=== PATIENT | female | born 1940 | race Caucasian/White ===

== ENCOUNTER 2019-12-26 09:26 | Observation (INO) | payer MEDICARE, SELFPAY ==
[2019-12-26] VITALS (13 sets, daily range): BP systolic 120–159; BP diastolic 50–87; PULSE 70–100; RESP 12–71; TEMP 36.1–36.7; O2SAT 16–100; BMI 26.6
--- NOTE | ~2019-12-26 | CT_ITS ---
EXAMINATION: CT brain wo con DATE: 12/26/2019 09:53 INDICATION: Dizziness TECHNIQUE: Computed tomography (CT) of the head was performed without intravenous contrast. The dose- length product was 605.33 mGy-cm. The mA was adjusted according to patient size. Iterative reconstruc tion technique was employed. COMPARISON: None FINDINGS: There are scattered mild periventricular and subcortical white matter changes, most likely related to small vessel ischemic disease (microangiopathy). No acute intracranial hemorrhage, infarct ion, mass or mass effect. No ventriculomegaly or midline shift. Basilar cisterns are patent. There is mild intracranial atherosclerosis. Paranasal sinuses and mastoids are pneumatized. No depressed skul l fractures. Midline sagittal images are unremarkable. IMPRESSION: 1. No acute intracranial abnormality. 2: Chronic age-related findings. Reviewed, dictated and finalized at location A.
--- NOTE | ~2019-12-26 | XR_ITS ---
EXAMINATION: XR chest 1V 12/26/2019 09:55 INDICATION: Dizziness PROCEDURE: AP view of the chest COMPARISON: 04/07/2017 FINDINGS: The lungs are clear. The cardiomediastinal silhouette is within normal limits. There are no pleural effusions. There is no pneumothorax suspected. IMPRESSION: 1: NO ACUTE CARDIOPULMONARY DISEASE. Reviewed, dictated and finalized at location A.
--- NOTE | 2019-12-26 09:24 | ED.SYNCOPE ---
HPI - Syncope General Chief Complaint: Syncope Stated Complaint: SYNCOPAL EPISODE Time Seen by Provider: 12/26/19 09:24 Source: patient Mode of arrival: EMS Limitations: no limitations History of Present Illness HPI narrative: A 79 y/o female presents to the ED, via EMS, with c/o syncope. Pt states that she was making oatmeal this morning when she started to feel hot and began to sweat. She notes that she sat down in her chair and lost consciousness. Pt does not know how long she lost consciousness, but believes that it was a short amount of time. She denies CP and SOB. Pt has a PMHx of CHF and her director search marketing strategies is Dr. Betancourt. Her blood sugar was 273 en route. Pt is asymptomatic in the ED. MD complaint: loss of consciousness Onset (ago): hour(s) (today) Prodromal symptoms: diaphoresis and other (feeling hot) Context: at rest Injuries sustained associated with event: none Current symptoms: none Related Data Home Medications Medication Instructions Recorded Confirmed aspirin 325 mg PO DAILY 12/26/19 12/26/19 bumetanide 1 mg PO BID 12/26/19 12/26/19 levothyroxine [Synthroid] 12/26/19 lisinopril 12/26/19 metoprolol succinate 50 mg PO DAILY 12/26/19 12/26/19 omeprazole-sodium bicarbonate 1 cap PO DAILY 12/26/19 12/26/19 psyllium husk [Wal-Mucil Fiber] 0.52 g PO DAILY 12/26/19 12/26/19 rosuvastatin [Crestor] mg 12/26/19 Allergies Allergy/AdvReac Type Severity Reaction Status Date / Time No Known Allergies Allergy Mild Verified 12/26/19 09:36 Review of Systems Review of Systems: All systems reviewed & are unremarkable except as noted in HPI and below Constitutional: Constitutional: Reports other (resolved feeling hot) Cardiovascular: Cardiovascular: Denies chest pain and Reports other (resolved diaphoresis) Respiratory: Respiratory: Denies dyspnea Neurologic: Reports syncope [facility] Past Medical History Medical History (Updated 12/26/19 @ 13:34 by Jeff Godfrey DO) Arthritis Breast cancer Bronchitis CAD (coronary artery disease) CHF (congestive heart failure) GERD (gastroesophageal reflux disease) History of radiation therapy HTN (hypertension) Hyperlipidemia Hypothyroid Post-menopausal Surgical History Surgical History (Updated 12/26/19 @ 09:46 by Mariann Harrell) History of appendectomy History of bladder surgery Sling History of cardiac catheterization History of hysterectomy History of lumpectomy of right breast History of tonsillectomy Social History Social History (Updated 12/26/19 @ 09:46 by Mariann Harrell) Smoking status: Former smoker Second hand tobacco smoke exposure: Yes Smoking end date: 10/04/76 Exam Narrative: Exam Narrative: APPEARANCE: No acute distress, nontoxic, resting in bed EYES: EOMI HEENT: Normocephalic, atraumatic, OMM RESPIRATORY: No respiratory distress Clear to auscultation bilaterally with no rhonchi wheezing or rales. CARDIOVASCULAR: Regular rate and rhythm without murmurs rubs or gallops. ABDOMINAL: Soft, nontender, nondistended, no rebound or guarding MUSCULOSKELETAl: Moves all extremities. No clubbing, cyanosis or edema. NEURO: Awake and alert x 3. Following commands, speech normal, no focal deficits SKIN:: Warm, dry. No rashes lesions or abrasions PSYCHIATRIC: Normal affect/mood, Course Course Emergency Course: Discussed with BAKARI Ernst presentation work-up. Agrees with admission at this time Discussed with patient and family results of workup and diagnosis. Discussed need for admission. Patient and family understand and agree to current treatment plan Consultations Consultation #1: Discussed case with BAKARI Munguia to the hospitalist. She accepts admission. Date: 12/26/19 Time: 13:00 Vital Signs Vital signs: Vital Signs Temperature 97.5 F L 12/26/19 09:25 Pulse Rate 74 12/26/19 09:25 Respiratory Rate 12 12/26/19 09:25 Blood Pressure 139/87 12/26/19 09:25 Pulse Oximetry 100 12/26/19 09:25 Temperature 97.5 F L 0
--- NOTE | 2019-12-26 09:28 | ECG_ITS ---
Measurements Intervals [place] Rate: 74 P: 51 [place]: 177 QRS: -33 QRSD: 171 T: 180 QT: 457 QTc: 508 Interpretive Statements SINUS RHYTHM LEFT AXIS DEVIATION LEFT BUNDLE BRANCH BLOCK BASELINE ARTIFACT- I, II, III, AVF, V5 ABNORMAL ECG Electronically Signed On 12-26-2019 10:21:25 CDT by Juan R Armstrong D.O.
[2019-12-26 09:41] LABS: Glucose Point of Care 230 (65-105)
[2019-12-26 09:56] LABS: Basophils Absolute Auto 0.1 K/mm3 (0.0-0.1); Basophils Percent Auto 0.7 % (0.2-1.2); Eosinophils Absolute Auto 0.1 K/mm3 (0-0.3); Eosinophils Percent Auto 1.9 % (0-4.4); Hemoglobin 11.9 g/dL (12.0-15.0); Immature Granulocyte Absolute 0.04 K/mm3 (0.00-0.031); Immature Granulocyte Percent A 0.5 % (0-0.5); Lymphocytes Absolute Auto 1.26 K/mm3 (0.9-3.2); Lymphocytes Percent Auto 16.9 % (18.3-44.2); Mean Corpuscular HGB Conc 31.3 g/dl (32-36); Mean Corpuscular Hemoglobin 28.7 pg (26-34); Mean Corpuscular Volume 91.6 fl (80-100); Mean Platelet Volume 10.4 fl (7.4-10.4); Monocytes Absolute Auto 0.5 K/mm3 (0.1-0.6); Monocytes Percent Auto 6.6 % (2.6-8.5); Neutrophils Absolute Auto 5.5 K/mm3 (1.3-6.7); Neutrophils Percent Auto 73.4 % (45.5-73.1); Platelet Count Result 368 k/mm3 (150-375); Red Blood Count 4.15 M/mm3 (4.2-5.4); Red Cell Distribution Width 14.2 % (11.5-14.5); White Blood Count 7.5 K/mm3 (4.5-10.0)
[2019-12-26 10:06] LABS: INR 0.9; Prothrombin Time 11.7 Seconds (11.1-14.7)
[2019-12-26 10:07] LABS: Partial Thromboplastin Time 24.4 SECONDS (22.3-36.8)
[2019-12-26 10:10] LABS: Alanine Aminotransferase 17 U/L (4-35); Albumin Level 4.4 g/dL (3.5-5.1); Alkaline Phosphatase 52 U/L (38-126); Aspartate Amino Transferase 40 U/L (14-36); Bilirubin,Total 0.5 mg/dL (0.2-1.3); Blood Urea Nitrogen 19 mg/dL (7-17); Calcium 8.9 mg/dL (8.4-10.2); Carbon Dioxide 29 mmol/L (22-30); Chloride 97 mmol/L (98-107); Estimated CRCL calculation 50 ml/min; Estimated Glomerular Filt Rate > 60; Glucose 196 mg/dL (65-105); Potassium 3.8 mmol/L (3.4-5.0); Sodium 136 mmol/L (137-145)
[2019-12-26 10:20] LABS: Troponin I < 0.012 ng/mL (0.000-0.034)
[2019-12-26 10:31] LABS: Add Urine Microscopic? YES; Appearance Urine Clear (Clear); Bacteria Urine Trace /hpf; Bilirubin Urine Negative (Negative); Blood Urine Negative (Negative); Color Urine Yellow (Yellow); Glucose Urine UA Negative (Negative); Ketones Urine Negative (Negative); Leukocyte Esterase Ur Negative LEU/UL (Negative); Nitrate Urine Negative (Negative); Protein Urine Negative (Negative); RBC Urine 0-2 /hpf (0-2); Squamous Epithelial Cell Urine Rare /hpf (Few); Urobilinogen Urine Negative mg/dL (<2.0); WBC Urine 0-3 /hpf
[2019-12-26] MEDS: SODIUM CHLORIDE 0.9% IV 1,000 ML 999 ML IV CONT (10:31)
[2019-12-26 13:07] LABS: Troponin I < 0.012 ng/mL (0.000-0.034)
--- NOTE | 2019-12-26 14:04 | PC.NURSE ---
1323 faxed report 1334 called floor and was told that JARRED Morse was in procedure and would call back when done 1354 called floor again and Mini was then ready to take report
--- NOTE | 2019-12-26 14:05 | ADMGEN ---
This patient, Princess Schulz, was admitted to Medical Room 341-01. Patient/family oriented to hospital policies and general routines including ID bracelet, bed and alarms, visiting hours, pain management, procedures, bathroom and other care routines, personal items, smoking policy, room service/diet, and visiting hours. Valuables list has been completed. Information on how to activate the Rapid Response Team has been discussed. Patient/Family are encouraged to report perceived risks to care and to ask questions if they do not understand what they are told or what they should do.
--- NOTE | 2019-12-26 20:25 | PM.IMHP ---
H&P: HPI History of Present Illness Chief complaint: Passed out Narrative: Date and time of patient contact: 12/26/2019 at 8:25 p.m. Princess Schulz is a 79 year old female with a past medical history of hypertension, CHF and hyperlipidemia who presented to the ER via EMS due to syncope. The patient reported that she felt slightly lightheaded and ?off in the head? when she got out of bed this morning. So she got up and went to the bathroom in then made herself some oatmeal. She started to feel hot as if she was having a hot flash and began sweating. She went to sit down in the living room. She felt better after sitting down but she her hurt her call out to her so she had attempted to stand up. When she did she had a syncopal episode. According to the ER triage patient had passed out for 2-3 minutes. Patient herself states that she was okay as she was only out briefly but gather herself and communicate clearly her had already called EMS. She reports that she will have frequent episodes of ?not feeling right the head.?. She had mention this to Dr. Betancourt, her senior cobol developer, who had given her a book to read about her symptoms. Unfortunately, she lost that book before she could get it read. She reports that the symptoms frequently occur when she gets up quickly to do something. However this is the 1st time that she has noticed that her mouth has been on usually dry today. She feels as if she cannot get enough water. She denies any changes in urinary frequency, urgency or hematuria. She does not have a history of diabetes but was hyperglycemic on presentation to the ER. Her glucose per EMS was 273. The patient states she did eat prior to her syncopal episode. She denies any chest pain or palpitations. She does have a history of systolic congestive heart failure but reports that her EF has improved from 30% up to 48%. Prior to the virus pandemic the patient was going to the gym quite frequently and denied having any dyspnea on exertion, palpitations or chest pain. She has not had any lower extremity swelling. Dr. Betancourt has mentioned to her in the past that she could decrease her Bumex to once a day every other day and see how she tolerates this. She has never tried decreasing her diuretics. The patient reports that her life has been a little bit stressful lately as her currently has prostate cancer and is not doing well. Despite this, she thinks that she has been eating and drinking her usual amount. She has not noticed any decreased urine output or darker urine. Patient has been admitted to observation in this setting. Review of Systems Review of Systems: Narrative: 12 systems were reviewed with pertinent positives and negatives per HPI. Except as documented in the HPI, all other systems were reviewed and are negative. [facility] Past Medical History Medical History (Updated 12/27/19 @ 01:24 by Tanna Henriquez DO) Arthritis Breast cancer in situ Bronchitis GERD (gastroesophageal reflux disease) History of radiation therapy Thirty treatments of localized radiation therapy to right breast HTN (hypertension) Hyperlipidemia Hypothyroid Post-menopausal Systolic congestive heart failure The patient reports that her ejection fraction had been as low as 30% in the past. Through cardiac rehab in medications her EF is up to 48% Surgical History Surgical History (Updated 12/27/19 @ 01:17 by Tanna Henriquez DO) History of appendectomy History of bladder suspension procedure History of cardiac catheterization History of hysterectomy At 36 years of age History of lumpectomy of right breast Due to breast cancer in-situ History of tonsillectomy Family History Family History Mother Colon cancer Social History Social History (Updated 12/27/19 @ 01:42 by Tanna Henriquez DO) Smoking packs per day: 1 Smoking cigarettes per day: 20.0 Years smoked: 2
[2019-12-26] MEDS: SODIUM CHLORIDE 0.9% IV 1,000 ML 100 ML IV CONT (20:46)
[2019-12-26] MEDS: ROSUVASTATIN 10 MG TABLET 40 MG PO (20:46)
[2019-12-27] VITALS (7 sets, daily range): BP systolic 129–141; BP diastolic 50–61; PULSE 67–84; RESP 16; TEMP 36; O2SAT 98
[2019-12-27] MEDS: LEVOTHYROXINE SODIUM 50 MCG TABLET PO (05:48)
--- NOTE | 2019-12-27 06:00 | ECG_ITS ---
Measurements Intervals [place] Rate: 81 P: 47 [place]: 175 QRS: -30 QRSD: 160 T: 207 QT: 432 QTc: 504 Interpretive Statements SINUS RHYTHM LEFT AXIS DEVIATION LEFT BUNDLE BRANCH BLOCK ABNORMAL ECG Electronically Signed On 12-27-2019 9:27:11 CDT by Juan R Armstrong D.O.
[2019-12-27 06:23] LABS: Basophils Absolute Auto 0.1 K/mm3 (0.0-0.1); Basophils Percent Auto 0.7 % (0.2-1.2); Eosinophils Absolute Auto 0.2 K/mm3 (0-0.3); Eosinophils Percent Auto 2.3 % (0-4.4); Hematocrit 33.4 % (37.0-47.0); Hemoglobin 10.4 g/dL (12.0-15.0); Immature Granulocyte Absolute 0.02 K/mm3 (0.00-0.031); Immature Granulocyte Percent A 0.3 % (0-0.5); Lymphocytes Absolute Auto 2.07 K/mm3 (0.9-3.2); Lymphocytes Percent Auto 29.8 % (18.3-44.2); Mean Corpuscular HGB Conc 31.1 g/dl (32-36); Mean Corpuscular Hemoglobin 28.2 pg (26-34); Mean Corpuscular Volume 90.5 fl (80-100); Monocytes Absolute Auto 0.5 K/mm3 (0.1-0.6); Monocytes Percent Auto 7.5 % (2.6-8.5); Neutrophils Absolute Auto 4.1 K/mm3 (1.3-6.7); Neutrophils Percent Auto 59.4 % (45.5-73.1); Platelet Count Result 345 k/mm3 (150-375); Red Blood Count 3.69 M/mm3 (4.2-5.4); Red Cell Distribution Width 13.8 % (11.5-14.5)
[2019-12-27] MEDS: SODIUM CHLORIDE 0.9% IV 1,000 ML 100 ML IV CONT (06:25)
[2019-12-27 06:30] LABS: Hemoglobin A1C 5.7 % (<5.7)
[2019-12-27 07:02] LABS: Blood Urea Nitrogen 13 mg/dL (7-17); Calcium 8.7 mg/dL (8.4-10.2); Carbon Dioxide 26 mmol/L (22-30); Chloride 107 mmol/L (98-107); Estimated CRCL calculation 49 ml/min; Estimated Glomerular Filt Rate > 60; Glucose 102 mg/dL (65-105); Potassium 3.5 mmol/L (3.4-5.0); Sodium 137 mmol/L (137-145)
[2019-12-27] MEDS: lisinopriL 10 MG TABLET PO (09:23)
[2019-12-27] MEDS: METOPROLOL SUCCINATE EXT REL 50 MG TABCR PO (09:23)
[2019-12-27] MEDS: PANTOPRAZOLE 40 MG TABLET PO (09:23)
[2019-12-27] MEDS: ASPIRIN 325 MG TABLET PO (09:23)
[2019-12-27] MEDS: BUMETANIDE 1 MG TABLET PO (09:23)
--- NOTE | 2019-12-27 09:41 | PCPTNOTE ---
Attempted PT eval. Pt refused therapy as she is walking in room. Denies any dizziness or being lightheaded. Spoke w/ Dr Chahalf and he agreed w/ DC'ing therapy.
--- NOTE | 2019-12-27 09:56 | PM.DS ---
DS: Diagnosis Admitting Diagnosis Admitting Diagnosis: Orthostatic hypotension Discharge Diagnosis (1) Orthostatic syncope: Code(s): I95.1 - Orthostatic hypotension Status: Acute Assessment and Plan: Given the patient's complaint of new onset dry mouth, and elevated BUN that coincide with diuretic use the patient's symptoms are most likely due to orthostatic syncope caused by dehydration. However patient did have prolonged QT interval on EKG. Will continue to monitor on telemetry and repeat EKG in a.m. (2) QT prolongation: Code(s): R94.31 - Abnormal electrocardiogram [ECG] [EKG] Status: Acute Assessment and Plan: The patient is not on any medications that would cause QT prolongation. Will repeat EKG in a.m. will avoid any QT prolonging medications. (3) Dehydration: Code(s): E86.0 - Dehydration Status: Acute Assessment and Plan: Continue IV fluid hydration. The patient had received 1 L of normal in the ER. The patient's evening Bumex has been held. Will change her Bumex to once daily in a.m.. (4) Hyperglycemia: Code(s): R73.9 - Hyperglycemia, unspecified Status: Acute Assessment and Plan: The patient had just eaten breakfast prior to arriving to the ER. However will check an A1c to rule out diabetes. DS: Summary Hospital Course Reason for hospitalization: Princess Schulz is a 79 year old female with a past medical history of hypertension, CHF and hyperlipidemia who presented to the ER via EMS due to syncope. The patient reported that she felt slightly lightheaded and ?off in the head? when she got out of bed this morning. So she got up and went to the bathroom in then made herself some oatmeal. She started to feel hot as if she was having a hot flash and began sweating. She went to sit down in the living room. She felt better after sitting down but she her hurt her call out to her so she had attempted to stand up. When she did she had a syncopal episode. According to the ER triage patient had passed out for 2-3 minutes. Patient herself states that she was okay as she was only out briefly but gather herself and communicate clearly her had already called EMS. She reports that she will have frequent episodes of ?not feeling right the head.?. She had mention this to Dr. Betancourt, her container washer machine, who had given her a book to read about her symptoms. Unfortunately, she lost that book before she could get it read. She reports that the symptoms frequently occur when she gets up quickly to do something. However this is the 1st time that she has noticed that her mouth has been on usually dry today. She feels as if she cannot get enough water. She denies any changes in urinary frequency, urgency or hematuria. She does not have a history of diabetes but was hyperglycemic on presentation to the ER. Her glucose per EMS was 273. The patient states she did eat prior to her syncopal episode. She denies any chest pain or palpitations. She does have a history of systolic congestive heart failure but reports that her EF has improved from 30% up to 48%. Prior to the virus pandemic the patient was going to the gym quite frequently and denied having any dyspnea on exertion, palpitations or chest pain. She has not had any lower extremity swelling. Dr. Betancourt has mentioned to her in the past that she could decrease her Bumex to once a day every other day and see how she tolerates this. She has never tried decreasing her diuretics. The patient reports that her life has been a little bit stressful lately as her currently has prostate cancer and is not doing well. Despite this, she thinks that she has been eating and drinking her usual amount. She has not noticed any decreased urine output or darker urine. Hospital Course: Given the patient's complaint of new onset dry mouth, and elevated BUN that coincide with diuretic use the patient's symptoms are most likely due
== END 2019-12-27 11:13 | disposition home or self-care (01) ==
LOC: ANHED 13:34 → ANH3MED 23:58
PROVIDERS: Internal Medicine; Admitting Provider Internal Medicine; Emergency Provider Emergency Medicine; PCP Internal Medicine; Visit Provider Family Medicine
DX: E86.0 Dehydration (principal); I95.1 Orthostatic hypotension; R94.31 Abnormal electrocardiogram [ECG] [EKG]; R73.9 Hyperglycemia, unspecified; I25.10 Atherosclerotic heart disease of native coronary artery without angina pectoris; I11.0 Hypertensive heart disease with heart failure; I50.22 Chronic systolic (congestive) heart failure; E03.9 Hypothyroidism, unspecified; E78.5 Hyperlipidemia, unspecified; Z78.0 Asymptomatic menopausal state; Z79.82 Long term (current) use of aspirin; Z79.899 Other long term (current) drug therapy; Z87.891 Personal history of nicotine dependence; Z85.3 Personal history of malignant neoplasm of breast
CPT/HCPCS: 36415; 70450; 71045; 80048; 80053; 81001; 82948; 83036; 84484; 85025; 85610; 85730; 93005; 96360; 96361; 99285; A9270; G0378; J7030

== ENCOUNTER 2022-03-23 01:25 | Emergency (ER) | payer MEDICARE, SELFPAY ==
--- NOTE | ~2022-03-23 | CT_ITS ---
EXAMINATION: CTA chest PE protocol DATE: 03/23/2022 03:19 INDICATION: Hemoptysis. TECHNIQUE: Computed tomography angiography (CTA) of the chest was performed with 100 mL Omnipaque-350 intravenous contrast timed to evaluate the pulmonary arteries. Coronal maximum intensity projection 3D-reconstructions were created by the technologist. Automated exposure control and iterative reconst ruction technique were employed. The dose-length product was 307.18 mGy-cm. COMPARISON: None. FINDINGS: The lungs demonstrate smooth septal thickening and groundglass opacities, consistent with p ulmonary edema. There are small pleural effusions. There is left atrial and left ventricular enlargem ent of the heart. There are coronary artery calcifications. No pericardial effusion. There is no pulm onary embolus. There is moderate thoracic spondylosis. IMPRESSION: 1. No pulmonary embolus. 2. Moderate pulmonary edema with small pleural effusions. 3. Cardiomegaly. Reviewed, dictated and finalized at location A.
--- NOTE | ~2022-03-23 | XR_ITS ---
EXAMINATION: XR chest 2V DATE: 03/23/2022 02:08 INDICATION: Dyspnea. Hemoptysis. TECHNIQUE: Frontal and lateral views of the chest were obtained. COMPARISON: Chest CT 03/23/2022 FINDINGS: There is a diffuse interstitial pattern in the lungs, consistent with mild pulmonary edema. No pleural effusion of pneumothorax. The heart size is normal. There are surgical clips in right mila ast. IMPRESSION: 1. Mild pulmonary edema. Reviewed, dictated and finalized at location A. IMPRESSION: 1. Mild pulmonary edema.
[2022-03-23 01:31] VITALS: BP 180/83; PULSE 92; RESP 14; TEMP 36.6; O2SAT 96
--- NOTE | 2022-03-23 01:34 | ECG_ITS ---
Measurements Intervals [place] Rate: 87 P: 55 [place]: 144 QRS: -25 QRSD: 152 T: 147 QT: 408 QTc: 493 Interpretive Statements SINUS RHYTHM LEFTWARD AXIS DEVIATION LEFT BUNDLE-BRANCH BLOCK ABNORMAL ECG COMPARED TO ECG 12/27/2019 09:11:40 NO SIGNIFICANT CHANGE Electronically Signed On 03-23-2022 14:31:01 CDT by Too Del Angel M.D.
--- NOTE | 2022-03-23 01:36 | ED.SOB ---
HPI - SOB/Dyspnea General Chief Complaint: Shortness of Breath/Dyspnea Stated Complaint: short of breath History of Present Illness HPI Narrative: 81-year-old female brought in by ambulance secondary to cough, congestion, shortness of breath, and hemoptysis. She states she was in her normal state of health until few hours ago when she began coughing and coughed up some blood. She had no chills or fevers. She does have a history of cardiac disease including congestive heart failure. Sounds like she had an echocardiogram done not that long ago which showed an ejection fraction about 45 to 50%. In the past her ejection fraction was down to 35%. She denies any chest pain or pressure. She is fully vaccinated for COVID including booster. No one else at home has been sick. She is currently helping take care of her who is got advanced prostate cancer. Related Data Home Medications Medication Instructions Recorded Confirmed aspirin 325 mg tablet 325 mg PO DAILY 12/26/19 12/26/19 bumetanide 1 mg tablet 1 mg PO BID 12/26/19 12/26/19 levothyroxine 50 mcg tablet 50 mcg PO DAILY 12/26/19 12/26/19 (Synthroid) lisinopril 10 mg tablet 10 mg PO DAILY 12/26/19 12/26/19 metoprolol succinate 50 mg capsule 50 mg PO DAILY 12/26/19 12/26/19 sprinkle, ext. release 24 hr omeprazole 20 mg-sodium 1 cap PO DAILY 12/26/19 12/26/19 bicarbonate 1.1 gram capsule psyllium husk 0.52 gram capsule 0.52 g PO DAILY 12/26/19 12/26/19 (Wal-Mucil Fiber) rosuvastatin 40 mg tablet (Crestor) 40 mg PO HS 12/26/19 12/26/19 Allergies Allergy/AdvReac Type Severity Reaction Status Date / Time iodine Allergy Severe Swelling Verified 12/26/19 16:06 of Lip/Tongue/Throat Review of Systems Review of Systems: CONSTITUTIONAL: Denies fever, chills, or sweats. EYES: Denies visual changes, redness, or discharge. ENT: Denies rhinorrhea, congestion, sore throat, or otalgia. CARDIOVASCULAR: Denies chest pain, palpitations, or edema. RESPIRATORY: Cough, dyspnea, and hemoptysis GASTROINTESTINAL: Denies abdominal pain, nausea, vomiting, or diarrhea. GENITOURINARY: Denies dysuria or hematuria. SKIN: Denies rash or itching. MUSCULOSKELETAL: Denies back pain, joint pain, or myalgia. NEUROLOGIC: Denies headache, numbness, or weakness. PSYCHIATRIC: Denies anxiety or depression. [facility] Past Medical History Medical History Arthritis Breast cancer in situ Bronchitis GERD (gastroesophageal reflux disease) History of radiation therapy Thirty treatments of localized radiation therapy to right breast HTN (hypertension) Hyperlipidemia Hypothyroid Post-menopausal Systolic congestive heart failure The patient reports that her ejection fraction had been as low as 30% in the past. Through cardiac rehab in medications her EF is up to 48% Surgical History Surgical History History of appendectomy History of bladder suspension procedure History of cardiac catheterization History of hysterectomy At 36 years of age History of lumpectomy of right breast Due to breast cancer in-situ History of tonsillectomy Family History Family History Mother Colon cancer Social History Social History Smoking packs per day: 1 Smoking cigarettes per day: 20.0 Years smoked: 20 Smoking pack-years: 20.00 Smoking status: Former smoker Second hand tobacco smoke exposure: Yes Smoking end date: 10/04/76 Alcohol intake: never Substance use: never Additional living arrangements comments: She lives with her of 60 years in [place]. Spiritual care concerns: No Agree to blood products: Yes Exam Narrative: APPEARANCE: Well appearing, no pain or distress, well-nourished. Head normocephalic and atraumatic. EYES: PERRLA/EOMI, conju
[2022-03-23 01:39] VITALS: PULSE 93; O2SAT 97
[2022-03-23 01:53] VITALS: BP 182/79; PULSE 83; RESP 16; O2SAT 94
[2022-03-23 01:57] LABS: Basophils Absolute Auto 0.1 K/mm3 (0.0-0.1); Basophils Percent Auto 0.8 % (0.2-1.2); Eosinophils Absolute Auto 0.3 K/mm3 (0-0.3); Eosinophils Percent Auto 3.7 % (0-4.4); Hematocrit 34.2 % (37.0-47.0); Hemoglobin 10.4 g/dL (12.0-15.0); Immature Granulocyte Absolute 0.02 K/mm3 (0.00-0.031); Immature Granulocyte Percent A 0.2 % (0-0.5); Lymphocytes Absolute Auto 1.91 K/mm3 (0.9-3.2); Lymphocytes Percent Auto 21.3 % (18.3-44.2); Mean Corpuscular HGB Conc 30.4 g/dl (32-36); Mean Corpuscular Hemoglobin 26.4 pg (26-34); Mean Corpuscular Volume 86.8 fl (80-100); Mean Platelet Volume 9.8 fl (7.4-10.4); Monocytes Absolute Auto 0.6 K/mm3 (0.1-0.6); Monocytes Percent Auto 6.6 % (2.6-8.5); Neutrophils Percent Auto 67.4 % (45.5-73.1); Platelet Count Result 384 k/mm3 (150-375); Red Blood Count 3.94 M/mm3 (4.2-5.4); Red Cell Distribution Width 15.1 % (11.5-14.5)
[2022-03-23 02:07] LABS: Prothrombin Time 12.8 Seconds (11.1-14.7)
[2022-03-23 02:08] LABS: Partial Thromboplastin Time 26.7 SECONDS (22.3-36.8)
[2022-03-23 02:10] LABS: Alanine Aminotransferase 13 U/L (6-35); Albumin Level 3.9 g/dL (3.5-5.1); Alkaline Phosphatase 62 U/L (38-126); Anion Gap 5 mmol/L (8-16); Aspartate Amino Transferase 23 U/L (14-36); Bilirubin,Total 0.1 mg/dL (0.2-1.3); Blood Urea Nitrogen 22 mg/dL (7-17); Calcium 8.5 mg/dL (8.4-10.2); Carbon Dioxide 24 mmol/L (22-30); Chloride 106 mmol/L (98-107); Estimated CRCL calculation 48 ml/min; Estimated Glomerular Filt Rate > 60; Glucose 120 mg/dL (65-110); Potassium 3.7 mmol/L (3.4-5.0); Sodium 135 mmol/L (137-145)
[2022-03-23 02:11] LABS: D Dimer 1.01 ug/mL (<0.48)
[2022-03-23 02:22] LABS: NT Pro B Type Natriuretic Pept 654 pg/mL (5-100); Troponin I < 0.012 ng/mL (0.000-0.034)
[2022-03-23 02:33] LABS: SARS-CoV-2 RNA PCR Negative
[2022-03-23] MEDS: diphenhydrAMINE HCl INJ 50 MG/ML VIAL 25 MG IV PUSH (03:00)
[2022-03-23] MEDS: methylPREDNISolone SOD SUCC 125 MG VIAL IV PUSH (03:00)
[2022-03-23 03:31] VITALS: BP 161/65; PULSE 76; RESP 12; O2SAT 94
[2022-03-23 05:00] VITALS: BP 154/66; PULSE 83; RESP 20; O2SAT 94
[2022-03-23] MEDS: FUROSEMIDE INJ 40 MG/4 ML VIAL IV PUSH (05:00)
[2022-03-23 05:15] VITALS: BP 159/72; PULSE 81; RESP 19; O2SAT 95
== END 2022-03-23 05:28 | disposition home or self-care (01) ==
PROVIDERS: Emergency Provider Emergency Medicine; PCP Internal Medicine
DX: I50.20 Unspecified systolic (congestive) heart failure (principal); R04.2 Hemoptysis; Z20.822 Contact with and (suspected) exposure to COVID-19; E78.5 Hyperlipidemia, unspecified; I11.0 Hypertensive heart disease with heart failure; E03.9 Hypothyroidism, unspecified; M19.90 Unspecified osteoarthritis, unspecified site; K21.9 Gastro-esophageal reflux disease without esophagitis; Z92.3 Personal history of irradiation; I44.7 Left bundle-branch block, unspecified; I51.7 Cardiomegaly; J81.1 Chronic pulmonary edema; Z90.710 Acquired absence of both cervix and uterus; Z85.3 Personal history of malignant neoplasm of breast; Z87.891 Personal history of nicotine dependence
CPT/HCPCS: 36415; 71046; 71275; 80053; 83880; 84484; 85025; 85380; 85610; 85730; 93005; 96374; 96375; 99284; C9803; J1200; J1940; J2930; Q9967; U0003; U0005

== ENCOUNTER 2023-05-21 14:08 | Emergency (ER) | payer MEDICARE, SELFPAY ==
--- NOTE | ~2023-05-21 | CT_ITS ---
EXAMINATION: CT brain wo con DATE: 05/21/2023 17:04 INDICATION: syncope . TECHNIQUE: Computed tomography (CT) of the head was performed without intravenous contrast. The mA wa s adjusted according to patient size. Iterative reconstruction technique was employed. The dose-lengt h product was 605.33 mGy-cm. COMPARISON: 12/26/2019. FINDINGS: No acute intracranial hemorrhage or extra-axial fluid collection. No hydrocephalus, mass, or herniation. No acute ischemic infarct. Unremarkable dural venous sinus attenuation. No acute osseous abnormality. The aerated spaces are clear. Mild atrophy and chronic white matter change. Atherosclerotic intracranial calcification. IMPRESSION: No acute intracranial process. Reviewed, dictated and finalized at location [facility].
--- NOTE | ~2023-05-21 | XR_ITS ---
EXAM: XR ankle LT min 3V DATE: 05/21/2023 16:09 HISTORY: syncopal episode with ankle pain, FELL TODAY . COMPARISON: None available. FINDINGS: Decreased mineralization. No fracture or dislocation. No lytic or blastic lesion. Joint sp aces are mild degenerative change in the tibiotalar joint. Small enthesophyte, osteophyte, or osteoch ondroma along the dorsal aspect of the anterior talus. Mild plantar enthesopathy. No erosion or perio steal change. Soft tissues within normal limits. IMPRESSION: No acute osseous finding in the left ankle. Reviewed, dictated and finalized at location [facility].
[2023-05-21 14:16] VITALS: BP 146/68; PULSE 78; RESP 14; TEMP 36.7; O2SAT 100
--- NOTE | 2023-05-21 14:18 | ECG_ITS ---
Measurements Intervals [place] Rate: 79 P: 48 [place]: 165 QRS: -35 QRSD: 158 T: 208 QT: 418 QTc: 480 Interpretive Statements SINUS RHYTHM LEFT BUNDLE BRANCH BLOCK ABNORMAL ECG COMPARED TO ECG 03/23/2022 01:33:56 NO DIFFERENCE Electronically Signed On 05-21-2023 16:11:57 CDT by Atilio Villagomez M.D.
[2023-05-21 14:43] LABS: Basophils Absolute Auto 0.1 K/mm3 (0.0-0.1); Basophils Percent Auto 0.5 % (0.2-1.2); Eosinophils Absolute Auto 0.2 K/mm3 (0-0.3); Eosinophils Percent Auto 1.8 % (0-4.4); Hematocrit 42.4 % (37.0-47.0); Hemoglobin 13.4 g/dL (12.0-15.0); Immature Granulocyte Absolute 0.06 K/mm3 (0.00-0.031); Immature Granulocyte Percent A 0.5 % (0-0.5); Lymphocytes Percent Auto 9.8 % (18.3-44.2); Mean Corpuscular HGB Conc 31.6 g/dl (32-36); Mean Corpuscular Hemoglobin 28.4 pg (26-34); Mean Corpuscular Volume 89.8 fl (80-100); Monocytes Absolute Auto 0.9 K/mm3 (0.1-0.6); Neutrophils Absolute Auto 8.9 K/mm3 (1.3-6.7); Neutrophils Percent Auto 79.4 % (45.5-73.1); Platelet Count Result 324 k/mm3 (150-375); Red Blood Count 4.72 M/mm3 (4.2-5.4); White Blood Count 11.2 K/mm3 (4.5-10.0)
[2023-05-21 14:52] LABS: Alanine Aminotransferase 20 U/L (6-35); Albumin Level 4.4 g/dL (3.5-5.1); Alkaline Phosphatase 65 U/L (38-126); Anion Gap 10 mmol/L (8-16); Aspartate Amino Transferase 30 U/L (14-36); Bilirubin,Total 0.4 mg/dL (0.2-1.3); Blood Urea Nitrogen 24 mg/dL (7-17); Calcium 9.1 mg/dL (8.4-10.2); Carbon Dioxide 28 mmol/L (22-30); Chloride 98 mmol/L (98-107); Estimated CRCL calculation 35 ml/min; Estimated Glomerular Filt Rate 48; Glucose 131 mg/dL (65-110); Sodium 136 mmol/L (137-145)
[2023-05-21 16:40] VITALS: PULSE 78; O2SAT 97
--- NOTE | 2023-05-21 16:42 | ED.DIZZY ---
HPI - Dizziness General Chief Complaint: Syncope Stated Complaint: syncope, knee and ankle pain Time Seen by Provider: 05/21/23 16:30 Source: patient Mode of arrival: ambulatory Limitations: no limitations History of Present Illness HPI Narrative: This is an 82-year-old female with PMH systolic HF, hypothyroid, HTN who presents to the ED with chief complaint of syncopal episode occurring this afternoon just prior to arrival. Patient states that she was trialing some peppermint extract to help with abdominal bloating. She states this started to make her feel nauseated and diaphoretic after taking this. She then felt some lightheadedness and was trying to get to the bathroom when she had the syncopal episode. She states that she must of come to shortly after and she was able to get herself to the bathroom and called her son. Her son is here and supplementing history. He states that she did look pale and diaphoretic upon his arrival. They took her blood pressure and it was normal at that time. Patient states that she had been feeling fine otherwise lately. Denies any recent illness. Denies any preceding shortness of breath, chest pain, recent leg swelling. She states she has been doing very well with her heart and has had a normal echo within the last couple of years. She states the main reason she is here today is because she is having left ankle pain due to the fall. Denies any further site of pain or injury. Denies headache, neck pain, numbness, weakness, speech problems. Related Data Home Medications Medication Instructions Recorded Confirmed aspirin 325 mg tablet 325 mg PO DAILY 12/26/19 12/26/19 bumetanide 1 mg tablet 1 mg PO BID 12/26/19 12/26/19 levothyroxine 50 mcg tablet 50 mcg PO DAILY 12/26/19 12/26/19 (Synthroid) lisinopril 10 mg tablet 10 mg PO DAILY 12/26/19 12/26/19 metoprolol succinate 50 mg capsule 50 mg PO DAILY 12/26/19 12/26/19 sprinkle, ext. release 24 hr omeprazole 20 mg-sodium 1 cap PO DAILY 12/26/19 12/26/19 bicarbonate 1.1 gram capsule psyllium husk 0.52 gram capsule 0.52 g PO DAILY 12/26/19 12/26/19 (Wal-Mucil Fiber) rosuvastatin 40 mg tablet (Crestor) 40 mg PO HS 12/26/19 12/26/19 Allergies Allergy/AdvReac Type Severity Reaction Status Date / Time iodine Allergy Severe Swelling Verified 05/21/23 14:25 of Lip/Tongue/Throat Review of Systems Review of Systems: All systems as dictated in [facility] Past Medical History Medical History Arthritis Breast cancer in situ Bronchitis GERD (gastroesophageal reflux disease) History of radiation therapy Thirty treatments of localized radiation therapy to right breast HTN (hypertension) Hyperlipidemia Hypothyroid Post-menopausal Systolic congestive heart failure The patient reports that her ejection fraction had been as low as 30% in the past. Through cardiac rehab in medications her EF is up to 48% Surgical History Surgical History History of appendectomy History of bladder suspension procedure History of cardiac catheterization History of hysterectomy At 36 years of age History of lumpectomy of right breast Due to breast cancer in-situ History of tonsillectomy Family History Family History Mother Colon cancer Social History Social History Smoking packs per day: 1 Smoking cigarettes per day: 20.0 Years smoked: 20 Smoking pack-years: 20.00 Smoking status: Former smoker Second hand tobacco smoke exposure: Yes Smoking end date: 10/04/76 Alcohol intake: never Substance use: never Living arrangements: with family Additional living arrangements comments: She lives with her of 60 years in [place]. Occupation/Education: retired Gender identity (if verbalized by the
[2023-05-21 18:04] LABS: Appearance Urine Clear (Clear); Bacteria Urine None Seen /hpf; Bilirubin Urine Negative (Negative); Blood Urine Negative (Negative); Color Urine Yellow (Yellow); Glucose Urine UA Negative (Negative); Ketones Urine Negative (Negative); Leukocyte Esterase Ur 1+ LEU/UL (Negative); Nitrate Urine Negative (Negative); Protein Urine Trace mg/dL (Negative); RBC Urine 0-2 /hpf (0-2); Specific Grav Ur 1.017 (1.001-1.035); Squamous Epithelial Cell Urine Occasional /hpf (Few); Urobilinogen Urine 0.2 mg/dL (<2.0); pH Urine 5.5 (5.0-9.0)
[2023-05-21 18:09] LABS: Add Urine Microscopic? YES
[2023-05-21] MEDS: SODIUM CHLORIDE 0.9% IV 1,000 ML 999 ML IV CONT (18:09)
--- NOTE | 2023-05-29 12:16 | PC.NURSE ---
Late entry - 1000mL of NS completed infusion at 1845. 8
== END 2023-05-21 18:58 | disposition home or self-care (01) ==
PROVIDERS: Emergency Medicine; Emergency Provider Physician Assistant; PCP Nurse Practitioner
DX: R55 Syncope and collapse (principal); S99.912A Unspecified injury of left ankle, initial encounter; I50.20 Unspecified systolic (congestive) heart failure; I11.0 Hypertensive heart disease with heart failure; E78.5 Hyperlipidemia, unspecified; E03.9 Hypothyroidism, unspecified; K21.9 Gastro-esophageal reflux disease without esophagitis; M19.90 Unspecified osteoarthritis, unspecified site; R82.998 Other abnormal findings in urine; Z92.3 Personal history of irradiation; Z79.82 Long term (current) use of aspirin; Z90.710 Acquired absence of both cervix and uterus; Z87.891 Personal history of nicotine dependence; Z85.3 Personal history of malignant neoplasm of breast; I44.7 Left bundle-branch block, unspecified; W18.39XA Other fall on same level, initial encounter
CPT/HCPCS: 36415; 70450; 73610; 80053; 81001; 85025; 87086; 87147; 87181; 87186; 93005; 96360; 99284; J7030

== ENCOUNTER 2023-06-02 08:18 | Emergency (ER) | payer MEDICARE, SELFPAY ==
[2023-06-02] VITALS (8 sets, daily range): BP systolic 142–177; BP diastolic 67–82; PULSE 67–85; RESP 18; TEMP 36.4; O2SAT 96–100
--- NOTE | ~2023-06-02 | US_ITS ---
US right upper quadrant DATE: 06/02/2023 09:36 INDICATION: Epigastric abdominal pain TECHNIQUE: Real-time imaging of liver, pancreas, gallbladder areas COMPARISON: None FINDINGS: The pancreas is largely obscured by bowel gas. There is an approximately 2 x 2.9 cm hyperechoic area within the central hepatic area; diffusion raymundo gnosis includes focal fatty infiltration versus hemangioma. Consider CT or MR liver examination for f urther evaluation. Normal hepatopedal portal venous flow direction. Suboptimal distention of the gallbladder; patient reportedly ate 2.5 hours ago. Most optimal evaluati on of the gallbladder would be obtained sonographically after 8 hours fasting. No gallstones or gallb ladder wall thickening are noted. Negative sonographic Vickers's sign. The common bile duct measures 4 .6 mm, normal. IMPRESSION: Pancreas is largely obscured by bowel gas Approximately 2 x 2.9 cm hyperechoic central hepatic lesion; differential diagnosis includes focal he patic steatosis, hemangioma; consider CT or MR liver examination Reviewed, dictated and finalized at [facility]. Reviewed, dictated and finalized at location B. IMPRESSION: Pancreas is largely obscured by bowel gas Approximately 2 x 2.9 cm hyperechoic central hepatic lesion; differential diagn osis includes focal hepatic steatosis, hemangioma; consider CT or MR liver exam ination
--- NOTE | ~2023-06-02 | CT_ITS ---
EXAMINATION: CT abdomen pelvis wo con DATE: 06/02/2023 11:01 INDICATION: Hyperechoic hepatic lesion noted on 06/02/2023 abdominal ultrasound examination TECHNIQUE: Computed tomography (CT) of the abdomen and pelvis was performed without intravenous contr ast. Automated exposure control and iterative reconstruction technique were employed. Exam dose: 431 .79 mGy-cm total exam DLP. COMPARISON: October 02, 2023 right upper quadrant abdominal ultrasound 03/23/2022 CTA chest FINDINGS: No hepatic space-occupying mass lesion is evident on this limited noncontrast examination. (Intravenous contrast material was not administered due to reported allergy to contrast material-swel ling of left). There is relatively uniform hepatic density. The liver does not appear significantly c hanged compared to 03/23/2022 CTA chest examination with IV contrast material. The gallbladder is present. No gallbladder wall thickening or pericholecystic fluid or fat stranding. No bile duct or pancreatic duct dilatation. No pancreatic mass lesion or calcification. Normal splen ic size. Normal morphology of the adrenal glands. No renal mass lesion is evident. No urinary tract calculus or hydroureteronephrosis is detected. The urinary bladder is unremarkable. Status post hysterectomy. There is atherosclerotic calcification but normal caliber of the abdominal aorta. No intraperitoneal or retroperitoneal or pelvic mass lesion or adenopathy or ascites is detected. No bowel obstruction or intraperitoneal free air. Very small fat-containing umbilical hernia. There is a scar along the right anterior abdominal wall. The appendix is not visualized. Prominent degenerative disc disease at L4-5 and L5-S1 IMPRESSION: No correlate for the hepatic ultrasound finding is noted on this limited noncontrast CT examination Reviewed, dictated and finalized at [facility]. Reviewed, dictated and finalized at location B. IMPRESSION: No correlate for the hepatic ultrasound finding is noted on this l imited noncontrast CT examination
--- NOTE | 2023-06-02 08:57 | ECG_ITS ---
Measurements Intervals [place] Rate: 79 P: 34 MN: 170 QRS: -39 QRSD: 160 T: 167 QT: 425 QTc: 490 Interpretive Statements SINUS RHYTHM MARKED LEFT AXIS DEVIATION [QRS AXIS < -30] LEFT BUNDLE-BRANCH BLOCK ABNORMAL ECG COMPARED TO ECG 05/21/2023 14:30:45 LEFT-AXIS DEVIATION NOW PRESENT INTRAVENTRICULAR CONDUCTION DELAY NOW PRESENT Electronically Signed On 06-02-2023 9:19:29 CDT by Tan Andujar M.D.
[2023-06-02 09:50] LABS: Basophils Absolute Auto 0.1 K/mm3 (0.0-0.1); Basophils Percent Auto 0.8 % (0.2-1.2); Eosinophils Absolute Auto 0.2 K/mm3 (0-0.3); Eosinophils Percent Auto 2.9 % (0-4.4); Hematocrit 41.3 % (37.0-47.0); Immature Granulocyte Absolute 0.03 K/mm3 (0.00-0.031); Immature Granulocyte Percent A 0.4 % (0-0.5); Lymphocytes Absolute Auto 1.11 K/mm3 (0.9-3.2); Lymphocytes Percent Auto 14.4 % (18.3-44.2); Mean Corpuscular HGB Conc 31.5 g/dl (32-36); Mean Corpuscular Hemoglobin 28.1 pg (26-34); Mean Corpuscular Volume 89.4 fl (80-100); Mean Platelet Volume 9.7 fl (7.4-10.4); Monocytes Absolute Auto 0.8 K/mm3 (0.1-0.6); Neutrophils Absolute Auto 5.5 K/mm3 (1.3-6.7); Neutrophils Percent Auto 71.5 % (45.5-73.1); Platelet Count Result 388 k/mm3 (150-375); Red Blood Count 4.62 M/mm3 (4.2-5.4); Red Cell Distribution Width 14.4 % (11.5-14.5); White Blood Count 7.7 K/mm3 (4.5-10.0)
[2023-06-02 09:55] LABS: Appearance Urine Cloudy (Clear); Bacteria Urine None Seen /hpf; Bilirubin Urine Negative (Negative); Blood Urine Negative (Negative); Color Urine Yellow (Yellow); Glucose Urine UA Negative (Negative); Ketones Urine Negative (Negative); Leukocyte Esterase Ur Negative LEU/UL (Negative); Nitrate Urine Negative (Negative); Non Pathogenic Casts 0-2; Protein Urine Negative (Negative); RBC Urine 0-2 /hpf (0-2); Specific Grav Ur 1.008 (1.001-1.035); Squamous Epithelial Cell Urine None seen /hpf (Few); Urobilinogen Urine 0.2 mg/dL (<2.0); WBC Urine 0-5 /hpf; pH Urine 6.5 (5.0-9.0)
[2023-06-02 09:56] LABS: Add Urine Microscopic? YES
[2023-06-02 10:03] LABS: Alanine Aminotransferase 17 U/L (6-35); Albumin Level 4.5 g/dL (3.5-5.1); Alkaline Phosphatase 64 U/L (38-126); Anion Gap 13 mmol/L (8-16); Aspartate Amino Transferase 26 U/L (14-36); Bilirubin,Total 0.5 mg/dL (0.2-1.3); Blood Urea Nitrogen 21 mg/dL (7-17); Calcium 9.6 mg/dL (8.4-10.2); Carbon Dioxide 26 mmol/L (22-30); Chloride 99 mmol/L (98-107); Estimated CRCL calculation 34 ml/min; Estimated Glomerular Filt Rate 48; Glucose 117 mg/dL (65-110); Lipase 200 U/L (23-300); Potassium 3.9 mmol/L (3.4-5.0); Sodium 138 mmol/L (137-145)
--- NOTE | 2023-06-02 10:37 | ED.GENADULT ---
HPI - General Adult General Chief complaint: Unspecified Stated complaint: multiple complaints Time Seen by Provider: 06/02/23 08:24 History of Present Illness HPI narrative: Patient is an 82-year-old female who presents ER with abdominal cramping. Ongoing over the last couple weeks. Was previously seen in the ER after having a vasovagal event after some of her cramping. Reports its not necessarily aggravated by eating or drinking. She is found no alleviating factors. No radiation of the discomfort. It is mainly in the upper abdomen and will bloat out. Sometimes she feels a lump in her upper abdomen. No fevers or chills or sweats. No recurrent loss of consciousness. No chest pain or chest pressure. She does still have a gallbladder. No urinary frequency urgency or dysuria. Related Data Home Medications Medication Instructions Recorded Confirmed aspirin 325 mg tablet 325 mg PO DAILY 12/26/19 12/26/19 bumetanide 1 mg tablet 1 mg PO BID 12/26/19 12/26/19 levothyroxine 50 mcg tablet 50 mcg PO DAILY 12/26/19 12/26/19 (Synthroid) lisinopril 10 mg tablet 10 mg PO DAILY 12/26/19 12/26/19 metoprolol succinate 50 mg capsule 50 mg PO DAILY 12/26/19 12/26/19 sprinkle, ext. release 24 hr omeprazole 20 mg-sodium 1 cap PO DAILY 12/26/19 12/26/19 bicarbonate 1.1 gram capsule psyllium husk 0.52 gram capsule 0.52 g PO DAILY 12/26/19 12/26/19 (Wal-Mucil Fiber) rosuvastatin 40 mg tablet (Crestor) 40 mg PO HS 12/26/19 12/26/19 Allergies Allergy/AdvReac Type Severity Reaction Status Date / Time iodine Allergy Severe Swelling Verified 06/02/23 08:50 of Lip/Tongue/Throat Review of Systems Review of Systems: All systems reviewed & are unremarkable except as noted in HPI and below Constitutional: Constitutional: Denies chills and Denies fever(s) ENT: Reports system reviewed and no additional complaints, except as documented Cardiovascular: Cardiovascular: Reports no additional cardiovascular complaints Respiratory: Respiratory: Reports no additional respiratory complaints Gastrointestinal: Gastrointestinal: Reports abdominal pain, Denies belching, Denies hematochezia, Reports GI cramping, Denies nausea and Denies vomiting Genitourinary: Genitourinary: Reports no additional female genitourinary complaints PMFSH Past Medical History Medical History Arthritis Breast cancer in situ Bronchitis GERD (gastroesophageal reflux disease) History of radiation therapy Thirty treatments of localized radiation therapy to right breast HTN (hypertension) Hyperlipidemia Hypothyroid Post-menopausal Systolic congestive heart failure The patient reports that her ejection fraction had been as low as 30% in the past. Through cardiac rehab in medications her EF is up to 48% Surgical History Surgical History History of appendectomy History of bladder suspension procedure History of cardiac catheterization History of hysterectomy At 36 years of age History of lumpectomy of right breast Due to breast cancer in-situ History of tonsillectomy Family History Family History Mother Colon cancer Social History Social History Smoking packs per day: 1 Smoking cigarettes per day: 20.0 Years smoked: 20 Smoking pack-years: 20.00 Smoking status: Former smoker Second hand tobacco smoke exposure: Yes Smoking end date: 10/04/76 Alcohol intake: never Substance use: never Living arrangements: with family Additional living arrangements comments: She lives with her of 60 years in [place]. Occupation/Education: retired Gender identity (if verbalized by the patient): Female Spiritual care concerns: No Agree to blood products: Yes Exam Narrative: GENERAL: Well-appearing,
[2023-06-02] MEDS: SODIUM CHLORIDE 0.9% IV 500 ML 999 ML IV CONT (11:26)
== END 2023-06-02 11:59 | disposition home or self-care (01) ==
PROVIDERS: Emergency Provider Emergency Medicine; PCP Nurse Practitioner
DX: R14.0 Abdominal distension (gaseous) (principal); E78.5 Hyperlipidemia, unspecified; I11.0 Hypertensive heart disease with heart failure; I50.20 Unspecified systolic (congestive) heart failure; E03.9 Hypothyroidism, unspecified; Z87.891 Personal history of nicotine dependence
CPT/HCPCS: 36415; 74176; 76705; 80053; 81001; 83690; 85025; 93005; 96360; 99284; J1100; J1165; J2405; J2704; J7040

== ENCOUNTER 2023-07-23 01:17 | Day surgery (SDC) | payer MEDICARE, SELFPAY ==
[2023-07-15 10:16] VITALS: BMI 26.9
--- NOTE | 2023-07-23 13:11 | PM.HPGS ---
History of Present Illness History of Present Illness Consent: Risks, benefits, and alternatives have been discussed and questions answered. Patient agrees to proceed with procedure. Chief complaint: epigastric pain Narrative: Princess Schulz is a 82 year old female Who has been troubled with epigastric discomfort since mid-April.? She feels a fullness bloating in the epigastric area.? At it started out like labor pains pain tight contractions.? She has had no vomiting or nausea her weight is stable.? She has had no significant change in bowel habits.? On June 02 she passed out.? This was after having abdominal cramping.? She went to emergency room where she was examined in and had CT scan that was unremarkable, Review of Systems Review of Systems: All systems reviewed & are unremarkable except as noted in HPI and below PMFSH Past Medical History Medical History Arthritis Breast cancer in situ Bronchitis GERD (gastroesophageal reflux disease) History of radiation therapy Thirty treatments of localized radiation therapy to right breast HTN (hypertension) Hyperlipidemia Hypothyroid Post-menopausal Systolic congestive heart failure The patient reports that her ejection fraction had been as low as 30% in the past. Through cardiac rehab in medications her EF is up to 48% Surgical History Surgical History History of appendectomy History of bladder suspension procedure History of cardiac catheterization History of hysterectomy At 36 years of age History of lumpectomy of right breast Due to breast cancer in-situ History of tonsillectomy Family History Family History Mother Colon cancer Social History Social History Smoking packs per day: 1 Smoking cigarettes per day: 20.0 Years smoked: 20 Smoking pack-years: 20.00 Smoking status: Former smoker Tobacco type: cigarettes Second hand tobacco smoke exposure: Yes Smoking end date: 10/04/76 Alcohol intake: never Substance use: never Substance use type: does not use Living arrangements: alone Additional living arrangements comments: She lives with her of 60 years in [place]. Occupation/Education: retired Gender identity (if verbalized by the patient): Female Spiritual care concerns: No Agree to blood products: Yes Meds Home Medications and Allergies Home Medications Medication Instructions Recorded Confirmed Type aspirin 325 mg tablet 325 mg PO PRN PRN Headache 12/26/19 07/15/23 History bumetanide 1 mg tablet 1 mg PO DAILY 12/26/19 07/15/23 History levothyroxine 50 mcg tablet 50 mcg PO DAILY 12/26/19 07/15/23 History (Synthroid) metoprolol succinate 50 mg capsule 50 mg PO DAILY 12/26/19 07/15/23 History sprinkle, ext. release 24 hr psyllium husk 0.52 gram capsule 0.52 g PO DAILY 12/26/19 07/15/23 History (Wal-Mucil Fiber) rosuvastatin 40 mg tablet (Crestor) 40 mg PO HS 12/26/19 07/15/23 History esomeprazole magnesium 20 mg 20 mg PO DAILY 07/13/23 07/15/23 History capsule,delayed release ferrous sulfate, dried 144 mg (45 144 mg PO DAILY 07/15/23 07/15/23 History mg iron) tablet,extended release (Slow Release Iron) lisinopril 20 mg tablet 20 mg PO DAILY 07/15/23 07/15/23 History multivitamin with minerals-folic 1 tablet PO DAILY 07/15/23 07/15/23 History acid 0.4 mg tablet spironolactone 25 mg tablet 12.5 mg PO DAILY 07/15/23 07/15/23 History Allergies Allergy/AdvReac Type Severity Reaction Status Date / Time iodine Allergy Severe Swelling Verified 07/23/23 13:10 of Lip/Tongue/Throat Exam Const: General: alert Orientation/consciousness: patient oriented x3 Resp: Auscultation: clear to auscultation bilaterally Cardio: Rhythm: regular rhythm GI: GI P
[2023-07-23 13:15] VITALS: BP 158/67; PULSE 100; RESP 18; TEMP 36.4; O2SAT 100
[2023-07-23] MEDS: LACTATED RINGERS 1,000 ML 150 ML IV CONT (13:21)
--- NOTE | 2023-07-23 13:41 | WPDANESEPPF ---
Anes - Initial Pre Proc Eval Procedure: Operation Date: 07/23/23 14:00 Proposed Procedures p Esophagogastroduodenoscopy - Deshawn Conti MD Date/Time: 07/23/23 13:41 Surgeon: Deshawn Conti MD Pre Op Diagnosis: epigastric pain Patient Data Age: 82 Gender: F Height: 1.63 m Weight: 70.9 kg Last Vital Signs Temp 97.6 F 07/23/23 13:15 Pulse 100 07/23/23 13:15 Resp 18 07/23/23 13:15 BP 158/67 H 07/23/23 13:15 Pulse Ox 100 07/23/23 13:15 O2 Del Method Room Air 07/23/23 13:15 Allergies Allergy/AdvReac Type Severity Reaction Status Date / Time iodine Allergy Severe Swelling Verified 07/23/23 13:10 of Lip/Tongue/Throat Home Medications Medication Instructions Recorded Confirmed Type aspirin 325 mg tablet 325 mg PO PRN PRN Headache 12/26/19 07/15/23 History bumetanide 1 mg tablet 1 mg PO DAILY 12/26/19 07/15/23 History levothyroxine 50 mcg tablet 50 mcg PO DAILY 12/26/19 07/15/23 History (Synthroid) metoprolol succinate 50 mg capsule 50 mg PO DAILY 12/26/19 07/15/23 History sprinkle, ext. release 24 hr psyllium husk 0.52 gram capsule 0.52 g PO DAILY 12/26/19 07/15/23 History (Wal-Mucil Fiber) rosuvastatin 40 mg tablet (Crestor) 40 mg PO HS 12/26/19 07/15/23 History esomeprazole magnesium 20 mg 20 mg PO DAILY 07/13/23 07/15/23 History capsule,delayed release ferrous sulfate, dried 144 mg (45 144 mg PO DAILY 07/15/23 07/15/23 History mg iron) tablet,extended release (Slow Release Iron) lisinopril 20 mg tablet 20 mg PO DAILY 07/15/23 07/15/23 History multivitamin with minerals-folic 1 tablet PO DAILY 07/15/23 07/15/23 History acid 0.4 mg tablet spironolactone 25 mg tablet 12.5 mg PO DAILY 07/15/23 07/15/23 History Patient hx anesthesia problems: none Family hx anesthesia problems: none Results Review: All pre-operative results and documents have been reviewed as part of the pre-operative evaluation. [facility] Past Medical History Medical History Arthritis Breast cancer in situ Bronchitis GERD (gastroesophageal reflux disease) History of radiation therapy Thirty treatments of localized radiation therapy to right breast HTN (hypertension) Hyperlipidemia Hypothyroid Post-menopausal Systolic congestive heart failure The patient reports that her ejection fraction had been as low as 30% in the past. Through cardiac rehab in medications her EF is up to 48% Surgical History Surgical History History of appendectomy History of bladder suspension procedure History of cardiac catheterization History of hysterectomy At 36 years of age History of lumpectomy of right breast Due to breast cancer in-situ History of tonsillectomy Family History Family History Mother Colon cancer Social History Social History Smoking packs per day: 1 Smoking cigarettes per day: 20.0 Years smoked: 20 Smoking pack-years: 20.00 Smoking status: Former smoker Tobacco type: cigarettes Second hand tobacco smoke exposure: Yes Smoking end date: 10/04/76 Alcohol intake: never Substance use: never Substance use type: does not use Living arrangements: alone Additional living arrangements comments: She lives with her of 60 years in [place]. Occupation/Education: retired Gender identity (if verbalized by the patient): Female Spiritual care concerns: No Agree to blood products: Yes Anes - Eval Final PreProcedure Day of Procedure 07/23/23 13:41 Patient weight: normal Heart: regular rate and rhythm Lungs: clear to auscultation Airway: Mallampati scale class II Neurological: alert and oriented Last oral intake: >/= 8 hours ASA classification: III Emergent: no Anesthetic plan: proceed Anesthesia type and jackie
[2023-07-23 14:01] VITALS: BP 135/58; PULSE 65; RESP 17; O2SAT 96
[2023-07-23 14:11] VITALS: BP 139/65; PULSE 67; RESP 18; O2SAT 100
[2023-07-23 14:21] VITALS: BP 158/71; PULSE 62; RESP 20; O2SAT 100
== END 2023-07-23 14:33 | disposition home or self-care (01) ==
PROVIDERS: PCP Nurse Practitioner; Visit Provider Internal Medicine Gastroenterology
PROC: 0DJ08ZZ Inspection of Upper Intestinal Tract, Via Natural or Artificial Opening Endoscopic (ICD-10-PCS; CPT 43235; principal; 2023-07-23 14:00)
DX: K21.9 Gastro-esophageal reflux disease without esophagitis (principal); R10.13 Epigastric pain; E78.5 Hyperlipidemia, unspecified; I11.0 Hypertensive heart disease with heart failure; E03.9 Hypothyroidism, unspecified; I50.20 Unspecified systolic (congestive) heart failure; Z85.3 Personal history of malignant neoplasm of breast; Z98.890 Other specified postprocedural states; Z87.891 Personal history of nicotine dependence; Z79.82 Long term (current) use of aspirin; Z92.3 Personal history of irradiation
CPT/HCPCS: 43239; 87081; J2704; J7120

== ENCOUNTER 2023-08-02 11:29 | Outpatient (CLI) | payer MEDICARE, SELFPAY ==
--- NOTE | ~2023-08-02 | NM_ITS ---
EXAMINATION: NM hepatobiliary wo pharm DATE: 08/02/2023 14:15 INDICATION: Dyspepsia COMPARISON: None. TECHNIQUE: 4.9 mCi Tc-99m mebrofenin (Choletec) was administered intravenously. Scintigraphic images of the abdomen were obtained for one hour. At the 1 hour time point, the patient drank 8 oz Ensure, and imaging was continued for 60 minutes. Gallbladder ejection fraction was calculated by the technol ogist. FINDINGS: There is normal clearance of radiotracer from the blood pool. There is homogeneous tracer u ptake by the liver. Activity progresses to the bowel and gallbladder. The gallbladder ejection fract ion (GBEF) is 94%. Note that with this technique, normal GBEF >= 33%. IMPRESSION: 1. Normal hepatobiliary scan Reviewed, dictated and finalized at location [facility].
== END 2023-08-02 11:30 | disposition home or self-care (01) ==
LOC: ANHIMG 11:33
PROVIDERS: PCP Nurse Practitioner; Visit Provider Internal Medicine Gastroenterology
DX: R14.0 Abdominal distension (gaseous) (principal)
CPT/HCPCS: 78226; A9537

== ENCOUNTER 2024-11-30 17:43 | Inpatient (IN) | payer MEDICARE, SELFPAY ==
--- NOTE | ~2024-11-30 | XR_ITS ---
EXAMINATION: XR abdomen/kub 1V DATE: 12/02/2024 07:20 INDICATION: Small bowel obstruction TECHNIQUE: A supine view of the abdomen on 2 radiographs was obtained. COMPARISON: None. FINDINGS: Nasogastric tube distal tip in proximal side port in the body the stomach. Nonspecific bowel gas surya carrie with gas scattered throughout nondilated loops of large and small bowel throughout the abdomen an d pelvis. Bandlike opacities at the bilateral lower lung zones consistent with atelectasis/scarring. IMPRESSION: 1. Nonspecific bowel gas pattern which could represent ileus or resolving small bowel obstruction. Reviewed, dictated and finalized at location A. DEVELOPER CONSULTANT
--- NOTE | ~2024-11-30 | XR_ITS ---
SMALL BOWEL SERIES Ordering provider: Tomas Puentes MD History: . eval recurrent sbo . Comparison: No Technique: The patient was given oral barium. Overhead images were obtained immediately and at 15 min ellen intervals until contrast arrived in the cecum. FINDINGS: SONAR TECHNICIAN FILM: Nonobstructive bowel gas pattern. No organomegaly. No pathologic calcifications. TRANSIT TIME FOR CONTRAST THROUGH THE SMALL BOWEL: 60 minutes which is within normal limits. STOMACH AND DUODENUM: Normal. JEJUNUM AND ILEUM: No intrinsic or extrinsic mass effect, mucosal abnormality, stricture, or sign of obstruction. IMPRESSION: No evidence of obstruction seen. Reviewed, dictated and finalized at location A. SKINNER
--- NOTE | ~2024-11-30 | CT_ITS ---
CT abdomen pelvis wo con Ordering provider: Wei Aquino MD History: 84 years Female with . abd pain . Comparison: None. Technique: CT abdomen and pelvis without IV and without oral contrast. Automated exposure control and iterative reconstruction technique were employed. The dose-length product was 393.59 mGy-cm. Findings: VISUALIZED LOWER CHEST: Underlying emphysematous changes with subsegmental atelectasis. Trace of pericardial effusion. UPPER ABDOMINAL ORGANS: Liver: Hypodensity seen in the liver segment #8 which measures 2.2 cm. The differential include a mas s versus metastatic lesions versus complex cyst or an abscess. Clinical correlation and further evalu ation advised. Smaller area in segment #6 is noted occluded measuring 1.1 cm. Gallbladder: Normal. Spleen: Normal. Stomach/duodenum: Sliding hiatus hernia. Pancreas: Normal. Adrenals: Normal. Kidneys: Normal. PELVIC ORGANS: The bladder is normal. Trace of fluid is seen in the pelvis. BOWEL AND MESENTERY: Colon: No evidence of diverticulitis. The appendix is not demonstrated. Small Bowel: Dilated small bowel loops are seen suggestive of obstruction. Area of transition is seen in the right side of the pelvis. Adjacent inflammatory changes are seen in the right side of abdomen Peritoneum/mesentery: No free air . No mesenteric lymphadenopathy. Small mesenteric lymph nodes are s een with the largest measures 1.4 cm. RETROPERITONEUM: Mild atheromatous disease of the abdominal aorta. No retroperitoneal lymphadenopat hy. MUSCULOSKELETAL: Superficial soft tissues: The superficial soft tissues are normal. Bones: Age appropriate degenerative changes of the spine. . Pubic Symphysitis. IMPRESSION: 1. Dilated Small bowel loops suggestive of obstruction with inflammatory changes seen in the mesent martha on the right side. Trace of fluid is seen in the pelvis. No definite free air. 2. Hypodensity in the liver. This may indicate a mass versus metastatic lesion versus a complex cyst or an abscess. Clinical correlation and follow-up advised. Reviewed, dictated and finalized at location A. Y LEVEL ACCOUNTING CLERK IMPRESSION: 1. Dilated Small bowel loops suggestive of obstruction with inflammatory garcia ges seen in the mesentery on the right side. Trace of fluid is seen in the pelv is. No definite free air. 2. Hypodensity in the liver. This may indicate a mass versus metastatic lesion versus a complex cyst or an abscess. Clinical correlation and follow-up advise d.
--- NOTE | ~2024-11-30 | XR_ITS ---
XR abdomen gastric tube insert Ordering provider: Wei Aquino MD History: . obstruction NG TUBE PLACEMENT . Comparison: None. FINDINGS/impression: Nasogastric tube with the tip in the fundus area. Reviewed, dictated and finalized at location A. ATION COUNSELOR
--- OUTSIDE RECORDS SUMMARY | 2024-11-30 17:45 | XMS_ITS | Referral Summary ---
Author Organization [facility] [address] Address [address] [place] [id number] Care Team Providers Care Multimedia Services Manager Name Role Phone Lisa Coy MD Primary Care Provider [phone] Allergies No known active allergies Medications levothyroxine (SYNTHROID) 50 mcg tablet Take 1 tablet (50 mcg total) by mouth electrode cleaner before breakfast 3 Active dicyclomine (BENTYL) 20 mg tablet Take 1 tablet (20 mg total) by mouth 4 (four) times a day [address] (PROTONIX) 40 mg EC tablet Take 1 tablet (40 mg total) by mouth 2 (two) times a day 3 Active lisinopriL (PRINIVIL,ZESTR IL) 20 mg tablet Take 1 tablet (20 mg total) by mouth daily 3 Active spironolactone (ALDACTONE) 25 mg tablet Take 1 tablet (25 mg total) by mouth daily 3 Active rosuvastatin (CRESTOR) 40 mg tablet Take 1 tablet (40 mg total) by mouth daily 3 Active metoprolol XL (TOPROL-XL) 50 mg extended release tablet Take 1 tablet (50 mg total) by mouth daily 3 Active Active Problems Problem Noted Date Diagnosed Date Hyperlipidemia 12/07/2011 Palpitations 06/26/2011 Atherosclerosis of coronary artery 06/26/2011 Abnormal blood chemistry level 02/27/2011 Urinary tract infection 01/05/2011 Dysuria 01/05/2011 Social History Tobacco Use Types Packs/Day Years Used Date Smoking Tobacco: Never Assessed Comments Unknown Sex and Gender Information Value Date Recorded Sex Assigned at Not on file Legal Sex Female 7:13 AM [employer] Gender Identity Not on file Sexual Orientation Not on file Last Filed Vital Signs Vital Sign Reading Time Taken Comments Blood Pressure 146/72 06/08/2023 12:37 PM CDT Pulse 86 06/08/2023 12:37 PM CDT Temperature 36.8 C (98.3 F) 06/08/2023 12:37 PM CDT Respiratory Rate 18 06/08/2023 12:3 7 PM CDT Oxygen Saturation 100% 06/08/2023 12: 37 PM CDT Inhaled Oxygen Concentration - - Weight 71.2 kg (156 lb 14.4 oz) 023 12:37 PM CDT Height 162.6 cm (5' 4.02 ) 06/08/2023 1 2:37 PM CDT Body Mass Index 26.92 06/08/2023 12:37 PM CDT Plan of Treatment Not on file Insurance [employer] PPO Care Teams Multimedia Services Manager Relationship Specialty [place] [id number] [id number] PCP - General 04/10/19
--- OUTSIDE RECORDS SUMMARY | 2024-11-30 17:45 | XMS_ITS | Clinical Summary ---
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 3 Active dicyclomine (BENTYL) 20 [...] 02/27/2011 Urinary tract infection 01/05/2011 Dysuria 01/05/2011 Surgical History Surgery Date Site/Laterality Comments ND APPENDECTOMY Appendectomy - (Added by TW Conv) ND EXC CYST/ABERRANT BREAST TISSUE OPEN 1/> LESION Breast Surgery Lumpectomy - (Added by TW Conv) ND TOTAL ABDOMINAL HYSTERECT W/WO RMVL TUBE OVARY Hysterectomy - (Added by TW Conv) KNEE SURGERY Knee Surgery - (Added by TW Conv) BREAST BIOPSY 01/11/2015 Left Medical History Medical History Date Comments Personal history of other en docrine, nutritional and metabolic disease History of hypoglyce mac - (Added by TW Conv) Personal history of other di seases of the circulatory system History of hypertension - (A dded by TW Conv) Malignant neoplasm of female breast (HCC) Breast cancer - (Added by TW Conv) Social History Tobacco Use Types Packs/Day Years Used Date Smoking Tobacco: Never Assessed Comments Unknown Sex and Gender Information Value Date Recorded Sex Assigned at Not on file 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 Gender Identity Not on file Sexual Orientation Not on file Obstetrics History Last Filed Vital Signs Vital Sign Reading [...] 06/08/2023 12:37 PM CDT Plan of Treatment Health Maintenance Due Date Last Done Comments Depression Screening 1941 Fall Risk Assessment 1941 Osteoporosis Screening-Bone Density Scan 1941 Hepatitis B Screening 1959 Well Visit 65+ 2006 DTaP/Tdap/Td Vaccine (1 - Tdap) 03/07/2020 0 Covid-19 Vaccine (2023-2 5 season) 2024 07/15/2022, 12/31/2021, 08/04/2021, Additional history exists Influenza Vaccine (#1) 2024 2, 06/14/2021, 05/28/2020, Additional history exists Pneumococcal vaccine 65+ Completed 08/18/2016, 04/2006 Zoster Vaccine Completed 01/28/2019, 01/02, 10/07/2018, Additional history exists Insurance [employer] PPO Care Teams Ton Container Shipper Relationship Specialty [place] [id number] [address] [address] PCP - General 04/10/19
[2024-11-30 18:00] VITALS: BP 165/61; PULSE 57; RESP 20; TEMP 36.4; O2SAT 100
--- NOTE | 2024-11-30 18:27 | ED.ABDPAIN ---
HPI - Abdominal Pain General Chief Complaint: Abdominal Pain <Chitra Thomas PA-C - Last Filed: 12/01/24 12:26> Stated Complaint: abdominal pain n/v <Chitra Thomas PA-C - Last Filed: 12/01/24 12:26> Time Seen by Provider: 11/30/24 18:27 <Chitra Thomas PA-C - Last Filed: 12/01/24 12:26> Focused HPI: This is a 84 year old female that presents to the ER for nausea, vomiting. Reports today she felt nauseous, had abdominal pain after eating a sweet potato. Reports she has had similar episodes the last couple of years. Reports epigastric pain and nausea currently. Reports she has had an endoscopy for this which showed NERD. GENERAL: Elderly, ill-appearing HEAD: Normocephalic, atraumatic. CHEST: Clear to auscultation. ?No respiratory distress. HEART: Regular rate and rhythm.? NEURO: ?Alert and oriented x3. Patient screened in triage and initial orders placed.? ?Additional care and disposition to be based upon?diagnostic testing and treatment. <Chitra Thomas PA-C - Last Filed: 12/01/24 12:26> Focused HPI: This is a 84 year old female that presents to the ER for nausea, vomiting. Reports today she felt nauseous, had abdominal pain after eating a sweet potato. Reports she has had similar episodes the last couple of years. Reports epigastric pain and nausea currently. Reports she has had an endoscopy for this which showed NERD. GENERAL: Elderly, thin and frail, not ill-appearing HEAD: Normocephalic, atraumatic. CHEST: Clear to auscultation. ?No respiratory distress. HEART: Regular rate and rhythm.? NEURO: ?Alert and oriented x3. Patient screened in triage and initial orders placed.? ?Additional care and disposition to be based upon?diagnostic testing and treatment. <Wei Aquino MD - Last Filed: 12/01/24 00:30> History of Present Illness HPI narrative: Agree with the HPI above. Patient's family members are present at bedside states she has had recurrent episodes like this multiple times over last few years with unremarkable workup, endoscopy and CT images. Patient herself states that her pain is better now and she is not have any nauseousness. Soft nontender nondistended. No diarrhea constipation. No fever chills. No sick contacts. <Wei Aquino MD - Last Filed: 12/01/24 00:30> Related Data Home Medications: Home Medications ?Medication ?Instructions ?Recorded ?Confirmed ?Last Taken ?Type aspirin 325 mg tablet 325 mg PO PRN PRN Headache 12/26/19 12/01/24 07/22/23 History bumetanide 1 mg tablet 1 mg PO DAILY 12/26/19 12/01/24 07/22/23 History levothyroxine 50 mcg tablet 50 mcg PO DAILY 12/26/19 12/01/24 07/23/23 History (Synthroid) metoprolol succinate 50 mg capsule 50 mg PO DAILY 12/26/19 12/01/24 07/23/23 History sprinkle, ext. release 24 hr psyllium husk 0.52 gram capsule 0.52 g PO DAILY 12/26/19 12/01/24 07/22/23 History (Wal-Mucil Fiber) rosuvastatin 40 mg tablet (Crestor) 40 mg PO HS 12/26/19 12/01/24 07/22/23 History lisinopril 20 mg tablet 20 mg PO DAILY 07/15/23 12/01/24 07/22/23 History multivitamin with minerals-folic 1 tablet PO DAILY 07/15/23 12/01/24 07/22/23 History acid 0.4 mg tablet spironolactone 25 mg tablet 12.5 mg PO DAILY 07/15/23 12/01/24 07/22/23 History pantoprazole 20 mg tablet,delayed 20 mg PO DAILY 12/01/24 12/01/24 Unknown History release <Chitra Thomas PA-C - Last Filed: 12/01/24 12:26> Allergies/Adverse Reactions: Allergies Allergy/AdvReac Type Severity Reaction Status Date / Time iodine Allergy Severe Swelling Verified 12/01/24 01:36 of Lip/Tongue/Throat <Chitra Thomas PA-C - Last Filed: 12/01/24 12:26> Review of Systems Review of Systems: As reviewed above in HPI <Wei Aquino MD - Last Filed: 12/01/24 00:30> [facility] Past Medical History Medical History: Medical History Systolic congestive heart failure The patient reports that her ejection fraction had been as low as 30% in the past. Through cardiac rehab in medications her EF is up to 48% Breast cancer in situ History of radiation therapy Thirty treatments of localized radiation therapy to right breast Hypothyroid Arthritis Post-menopausal GERD (gastroesophageal reflux disease) Bronchitis HTN (hypertension) Hyperlipidemia <Chitra Thomas PA-C - Last Filed: 12/01/24 12:26> Surgical History Surgical History: Surgical History History of bladder suspension procedure History of lumpectomy of right breast Due to breast cancer in-situ History of hysterectomy At 36 years of age History of appendectomy History of cardiac catheterization History of tonsillectomy <Chitra Thomas PA-C - Last Filed: 12/01/24 12:26> Family History Family History: Family History Mother Colon cancer <Chitra Thomas PA-C - Last Filed: 12/01/24 12:26> Social History Social History: Social History Smoking packs per day: 1 Smoking cigarettes per day: 20.0 Years smoked: 20 Smoking pack-years: 20.00 Smoking status: Never smoker Tobacco type: cigarettes Second hand tobacco smoke exposure: Yes Smoking end date: 10/04/76 Alcohol intake: never Substance use: never Substance use type: does not use Do You Feel Safe in your Home?: Yes Lack of Transportation: No Lack of Food: Never True Current Housing: I Have Housing Concerned About Future Housing: No Difficulty Paying Gas/Electric Bills: No Difficulty Paying for Meds: No Currently Unemployed: No Education: Don't Know Difficulty w/ Childcare or Family Care: No Living arrangements: alone Additional living arrangements comments: She lives with her of 60 years in [place]. Occupation/Education: retired Gender identity (if verbalized by the patient): Female Spiritual care concerns: No Agree to blood products: Yes <Chitra Thomas PA-C - Last Filed: 12/01/24 12:26> Exam Narrative: GENERAL: Elderly, thin frail but not any acute distress. Answering all questions appropriately. HEAD: [Normocephalic, atraumatic.] EYES: [PERRLA and EOMI.] ENT: Nares clear, no rhinorrhea or epistaxis. Mucous membranes moist. NECK: Supple. CHEST: [Clear to auscultation. No respiratory distress.] HEART: [Regular rate and rhythm]. No murmur heard. [Normal peripheral pulses.] ABDOMEN: [Soft, nondistended], [nontender], [No rigidity or guarding] EXTREMITIES: Normal range of motion. [No edema.] SKIN: Warm, dry, no rash. NEURO: [No focal deficits]. Alert and oriented [x3.] PSYCH: [Normal mood and affect.] <Wei Aquino MD - Last Filed: 12/01/24 00:30> Course Vital Signs Vital signs: Vital Signs Temperature 97.6 F 11/30/24 18:00 Pulse Rate 57 L 11/30/24 18:00 Respiratory Rate 20 11/30/24 18:00 Blood Pressure 165/61 H 11/30/24 18:00 Pulse Oximetry 100 11/30/24 18:00 Oxygen Delivery Room Air 11/30/24 18:00 Temperature 98.5 F 12/01/24 08:00 Pulse Rate 97 12/01/24 08:00 Respiratory Rate 20 12/01/24 08:00 Blood Pressure 157/65 H 12/01/24 08:00 Pulse Oximetry 94 12/01/24 12:05 Oxygen Delivery Room Air 12/01/24 12:05 <Chitra Thomas PA-C - Last Filed: 12/01/24 12:26> Vital Signs Temperature 97.6 F 11/30/24 18:00 Pulse Rate 57 L 11/30/24 18:00 Respiratory Rate 20 11/30/24 18:00 Blood Pressure 165/61 H 11/30/24 18:00 Pulse Oximetry 100 11/30/24 18:00 Oxygen Delivery Room Air 11/30/24 18:00 Temperature 98.5 F 12/01/24 08:00 Pulse Rate 97 12/01/24 08:00 Respiratory Rate 20 12/01/24 08:00 Blood Pressure 157/65 H 12/01/24 08:00 Pulse Oximetry 94 12/01/24 12:05 Oxygen Delivery Room Air 12/01/24 12:05 <Wei Aquino MD - Last Filed: 12/01/24 00:30> MDM - Abdominal Pain MDM Narrative Medical decision making narrative: 84-year-old female with history of nonerosive reflux disease, is hypertension, chronic abdominal pain that presents to the emergency room today with complaints of generalized nausea, vomiting and abdominal pain. Erectile patient states this is been a recurrent issue and she has not had any answers from her multiple specialist and GI doctors outside the hospital. She states she has had upper endoscopy that showed no acute findings aside from some reflux disease. Patient states she feels like her triggers are food related. She had a sweet potato yesterday which triggered this event. She has a soft nontender nondistended abdomen. Mild hypertension, no tachycardia, fever or hypoxia. Considerations presently for gastroenteritis, reflux disease, acute on chronic abdominal pain, low suspicion for obstruction or volvulus. Low suspicion for pancreatitis, appendicitis or cholecystitis. Will obtain laboratory studies, CMP, CBC, urinalysis and a CT scan with contrast. She was treated with a PPI, Zofran, fluid bolus and morphine. She was re-evaluated frequently. EKG obtained. Workup shows a leukocytosis of 15.8, hemoglobin 16.4, likely intravascular depletion and hemoconcentration rather than infectious process. Normal platelet count. Electrolytes all within normal limits, normal renal function panel. Elevated glucose 162, and lactic elevation at 2.7. Normal LFTs. Urinalysis without signs of infection. CT scan shows dilated small bowel loops with concern for obstruction with some inflammatory changes near by in the right-sided mesenteric. Trace free fluid in the pelvis. No definitive free air. Hypodensity in the liver likely mass versus metastatic lesion versus complex cyst. I discussed the case with the general surgeon on-call Dr. Puentes and made them aware of the small bowel obstruction with clinical signs given her nausea vomiting and difficulty tolerating oral intake. Patient has received 3 doses of antiemetics here in the ED. Recommendations are to obtain an NG tube, KUB afterwards and admit to the hospitalist for potential intervention and evaluation by surgery in the morning. Patient and family were made aware of the plan going forward, agreeable to NG tube insertion. This was inserted without difficulty and a postprocedural x-ray confirms placement per my interpretation. I spoke to the hospitalist who accepted the patient to a medical-surgical bed at this time. Consultation orders placed, as needed pain medications and Zofran ordered. Fluid bolus and maintenance infusion started, NPO at midnight. <Wei Aquino MD - Last Filed: 12/01/24 00:30> Medical Records Attestation: I reviewed the patient's medical records. <Wei Aquino MD - Last Filed: 12/01/24 00:30> Lab Data Attestation: I reviewed the patient's lab results. <Wei Aquino MD - Last Filed: 12/01/24 00:30> Result diagrams: 12/01/24 03:21 12/01/24 03:21 <Chitra Thomas PA-C - Last Filed: 12/01/24 12:26> Labs: Lab Results 11/30/24 11/30/24 11/30/24 Range/Units 19:19 19:20 21:30 WBC 15.8 H (4.5-10.0) K/mm3 RBC 5.53 H (4.2-5.4) M/mm3 Hgb 16.4 H D (12.0-15.0) g/dL Hct 50.6 H (37.0-47.0) % MCV 91.5 (80-100) fl MCH 29.7 (26-34) pg MCHC 32.4 (32-36) g/dl RDW 13.6 (11.5-14.5) % Plt Count 307 (150-375) k/mm3 MPV 10.8 H (7.4-10.4) fl Immature Gran % (Auto) 0.3 (0-0.5) % Neut % (Auto) 87.0 H (45.5-73.1) % Lymph % (Auto) 6.3 L (18.3-44.2) % [place] % (Auto) 5.9 (2.6-8.5) % Eos % (Auto) 0.2 (0-4.4) % Baso % (Auto) 0.3 (0.2-1.2) % Lymph # (Auto) 1.00 (0.9-3.2) K/mm3 [place] # (Auto) 0.9 H (0.1-0.6) K/mm3 Eos # (Auto) 0.0 (0-0.3) K/mm3 Baso # (Auto) 0.1 (0.0-0.1) K/mm3 Abs Immat Gran (auto) 0.04 H (0.00-0.031) K/mm3 Absolute Neuts (auto) 13.8 H (1.3-6.7) K/mm3 Absolute Nucleated RBC 0.000 (0.0-0.012) K/mm3 Nucleated RBC % 0.0 (0.0-0.2) % Sodium 139 (137-145) mmol/L Potassium 4.2 (3.4-5.0) mmol/L Chloride 101 (98-107) mmol/L Carbon Dioxide 23 (22-30) mmol/L Anion Gap 15 H (4-12) mmol/L BUN 17 (7-17) mg/dL Creatinine 0.98 (0.7-1.0) mg/dL Estim Creat Clear Calc 35 ml/min Estimated GFR 54 L (59 - ) Glucose 167 H (65-110) mg/dL Lactic Acid (0.7-2.0) mmol/L Calcium 9.9 (8.4-10.2) mg/dL Total Bilirubin 0.9 (0.2-1.3) mg/dL AST 22 (14-36) U/L ALT 18 (6-35) U/L Alkaline Phosphatase 65 (38-126) U/L Total Protein 8.0 (6.3-8.2) g/dL Albumin 4.3 (3.5-5.1) g/dL Lipase 83 (23-300) U/L Urine Color Yellow (Yellow) Urine Appearance Clear (Clear) Urine pH 5.0 (5.0-9.0) Ur Specific [place] 1.018 (1.001-1.035) Urine Protein Trace (Negative) mg/dL Urine Glucose (UA) Negative (Negative) mg/dL Urine Ketones Trace H (Negative) mg/dL Ur Blood (Man) Negative (Negative) Urine Nitrate Negative (Negative) Urine Bilirubin Negative (Negative) Urine Urobilinogen 0.2 (<2.0) mg/dL Add Ur Microanalysis Reviewed Leukocyte Esterase Rfl 1+ H (Negative) MADDISON/UL Urine RBC 3-5 H (0-2) /hpf Urine WBC 0-5 (0-3) /hpf Ur Squamous Epith Cells Occasional (Few) /hpf Urine Bacteria None seen /hpf Urine Casts 6-10 11/30/24 Range/Units 23:41 WBC (4.5-10.0) K/mm3 RBC (4.2-5.4) M/mm3 Hgb (12.0-15.0) g/dL Hct (37.0-47.0) % MCV (80-100) fl MCH (26-34) pg MCHC (32-36) g/dl RDW (11.5-14.5) % Plt Count (150-375) k/mm3 MPV (7.4-10.4) fl Immature Gran % (Auto) (0-0.5) % Neut % (Auto) (45.5-73.1) % Lymph % (Auto) (18.3-44.2) % [place] % (Auto) (2.6-8.5) % Eos % (Auto) (0-4.4) % Baso % (Auto) (0.2-1.2) % Lymph # (Auto) (0.9-3.2) K/mm3 [place] # (Auto) (0.1-0.6) K/mm3 Eos # (Auto) (0-0.3) K/mm3 Baso # (Auto) (0.0-0.1) K/mm3 Abs Immat Gran (auto) (0.00-0.031) K/mm3 Absolute Neuts (auto) (1.3-6.7) K/mm3 Absolute Nucleated RBC (0.0-0.012) K/mm3 Nucleated RBC % (0.0-0.2) % Sodium (137-145) mmol/L Potassium (3.4-5.0) mmol/L Chloride (98-107) mmol/L Carbon Dioxide (22-30) mmol/L Anion Gap (4-12) mmol/L BUN (7-17) mg/dL Creatinine (0.7-1.0) mg/dL Estim Creat Clear Calc ml/min Estimated GFR (59 - ) Glucose (65-110) mg/dL Lactic Acid 2.7 H (0.7-2.0) mmol/L Calcium (8.4-10.2) mg/dL Total Bilirubin (0.2-1.3) mg/dL AST (14-36) U/L ALT (6-35) U/L Alkaline Phosphatase (38-126) U/L Total Protein (6.3-8.2) g/dL Albumin (3.5-5.1) g/dL Lipase (23-300) U/L Urine Color (Yellow) Urine Appearance (Clear) Urine pH (5.0-9.0) Ur Specific [place] (1.001-1.035) Urine Protein (Negative) mg/dL Urine Glucose (UA) (Negative) mg/dL Urine Ketones (Negative) mg/dL Ur Blood (Man) (Negative) Urine Nitrate (Negative) Urine Bilirubin (Negative) Urine Urobilinogen (<2.0) mg/dL Add Ur Microanalysis Leukocyte Esterase Rfl (Negative) MADDISON/UL Urine RBC (0-2) /hpf Urine WBC (0-3) /hpf Ur Squamous Epith Cells (Few) /hpf Urine Bacteria /hpf Urine Casts <Chitra Thomas PA-C - Last Filed: 12/01/24 12:26> Lab Results 11/30/24 11/30/24 11/30/24 Range/Units 19:19 19:20 21:30 WBC 15.8 H (4.5-10.0) K/mm3 RBC 5.53 H (4.2-5.4) M/mm3 Hgb 16.4 H D (12.0-15.0) g/dL Hct 50.6 H (37.0-47.0) % MCV 91.5 (80-100) fl MCH 29.7 (26-34) pg MCHC 32.4 (32-36) g/dl RDW 13.6 (11.5-14.5) % Plt Count 307 (150-375) k/mm3 MPV 10.8 H (7.4-10.4) fl Immature Gran % (Auto) 0.3 (0-0.5) % Neut % (Auto) 87.0 H (45.5-73.1) % Lymph % (Auto) 6.3 L (18.3-44.2) % [place] % (Auto) 5.9 (2.6-8.5) % Eos % (Auto) 0.2 (0-4.4) % Baso % (Auto) 0.3 (0.2-1.2) % Lymph # (Auto) 1.00 (0.9-3.2) K/mm3 [place] # (Auto) 0.9 H (0.1-0.6) K/mm3 Eos # (Auto) 0.0 (0-0.3) K/mm3 Baso # (Auto) 0.1 (0.0-0.1) K/mm3 Abs Immat Gran (auto) 0.04 H (0.00-0.031) K/mm3 Absolute Neuts (auto) 13.8 H (1.3-6.7) K/mm3 Absolute Nucleated RBC 0.000 (0.0-0.012) K/mm3 Nucleated RBC % 0.0 (0.0-0.2) % Sodium 139 (137-145) mmol/L Potassium 4.2 (3.4-5.0) mmol/L Chloride 101 (98-107) mmol/L Carbon Dioxide 23 (22-30) mmol/L Anion Gap 15 H (4-12) mmol/L BUN 17 (7-17) mg/dL Creatinine 0.98 (0.7-1.0) mg/dL Estim Creat Clear Calc 35 ml/min Estimated GFR 54 L (59 - ) Glucose 167 H (65-110) mg/dL Lactic Acid (0.7-2.0) mmol/L Calcium 9.9 (8.4-10.2) mg/dL Total Bilirubin 0.9 (0.2-1.3) mg/dL AST 22 (14-36) U/L ALT 18 (6-35) U/L Alkaline Phosphatase 65 (38-126) U/L Total Protein 8.0 (6.3-8.2) g/dL Albumin 4.3 (3.5-5.1) g/dL Lipase 83 (23-300) U/L Urine Color Yellow (Yellow) Urine Appearance Clear (Clear) Urine pH 5.0 (5.0-9.0) Ur Specific [place] 1.018 (1.001-1.035) Urine Protein Trace (Negative) mg/dL Urine Glucose (UA) Negative (Negative) mg/dL Urine Ketones Trace H (Negative) mg/dL Ur Blood (Man) Negative (Negative) Urine Nitrate Negative (Negative) Urine Bilirubin Negative (Negative) Urine Urobilinogen 0.2 (<2.0) mg/dL Add Ur Microanalysis Reviewed Leukocyte Esterase Rfl 1+ H (Negative) MADDISON/UL Urine RBC 3-5 H (0-2) /hpf Urine WBC 0-5 (0-3) /hpf Ur Squamous Epith Cells Occasional (Few) /hpf Urine Bacteria None seen /hpf Urine Casts 6-10 11/30/24 Range/Units 23:41 WBC (4.5-10.0) K/mm3 RBC (4.2-5.4) M/mm3 Hgb (12.0-15.0) g/dL Hct (37.0-47.0) % MCV (80-100) fl MCH (26-34) pg MCHC (32-36) g/dl RDW (11.5-14.5) % Plt Count (150-375) k/mm3 MPV (7.4-10.4) fl Immature Gran % (Auto) (0-0.5) % Neut % (Auto) (45.5-73.1) % Lymph % (Auto) (18.3-44.2) % [place] % (Auto) (2.6-8.5) % Eos % (Auto) (0-4.4) % Baso % (Auto) (0.2-1.2) % Lymph # (Auto) (0.9-3.2) K/mm3 [place] # (Auto) (0.1-0.6) K/mm3 Eos # (Auto) (0-0.3) K/mm3 Baso # (Auto) (0.0-0.1) K/mm3 Abs Immat Gran (auto) (0.00-0.031) K/mm3 Absolute Neuts (auto) (1.3-6.7) K/mm3 Absolute Nucleated RBC (0.0-0.012) K/mm3 Nucleated RBC % (0.0-0.2) % Sodium (137-145) mmol/L Potassium (3.4-5.0) mmol/L Chloride (98-107) mmol/L Carbon Dioxide (22-30) mmol/L Anion Gap (4-12) mmol/L BUN (7-17) mg/dL Creatinine (0.7-1.0) mg/dL Estim Creat Clear Calc ml/min Estimated GFR (59 - ) Glucose (65-110) mg/dL Lactic Acid 2.7 H (0.7-2.0) mmol/L Calcium (8.4-10.2) mg/dL Total Bilirubin (0.2-1.3) mg/dL AST (14-36) U/L ALT (6-35) U/L Alkaline Phosphatase (38-126) U/L Total Protein (6.3-8.2) g/dL Albumin (3.5-5.1) g/dL Lipase (23-300) U/L Urine Color (Yellow) Urine Appearance (Clear) Urine pH (5.0-9.0) Ur Specific [place] (1.001-1.035) Urine Protein (Negative) mg/dL Urine Glucose (UA) (Negative) mg/dL Urine Ketones (Negative) mg/dL Ur Blood (Man) (Negative) Urine Nitrate (Negative) Urine Bilirubin (Negative) Urine Urobilinogen (<2.0) mg/dL Add Ur Microanalysis Leukocyte Esterase Rfl (Negative) MADDISON/UL Urine RBC (0-2) /hpf Urine WBC (0-3) /hpf Ur Squamous Epith Cells (Few) /hpf Urine Bacteria /hpf Urine Casts <Wei Aquino MD - Last Filed: 12/01/24 00:30> Imaging Data Attestation: I personally reviewed and interpreted this imaging study as follows: <Wei Aquino MD - Last Filed: 12/01/24 00:30> My impression: Impressions Abdomen/Pelvis CT 11/30/24 22:40 IMPRESSION: 1. Dilated Small bowel loops suggestive of obstruction with inflammatory changes seen in the mesentery on the right side. Trace of fluid is seen in the pelvis. No definite free air. 2. Hypodensity in the liver. This may indicate a mass versus metastatic lesion versus a complex cyst or an abscess. Clinical correlation and follow-up advised. <Wei Aquino MD - Last Filed: 12/01/24 00:30> Radiologist's impression: ITS Impressions Abdomen/Pelvis CT 11/30/24 22:40 IMPRESSION: 1. Dilated Small bowel loops suggestive of obstruction with inflammatory changes seen in the mesentery on the right side. Trace of fluid is seen in the pelvis. No definite free air. 2. Hypodensity in the liver. This may indicate a mass versus metastatic lesion versus a complex cyst or an abscess. Clinical correlation and follow-up advised. <Chitra Thomas PA-C - Last Filed: 12/01/24 12:26> ITS Impressions Abdomen/Pelvis CT 11/30/24 22:40 IMPRESSION: 1. Dilated Small bowel loops suggestive of obstruction with inflammatory changes seen in the mesentery on the right side. Trace of fluid is seen in the pelvis. No definite free air. 2. Hypodensity in the liver. This may indicate a mass versus metastatic lesion versus a complex cyst or an abscess. Clinical correlation and follow-up advised. <Wei Aquino MD - Last Filed: 12/01/24 00:30> Critical Care Time Critical Care Time Critical Care Time: No <Chitra Thomas PA-C - Last Filed: 12/01/24 12:26> Discharge Plan Discharge Clinical Impression: Acidosis, lactic Bowel obstruction Qualifiers: Intestinal obstruction type: unspecified Intestinal obstruction extent: complete Qualified Code(s): K56.601 - Complete intestinal obstruction, unspecified as to cause Nausea & vomiting Qualifiers: Vomiting type: unspecified Qualified Code(s): R11.2 - Nausea with vomiting, unspecified <Chitra Thomas PA-C - Last Filed: 12/01/24 12:26> Patient Disposition: Still a Patient <Chitra Thomas PA-C - Last Filed: 12/01/24 12:26> Condition: Stable <Chitra Thomas PA-C - Last Filed: 12/01/24 12:26> Time of Disposition: 00:30 <Chitra Thomas PA-C - Last Filed: 12/01/24 12:26> 00:30 <Wei Aquino MD - Last Filed: 12/01/24 00:30>
[2024-11-30] MEDS: PANTOPRAZOLE SODIUM IV 40 MG VIAL IV PUSH (18:50)
[2024-11-30 19:25] LABS: Basophils Absolute Auto 0.1 K/mm3 (0.0-0.1); Basophils Percent Auto 0.3 % (0.2-1.2); Eosinophils Percent Auto 0.2 % (0-4.4); Hematocrit 50.6 % (37.0-47.0); Hemoglobin 16.4 g/dL (12.0-15.0); Immature Granulocyte Absolute 0.04 K/mm3 (0.00-0.031); Immature Granulocyte Percent A 0.3 % (0-0.5); Lymphocytes Percent Auto 6.3 % (18.3-44.2); Mean Corpuscular HGB Conc 32.4 g/dl (32-36); Mean Corpuscular Hemoglobin 29.7 pg (26-34); Mean Corpuscular Volume 91.5 fl (80-100); Mean Platelet Volume 10.8 fl (7.4-10.4); Monocytes Absolute Auto 0.9 K/mm3 (0.1-0.6); Monocytes Percent Auto 5.9 % (2.6-8.5); Neutrophils Absolute Auto 13.8 K/mm3 (1.3-6.7); Platelet Count Result 307 k/mm3 (150-375); Red Blood Count 5.53 M/mm3 (4.2-5.4); Red Cell Distribution Width 13.6 % (11.5-14.5); White Blood Count 15.8 K/mm3 (4.5-10.0)
[2024-11-30 19:34] LABS: Alanine Aminotransferase 18 U/L (6-35); Albumin Level 4.3 g/dL (3.5-5.1); Alkaline Phosphatase 65 U/L (38-126); Anion Gap 15 mmol/L (4-12); Aspartate Amino Transferase 22 U/L (14-36); Bilirubin,Total 0.9 mg/dL (0.2-1.3); Blood Urea Nitrogen 17 mg/dL (7-17); Calcium 9.9 mg/dL (8.4-10.2); Carbon Dioxide 23 mmol/L (22-30); Chloride 101 mmol/L (98-107); Estimated CRCL calculation 35 ml/min; Estimated Glomerular Filt Rate 54; Glucose 167 mg/dL (65-110); Lipase 83 U/L (23-300); Potassium 4.2 mmol/L (3.4-5.0); Sodium 139 mmol/L (137-145)
[2024-11-30 19:44] VITALS: BP 156/67; PULSE 69; RESP 18; O2SAT 97
--- NOTE | 2024-11-30 19:45 | PC.NURSE ---
Improvement in pain with protonix admin.
--- OUTSIDE RECORDS SUMMARY | 2024-11-30 19:52 | XMS_ITS | Clinical Summary ---
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 3 Active dicyclomine (BENTYL) 20 [...] 01/05/2011 Surgical History Surgery Date Site/Laterality Comments DC APPENDECTOMY Appendectomy - (Added by TW Conv) DC EXC CYST/ABERRANT BREAST TISSUE OPEN 1/> LESION Breast Surgery Lumpectomy - (Added by TW Conv) DC TOTAL ABDOMINAL HYSTERECT W/WO RMVL TUBE OVARY [...] on file Legal Sex Female 7:13 AM [employer] Gender Identity Not on file Sexual Orientation [...] Additional history exists Influenza Vaccine (#1) 2024 , 06/14/2021, 05/28/2020, Additional history exists Pneumococcal vaccine 65+ Completed 08/18/2016, 04/2006 Zoster Vaccine Completed 01/28/2019, 01/02, 10/07/2018, Additional history exists Insurance [employer] PPO Care Teams Gold And Silver Assayer Relationship Specialty [place] [id number] [address] [address] PCP - General 04/10/19
--- OUTSIDE RECORDS SUMMARY | 2024-11-30 19:52 | XMS_ITS | Clinical Summary ---
Author Organization [facility] Address [address] [place] [address] Care Team Providers Care Remote Inpatient Coder Name Role Phone Roberto Betancourt MD Unavailable [phone] Mariaelena Santos ERP DEVELOPER Primary Care Provider [phone] Shari Plummer RN Unavailable [phone] Allergies Active Allergy Reactions Criticality Noted Date Comments Iodine Anaphylaxis High 06/29/2016 Poss Contrast Dye Allergy Medications Multiple Vitamins tablet Take 1 tablet by mouth daily. 015 Active aspirin EC 325 MG Tab EC tablet Take 1 tablet (325 mg total) by mouth daily. Active BLOOD PRESSURE CUFF, DME, 1 Device by Does not apply route daily. Take blood pressure daily and report findings to office nurse. DX: htn 1 Device 022 Active Multiple Vitamin (MULTIVITAMIN ADULT OR) Active PSYLLIUM FIBER OR Ac tive cetirizine (ZYRTEC) 10 MG tablet Take 1 tablet (10 mg total) by mouth daily. Active lisinopril (PRINIVIL) 20 MG tabletIndications :Essential hypertension TAKE 1 TABLET(20 MG) BY MOUTH DAILY 90 tablet 1 024 Active metoprolol succinate ER (TOPROL-XL) 50 MG 24 hr tabletIndications :CHF (congestive heart failure), NYHA class I, acute, systolic (CMS/HCC HHS/HCC) TAKE 1 TABLET(50 MG) BY MOUTH DAILY 90 tablet 1 024 Active spironolactone (ALDACTONE) 25 MG tablet TAKE 1/2 TABLET(12.5 MG) BY MOUTH DAILY 45 tablet 2 024 Active Additional Information Patient taking differently: 25 mg, Reported on 10/30/2024 rosuvastatin (CRESTOR) 40 MG tabletIndications :Dyslipidemia TAKE 1 TABLET(40 MG) BY MOUTH EVERY NIGHT AT BEDTIME 90 tablet 2 024 Active pantoprazole EC (PROTONIX) 20 MG tabletIndications :Gastroesophageal reflux disease, unspecified whether esophagitis present TAKE 1 TABLET(20 MG) BY MOUTH DAILY 90 tablet 1 025 Active levothyroxine (SYNTHROID) 50 MCG tabletIndications :Acquired hypothyroidism TAKE 1 TABLET(50 MCG) BY MOUTH DAILY 90 tablet 1 025 Active bumetanide (BUMEX) 1 MG tabletIndications :CHF (congestive heart failure), NYHA class I, acute, systolic (CMS/HCC HHS/HCC) TAKE 1 TABLET(1 MG) BY MOUTH EVERY MORNING 90 tablet 1 025 Active levothyroxine (SYNTHROID) 50 MCG tabletIndications :Acquired hypothyroidism TAKE 1 TABLET(50 MCG) BY MOUTH DAILY 90 tablet 1 024 2024 Discontinued bumetanide (BUMEX) 1 MG tabletIndications :CHF (congestive heart failure), NYHA class I, acute, systolic (CMS/HCC HHS/HCC) TAKE 1 TABLET(1 MG) BY MOUTH EVERY MORNING 90 tablet 2 024 2024 Discontinued Active Problems Problem Noted Date Diagnosed Date Care Management 04/28/2024 Adult BMI 26.0-26.9 kg/sq m 03/06/2020 Cardiac LV ejection fraction 21-40% 02/12/2017 Overview (02/01/2019): Annotation - [id number]: 35-40%; Annotation - [id number]: 12/18 Ejection fraction ; 35 - 45 % Non-rheumatic mitral regurgitation 01/04/2017 Chronic systolic heart failure (CMS/HCC HHS/HCC) 01/04/2017 Anemia 08/28/2016 CHF (congestive heart failur e), NYHA class I, acute, systolic ([facility]) 06/17/2016 Seasonal allergies 12/25/2015 Vitamin D deficiency 04/30/2014 Hypothyroidism 05/24/2013 Hyperlipidemia 12/07/2011 Atherosclerosis of coronary artery 06/26/2011 Abnormal blood chemistry level 02/27/2011 GERD (gastroesophageal reflux disease) Essential hypertension Dyslipidemia CAD (coronary artery disease) Resolved Problems Problem Noted Date Diagnosed Date Resolved Date Shortness of breath 06/11/2016 09/14/20 22 Claudication, intermittent 10/22/2014 0 04/27/2024 Metabolic syndrome 10/22/2014 2 Malignant neoplasm of breast ([facility]) 11/15/2013 09/14/2022 Overview (02/01/2019): Annotation - [id number]: status post lumpectomy, stopped tamoxifen after 5 years Hormone replacement therapy 09/14/2022 Encounters Date Type Department Care Team Description 11/16/2024 Patient Outreach [address] [address] Shari Plummer RN Care Management (CCM call to the patient. ) 11/16/2024 Outreach Visit [address] [address] Shari Plummer RN 10/30/2024 8:20 AM RETIREMENT ASSISTANT Office Visit [address] [address] Mariaelena Santos NP Follow Up (6mo ck doing ok) 10/30/2024 Travel 10/25/2024 Patient Outreach [address] [address] Mariaelena Santos NP Pre-visit Gap Closure 10/19/2024 Patient Outreach [address] [address] Shari Plummer RN Care Management (CCM call to the patient. ) 09/25/2024 Patient Outreach [facility] [address] [place] [address] Shari Plummer RN Care Management (CCM call to the patient) 09/13/2024 10:30 AM RETIREMENT ASSISTANT Office Visit [facility], [address] [address] Mariangel Del Angel FNP CHF; Coronary Artery Disease; Hypertension; Follow Up 09/13/2024 Travel 09/05/2024 Patient Outreach [facility] [address] [place] [address] Shari Plummer RN Care Management (CCM call to the patient. ) from Last 3 Months Immunizations Name Administration Dates Next Due Fluzone High Dose (IIV, triv alent, 0.5mL) 05/23/2024 Fluzone High Dose - >Age 65 (Prefilled Syringe) 06/22/2023,07/15/2022,06/20/2018,2016,07/09/2014 Influenza (Generic) 05/28/2020, 9,07/11/2015,2013,06/21/2013 Influenza Adult (Generic) 05/28/2020,10/2018,06/20/2018,2016,07/09/2014 Influenza Quad Vial 06/14/2021 MODERNA COVID-19 (12+) MRNA, LNP-S, PF, 100 MCG/ 0.5 ML DOSE 08/04/2021,12/13/2020,11/15/2020 PFIZER COVID-19 (FIERRO CAP), MRNA, LNP-S, PF, 30 MCG/0.3 ML AMPARO-SUCROSE, IM 12/31/2021 Pneumococcal (Pneumovax 23) 08/10/2006 Pneumococcal (Prevnar 13) 08/18/2016 Shingrix 01/28/2019,10/07/2018 Td (Tenivac) preservative free 03/06/2020 Td, Adsorbed, Preservative F ree, Adult Use, Lf Unspecified 03/06/2020 Zoster (Zostavax) [address] Unt/0.65Ml 08/10/2012 Family History Medical History Relation Comments None Father CHF Maternal Grandmother Cancer Mother Colon Cancer Mother Relation Status Comments Father Maternal Grandmother Mother Social History Tobacco Use Types Packs/Day Years Used Date Smoking Tobacco: Former Cigarettes Q uit: 1972 Passive Smoke Exposure: Past Smokeless Tobacco: Never Tobacco Cessation:Counseling Given: No Alcohol Use Standard Drinks/Week Comments No 0 (1 standard drink = 0.6 oz pur e alcohol) Overall Financial Resource Strain (CARDIA) Answe r Date Recorded How hard is it for you to pa y for the very basics like food, housing, medical care, and heating? Not hard at all 04/28/2024 PHQ-2 Answer Date Recorded Patient Health Questionnaire-2 Score 0 10/30/2024 Hunger Vital Sign Answer Date Recorded Within the past 12 months, y ou worried that your food would run out before you got the money to buy more. Never true 04/28/20 24 Within the past 12 months, t he food you bought just didn't last and you didn't have money to get more. Never true 04/28/2024 PRAPARE - Transportation Answer Date Re corded In the past 12 months, has l ack of transportation kept you from medical appointments or from getting medications? No 04/04 In the past 12 months, has l ack of transportation kept you from meetings, work, or from getting things needed for daily living? No 04/28/2024 Housing Stability Vital Sign Answer Yair e Recorded In the last 12 months, was t here a time when you were not able to pay the mortgage or rent on time? No 04/28/2024 In the past 12 months, how m any times have you moved where you were living? 1 04/28/2024 At [facility] the [facility] were you homeless or living in a retirement (including now)? No 04/28/2024 Comments No Sex and Gender Information Value Date Recorded Sex Assigned at Female 02/01/2019 7:16 AM CDT Legal Sex Female 10:12 PM CDT Gender Identity Female 02/01/2019 7:16 AM CDT Sexual Orientation Straight 02/01/2019 7: 16 AM CDT Occupation Industry Job Start Date Job End Date Not on file Not on file Not on file Not on file Last Filed Vital Signs Vital Sign Reading Time Taken Comments Blood Pressure 136/80 10/30/2024 8:15 AM RETIREMENT ASSISTANT Pulse 60 10/30/2024 8:15 AM RETIREMENT ASSISTANT Temperature 35.7 C (96.2 F) 10/30/2024 8:15 AM RETIREMENT ASSISTANT Respiratory Rate 16 04/27/2024 10:39 AM CDT Oxygen Saturation 98% 10/30/2024 8:15 AM RETIREMENT ASSISTANT Inhaled Oxygen Concentration - - Weight 69.9 kg (154 lb 3.2 oz) 10/30/2024 8:15 A M RETIREMENT ASSISTANT Height 162.6 cm (5' 4 ) 10/30/2024 8:15 AM RETIREMENT ASSISTANT Body Mass Index 26.47 10/30/2024 8:15 AM RETIREMENT ASSISTANT Plan of Treatment Upcoming Encounters Date Type Department Care Team (Late st Contact Info) Description 03/14/2025 11:00 AM CDT Office Visit [facility], [facility] [address] [place] [address] Roberto Betancourt MD [facility]. [facility] [address] [place] [address] 05/08/2025 9:20 AM CDT Office Visit [facility] - [place] [address] [place] [address] Mariaelena Santos, KAREN [address] [place] [address] Health Maintenance Due Date Last Done Comments Annual Medicare Wellness Visit 2006 RSV Immunization or 60+ Years (1 - 1-dose 75+ series) 2016 DTaP, Tdap and Td Vaccines (1 - Tdap) 03/07/2020 03/06/2020, 03/06/2020 ASCVD LDL 11/01/2024 11/01/2023, 03/04, 03/04/2022, Additional history exists Pneumococcal Vaccine: 65+ Years Completed 08/18/2016, 08/10/2006 Zoster Vaccines Completed 01/28/2019, 01/2019, 08/10/2012 Dexa Scan (General) Completed 04/23/2023 Influenza Adult Completed 05/23/2024, 06/04, 07/15/2022, Additional history exists COVID-19 Vaccine Completed 06/07/2024, , 07/15/2022, Additional history exists PHQ-2 (Physician [place]) Completed 10/30/2024 Meningococcal B Vaccine Aged Out No l onger eligible based on patient's age to complete this topic Meningococcal Vaccine Aged Out No eliazar fernando eligible based on patient's age to complete this topic RSV Immunizations Under 20 Months Aged Out No longer eligible based on patient's age to complete this topic Goals Goal Patient Goal Type Associated Problems Recent Progress Patient-Stated? Author Blood Pressure < 140/90 Blood Pressure 136/80(10/30 8:15 AM RETIREMENT ASSISTANT) Shari Patton RN Note: Patient will monitor B/P and will report abnormal results to CC or PCP. Patient will have increased knowledge of s/s of HTN such as headache, heart palpitations, dizziness, blurred vision, fatigue, nose bleeds or CP. Patient will have increased knowledge of ways to prevent HTN, such as eating low sodium diet and low fat diet., avoid stress, avoid smoking, keep pain under control, avoid alcohol, exercise and take medications as directed. Patient will report any abnormal readings to CC or PCP. Monitor - able to weigh self daily and report weight gain to PCP r/t CHF Lifestyle On track(2024 3:11 PM RETIREMENT ASSISTANT) Shari Patton RN Note: Patient will monitor daily weights and will report weight gain of 2-3# overnight or 5# in a week. Patient will have increased knowledge of s/s of CHF exacerbation, such as fatigue, SOB, weight gain, loss of appetite, coughing, swelling in feet and ankles, nausea, vomiting, increased urination at night or an elevated B/P. Patient to report any s/s to CC or PCP as soon ad possible. Patient will have be knowledgeable of ways to prevent a CHF exacerbation, such as avoid stress, tobacco use, weighing daily, elevate legs to decrease edema, dress warmly in cold weather, eat a low sodium diet and avoid fatigue. Patient to take medications as directed. Consistently Take Medications as Prescribed for HTN Lifestyle On track(2024 3:11 PM RETIREMENT ASSISTANT) Shari Patton RN Note: Patient will monitor B/P and will report abnormal results to CC or PCP. Patient will have increased knowledge of s/s of HTN such as headache, heart palpitations, dizziness, blurred vision, fatigue, nose bleeds or CP. Patient will have increased knowledge of ways to prevent HTN, such as eating low sodium diet and low fat diet., avoid stress, avoid smoking, keep pain under control, avoid alcohol, exercise and take medications as directed. Patient will report any abnormal readings to CC or PCP. Procedures Procedure Name Priority Date/Time Associated Diagnosis Comments COLLECTION VENOUS BLOOD VENIPUNCTURE Routine 10/30/2024 8:55 AM RETIREMENT ASSISTANT Mixed hyperlipidemia TSH W/REFLEX Routine 10/30/2024 8:55 AM RETIREMENT ASSISTANT Acquired hypothyroidism COMPREHENSIVE METABOLIC PANEL Routine 10/30/2024 8:55 AM RETIREMENT ASSISTANT Essential hypertension Prediabetes HEMOGLOBIN, GLYCOSYLATED Routine 10/30/2024 8:55 AM RETIREMENT ASSISTANT Prediabetes LIPID PANEL Routine 11/01/2023 8:40 AM RETIREMENT ASSISTANT Dyslipidemia BONE DENSITY/DEXA Routine 04/23/2023 8:3 2 AM CDT Post-menopausal from Last 3 Months or Most Recently Relevant to Health Maintenance Results * TSH W/REFLEX (10/30/2024 8:55 AM RETIREMENT ASSISTANT) TSH 1.800 0.358 - 3.740 uIU/ML 10/30/2024 2:56 PM RETIREMENT ASSISTANT [place]INDSAY 10/30/2024 8:55 AM RETIREMENT ASSISTANT us Mariaelena Santos ERP DEVELOPER LABORATORY Final Res ult [address] [place] [address], * (ABNORMAL) HEMOGLOBIN, GLYCOSYLATED (10/30/2024 8:55 AM RETIREMENT ASSISTANT) HGB A1C 6.4(H) 4.5 - 6.2 % 10/30/2024 2:54 PM RETIREMENT ASSISTANT [facility] ESTIMATED AVG GLUCOSE 137(H) 74 - 106 MG/DL 10/30/2024 2:54 PM RETIREMENT ASSISTANT [facility] 10/30/2024 8:55 AM RETIREMENT ASSISTANT Mariaelena Santos NP LABORATORY Final Res ult Performing Organization Address City/State/[facility] Co de Phone Number [address] [address] [place] [address], * (ABNORMAL) COMPREHENSIVE METABOLIC PANEL (10/30/2024 8:55 AM RETIREMENT ASSISTANT) SODIUM S/P/B 141 136 - 145 MMOL/L 10/30/2024 2:56 PM RETIREMENT ASSISTANT [facility] POTASSIUM S/P/B 4.1 3.5 - 5.1 MMOL/L 10/30/2024 2:56 PM RETIREMENT ASSISTANT [facility] CHLORIDE S/P/B 102 98 - 107 MMOL/L 10/30/2024 2:56 PM RETIREMENT ASSISTANT [facility] CO2 29.4 21 - 32 MMOL/L 10/30/2024 2:56 PM RETIREMENT ASSISTANT [facility] GLUCOSE 135(H) 70 - 99 MG/DL 10/30/2024 2:56 PM RETIREMENT ASSISTANT [facility] BUN 19(H) 7 - 18 MG/DL 10/30/2024 2:56 PM RETIREMENT ASSISTANT [facility] CREATININE S/P/B 0.93 0.55 - 1.02 MG/DL 10/30/2024 2:56 PM [facility] CALCIUM S/P/B 8.8 8.4 - 10.5 MG/DL 10/30/2024 2:56 PM [facility] BILIRUBIN TOTAL S/P/B 0.6 0.2 - 1.0 MG/DL 10/30/2024 2:56 PM [facility] ALKALINE PHOSPHATASE S/P/B 63 55 - 142 U/L 10/30/2024 2:56 PM [facility] AST 23 15 - 37 U/L 10/30/2024 2:56 PM [facility] ALT 25 14 - 59 U/L 10/30/2024 2:56 PM [facility] TOTAL PROTEIN S/P/B 6.2(L) 6.4 - 8.2 G/DL 10/30/2024 2:56 PM [facility] ALBUMIN S/P/B 3.6 3.4 - 5.0 G/DL 10/30/2024 2:56 PM [facility] ANION GAP 9.6 5 - 15 MMOL/L 10/30/2024 2:56 PM [facility] Comment:REFERENCE RANGE NOT ESTABLISHED OSMOLALITY (CALC) 296 MOSM/KG 2:56 PM [facility] Comment:REFERENCE RANGE NOT ESTABLISHED GFR ESTIMATE 61(L) >90 ML/MIN/1. 73 M2 10/30/2024 2:56 PM [facility] GFR NOTES GFR REFERENCE S: 10/30/2024 2:56 PM [facility] Comment: THE ESTIMATED GFR IS CALCULATED USING THE 2020 CKD-EPI EQUATION. THE FOLLOWING CATEGORIES FOR GRADING RENAL FUNCTION ARE RECOMMENDED BY THE INTERNATIONAL SOCIETY OF NEPHROLOGY (KDIGO 2012 CLINICAL PRACTICE GUIDELINE). G1,NORMAL OR HIGH: >89 ml/min/1.73 m2 G2,MILDLY DECREASED: 60-89 ml/min/1.73 m2 G3A,MILDLY TO MODERATELY DECREASED: 45-59 ml/min/1.73 m2 G3B,MODERATELY TO SEVERELY DECREASED: 30-44 ml/min/1.73 m2 G4,SEVERELY DECREASED: 15-29 ml/min/1.73 m2 G5,KIDNEY FAILURE: <15 ml/min/1.73 m2 10/30/2024 8:55 AM RETIREMENT ASSISTANT Mariaelena Santos ERP DEVELOPER LABORATORY Final Res ult [facility] KRISTYN, [address] [place] [address], * LIPID PANEL (11/01/2023 8:40 AM RETIREMENT ASSISTANT) CHOLESTEROL 135 <200 MG/DL 11/01/2023 3:59 PM RETIREMENT ASSISTANT [facility] TRIGLYCERIDES 134 <150 MG/DL 11/01/2023 3:59 PM RETIREMENT ASSISTANT [facility] HDL 54 >40 MG/DL 11/01/2023 3:59 PM RETIREMENT ASSISTANT [facility] LDL-C 54 <100 MG/DL 11/01/2023 3:59 PM RETIREMENT ASSISTANT [facility] VLDL CALCULATION 27 5 - 28 MG/DL 11/01/2023 3:59 PM RETIREMENT ASSISTANT [facility] CHOL/HDL RATIO 2.5 0.0 - 4.0 11/01/2023 3:59 PM RETIREMENT ASSISTANT [facility] LDL/HDL 1.0 0.41 - 2.13 11/01/2023 3:59 PM RETIREMENT ASSISTANT [facility] NON HDL CHOLESTEROL 81 <140 MG/DL 11/01/2023 3:59 PM RETIREMENT ASSISTANT [facility] 11/01/2023 8:40 AM RETIREMENT ASSISTANT Mariaelena Santos ERP DEVELOPER LABORATORY [facility] [address] [address], * BONE DENSITY/DEXA (04/23/2023 8:32 AM CDT) Anatomical Region Laterality Modality Bone Mammography 04/23/2023 8:35 AM CDT Impressions 04/23/2023 8:36 AM CDT IMPRESSION: WHO Classification: osteopenia. FRAX: 4.6% chance of hip fracture and 16% chance of major osteoporotic fracture over the next 10 years . Referred By: MARIAELENA SANTOS Interpreted By: Tomas Mederos MD, 04/23/2023 8:35 AM Narrative 04/23/2023 8:36 AM CDT Examination: Bone Density Axial Exam Date/Time: 04/23/2023 8:05 AM Reason For Exam: Postmenopausal Comparison: None Findings: DEXA bone densitometry The bone mineral density (BMD) was determined by dual-energy x-ray absorptiometry, the results are as follows: AP Lumbar Spine L1 through L4 BMD Patient (GM/SQCM): 1.049 T-Score (Standard deviations from young adult peak bone density): 0.0 femoral neck: BMD Patient (GM/SQCM): 0.631 T-Score (Standard deviations from young adult peak bone density): -2.0 Total Left femur: BMD Patient (GM/SQCM): 0.749 T-Score (Standard deviations from young adult peak bone density): -1.6 Recommendations: All patients should ensure an adequate intake of dietary calcium and vitamin D. The NOF recommend adults under the age of 50 need 1000 mg of calcium and 400-800 IU of vitamin D daily. Effective therapy for the prevention and treatment of osteoporosis include biphosphonates. Follow-up: People with diagnosed cases of osteoporosis or at high risk for fracture should have regular bone mineral density test. For patients eligible for Medicare, routine testing is allowed once every 2 years. Testing frequency can be increased to one year for patients who have rapidly progressing disease, those who are receiving or discontinuing medical therapy to restore bone mass, or have additional risk factors. Procedure Note Tomas Mederos MD - 04/23/2023 Examination: Bone Density Axial Exam Date/Time: 04/23/2023 8:05 AM Reason For Exam: Postmenopausal Comparison: None Findings: DEXA bone densitometry The bone mineral density (BMD) was determined bydual-energy x-ray absorptiometry, the results are as follows: AP Lumbar Spine L1 through L4 BMD Patient (GM/SQCM): 1.049 T-Score (Standard deviations from young adult peak bonedensity): 0.0 femoral neck: BMD Patient (GM/SQCM): 0.631 T-Score (Standard deviations from young adult peak bonedensity): -2.0 Total Left femur: BMD Patient (GM/SQCM): 0.749 T-Score (Standard deviations from young adult peak bonedensity): -1.6 Recommendations: All patients should ensure an adequate intake of dietary calcium andvitamin D. The NOF recommend adults under the age of 50 need 1000 mg ofcalcium and 400-800 IU of vitamin D daily. Effective therapy for theprevention and treatment of osteoporosis include biphosphonates. Follow-up: People with diagnosed cases of osteoporosis or at high risk for fractureshould have regular bone mineral density test. [facility], routine testing is allowed once every 2 years. Testing frequencycan be increased to one year for patients who have rapidly progressingdisease, those who are receiving or discontinuing medical therapy torestore bone mass, or have additional risk factors. IMPRESSION: WHO Classification: osteopenia. FRAX: 4.6% chance of hip fracture and 16% chance of major osteoporoticfracture over the next 10 years . Referred By: MARIAELENA SANTOS Interpreted By: Tomas Mederos MD, 04/23/2023 8:35 AM Mariaelena Santos ERP DEVELOPER DEXA Final Res ult from Last 3 Months or Most Recently Relevant to Health Maintenance Insurance Care Teams Remote Inpatient Coder Relationship Specialty Start Date End Date Mariaelena Santos NP [address] [place] [address] PCP - General NURSE PRACTITIONER 09/14/22 Roberto Betancourt MD [facility]. [address] [address] [employer] Receiver CARDIOVASCULAR DISEASE 03/04/16 Shari Plummer, RN [address] [place] [address] [employer] Shop Attendant (Ambulatory) REGISTERED NURSE 04/28/24
--- OUTSIDE RECORDS SUMMARY | 2024-11-30 19:52 | XMS_ITS | Encounter Summary ---
Author Organization [facility] Address [facility] [place] [address] Care Team Providers Care Electrical Solderer Name Role Phone Lisa Coy MD Primary Care Provider [phone] Roberto Betancourt MD Unavailable [phone] Mariaelena Santos NP Primary Care Provider [phone] Shari Plummer RN Unavailable [phone] Encounter Details Date Type Department Care Team (Late st Contact Info) Description 03/18/2022 Kutuan Message Enc [facility] THREE [address] [address] [facility] Provider echo results Social History Tobacco Use Types Packs/Day Years Used Date Smoking Tobacco: Former Cigarettes Q uit: 1972 Smokeless Tobacco: Never Alcohol Use Standard Drinks/Week Comments No 0 (1 standard drink = 0.6 oz pur e alcohol) PHQ-2 Answer Date Recorded PHQ-2 Score - If the patient scores above 3, please move on to questions 3-9 0 03/17/2022 Comments No Sex and Gender Information Value Date Recorded Sex Assigned at Female 02/01/2019 7:16 AM CDT Legal Sex Female 10:12 PM CDT Gender Identity Female 02/01/2019 7:16 AM CDT Sexual Orientation Straight 02/01/2019 7: 16 AM CDT Occupation Industry Job Start Date Job End Date Not on file Not on file Not on file Not on file COVID-19 Exposure Response Date Recorded In the last 10 days, have catarino u been in contact with someone who was confirmed or suspected to have Coronavirus/COVID-19? No / Unsure 03/17/2022 7:40 AM CDT documented as of this encounter Plan of Treatment Upcoming Encounters Date Type Department Care Team (Late st Contact Info) Description 03/14/2025 11:00 AM CDT Office Visit [facility] THREE [facility], [address] [place], [place] [id number] Roberto Betancourt MD Three [facility]. [address] [place], [place] [id number] 05/08/2025 9:20 AM CDT Office Visit [facility] Family Medicine - [place] [address] [facility] [address] [place] [address] Mariaelena Santos NP [address] [place] [address] documented as of this encounter Visit Diagnoses Not on filedocumented in this encounter Additional Health Concerns Assessment Noted Time PHQ-9 Depression Total Score: 0 03/17/20 22 8:03 AM CDT documented as of this encounter Care Teams Electrical Solderer Relationship Specialty Start Date End Date Lisa Coy MD PCP - General INTERNAL MEDICINE 03/04/16 09/13/22 Mariaelena Santos NP [address] [place] [address] PCP - General NURSE PRACTITIONER 09/14/22 Roberto Betancourt MD [facility]. [address] [place] [address] [place] Thermoforming Operator CARDIOVASCULAR DISEASE 03/04/16 Shari Plummer, RN [address] [place] [address] Sewing Room Supervisor (Ambulatory) REGISTERED NURSE 04/28/24 documented as of this encounter
--- OUTSIDE RECORDS SUMMARY | 2024-11-30 19:52 | XMS_ITS | Encounter Summary ---
Author Organization [facility] Address [facility] [place] [address] Care Team Providers Care Senior Attorney Name Role Phone Lisa Coy MD Primary Care Provider [phone] Roberto Betancourt MD Unavailable Mariaelena Santos NP Primary Care Provider [phone] Shari Plummer RN Unavailable [phone] Encounter Details Date Type Department Care Team (Late st Contact Info) Description 07/01/2016 Abstract [facility] AT [address] [address] Kayla Maza MA Social History Tobacco Use Types Packs/Day Years Used Date Smoking Tobacco: Former Smokeless Tobacco: Never Comments:quit in 1971 Alcohol Use Standard Drinks/Week Comments No 0 (1 standard drink = 0.6 oz pur e alcohol) Comments Unknown Sex and Gender Information Value Date Recorded Sex Assigned at Female 02/01/2019 7:16 AM CDT Legal Sex Female 10:12 PM CDT Gender Identity Female 02/01/2019 7:16 AM CDT Sexual Orientation Straight 02/01/2019 7: 16 AM CDT documented as of this encounter Progress Notes * CHARANJIT BakerSABINE - 08/09/2017 6:00 PM CST PG pt send letter continue current meds COUNSELOR documented in this encounter Plan of Treatment Upcoming Encounters Date Type Department Care Team (Late st Contact Info) Description 03/14/2025 11:00 AM CDT Office Visit [facility], [address] [place] [address] Roberto Betancourt MD Three [facility]. [address] [place] [address] 05/08/2025 9:20 AM CDT Office Visit [facility] Family Medicine - [place] [address] [facility] [address] [place], [place] [address] Mariaelena Santos NP [address] [place] [address] documented as of this encounter Procedures Procedure Name Priority Date/Time Associated Diagnosis Comments CBC (OUTSIDE LAB) Routine 07/26/2017 CBC (OUTSIDE LAB) Routine 04/07/2017 BASIC METABOLIC PANEL Routine 04/07/2017 CBC (OUTSIDE LAB) Routine 08/23/2016 BNP Routine 08/23/2016 COMPREHENSIVE METABOLIC PANEL Routine 08/23/2016 CKMB(MB FRACTION ONLY) Routine 08/23/2016 TROPONIN, QUANT Routine 08/23/2016 CK (CPK) Routine 08/23/2016 CBC (OUTSIDE LAB) Routine 06/14/2016 COMPREHENSIVE METABOLIC PANEL Routine 06/14/2016 CK (CPK) Routine 06/14/2016 LIPID PANEL Routine 06/11/2016 documented in this encounter Results * CBC (OUTSIDE LAB) (07/26/2017) Pathologist [facility] WBC 6.0 HGB 14.0 HCT 43.2 PLT 293 07/26/2017 us [facility] Abstract LAB-OUTSIDE/ABSTRACTED Final Result * BASIC METABOLIC PANEL (04/07/2017) [facility] SODIUM S/P/B 137 POTASSIUM S/P/B 3.7 CO2 22 CHLORIDE S/P/B 103 GLUCOSE 111 mg/dL CALCIUM S/P/B 8.7 BUN 20 CREATININE S/P/B 0.70 0.5 - 1.0 EGFR NON-AFR. AMER. >60 <=90 04/07/2017 us Doc [facility] Abstract LABORATORY Final Result * CBC (OUTSIDE LAB) (04/07/2017) Pathologist [facility] WBC 8.3 HGB 14 HCT 42.1 PLT 257 04/07/2017 us Doc [facility] Abstract LAB-OUTSIDE/ABSTRACTED Final Result * BNP (08/23/2016) Pathologist [facility] B TYPE NATRIURETIC PEPTIDE 130 08/23/2016 us Doc [facility] Abstract LABORATORY Final Result * TROPONIN, QUANT (08/23/2016) Pathologist [facility] TROPONIN I 0.02 08/23/2016 us Doc [facility] Abstract LABORATORY Final Result * CPK, MB FRACTION (08/23/2016) CK-MB 1.1 08/23/2016 us Doc [facility] Abstract LABORATORY Final Result * CK (CPK) (08/23/2016) CPK 81 08/23/2016 us Doc [facility] Abstract LABORATORY Final Result * COMPREHENSIVE METABOLIC PANEL (08/23/2016) SODIUM S/P/B 139 POTASSIUM S/P/B 3.7 CO2 23 CHLORIDE S/P/B 106 GLUCOSE 115 CALCIUM S/P/B 9.2 BUN 16 CREATININE S/P/B 0.84 0.5 - 1.0 EGFR NON-AFR. AMER. >60 <=90 ALKALINE PHOSPHATASE S/P/B 88 ALT 15 AST 19 BILIRUBIN TOTAL S/P/B 0.2 ALBUMIN S/P/B 3.8 3.5 - 5.0 TOTAL PROTEIN S/P/B 6.7 08/23/2016 us Doc [facility] Abstract LABORATORY Final Result * CBC (OUTSIDE LAB) (08/23/2016) WBC 8.0 HGB 11.8 HCT 36.6 PLT 352 08/23/2016 us Doc [facility] Abstract LAB-OUTSIDE/ABSTRACTED Final Result * CK (CPK) (06/14/2016) CPK 56 06/14/2016 us Doc [facility] Abstract LABORATORY Final Result * COMPREHENSIVE METABOLIC PANEL (06/14/2016) SODIUM S/P/B 135 POTASSIUM S/P/B 3.6 CO2 23 CHLORIDE S/P/B 102 GLUCOSE 115 CALCIUM S/P/B 8.7 BUN 22 CREATININE S/P/B 0.82 EGFR NON-AFR. AMER. >60 ALKALINE PHOSPHATASE S/P/B 74 ALT 18 AST 21 BILIRUBIN TOTAL S/P/B 0.5 ALBUMIN S/P/B 3.7 3.5 - 5.0 TOTAL PROTEIN S/P/B 6.3 06/14/2016 us Doc [facility] Abstract LABORATORY Final Result * CBC (OUTSIDE LAB) (06/14/2016) WBC 11.1 HGB 11.8 HCT 37.5 PLT 395 06/14/2016 us Doc [facility] Abstract LAB-OUTSIDE/ABSTRACTED Final Result * LIPID PANEL (06/11/2016) CHOLESTEROL 156 HDL 48 TRIGLYCERIDES 153 LDL (CALCULATED) 77.4 06/11/2016 us Doc [facility] Abstract LABORATORY Final Result documented in this encounter Visit Diagnoses Not on filedocumented in this encounter Care Teams Senior Attorney Relationship Specialty Start Date End Date Lisa Coy MD PCP - General INTERNAL MEDICINE 03/04/16 09/13/22 Mariaelena Santos NP [address] [place] [address] PCP - General NURSE PRACTITIONER 09/14/22 Roberto Betancourt MD Three [facility]. [address] [place] [address] Brando Pre Billing Clinician CARDIOVASCULAR DISEASE 03/04/16 Shari Plummer RN [address] [place], [place] [address] Sales Assistant Entertainment And Media (Ambulatory) REGISTERED NURSE 04/28/24 documented as of this encounter
--- OUTSIDE RECORDS SUMMARY | 2024-11-30 19:52 | XMS_ITS | Encounter Summary ---
Author Organization [facility] Address [facility] [place] [address] Care Team Providers Care Rn Womens Health Name Role Phone Lisa Coy MD Primary Care Provider [phone] Roberto Betancourt MD Unavailable [phone] Mariaelena Santos NP Primary Care Provider [phone] Shari Plummer RN Unavailable [phone] Encounter Details Date Type Department Care Team (Late st Contact Info) Description 08/03/2018 Abstract [facility] at [address] [id number] Kayla Maza MA Social History Tobacco Use [...] file Not on file Not on file documented as of this encounter Plan of Treatment Upcoming Encounters Date Type Department Care Team (Late st Contact Info) Description 03/14/2025 11:00 AM CDT Office Visit [facility] THREE [facility] [address], [address] [place] [address] Roberto Betancourt MD Three [facility]. [address] [place] [address] 05/08/2025 9:20 AM CDT Office Visit [facility] Family Medicine - [place] [address] [place], [place] [address] Mariaelena Santos, KAREN [address] [place], [place] [address] documented as of this encounter Procedures Procedure Name Priority Date/Time Associated Diagnosis Comments CBC (OUTSIDE LAB) Routine 01/24/2019 COMPREHENSIVE METABOLIC PANEL Routine 01/24/2019 LIPID PANEL Routine 01/24/2019 THYROID STIM HORMONE TSH Routine 01/24/2019 COMPREHENSIVE METABOLIC PANEL Routine 07/25/2018 LIPID PANEL Routine 07/25/2018 documented in this encounter Results * LIPID PANEL (01/24/2019) CHOLESTEROL 171 HDL 43 TRIGLYCERIDES 136 LDL (CALCULATED) 91 01/24/2019 us Doc [facility] Abstract LABORATORY Final Result * COMPREHENSIVE METABOLIC PANEL (01/24/2019) SODIUM S/P/B 140 POTASSIUM S/P/B 4.0 CO2 26 CHLORIDE S/P/B 106 GLUCOSE 118 mg/dL CALCIUM S/P/B 9.3 BUN 17 CREATININE S/P/B 0.70 0.5 - 1.0 EGFR NON-AFR. AMER. >60 <=90 ALKALINE PHOSPHATASE S/P/B 62 ALT 23 AST 23 BILIRUBIN TOTAL S/P/B 0.3 ALBUMIN S/P/B 4.2 3.5 - 5.0 TOTAL PROTEIN S/P/B 7.0 01/24/2019 us Doc [facility] LABORATORY Final Result * THYROID STIM HORMONE, TSH (01/24/2019) TSH 1.640 01/24/2019 us Doc [facility] Abstract LABORATORY Final Result * CBC (OUTSIDE LAB) (01/24/2019) Pathologist [facility] WBC 6.6 HGB 9.4 HCT 30.6 PLT 394 01/24/2019 us Doc [facility] Abstract LAB-OUTSIDE/ABSTRACTED Edite d Result - Final * LIPID PANEL (07/25/2018) Pathologist [facility] CHOLESTEROL 193 HDL 47 TRIGLYCERIDES 122 LDL (CALCULATED) 105 07/25/2018 us Doc [facility] Abstract LABORATORY Final Result * COMPREHENSIVE METABOLIC PANEL (07/25/2018) Pathologist [facility] SODIUM S/P/B 141 POTASSIUM S/P/B 3.9 CO2 30 CHLORIDE S/P/B 103 GLUCOSE 118 mg/dL CALCIUM S/P/B 9.1 BUN 15 CREATININE S/P/B 0.70 0.5 - 1.0 EGFR NON-AFR. AMER. >60 <=90 ALKALINE PHOSPHATASE S/P/B 68 ALT 20 AST 26 BILIRUBIN TOTAL S/P/B 0.5 ALBUMIN S/P/B 4.2 3.5 - 5.0 TOTAL PROTEIN S/P/B 7.0 07/25/2018 us Doc [facility] Abstract LABORATORY Final Result documented in this encounter Visit Diagnoses Not on filedocumented in this encounter Care Teams Rn Womens Health Relationship Specialty Start Date End Date Lisa Coy MD PCP - General INTERNAL MEDICINE 03/04/16 09/13/22 Mariaelena Santos NP [address] [place] [address] PCP - General NURSE PRACTITIONER 09/14/22 Roberto Betancourt MD [address] [address] [place] Family Law Specialist CARDIOVASCULAR DISEASE 03/04/16 Shari Plummer, RN [address] [place], [place] [address] Slat Basket Top Maker (Ambulatory) REGISTERED NURSE 04/28/24 documented as of this encounter
--- OUTSIDE RECORDS SUMMARY | 2024-11-30 19:52 | XMS_ITS | Encounter Summary ---
Author Organization [facility] Address [facility] [place] [address] Care Team Providers Care Print Shop Chief Clerk Name Role Phone Lisa Coy MD Primary Care Provider Roberto Betancourt MD Unavailable [phone] Mariaelena Santos NP Primary Care Provider [phone] Shari Plummer RN Unavailable [phone] Encounter Details Date Type Department Care Team (Late st Contact Info) Description 02/07/2021 Citysearch Message Enc [facility] Family & Internal Medicine [address] [address] [facility] Provider Results Social History Tobacco Use Types Packs/Day Years Used Date Smoking Tobacco: Former Cigarettes Q uit: 1972 Smokeless Tobacco: Never Alcohol Use Standard Drinks/Week Comments No 0 (1 standard drink = 0.6 oz pur e alcohol) PHQ-2 Answer Date Recorded PHQ-2 Score - If the patient scores above 3, please move on to questions 3-9 0 03/06/2020 Comments No Sex and Gender Information Value [...] Exposure Response Date Recorded In the last month, have you been in contact with someone who was confirmed or suspected to have Coronavirus / COVID-19? No / Unsure 02/04/2021 7:48 AM CDT documented as of this encounter Plan of Treatment Upcoming Encounters Date Type Department Care Team (Late st Contact Info) Description 03/14/2025 11:00 AM CDT Office Visit [facility] THREE [facility] [address] [place], [place] [phone] Roberto Betancourt MD Three [facility]. [facility] [address] [place], [place] [address] 05/08/2025 9:20 AM CDT Office Visit [facility] Family Medicine - [place] [address] [facility] [address] [place] [address] Mariaelena Santos NP [address] [place], [place] [address] documented as of this encounter Visit Diagnoses Not on filedocumented in this encounter Care Teams Print Shop Chief Clerk Relationship Specialty Start Date End Date Lisa Coy MD PCP - General INTERNAL MEDICINE 03/04/16 09/13/22 Mariaelena Santos NP [address] [place] [address] PCP - General NURSE PRACTITIONER 09/14/22 Roberto Betancourt MD [facility]. [address] [place], [place] [id number] Brando Drum Builder CARDIOVASCULAR DISEASE 03/04/16 Shari Plummer, RN [address] [place], [place] [address] Residency Program Coordinator (Ambulatory) REGISTERED NURSE 04/28/24 documented as of this encounter
--- OUTSIDE RECORDS SUMMARY | 2024-11-30 19:52 | XMS_ITS | Referral Summary ---
Author Organization [facility] [address] Address [address] [place] [id number] Care Team Providers Care Construction Driver Name Role Phone Lisa Coy MD Primary Care Provider [phone] Allergies No known active allergies Medications levothyroxine (SYNTHROID) 50 mcg tablet Take 1 tablet (50 mcg total) by mouth exhaust tender before breakfast 3 Active dicyclomine (BENTYL) 20 [...] on file Legal Sex Female 7:13 AM WASTE BALER Gender Identity Not on file Sexual Orientation [...] Insurance [employer]IC[employer] PPO Care Teams Construction Driver Relationship Specialty [place] [address] [address] [address] PCP - General 04/10/19
--- NOTE | 2024-11-30 20:24 | ECG_ITS ---
Test Date: 2024-11-30 21:11:33 Measurements Intervals [place] Rate: 85 P: 53 NC: 175 QRS: -15 QRSD: 155 T: 158 QT: 416 QTc: 497 Interpretive Statements SINUS RHYTHM LEFT BUNDLE BRANCH BLOCK ABNORMAL ECG No previous ECG available for comparison Electronically Signed On 12-01-2024 07:10:48 FINE ARTS TEACHER by Juan R Armstrong D.O.
[2024-11-30] MEDS: METOCLOPRAMIDE HCL INJ 10 MG/2 ML VIAL IV PUSH (20:33)
[2024-11-30] MEDS: LACTATED RINGERS 1,000 ML 999 ML IV CONT (20:33)
--- NOTE | 2024-11-30 20:37 | PC.NURSE ---
Patient states she does not want anything for pain at the moment and just feels nauseous.
[2024-11-30 21:59] LABS: Add Urine Microscopic? YES; Appearance Urine Clear (Clear); Bacteria Urine None Seen /hpf; Bilirubin Urine Negative (Negative); Blood Urine Negative (Negative); Color Urine Yellow (Yellow); Glucose Urine UA Negative (Negative); Ketones Urine Trace mg/dL (Negative); Leukocyte Esterase Ur 1+ LEU/UL (Negative); Need Manual Microscopic Reviewed; Nitrate Urine Negative (Negative); Protein Urine Trace mg/dL (Negative); Specific Grav Ur 1.018 (1.001-1.035); Squamous Epithelial Cell Urine Occasional /hpf (Few); Urobilinogen Urine 0.2 mg/dL (<2.0); WBC Urine 0-5 /hpf (0-3)
[2024-11-30 22:21] VITALS: BP 137/54; PULSE 94; RESP 18; O2SAT 97
[2024-11-30] MEDS: ONDANSETRON INJ 4 MG/2 ML VIAL (23:36)
--- NOTE | 2024-11-30 23:36 | PC.NURSE ---
Verbal ok from MD regarding NG placement. NG set to suction per MD.
[2024-11-30 23:44] VITALS: BP 146/69; PULSE 104; RESP 18; O2SAT 100
[2024-12-01] VITALS (8 sets, daily range): BP systolic 128–162; BP diastolic 51–107; PULSE 78–104; RESP 16–20; TEMP 36.2–37.1; O2SAT 93–99; BMI 26.1
[2024-12-01 00:02] LABS: Lactic Acid Reflex 2.7 mmol/L (0.7-2.0)
[2024-12-01] MEDS: MORPHINE SULFATE (*CRX) 2 MG/ML INJ IV PUSH ×3 (00:03→06:21)
--- NOTE | 2024-12-01 01:35 | ADMGEN ---
This patient, Princess Schulz, was admitted to [facility] Surg Room 306-02. Patient/family oriented to hospital policies and general routines including ID bracelet, bed and alarms, visiting hours, pain management, procedures, bathroom and other care routines, personal items, smoking policy, room service/diet, and visiting hours. Information on how to activate the Rapid Response Team has been discussed. Patient/Family are encouraged to report perceived risks to care and to ask questions if they do not understand what they are told or what they should do.
[2024-12-01] MEDS: LACTATED RINGERS 1,000 ML 125 ML IV CONT ×3 (02:09→16:42)
[2024-12-01 02:46] LABS: Reflex Lactic Acid Yes or No Add Lactic
[2024-12-01 04:26] LABS: Lactic Acid 1.1 mmol/L (0.7-2.0)
--- NOTE | 2024-12-01 05:43 | P.HP_ITS ---
H&P: HPI History of Present Illness Date/Time: 12/01/24 05:43 Chief Complaint: 1. Abdominal pain 2. Nausea and vomiting Narrative: Princess Schulz is an 84 yo F with a Mhx significant for hypothyroidism, hypertension, GERD, dyslipidemia. She presents with a few hours' history of central abdominal pain which occured shortly after consuming some sweet potatoes. The pains are cramping/sharp in nature, localized; rated 10 in intensity, aggravated by meals/drinks; alleviated by fasting; associated by malaise, anxiety, fatigue and a restriction of her ADLs. She confesses to experiencing similar episodes years ago; she denies associated fevers, chills, flank pain, dizziness, LOC, cough, dyspnea, palpitations or hematemesis. She does not smoke/chew tobacco, vape nicotine, drink alcohol or consume recreational/illicit drugs; Work-up findings: CTAP: 1. Dilated Small bowel loops suggestive of obstruction with inflammatory changes seen in the mesentery on the right side. Trace of fluid is seen in the pelvis. No definite free air. 2. Hypodensity in the liver. This may indicate a mass versus metastatic lesion versus a complex cyst or an abscess. Clinical correlation and follow-up advised. XRA: Nasogastric tube with the tip in the fundus area. WBC 15; HB 16.4; PLT 30 Na 139; K 4.2; Cl101; CO2 23; AG 15; BUN 17; Cr 0.98; GFR 54 LA: 2.7 >> 1.1 AST 22; ALT 18; ALP 65; T. Bili 0.9 UA: LE 1+; WBC 0-5; -ve Nitrite; no bacteria Princess Schulz will be admitted, evaluated and managed for Review of Systems Review of Systems: All systems reviewed & are unremarkable except as noted in HPI and below PMFSH Past Medical History Medical History Systolic congestive heart failure The patient reports that her ejection fraction had been as low as 30% in the past. Through cardiac rehab in medications her EF is up to 48% Breast cancer in situ History of radiation therapy Thirty treatments of localized radiation therapy to right breast Hypothyroid Arthritis Post-menopausal GERD (gastroesophageal reflux disease) Bronchitis HTN (hypertension) Hyperlipidemia Surgical History Surgical History History of bladder suspension procedure History of lumpectomy of right breast Due to breast cancer in-situ History of hysterectomy At 36 years of age History of appendectomy History of cardiac catheterization History of tonsillectomy Family History Family History Mother Colon cancer Social History Social History Smoking packs per day: 1 Smoking cigarettes per day: 20.0 Years smoked: 20 Smoking pack-years: 20.00 Smoking status: Never smoker Tobacco type: cigarettes Second hand tobacco smoke exposure: Yes Smoking end date: 10/04/76 Alcohol intake: never Substance use: never Substance use type: does not use Do You Feel Safe in your Home?: Yes Lack of Transportation: No Lack of Food: Never True Current Housing: I Have Housing Concerned About Future Housing: No Difficulty Paying Gas/Electric Bills: No Difficulty Paying for Meds: No Currently Unemployed: No Education: Don't Know Difficulty w/ Childcare or Family Care: No Living arrangements: alone Additional living arrangements comments: She lives with her of 60 years in [place]. Occupation/Education: retired Gender identity (if verbalized by the patient): Female Spiritual care concerns: No Agree to blood products: Yes Meds Home Medications and Allergies Home Medications ?Medication ?Instructions ?Recorded ?Confirmed ?Type aspirin 325 mg tablet 325 mg PO PRN PRN Headache 12/26/19 12/01/24 History bumetanide 1 mg tablet 1 mg PO DAILY 12/26/19 12/01/24 History levothyroxine 50 mcg tablet 50 mcg PO DAILY 12/26/19 12/01/24 History (Synthroid) metoprolol succinate 50 mg capsule 50 mg PO DAILY 12/26/19 12/01/24 History sprinkle, ext. release 24 hr psyllium husk 0.52 gram capsule 0.52 g PO DAILY 12/26/19 12/01/24 History (Wal-Mucil Fiber) rosuvastatin 40 mg tablet (Crestor) 40 mg PO HS 12/26/19 12/01/24 History lisinopril 20 mg tablet 20 mg PO DAILY 07/15/23 12/01/24 History multivitamin with minerals-folic 1 tablet PO DAILY 07/15/23 12/01/24 History acid 0.4 mg tablet spironolactone 25 mg tablet 12.5 mg PO DAILY 07/15/23 12/01/24 History pantoprazole 20 mg tablet,delayed 20 mg PO DAILY 12/01/24 12/01/24 History release Allergies Allergy/AdvReac Type Severity Reaction Status Date / Time iodine Allergy Severe Swelling Verified 12/01/24 01:36 of Lip/Tongue/Throat Vital Signs Vital Signs - 24 hr 11/30/24 18:00 11/30/24 19:44 11/30/24 22:21 Temperature 97.6 F Pulse Rate 57 L 69 94 Respiratory Rate 20 18 18 Blood Pressure 165/61 H 156/67 H 137/54 L Pulse Oximetry 100 97 97 Oxygen Delivery Room Air 11/30/24 23:44 12/01/24 00:05 12/01/24 01:01 Temperature Pulse Rate 104 H 104 H 103 H Respiratory Rate 18 18 18 Blood Pressure 146/69 H 128/107 H 141/74 H Pulse Oximetry 100 95 93 Oxygen Delivery 12/01/24 01:22 Temperature 97.8 F Pulse Rate 96 Respiratory Rate 18 Blood Pressure 162/74 H Pulse Oximetry 95 Oxygen Delivery Exam Const: General: in distress HENMT: Ears: TM's normal bilaterally Face/Nose/Sinus: Normal nares present Eyes: General: appearance normal, both eyes and all related structures Sclera: sclerae normal Pupils: Equal, round and reactive pupils present Neck: Neck: supple Resp: Effort & Inspection: normal respiratory effort Auscultation: clear to auscultation bilaterally, no crackles, no rales and no rhonchi Cardio: Rate: regular rate GI: Inspection: distended GI Palp: Yes Firmness to palpation present (GI) Auscultation: abnormal bowel sounds Skin: General skin exam: normal color Neuro: General: gait normal Motor exam (neuro): 5/5 motor strength present throughout and Normal motor muscle tone present throughout Psych: Mental Status: mental status grossly normal Affect: Anxious affect present H&P: Results Labs Labs: Short CBC 11/30/24 Range/Units 19:20 WBC 15.8 H (4.5-10.0) K/mm3 Hgb 16.4 H D (12.0-15.0) g/dL Hct 50.6 H (37.0-47.0) % Plt Count 307 (150-375) k/mm3 BMP 11/30/24 19:19 Sodium 139 Potassium 4.2 Chloride 101 Carbon Dioxide 23 BUN 17 Creatinine 0.98 Glucose 167 H Calcium 9.9 Liver Function 11/30/24 Range/Units 19:19 Total Bilirubin 0.9 (0.2-1.3) mg/dL AST 22 (14-36) U/L ALT 18 (6-35) U/L Alkaline Phosphatase 65 (38-126) U/L Albumin 4.3 (3.5-5.1) g/dL Urine 11/30/24 Range/Units 21:30 Urine Color Yellow (Yellow) Urine Appearance Clear (Clear) Urine pH 5.0 (5.0-9.0) Ur Specific [place] 1.018 (1.001-1.035) Urine Protein Trace (Negative) mg/dL Urine Glucose (UA) Negative (Negative) mg/dL Assessment and Plan Assessment and plan (1) Nausea & vomiting: Code(s): R11.2 - Nausea with vomiting, unspecified Status: Acute (2) Bowel obstruction: Code(s): K56.609 - Unspecified intestinal obstruction, unspecified as to partial versus complete obstruction Status: Acute Plan Acute and principal conditions 1. SBO; 2. Lactic acidemia. 3. Dehydration. Rx: A. IVFs; Anti-emetics B. General surgery consulted C. NPO; NGT d. Empiric Zosyn Rx Chronic and stable conditions 1. Hypothyroidism. On Levothyroxine 2. Hypertension. On Lisinopril 3. GERD. on PPI 4. Dyslipidemia. on Rosuvastatin Miscellaneous care. 1. Code status. Full 2. Nutrition. NPO 3. VTE prophylaxis. SCDs; [facility] Hospitalist [facility] Advance Care Plan I have confirmed that the patient's Advanced Care Plan is present, code status is documented, or surrogate decision maker is listed in patient medical record.: Yes Medication Reconciliation I have utilized all available resources to obtain, update and review the patients current medications (includes all prescriptions, OTC, herbals, cannabis, and nutritional supplements).: Yes The patient is not eligible for med reconciliation; the patient is in a emergent medical situation where delaying treatment would jeopardize the patients health.: Yes
[2024-12-01] MEDS: PIPERACILLIN/TAZ 2.25G/NS 50ML 2.25 GM/50 ML BAG IVPB ×3 (06:22→17:51)
--- NOTE | 2024-12-01 07:16 | PM.IMPN ---
Progress Note: A&P Assessment and Plan (1) Nausea & vomiting: Code(s): R11.2 - Nausea with vomiting, unspecified Status: Acute Assessment and Plan: ##r/t SBO -NG tube placed, LIS. -NPO -IV fluids per order, (2) Bowel obstruction: Code(s): K56.609 - Unspecified intestinal obstruction, unspecified as to partial versus complete obstruction Status: Acute Assessment and Plan: ##as seen on CT -- > Dilated Small bowel loops suggestive of obstruction with inflammatory changes seen in the mesentery on the right side. Trace of fluid is seen in the pelvis. No definite free air. 2. Hypodensity in the liver. This may indicate a mass versus metastatic lesion versus a complex cyst or an abscess. Clinical correlation and follow-up advised. -NG tube placed, LIS. -NPO -IV fluids per order, -->Zofran prn for Nausea/Vomiting -->Empiric Zosyn Rx - did see GI in the past - 3rd obstruction this year. will consult GI (3) Lesion of liver: Code(s): K76.9 - Liver disease, unspecified Status: Acute Assessment and Plan: ## as seen on CT --> Hypodensity in the liver. This may indicate a mass versus metastatic lesion versus a complex cyst or an abscess. Clinical correlation and follow-up advised. - monitor Liver enzymes - will need GI consultation and following outpatient (4) HTN (hypertension): Code(s): I10 - Essential (primary) hypertension Status: Chronic Assessment and Plan: Continue medications (5) GERD (gastroesophageal reflux disease): Code(s): K21.9 - Gastro-esophageal reflux disease without esophagitis Status: Acute Assessment and Plan: Continue medications Plan Miscellaneous care. 1. Code status. Full 2. Nutrition. NPO 3. VTE prophylaxis. SCDs; [facility] Time Spent With Patient Time with patient: Greater than 35 minutes (40 minutes ) Subjective Date/time seen: 12/01/24 07:16 Interval history: This is a 84 y/o female with medical history of hypothyroidism, hypertension, GERD, dyslipidemia. She presents with a few hours' history of central abdominal pain which occurred shortly after consuming some sweet potatoes. The pains are cramping/sharp in nature, localized; rated 10 in intensity, aggravated by meals/drinks; alleviated by fasting; associated by malaise, anxiety, and fatigue. Patient reports she has had 3 other episodes that did not require hospitalization. Patient reports that she has seen GI once, she has had a small bowel follow-through study, and was told that she was okay. She states she knows she has scar tissue in her abdomen. Patient reports she has no pain currently, she is not passing any flatus. She continues to be nauseous. She denies associated fevers, chills, flank pain, dizziness, LOC, cough, dyspnea, palpitations or hematemesis. Review of Systems Review of Systems: All systems reviewed & are unremarkable except as noted in HPI and below Exam Const: General: cooperative, no acute distress, alert, awake and uncomfortable Nutritional Appearance: average body habitus Orientation/consciousness: patient oriented x3 Limitations: no limitations HENMT: Head: normal to inspection and normocephalic Ears: TM's normal bilaterally Face/Nose/Sinus: Normal nares present Eyes: General: appearance normal, both eyes and all related structures Sclera: sclerae normal Pupils: Equal, round and reactive pupils present Neck: Neck: full ROM, no lymphadenopathy and supple Chest: Chest palpation & inspection: normal inspection of the chest Resp: Effort & Inspection: normal respiratory effort Auscultation: clear to auscultation bilaterally Cardio: Rate: regular rate Rhythm: regular rhythm Heart sounds: S1 normal heart sound present and S2 normal heart sound present Peripheral pulses: Peripheral pulses 2+ throughout GI: Inspection: distended GI Palp: Yes abdominal tenderness and Yes Soft to palpation Auscultation: abnormal bowel sounds Skin: General skin exam: normal color and no rashes or lesions noted Neuro: General: patient oriented x3 and gait normal Cranial nerves: Yes Equal, round and reactive pupils present Motor exam (neuro): 5/5 motor strength present throughout and Normal motor muscle tone present throughout Extrem: General: normal to inspection, full ROM and capillary refill normal Psych: Mental Status: mental status grossly normal Affect: Anxious affect present Objective Data Vital Signs Vital Signs: Vital Signs - 24 hr 11/30/24 18:00 11/30/24 19:44 11/30/24 22:21 Temperature 97.6 F Pulse Rate 57 L 69 94 Respiratory Rate 20 18 18 Blood Pressure 165/61 H 156/67 H 137/54 L Pulse Oximetry 100 97 97 Oxygen Delivery Room Air 11/30/24 23:44 12/01/24 00:05 12/01/24 01:01 Temperature Pulse Rate 104 H 104 H 103 H Respiratory Rate 18 18 18 Blood Pressure 146/69 H 128/107 H 141/74 H Pulse Oximetry 100 95 93 Oxygen Delivery 12/01/24 01:22 12/01/24 05:47 Temperature 97.8 F 97.2 F L Pulse Rate 96 101 H Respiratory Rate 18 16 Blood Pressure 162/74 H 156/77 H Pulse Oximetry 95 94 Oxygen Delivery Intake/Output Intake/Output: Intake & Output 11/28/24 11/29/24 11/30/24 12/01/24 23:59 23:59 23:59 23:59 Intake Total 0 Output Total 25 -25 Meds/Results Medications: Active Medications Generic Name Dose Route Start Last Admin Trade Name Freq PRN Reason Stop Dose Admin Acetaminophen 650 mg 11/30/24 23:39 Acetaminophen 325 Mg Tablet PO Q4H PRN Mild Pain (1-3) or Fever Albuterol/Ipratropium 3 ml 12/01/24 05:42 Ipratropium 0.5 Mg/Albuterol Sulfate 2.5 Mg Ampul.Neb 3 Ml INHALATION Q4HRT PRN shortness of breath/Wheezing Guaifenesin/Dextromethorphan 10 ml 12/01/24 05:42 Guaifenesin/Dextromethorphan 10 Ml Udc PO Q4H PRN Cough Heparin Sodium (Porcine) 5,000 units 12/01/24 09:00 Heparin Sodium 5,000 Units/Ml Vial SUB-Q Q12HR [facility] Lactated Ringer's 1,000 mls @ 125 mls/hr 11/30/24 23:40 12/01/24 02:09 Lr - Lactated Ringers Iv IV CONT 125 mls/hr .Q8H BERNARD Administration Piperacillin Sod/Tazobactam Sod 2.25 gm in 50 mls @ 100 mls/hr 12/01/24 06:15 12/01/24 06:22 Zosyn 2.25 Gm/Ns 50 Ml IVPB 100 mls/hr Q6HR B[facility]ARD Administration Melatonin 5 mg 12/01/24 05:42 Melatonin 5 Mg Tablet PO HS PRN Insomnia Morphine Sulfate 2 mg 11/30/24 23:39 12/01/24 06:21 Morphine Sulfate (*Crx) 2 Mg/Ml Inj IV PUSH 2 mg Q2H PRN Administration Pain Rated 7-10 Ondansetron HCl 4 mg 11/30/24 23:39 Ondansetron Inj 4 Mg/2 Ml Vial IV PUSH Q4H PRN Nausea Prochlorperazine Edisylate 10 mg 12/01/24 05:42 Prochlorperazine Edisylate 10 Mg/2 Ml Vial IV PUSH Q6H PRN Nausea And Vomiting Radiology Results: ITS Impressions Abdomen/Pelvis CT 11/30/24 22:40 IMPRESSION: 1. Dilated Small bowel loops suggestive of obstruction with inflammatory changes seen in the mesentery on the right side. Trace of fluid is seen in the pelvis. No definite free air. 2. Hypodensity in the liver. This may indicate a mass versus metastatic lesion versus a complex cyst or an abscess. Clinical correlation and follow-up advised. Labs Labs: Laboratory Results - last 24 hr 11/30/24 11/30/24 11/30/24 19:19 19:20 21:30 WBC 15.8 H RBC 5.53 H Hgb 16.4 H D Hct 50.6 H MCV 91.5 MCH 29.7 MCHC 32.4 RDW 13.6 Plt Count 307 MPV 10.8 H Immature Gran % (Auto) 0.3 Neut % (Auto) 87.0 H Lymph % (Auto) 6.3 L [place] % (Auto) 5.9 Eos % (Auto) 0.2 Baso % (Auto) 0.3 Lymph # (Auto) 1.00 [place] # (Auto) 0.9 H Eos # (Auto) 0.0 Baso # (Auto) 0.1 Abs Immat Gran (auto) 0.04 H Absolute Neuts (auto) 13.8 H Absolute Nucleated RBC 0.000 Nucleated RBC % 0.0 Sodium 139 Potassium 4.2 Chloride 101 Carbon Dioxide 23 Anion Gap 15 H BUN 17 Creatinine 0.98 Estim Creat Clear Calc 35 Estimated GFR 54 L Glucose 167 H Lactic Acid Calcium 9.9 Total Bilirubin 0.9 AST 22 ALT 18 Alkaline Phosphatase 65 Total Protein 8.0 Albumin 4.3 Lipase 83 Urine Color Yellow Urine Appearance Clear Urine pH 5.0 Ur Specific [place] 1.018 Urine Protein Trace Urine Glucose (UA) Negative Urine Ketones Trace H Ur Blood (Man) Negative Urine Nitrate Negative Urine Bilirubin Negative Urine Urobilinogen 0.2 Add Ur Microanalysis Reviewed Leukocyte Esterase Rfl 1+ H Urine RBC 3-5 H Urine WBC 0-5 Ur Squamous Epith Cells Occasional Urine Bacteria None seen Urine Casts 6-10 11/30/24 12/01/24 23:41 03:21 WBC RBC Hgb Hct MCV MCH MCHC RDW Plt Count MPV Immature Gran % (Auto) Neut % (Auto) Lymph % (Auto) [place] % (Auto) Eos % (Auto) Baso % (Auto) Lymph # (Auto) [place] # (Auto) Eos # (Auto) Baso # (Auto) Abs Immat Gran (auto) Absolute Neuts (auto) Absolute Nucleated RBC Nucleated RBC % Sodium Potassium Chloride Carbon Dioxide Anion Gap BUN Creatinine Estim Creat Clear Calc Estimated GFR Glucose Lactic Acid 2.7 H 1.1 Calcium Total Bilirubin AST ALT Alkaline Phosphatase Total Protein Albumin Lipase Urine Color Urine Appearance Urine pH Ur Specific [place] Urine Protein Urine Glucose (UA) Urine Ketones Ur Blood (Man) Urine Nitrate Urine Bilirubin Urine Urobilinogen Add Ur Microanalysis Leukocyte Esterase Rfl Urine RBC Urine WBC Ur Squamous Epith Cells Urine Bacteria Urine Casts Quality VTE Prophylaxis VTE prophylaxis: mechanical ordered Hospitalist [facility] Advance Care Plan I have confirmed that the patient's Advanced Care Plan is present, code status is documented, or surrogate decision maker is listed in patient medical record.: Yes Medication Reconciliation I have utilized all available resources to obtain, update and review the patients current medications (includes all prescriptions, OTC, herbals, cannabis, and nutritional supplements).: Yes
[2024-12-01 07:23] LABS: Basophils Percent Auto 0.2 % (0.2-1.2); Hematocrit 48.7 % (37.0-47.0); Hemoglobin 15.8 g/dL (12.0-15.0); Immature Granulocyte Absolute 0.04 K/mm3 (0.00-0.031); Immature Granulocyte Percent A 0.3 % (0-0.5); Lymphocytes Absolute Auto 0.55 K/mm3 (0.9-3.2); Lymphocytes Percent Auto 4.3 % (18.3-44.2); Mean Corpuscular HGB Conc 32.4 g/dl (32-36); Mean Corpuscular Hemoglobin 29.1 pg (26-34); Mean Corpuscular Volume 89.7 fl (80-100); Mean Platelet Volume 11.3 fl (7.4-10.4); Monocytes Absolute Auto 1.6 K/mm3 (0.1-0.6); Monocytes Percent Auto 12.3 % (2.6-8.5); Neutrophils Absolute Auto 10.7 K/mm3 (1.3-6.7); Neutrophils Percent Auto 82.9 % (45.5-73.1); Platelet Count Result 285 k/mm3 (150-375); Red Blood Count 5.43 M/mm3 (4.2-5.4); Red Cell Distribution Width 13.7 % (11.5-14.5); White Blood Count 12.9 K/mm3 (4.5-10.0)
[2024-12-01 08:04] LABS: Albumin Level 3.7 g/dL (3.5-5.1)
[2024-12-01 08:05] LABS: Alanine Aminotransferase 15 U/L (6-35); Alkaline Phosphatase 52 U/L (38-126); Anion Gap 11 mmol/L (4-12); Aspartate Amino Transferase 23 U/L (14-36); Bilirubin,Total 1.1 mg/dL (0.2-1.3); Blood Urea Nitrogen 20 mg/dL (7-17); Calcium 9.3 mg/dL (8.4-10.2); Carbon Dioxide 23 mmol/L (22-30); Chloride 104 mmol/L (98-107); Estimated CRCL calculation 45 ml/min; Estimated Glomerular Filt Rate > 60; Glucose 145 mg/dL (65-110); Potassium 4.1 mmol/L (3.4-5.0); Sodium 138 mmol/L (137-145)
[2024-12-01] MEDS: HEPARIN SODIUM 5,000 UNITS/ML VIAL 5000 UNITS SUB-Q ×2 (08:39→20:55)
--- NOTE | 2024-12-01 10:27 | PM.CNGS ---
Assessment and Plan Assessment and plan (1) Bowel obstruction: Code(s): K56.609 - Unspecified intestinal obstruction, unspecified as to partial versus complete obstruction Status: Acute Assessment and Plan: CT scan of abdomen and pelvis showed dilated small bowel loops suggestive of possible small bowel obstruction with inflammatory changes seen in the mesentery on the right side. She is already feeling better after NG tube decompression. White blood cell count has come down today. We would recommend continuing conservative management with NG tube decompression, bowel rest, and IV fluids for now. We will continue to monitor with serial abdominal exams and imaging. Could consider further evaluation with a water-soluble small-bowel follow-through in the next few days depending on how she progresses. Discussed with the patient that surgical management is reserved for high-grade small bowel obstructions that do not improve with conservative measures, perforation, and/or signs of bowel ischemia. (2) HTN (hypertension): Code(s): I10 - Essential (primary) hypertension Status: Chronic (3) GERD (gastroesophageal reflux disease): Code(s): K21.9 - Gastro-esophageal reflux disease without esophagitis Status: Acute (4) Lesion of liver: Code(s): K76.9 - Liver disease, unspecified Status: Acute Assessment and Plan: CT scan mentions a 2.2 cm hypodensity in the liver with differential including mass versus metastatic lesion versus complex cyst, versus abscess. No clinical correlation for a liver abscess. In review of previous records, there is an abdominal ultrasound in 2022 with a 2 x 2.9 cm hepatic lesion at that time. Discussed these findings with the patient who can f/u with her PCP as an outpatient for further workup. Plan I have discussed the patient's case and plan of care with Dr. Puentes. History of Present Illness Consult details Consult date: 12/01/24 Reason for consult: other (Small-bowel obstruction) Requesting physician: Wei Aquino MD Narrative: This is an 84-year-old woman with PMH of hypertension, hyperlipidemia, hypothyroidism, who we have been asked to see in surgical consultation for a small-bowel obstruction. She reports having intermittent episodes of cramping abdominal pain over the past year. This has prompted her to come into the ED on at least 1-2 occasions in the past. She reports her symptoms typically improve after vomiting and she will feel better at home. Two nights ago, she had woke up throughout the night with cramping abdominal pain. The pain progressed throughout the day yesterday. She reports bloating and abdominal distension. She eventually vomited, but did not feel relief in her pain. Due to her persistent symptoms, she presented to the ED for evaluation. [place] [address]. Lactic acid 2.7, which normalized to 1.1 on repeat. UA negative for UTI. CT scan of the abdomen and pelvis showed dilated small bowel loops suggestive of obstruction with inflammatory changes seen in the mesentery on the right side, trace fluid seen in the pelvis, no definite free air, and a hypodensity in the liver measuring 2.2 cm. He has been admitted to the hospitalist service. She had an NG tube placed with minimal output. She reports having a large volume emesis when NG was placed. Previous abdominal surgeries include an open appendectomy at the age of 9 and a total abdominal hysterectomy. Denies any previous bowel obstructions. She endorses little flatus this morning, and her last bowel movement was yesterday morning. She reports bowel movement was normal at that time. Review of Systems Review of Systems: All systems reviewed & are unremarkable except as noted in HPI and below PMFSH Past Medical History Medical History Systolic congestive heart failure The patient reports that her ejection fraction had been as low as 30% in the past. Through cardiac rehab in medications her EF is up to 48% Breast cancer in situ History of radiation therapy Thirty treatments of localized radiation therapy to right breast Hypothyroid Arthritis Post-menopausal GERD (gastroesophageal reflux disease) Bronchitis HTN (hypertension) Hyperlipidemia Surgical History Surgical History History of bladder suspension procedure History of lumpectomy of right breast Due to breast cancer in-situ History of hysterectomy At 36 years of age History of appendectomy History of cardiac catheterization History of tonsillectomy Family History Family History Mother Colon cancer Social History Social History Smoking packs per day: 1 Smoking cigarettes per day: 20.0 Years smoked: 20 Smoking pack-years: 20.00 Smoking status: Never smoker Tobacco type: cigarettes Second hand tobacco smoke exposure: Yes Smoking end date: 10/04/76 Alcohol intake: never Substance use: never Substance use type: does not use Do You Feel Safe in your Home?: Yes Lack of Transportation: No Lack of Food: Never True Current Housing: I Have Housing Concerned About Future Housing: No Difficulty Paying Gas/Electric Bills: No Difficulty Paying for Meds: No Currently Unemployed: No Education: Don't Know Difficulty w/ Childcare or Family Care: No Living arrangements: alone Additional living arrangements comments: She lives with her of 60 years in [place]. Occupation/Education: retired Gender identity (if verbalized by the patient): Female Spiritual care concerns: No Agree to blood products: Yes Meds Home Medications and Allergies Home Medications ?Medication ?Instructions ?Recorded ?Confirmed ?Type aspirin 325 mg tablet 325 mg PO PRN PRN Headache 12/26/19 12/01/24 History bumetanide 1 mg tablet 1 mg PO DAILY 12/26/19 12/01/24 History levothyroxine 50 mcg tablet 50 mcg PO DAILY 12/26/19 12/01/24 History (Synthroid) metoprolol succinate 50 mg capsule 50 mg PO DAILY 12/26/19 12/01/24 History sprinkle, ext. release 24 hr psyllium husk 0.52 gram capsule 0.52 g PO DAILY 12/26/19 12/01/24 History (Wal-Mucil Fiber) rosuvastatin 40 mg tablet (Crestor) 40 mg PO HS 12/26/19 12/01/24 History lisinopril 20 mg tablet 20 mg PO DAILY 07/15/23 12/01/24 History multivitamin with minerals-folic 1 tablet PO DAILY 07/15/23 12/01/24 History acid 0.4 mg tablet spironolactone 25 mg tablet 12.5 mg PO DAILY 07/15/23 12/01/24 History pantoprazole 20 mg tablet,delayed 20 mg PO DAILY 12/01/24 12/01/24 History release Allergies Allergy/AdvReac Type Severity Reaction Status Date / Time iodine Allergy Severe Swelling Verified 12/01/24 01:36 of Lip/Tongue/Throat Vital Signs Vital Signs - 24 hr 11/30/24 18:00 11/30/24 19:44 11/30/24 22:21 Temperature 97.6 F Pulse Rate 57 L 69 94 Respiratory Rate 20 18 18 Blood Pressure 165/61 H 156/67 H 137/54 L Pulse Oximetry 100 97 97 Oxygen Delivery Room Air 11/30/24 23:44 12/01/24 00:05 12/01/24 01:01 Temperature Pulse Rate 104 H 104 H 103 H Respiratory Rate 18 18 18 Blood Pressure 146/69 H 128/107 H 141/74 H Pulse Oximetry 100 95 93 Oxygen Delivery 12/01/24 01:22 12/01/24 05:47 12/01/24 08:00 Temperature 97.8 F 97.2 F L 98.5 F Pulse Rate 96 101 H 97 Respiratory Rate 18 16 20 Blood Pressure 162/74 H 156/77 H 157/65 H Pulse Oximetry 95 94 95 Oxygen Delivery Exam Const: General: comfortable and no acute distress Nutritional Appearance: average body habitus Orientation/consciousness: patient oriented x3 HENMT: Head: normocephalic and atraumatic Ears: hearing grossly normal bilaterally Mouth: Yes moist mucous membranes Eyes: General: appearance normal, both eyes and all related structures Pupils: Equal, round and reactive pupils present Neck: Neck: normal visual inspection and full ROM Resp: Effort & Inspection: no respiratory distress Auscultation: clear to auscultation bilaterally Cardio: Rate: regular rate Rhythm: regular rhythm Peripheral pulses: Peripheral pulses 2+ throughout GI: Inspection: non-distended, scar (vertical RLQ and midline scars) and no visible herniation GI Palp: Yes Soft to palpation, Yes Tenderness to palpation present (GI) (LLQ, mild), No Guarding due to palpation present (GI), Yes No hepatosplenomegaly present and No Rebound tenderness present Auscultation: Hypoactive bowel sounds present Skin: General skin exam: normal color Neuro: General: moves all extremities and no focal motor deficits Speech: normal speech Motor exam (neuro): 5/5 motor strength present throughout Extrem: General: normal to inspection and no edema Psych: Mental Status: mental status grossly normal Attitude: cooperative Insight: Good insight present (Psych) Judgement: Good judgement present (Psych) Results Labs 12/01/24 03:21 12/01/24 03:21 Labs: Abnormal lab results 11/30/24 11/30/24 11/30/24 Range/Units 19:19 19:20 21:30 WBC 15.8 H (4.5-10.0) K/mm3 RBC 5.53 H (4.2-5.4) M/mm3 Hgb 16.4 H D (12.0-15.0) g/dL Hct 50.6 H (37.0-47.0) % MPV 10.8 H (7.4-10.4) fl Neut % (Auto) 87.0 H (45.5-73.1) % Lymph % (Auto) 6.3 L (18.3-44.2) % [place] % (Auto) (2.6-8.5) % Lymph # (Auto) (0.9-3.2) K/mm3 [place] # (Auto) 0.9 H (0.1-0.6) K/mm3 Abs Immat Gran (auto) 0.04 H (0.00-0.031) K/mm3 Absolute Neuts (auto) 13.8 H (1.3-6.7) K/mm3 Anion Gap 15 H (4-12) mmol/L BUN (7-17) mg/dL Estimated GFR 54 L (59 - ) Glucose 167 H (65-110) mg/dL Lactic Acid (0.7-2.0) mmol/L Total Protein (6.3-8.2) g/dL Urine Ketones Trace H (Negative) mg/dL Leukocyte Esterase Rfl 1+ H (Negative) MADDISON/UL Urine RBC 3-5 H (0-2) /hpf 11/30/24 12/01/24 Range/Units 23:41 03:21 WBC 12.9 H (4.5-10.0) K/mm3 RBC 5.43 H (4.2-5.4) M/mm3 Hgb 15.8 H (12.0-15.0) g/dL Hct 48.7 H (37.0-47.0) % MPV 11.3 H (7.4-10.4) fl Neut % (Auto) 82.9 H (45.5-73.1) % Lymph % (Auto) 4.3 L (18.3-44.2) % [place] % (Auto) 12.3 H (2.6-8.5) % Lymph # (Auto) 0.55 L (0.9-3.2) K/mm3 [place] # (Auto) 1.6 H (0.1-0.6) K/mm3 Abs Immat Gran (auto) 0.04 H (0.00-0.031) K/mm3 Absolute Neuts (auto) 10.7 H (1.3-6.7) K/mm3 Anion Gap (4-12) mmol/L BUN 20 H (7-17) mg/dL Estimated GFR (59 - ) Glucose 145 H (65-110) mg/dL Lactic Acid 2.7 H (0.7-2.0) mmol/L Total Protein 6.0 L (6.3-8.2) g/dL Urine Ketones (Negative) mg/dL Leukocyte Esterase Rfl (Negative) MADDISON/UL Urine RBC (0-2) /hpf Diabetes panel 11/30/24 12/01/24 Range/Units 19:19 03:21 Sodium 139 138 (137-145) mmol/L Potassium 4.2 4.1 (3.4-5.0) mmol/L Chloride 101 104 (98-107) mmol/L Carbon Dioxide 23 23 (22-30) mmol/L BUN 17 20 H (7-17) mg/dL Creatinine 0.98 0.71 (0.7-1.0) mg/dL Glucose 167 H 145 H (65-110) mg/dL Calcium 9.9 9.3 (8.4-10.2) mg/dL AST 22 23 (14-36) U/L ALT 18 15 (6-35) U/L Alkaline Phosphatase 65 52 (38-126) U/L Total Protein 8.0 6.0 L (6.3-8.2) g/dL Albumin 4.3 3.7 (3.5-5.1) g/dL Calcium panel 11/30/24 12/01/24 Range/Units 19:19 03:21 Calcium 9.9 9.3 (8.4-10.2) mg/dL Albumin 4.3 3.7 (3.5-5.1) g/dL Pituitary panel 11/30/24 12/01/24 Range/Units 19:19 03:21 Sodium 139 138 (137-145) mmol/L Potassium 4.2 4.1 (3.4-5.0) mmol/L Chloride 101 104 (98-107) mmol/L Carbon Dioxide 23 23 (22-30) mmol/L BUN 17 20 H (7-17) mg/dL Creatinine 0.98 0.71 (0.7-1.0) mg/dL Glucose 167 H 145 H (65-110) mg/dL Calcium 9.9 9.3 (8.4-10.2) mg/dL Adrenal panel 11/30/24 12/01/24 Range/Units 19:19 03:21 Sodium 139 138 (137-145) mmol/L Potassium 4.2 4.1 (3.4-5.0) mmol/L Chloride 101 104 (98-107) mmol/L Carbon Dioxide 23 23 (22-30) mmol/L BUN 17 20 H (7-17) mg/dL Creatinine 0.98 0.71 (0.7-1.0) mg/dL Glucose 167 H 145 H (65-110) mg/dL Calcium 9.9 9.3 (8.4-10.2) mg/dL Total Bilirubin 0.9 1.1 (0.2-1.3) mg/dL AST 22 23 (14-36) U/L ALT 18 15 (6-35) U/L Alkaline Phosphatase 65 52 (38-126) U/L Total Protein 8.0 6.0 L (6.3-8.2) g/dL Albumin 4.3 3.7 (3.5-5.1) g/dL All other labs normal. Imaging Additional studies: ITS Impressions Abdomen/Pelvis CT 11/30/24 22:40 IMPRESSION: 1. Dilated Small bowel loops suggestive of obstruction with inflammatory changes seen in the mesentery on the right side. Trace of fluid is seen in the pelvis. No definite free air. 2. Hypodensity in the liver. This may indicate a mass versus metastatic lesion versus a complex cyst or an abscess. Clinical correlation and follow-up advised.
[2024-12-01] MEDS: ACETAMINOPHEN 325 MG TABLET 650 MG PO (14:43)
--- NOTE | 2024-12-01 16:47 | P.CONGI_ITS ---
Assessment and Plan Assessment and plan (1) Small bowel obstruction: Code(s): K56.609 - Unspecified intestinal obstruction, unspecified as to partial versus complete obstruction Status: Acute Assessment and Plan: clinically better, NGT in place and surgery on board h/o abdominal surgeries lactic acid normalized (2) Abdominal bloating: Code(s): R14.0 - Abdominal distension (gaseous) Status: Acute (3) Epigastric pain: Code(s): R10.13 - Epigastric pain Status: Acute (4) Nausea & vomiting: Qualifiers: Vomiting type: unspecified Qualified Code(s): R11.2 - Nausea with vomiting, unspecified Code(s): R11.2 - Nausea with vomiting, unspecified Status: Acute Assessment and Plan: resolved, NGT in place KUB in am (5) Lesion of liver: Code(s): K76.9 - Liver disease, unspecified Status: Acute Assessment and Plan: 2022 also had lesion normal liver enzymes and no cirrhosis will get AFP and may benefit to get MRI liver protocol at some point. GI Consult Note Consult date/time: 12/01/24 16:47 Reason for consult: SBO HPI: Princess Schulz is a 84 year old female with history of hypertension, hyperlipidemia, hypothyroidism, previous appendectomy and hysterectomy. She is admitted with intermittent episodes of cramping abdominal pain for several months but recently with more vomiting and more severe cramping abdominal pain. Also reports bloating and abdominal distension. [place] [address]. Lactic acid 2.7, which normalized to 1.1 on repeat. UA negative for UTI. CT scan of the abdomen and pelvis showed dilated small bowel loops suggestive of obstruction with inflammatory changes seen in the mesentery on the right side, trace fluid seen in the pelvis, no definite free air, and a hypodensity in the liver measuring 2.2 cm. She had an NG tube and feeling much better now. Son at bedside. Review of Systems 2 Constitutional: Constitutional: Denies chills Eyes: Eyes: Denies blurry vision ENT: Reports Normal hearing present Cardiovascular: Cardiovascular: Denies chest pain Respiratory: Respiratory: Denies cough Gastrointestinal: Gastrointestinal: Reports abdominal pain and Reports vomiting Genitourinary: Genitourinary: Denies dysuria Musculoskeletal: Musculoskeletal: Denies neck pain Integumentary/Breasts: Skin/Breast: Denies rash Neurologic: Denies Abnormal speech present Psychiatric: Psychiatric: Denies behavioral changes [facility] Past Medical History Medical History (Updated 12/01/24 @ 16:50 by Neno Llamas MD) Small bowel obstruction Systolic congestive heart failure The patient reports that her ejection fraction had been as low as 30% in the past. Through cardiac rehab in medications her EF is up to 48% Breast cancer in situ History of radiation therapy Thirty treatments of localized radiation therapy to right breast Hypothyroid Arthritis Post-menopausal GERD (gastroesophageal reflux disease) Bronchitis HTN (hypertension) Hyperlipidemia Surgical History Surgical History History of bladder suspension procedure History of lumpectomy of right breast Due to breast cancer in-situ History of hysterectomy At 36 years of age History of appendectomy History of cardiac catheterization History of tonsillectomy Family History Family History Mother Colon cancer Social History Social History Smoking packs per day: 1 Smoking cigarettes per day: 20.0 Years smoked: 20 Smoking pack-years: 20.00 Smoking status: Never smoker Tobacco type: cigarettes Second hand tobacco smoke exposure: Yes Smoking end date: 10/04/76 Alcohol intake: never Substance use: never Substance use type: does not use Do You Feel Safe in your Home?: Yes Lack of Transportation: No Lack of Food: Never True Current Housing: I Have Housing Concerned About Future Housing: No Difficulty Paying Gas/Electric Bills: No Difficulty Paying for Meds: No Currently Unemployed: No Education: Don't Know Difficulty w/ Childcare or Family Care: No Living arrangements: alone Additional living arrangements comments: She lives with her of 60 years in [place]. Occupation/Education: retired Gender identity (if verbalized by the patient): Female Spiritual care concerns: No Agree to blood products: Yes Meds Home Medications and Allergies Home Medications ?Medication ?Instructions ?Recorded ?Confirmed ?Type aspirin 325 mg tablet 325 mg PO PRN PRN Headache 12/26/19 12/01/24 History bumetanide 1 mg tablet 1 mg PO DAILY 12/26/19 12/01/24 History levothyroxine 50 mcg tablet 50 mcg PO DAILY 12/26/19 12/01/24 History (Synthroid) metoprolol succinate 50 mg capsule 50 mg PO DAILY 12/26/19 12/01/24 History sprinkle, ext. release 24 hr psyllium husk 0.52 gram capsule 0.52 g PO DAILY 12/26/19 12/01/24 History (Wal-Mucil Fiber) rosuvastatin 40 mg tablet (Crestor) 40 mg PO HS 12/26/19 12/01/24 History lisinopril 20 mg tablet 20 mg PO DAILY 07/15/23 12/01/24 History multivitamin with minerals-folic 1 tablet PO DAILY 07/15/23 12/01/24 History acid 0.4 mg tablet spironolactone 25 mg tablet 12.5 mg PO DAILY 07/15/23 12/01/24 History pantoprazole 20 mg tablet,delayed 20 mg PO DAILY 12/01/24 12/01/24 History release Allergies Allergy/AdvReac Type Severity Reaction Status Date / Time iodine Allergy Severe Swelling Verified 12/01/24 01:36 of Lip/Tongue/Throat Vital Signs Vital Signs - 24 hr 11/30/24 18:00 11/30/24 19:44 11/30/24 22:21 Temperature 97.6 F Pulse Rate 57 L 69 94 Respiratory Rate 20 18 18 Blood Pressure 165/61 H 156/67 H 137/54 L Pulse Oximetry 100 97 97 Oxygen Delivery Room Air 11/30/24 23:44 12/01/24 00:05 12/01/24 01:01 Temperature Pulse Rate 104 H 104 H 103 H Respiratory Rate 18 18 18 Blood Pressure 146/69 H 128/107 H 141/74 H Pulse Oximetry 100 95 93 Oxygen Delivery 12/01/24 01:22 12/01/24 05:47 12/01/24 08:00 Temperature 97.8 F 97.2 F L 98.5 F Pulse Rate 96 101 H 97 Respiratory Rate 18 16 20 Blood Pressure 162/74 H 156/77 H 157/65 H Pulse Oximetry 95 94 95 Oxygen Delivery 12/01/24 12:05 12/01/24 14:00 Temperature 98.8 F Pulse Rate 90 Respiratory Rate 18 Blood Pressure 153/60 H Pulse Oximetry 94 99 Oxygen Delivery Room Air Exam 2 Const: General: comfortable and no acute distress Nutritional Appearance: a verage body habitus Orientation/consciousness: patient oriented x3 HENMT: Head: normocephalic and atraumatic Ears: hearing grossly normal bilaterally Eyes: General: appearance normal, both eyes and all related structures Neck: Neck: normal visual inspection Resp: Effort & Inspection: no respiratory distress Auscultation: clear to auscultation bilaterally Cardio: Rate: regular rate Rhythm: regular rhythm GI: Inspection: non-distended, scar (vertical RLQ and midline scars) and no visible herniation GI Palp: Yes Soft to palpation, Yes Tenderness to palpation present (GI) (LLQ, mild), No Guarding due to palpation present (GI) and No Rebound tenderness present Auscultation: Hypoactive bowel sounds present Skin: General skin exam: normal color Neuro: General: moves all extremities and no focal motor deficits Speech: n ormal speech Motor exam (neuro): 5/5 motor strength present throughout Extrem: General: normal to inspection and no edema Psych: Mental Status: mental status grossly normal Attitude: cooperative Insight: Good insight present (Psych) Judgement: Good judgement present (Psych) Results Labs 12/01/24 03:21 12/01/24 03:21 Labs: Short CBC 11/30/24 12/01/24 Range/Units 19:20 03:21 WBC 15.8 H 12.9 H (4.5-10.0) K/mm3 Hgb 16.4 H D 15.8 H (12.0-15.0) g/dL Hct 50.6 H 48.7 H (37.0-47.0) % Plt Count 307 285 (150-375) k/mm3 [facility] 11/30/24 12/01/24 19:19 03:21 Sodium 139 138 Potassium 4.2 4.1 Chloride 101 104 Carbon Dioxide 23 23 BUN 17 20 H Creatinine 0.98 0.71 Glucose 167 H 145 H Calcium 9.9 9.3 Liver Function 11/30/24 12/01/24 Range/Units 19:19 03:21 Total Bilirubin 0.9 1.1 (0.2-1.3) mg/dL AST 22 23 (14-36) U/L ALT 18 15 (6-35) U/L Alkaline Phosphatase 65 52 (38-126) U/L Albumin 4.3 3.7 (3.5-5.1) g/dL Urine 11/30/24 Range/Units 21:30 Urine Color Yellow (Yellow) Urine Appearance Clear (Clear) Urine pH 5.0 (5.0-9.0) Ur Specific Chancellor 1.018 (1.001-1.035) Urine Protein Trace (Negative) mg/dL Urine Glucose (UA) Negative (Negative) mg/dL
[2024-12-02] MEDS: LACTATED RINGERS 1,000 ML 125 ML IV CONT (00:21)
[2024-12-02] MEDS: PIPERACILLIN/TAZ 2.25G/NS 50ML 2.25 GM/50 ML BAG IVPB ×3 (00:43→12:19)
[2024-12-02 05:30] VITALS: BP 139/60; PULSE 80; RESP 20; TEMP 36.6; O2SAT 96
[2024-12-02 06:31] LABS: Basophils Absolute Auto 0.1 K/mm3 (0.0-0.1); Basophils Percent Auto 1.1 % (0.2-1.2); Eosinophils Absolute Auto 0.2 K/mm3 (0-0.3); Eosinophils Percent Auto 3.3 % (0-4.4); Hematocrit 38.7 % (37.0-47.0); Hemoglobin 12.4 g/dL (12.0-15.0); Immature Granulocyte Absolute 0.01 K/mm3 (0.00-0.031); Immature Granulocyte Percent A 0.2 % (0-0.5); Lymphocytes Absolute Auto 1.48 K/mm3 (0.9-3.2); Lymphocytes Percent Auto 23.5 % (18.3-44.2); Mean Corpuscular Hemoglobin 29.7 pg (26-34); Mean Corpuscular Volume 92.6 fl (80-100); Mean Platelet Volume 10.9 fl (7.4-10.4); Monocytes Percent Auto 15.4 % (2.6-8.5); Neutrophils Absolute Auto 3.6 K/mm3 (1.3-6.7); Neutrophils Percent Auto 56.5 % (45.5-73.1); Platelet Count Result 224 k/mm3 (150-375); Red Blood Count 4.18 M/mm3 (4.2-5.4); Red Cell Distribution Width 13.8 % (11.5-14.5); White Blood Count 6.3 K/mm3 (4.5-10.0)
[2024-12-02 06:39] LABS: Alanine Aminotransferase 13 U/L (6-35); Alkaline Phosphatase 40 U/L (38-126); Anion Gap 7 mmol/L (4-12); Aspartate Amino Transferase 23 U/L (14-36); Blood Urea Nitrogen 23 mg/dL (7-17); Calcium 8.1 mg/dL (8.4-10.2); Carbon Dioxide 26 mmol/L (22-30); Chloride 104 mmol/L (98-107); Estimated CRCL calculation 34 ml/min; Estimated Glomerular Filt Rate 56; Glucose 90 mg/dL (65-110); Potassium 3.6 mmol/L (3.4-5.0); Sodium 137 mmol/L (137-145)
[2024-12-02] MEDS: ACETAMINOPHEN 325 MG TABLET 650 MG PO (09:19)
[2024-12-02] MEDS: HEPARIN SODIUM 5,000 UNITS/ML VIAL 5000 UNITS SUB-Q ×2 (09:19→21:02)
--- NOTE | 2024-12-02 10:17 | WPDGIPROGNO ---
Progress Note: A&P Assessment and Plan (1) Small bowel obstruction: Code(s): K56.609 - Unspecified intestinal obstruction, unspecified as to partial versus complete obstruction Status: Acute Assessment and Plan: responding to medical support ngt still in place, passing gas kub with resolving SOB remove ngt soon surgery on board (2) Nausea & vomiting: Qualifiers: Vomiting type: unspecified Qualified Code(s): R11.2 - Nausea with vomiting, unspecified Code(s): R11.2 - Nausea with vomiting, unspecified Status: Acute (3) Abdominal bloating: Code(s): R14.0 - Abdominal distension (gaseous) Status: Acute (4) Epigastric pain: Code(s): R10.13 - Epigastric pain Status: Acute (5) Lesion of liver: Code(s): K76.9 - Liver disease, unspecified Status: Acute Assessment and Plan: will get mri liver probably as outpatient Subjective Date/time seen: 12/02/24 10:17 Interval history: clinically better, she is passing gas, less abdominal pain Review of Systems Review of Systems: All systems reviewed & are unremarkable except as noted in HPI and below Exam Const: General: comfortable and no acute distress Nutritional Appearance: average body habitus Orientation/consciousness: patient oriented x3 HENMT: Ears: hearing grossly normal bilaterally Other: NGT in place Eyes: General: appearance normal, both eyes and all related structures Neck: Neck: normal visual inspection Resp: Effort & Inspection: no respiratory distress Auscultation: clear to auscultation bilaterally Cardio: Rate: regular rate Rhythm: regular rhythm GI: Inspection: non-distended and scar (vertical RLQ and midline scars) GI Palp: Yes Soft to palpation, No Guarding due to palpation present (GI) and No Rebound tenderness present Other: minimally tender, no rebound- better than yesterday Skin: General skin exam: normal color Neuro: General: moves all extremities and no focal motor deficits Speech: normal speech Motor exam (neuro): 5/5 motor strength present throughout Extrem: General: normal to inspection and no edema Psych: Mental Status: mental status grossly normal Attitude: cooperative Insight: Good insight present (Psych) Judgement: Good judgement present (Psych) Objective Data Vital Signs Vital Signs: Vital Signs - 24 hr 12/01/24 12:05 12/01/24 14:00 12/01/24 22:00 Temperature 98.8 F 98.0 F Pulse Rate 90 78 Respiratory Rate 18 16 Blood Pressure 153/60 H 136/51 L Pulse Oximetry 94 99 96 Oxygen Delivery Room Air 12/02/24 05:30 Temperature 97.9 F Pulse Rate 80 Respiratory Rate 20 Blood Pressure 139/60 Pulse Oximetry 96 Oxygen Delivery Intake/Output Intake/Output: Intake & Output 11/29/24 11/30/24 12/01/24 12/02/24 23:59 23:59 23:59 23:59 Intake Total 1968.8 1006.3 Output Total 125 175 Balance 1843.8 831.3 Meds/Results Medications: Active Medications Generic Name Dose Route Start Last Admin Trade Name Freq PRN Reason Stop Dose Admin Acetaminophen 650 mg 11/30/24 23:39 12/02/24 09:19 Acetaminophen 325 Mg Tablet PO 650 mg Q4H PRN Administration Mild Pain (1-3) or Fever Albuterol/Ipratropium 3 ml 12/01/24 05:42 Ipratropium 0.5 Mg/Albuterol Sulfate 2.5 Mg Ampul.Neb 3 Ml INHALATION Q4HRT PRN shortness of breath/Wheezing Guaifenesin/Dextromethorphan 10 ml 12/01/24 05:42 Guaifenesin/Dextromethorphan 10 Ml Udc PO Q4H PRN Cough Heparin Sodium (Porcine) 5,000 units 12/01/24 09:00 12/02/24 09:19 Heparin Sodium 5,000 Units/Ml Vial SUB-Q 5,000 units Q12HR BERNARD Administration Lactated Ringer's 1,000 mls @ 125 mls/hr 11/30/24 23:40 12/02/24 00:21 Lr - Lactated Ringers Iv IV CONT 125 mls/hr .Q8H BERNARD Administration Piperacillin Sod/Tazobactam Sod 2.25 gm in 50 mls @ 100 mls/hr 12/01/24 06:15 12/02/24 05:50 Zosyn 2.25 Gm/Ns 50 Ml IVPB 100 mls/hr Q6HR BERNARD Administration Melatonin 5 mg 12/01/24 05:42 Melatonin 5 Mg Tablet PO HS PRN Insomnia Morphine Sulfate 2 mg 11/30/24 23:39 12/01/24 06:21 Morphine Sulfate (*Crx) 2 Mg/Ml Inj IV PUSH 2 mg Q2H PRN Administration Pain Rated 7-10 Ondansetron HCl 4 mg 11/30/24 23:39 Ondansetron Inj 4 Mg/2 Ml Vial IV PUSH Q4H PRN Nausea Phenol 1 spray 12/02/24 10:12 Phenol/Sod Pheno [place] Mock (*Bkc) MUCOUS MEM PRN PRN Sore Throat Prochlorperazine Edisylate 10 mg 12/01/24 05:42 Prochlorperazine Edisylate 10 Mg/2 Ml Vial IV PUSH Q6H PRN Nausea And Vomiting Radiology Results: ITS Impressions Abdomen/Pelvis CT 11/30/24 22:40 IMPRESSION: 1. Dilated Small bowel loops suggestive of obstruction with inflammatory changes seen in the mesentery on the right side. Trace of fluid is seen in the pelvis. No definite free air. 2. Hypodensity in the liver. This may indicate a mass versus metastatic lesion versus a complex cyst or an abscess. Clinical correlation and follow-up advised. Abdomen X-Ray 12/02/24 07:24 IMPRESSION: 1. Nonspecific bowel gas pattern which could represent ileus or resolving small bowel obstruction. Labs Labs: Laboratory Results - last 24 hr 12/02/24 12/02/24 06:06 06:07 WBC 6.3 RBC 4.18 L Hgb 12.4 D Hct 38.7 MCV 92.6 MCH 29.7 MCHC 32.0 RDW 13.8 Plt Count 224 MPV 10.9 H Immature Gran % (Auto) 0.2 Neut % (Auto) 56.5 Lymph % (Auto) 23.5 [place] % (Auto) 15.4 H Eos % (Auto) 3.3 Baso % (Auto) 1.1 Lymph # (Auto) 1.48 [place] # (Auto) 1.0 H Eos # (Auto) 0.2 Baso # (Auto) 0.1 Abs Immat Gran (auto) 0.01 Absolute Neuts (auto) 3.6 Absolute Nucleated RBC 0.000 Nucleated RBC % 0.0 Sodium 137 Potassium 3.6 Chloride 104 Carbon Dioxide 26 Anion Gap 7 BUN 23 H Creatinine 0.96 Estim Creat Clear Calc 34 Estimated GFR 56 L Glucose 90 Calcium 8.1 L Total Bilirubin 1.0 AST 23 ALT 13 Alkaline Phosphatase 40 Total Protein 6.0 L Albumin 3.0 L
[2024-12-02] MEDS: PHENOL/SOD PHENO SPRAY CHERRY (*BKC) 1 SPRAY MUCOUS MEM (11:06)
--- NOTE | 2024-12-02 11:14 | P.PNIM_ITS ---
Progress Note: A&P Assessment and Plan (1) Bowel obstruction: Qualifiers: Intestinal obstruction extent: complete Intestinal obstruction type: unspecified Qualified Code(s): K56.601 - Complete intestinal obstruction, unspecified as to cause Code(s): K56.609 - Unspecified intestinal obstruction, unspecified as to partial versus complete obstruction Status: Deleted Assessment and Plan: * CT of the abdomen and pelvis showed a dilated small bowel loops suggestive of obstructive of obstruction with inflammatory changes seen in the mesentery on the right side, hypodensity in the liver this may indicate a mass versus metastatic lesion versus a complex cyst or an abscess. * NG tube placed in the ED to low intermittent suction * DC IV fluids * Continue antiemetics * Continue Zosyn * GI consulted * General surgery following * KUB today revealing nonspecific bowel gas pattern representing ileus or resolving small bowel obstruction * Upper GI series was negative for obstruction * Can likely advance to clear liquid diet and have NG tube out however we will defer to General surgery (2) Lesion of liver: Code(s): K76.9 - Liver disease, unspecified Status: Acute Assessment and Plan: * History of breast cancer * CT of the abdomen and pelvis showing hypodensity in the liver which may indicate a mass versus metastatic lesion versus a complex cyst or an abscess * GI following * Continue to trend liver enzymes (3) HTN (hypertension): Code(s): I10 - Essential (primary) hypertension Status: Chronic Assessment and Plan: * Blood pressure ranging 139/60 to 156/77 * Unable to take p.o. medication * Continue to trend (4) GERD (gastroesophageal reflux disease): Code(s): K21.9 - Gastro-esophageal reflux disease without esophagitis Status: Acute Assessment and Plan: * Will start Protonix Time Spent With Patient Time with patient: 25 - 35 minutes Subjective Date/time seen: 12/02/24 11:14 Interval history: Interval history: This is an 84-year-old female with a significant past medical history of hypothyroidism, GERD, hypertension, hyperlipidemia, breast cancer, congestive heart failure, former smoker who presented to the hospital with complaints nausea vomiting and abdominal pain. Workup in the hospital included an abdomen/pelvis CT which showed dilated small bowel loops suggesting obstruction with inflammatory changes seen in the mesentery on the right side, hypodensity in the liver which may indicate a mass versus metastatic lesion verses a complex cyst or an abscess. NG tube was placed. Initial labs showed a white blood cell count of 15.8, hemoglobin 16.4, anion gap 15, creatinine 0.98, EGFR 54, blood sugar ranging 145-167, lactic acid 2.7> 1.1, lipase was normal at 83. UA was obtained and showed trace urine ketones, 1+ leukocyte, 3-5 urine RBC, otherwise normal. EKG showed sinus rhythm with left bundle branch block with a rate of 85, QTC 497. Patient was started on IV fluids and Zosyn. General surgery and GI were consulted and following Subjective: Patient denies any nausea vomiting or abdominal pain. She had 2 bowel movements today and is passing flatus. Abdominal x-ray today showed nonspecific bowel gas pattern representing ileus or resolving small bowel obstruction. Upper GI series was negative for obstruction. Labs and imaging reviewed. Review of Systems Review of Systems: All systems reviewed & are unremarkable except as noted in HPI and below Exam Narrative: General: In no acute distress, well nourished Head: atraumatic, no encephalopathy Eyes: PERRLA, sclera clear ENT: Tachy mucous membranes, nasal passages clear Neck: supple, no JVD, no adenopathy, trachea midline Cardiac: Normal S1 and S2. No murmur, gallops or friction rubs, peripheral pulses intact. Respiratory: Lungs clear to auscultation, no adventitious lung sounds currently on room air Gastrointestinal: soft, non-distended, non-tender, normoactive bowel sounds. BM x2, NG tube clamped : voiding without difficulty. Extremities: moves all extremities well, no edema Skin: clean, dry, intact. No wounds or lesions. Neuro: Alert and oriented x4, cranial nerves intact, no neuro deficits. Psych: normal mood, normal affect, interactive Objective Data Vital Signs Vital Signs: Vital Signs - 24 hr 12/01/24 12:05 12/01/24 14:00 12/01/24 22:00 Temperature 98.8 F 98.0 F Pulse Rate 90 78 Respiratory Rate 18 16 Blood Pressure 153/60 H 136/51 L Pulse Oximetry 94 99 96 Oxygen Delivery Room Air 12/02/24 05:30 Temperature 97.9 F Pulse Rate 80 Respiratory Rate 20 Blood Pressure 139/60 Pulse Oximetry 96 Oxygen Delivery Intake/Output Intake/Output: Intake & Output 02/2611/30/24 12/01/24 12/02/24 23:59 23:59 23:59 23:59 Intake Total 1968.8 1006.3 Output Total 125 175 Balance 1843.8 831.3 Meds/Results Medications: Active Medications Generic Name Dose Route Start Last Admin Trade Name Freq PRN Reason Stop Dose Admin Acetaminophen 650 mg 11/30/24 23:39 12/02/24 09:19 Acetaminophen 325 Mg Tablet PO 650 mg Q4H PRN Administration Mild Pain (1-3) or Fever Albuterol/Ipratropium 3 ml 12/01/24 05:42 Ipratropium 0.5 Mg/Albuterol Sulfate 2.5 Mg Ampul.Neb 3 Ml INHALATION Q4HRT PRN shortness of breath/Wheezing Guaifenesin/Dextromethorphan 10 ml 12/01/24 05:42 Guaifenesin/Dextromethorphan 10 Ml Udc PO Q4H PRN Cough Heparin Sodium (Porcine) 5,000 units 12/01/24 09:00 12/02/24 09:19 Heparin Sodium 5,000 Units/Ml Vial SUB-Q 5,000 units Q12HR BERNARD Administration Lactated Ringer's 1,000 mls @ 125 mls/hr 11/30/24 23:40 12/02/24 00:21 Lr - Lactated Ringers Iv IV CONT 125 mls/hr .Q8H BERNARD Administration Piperacillin Sod/Tazobactam Sod 2.25 gm in 50 mls @ 100 mls/hr 12/01/24 06:15 12/02/24 05:50 Zosyn 2.25 Gm/Ns 50 Ml IVPB 100 mls/hr Q6HR BERNARD Administration Melatonin 5 mg 12/01/24 05:42 Melatonin 5 Mg Tablet PO HS PRN Insomnia Morphine Sulfate 2 mg 11/30/24 23:39 12/01/24 06:21 Morphine Sulfate (*Crx) 2 Mg/Ml Inj IV PUSH 2 mg Q2H PRN Administration Pain Rated 7-10 Ondansetron HCl 4 mg 11/30/24 23:39 Ondansetron Inj 4 Mg/2 Ml Vial IV PUSH Q4H PRN Nausea Phenol 1 spray 12/02/24 10:12 12/02/24 11:06 Phenol/Sod Pheno [place] Mock (*Bkc) MUCOUS MEM 1 spray PRN PRN Administration Sore Throat Prochlorperazine Edisylate 10 mg 12/01/24 05:42 Prochlorperazine Edisylate 10 Mg/2 Ml Vial IV PUSH Q6H PRN Nausea And Vomiting Radiology Results: ITS Impressions Abdomen/Pelvis CT 11/30/24 22:40 IMPRESSION: 1. Dilated Small bowel loops suggestive of obstruction with inflammatory changes seen in the mesentery on the right side. Trace of fluid is seen in the pelvis. No definite free air. 2. Hypodensity in the liver. This may indicate a mass versus metastatic lesion versus a complex cyst or an abscess. Clinical correlation and follow-up advised. Abdomen X-Ray 12/02/24 07:24 IMPRESSION: 1. Nonspecific bowel gas pattern which could represent ileus or resolving small bowel obstruction. Labs Labs: Laboratory Results - last 24 hr 12/02/24 12/02/24 06:06 06:07 WBC 6.3 RBC 4.18 L Hgb 12.4 D Hct 38.7 MCV 92.6 MCH 29.7 MCHC 32.0 RDW 13.8 Plt Count 224 MPV 10.9 H Immature Gran % (Auto) 0.2 Neut % (Auto) 56.5 Lymph % (Auto) 23.5 [place] % (Auto) 15.4 H Eos % (Auto) 3.3 Baso % (Auto) 1.1 Lymph # (Auto) 1.48 [place] # (Auto) 1.0 H Eos # (Auto) 0.2 Baso # (Auto) 0.1 Abs Immat Gran (auto) 0.01 Absolute Neuts (auto) 3.6 Absolute Nucleated RBC 0.000 Nucleated RBC % 0.0 Sodium 137 Potassium 3.6 Chloride 104 Carbon Dioxide 26 Anion Gap 7 BUN 23 H Creatinine 0.96 Estim Creat Clear Calc 34 Estimated GFR 56 L Glucose 90 Calcium 8.1 L Total Bilirubin 1.0 AST 23 ALT 13 Alkaline Phosphatase 40 Total Protein 6.0 L Albumin 3.0 L Quality VTE Prophylaxis VTE prophylaxis: mechanical ordered
[2024-12-02] MEDS: PANTOPRAZOLE SODIUM IV 40 MG VIAL IV PUSH (12:12)
[2024-12-02 14:00] VITALS: BP 175/70; PULSE 75; RESP 14; TEMP 36.1; O2SAT 99
--- NOTE | 2024-12-02 14:08 | PM.PNGS ---
Progress Note: A&P Assessment and Plan (1) Small bowel obstruction: Code(s): K56.609 - Unspecified intestinal obstruction, unspecified as to partial versus complete obstruction Status: Acute Assessment and Plan: Abdominal pain is gone, patient had bowel movement and has good bowel sounds. It seems that her obstruction has resolved. Her son was present at the time of my evaluation. They are concerned as this is the 3rd time this has happened since August. The 2nd time this happened was just a month ago. After discussion, will go ahead and get water-soluble contrast small-bowel series to evaluate transit time and potential for small-bowel stricture. (2) Lesion of liver: Code(s): K76.9 - Liver disease, unspecified Status: Acute Assessment and Plan: Noted incidentally on CT scan. Alpha fetoprotein has been ordered. Will probably need outpatient follow-up CT scan. Subjective Subjective Date/Time Seen: 12/02/24 14:08 Patient reports: no new complaints, pain is less, flatus, bowel movement and afebrile Review of Systems Review of Systems: All systems reviewed & are unremarkable except as noted in HPI and below (HPI) Exam Const: General: cooperative, comfortable, no acute distress, alert and awake Orientation/consciousness: patient oriented x3 GI: Inspection: normal to inspection, non-distended and no visible herniation GI Palp: Yes Soft to palpation, No Tenderness to palpation present (GI), No Guarding due to palpation present (GI) and No Rebound tenderness present Auscultation: normal bowel sounds Neuro: General: patient oriented x3 and no focal motor deficits Extrem: General: no calf tenderness and no edema Psych: Affect: normal affect Insight: Good insight present (Psych) Judgement: Good judgement present (Psych) Objective Data Vital Signs Vital Signs: Vital Signs - 24 hr 12/01/24 22:00 12/02/24 05:30 Temperature 36.7 C 36.6 C Pulse Rate 78 80 Respiratory Rate 16 20 Blood Pressure 136/51 L 139/60 Pulse Oximetry 96 96 Intake/Output Intake/Output: Intake & Output 11/29/24 11/30/24 12/01/24 12/02/24 23:59 23:59 23:59 23:59 Intake Total 1968.8 1056.3 Output Total 125 175 Balance 1843.8 881.3 Meds/Results Medications: Active Medications Generic Name Dose Route Start Last Admin Trade Name Freq PRN Reason Stop Dose Admin Acetaminophen 650 mg 11/30/24 23:39 12/02/24 09:19 Acetaminophen 325 Mg Tablet PO 650 mg Q4H PRN Administration Mild Pain (1-3) or Fever Albuterol/Ipratropium 3 ml 12/01/24 05:42 Ipratropium 0.5 Mg/Albuterol Sulfate 2.5 Mg Ampul.Neb 3 Ml INHALATION Q4HRT PRN shortness of breath/Wheezing Guaifenesin/Dextromethorphan 10 ml 12/01/24 05:42 Guaifenesin/Dextromethorphan 10 Ml Udc PO Q4H PRN Cough Heparin Sodium (Porcine) 5,000 units 12/01/24 09:00 12/02/24 09:19 Heparin Sodium 5,000 Units/Ml Vial SUB-Q 5,000 units Q12HR BERNARD Administration Lactated Ringer's 1,000 mls @ 125 mls/hr 11/30/24 23:40 12/02/24 11:16 Lr - Lactated Ringers Iv IV CONT Not Given .Q8H BERNARD Piperacillin Sod/Tazobactam Sod 2.25 gm in 50 mls @ 100 mls/hr 12/01/24 06:15 12/02/24 12:19 Zosyn 2.25 Gm/Ns 50 Ml IVPB 100 mls/hr Q6HR BERNARD Administration Melatonin 5 mg 12/01/24 05:42 Melatonin 5 Mg Tablet PO HS PRN Insomnia Morphine Sulfate 2 mg 11/30/24 23:39 12/01/24 06:21 Morphine Sulfate (*Crx) 2 Mg/Ml Inj IV PUSH 2 mg Q2H PRN Administration Pain Rated 7-10 Ondansetron HCl 4 mg 11/30/24 23:39 Ondansetron Inj 4 Mg/2 Ml Vial IV PUSH Q4H PRN Nausea Pantoprazole Sodium 40 mg 12/02/24 11:25 Pantoprazole Sodium Iv 40 Mg Vial IV PUSH QAM BERNARD Phenol 1 spray 12/02/24 10:12 12/02/24 11:06 Phenol/Sod Pheno [place] Mock (*Bkc) MUCOUS MEM 1 spray PRN PRN Administration Sore Throat Prochlorperazine Edisylate 10 mg 12/01/24 05:42 Prochlorperazine Edisylate 10 Mg/2 Ml Vial IV PUSH Q6H PRN Nausea And Vomiting Radiology Results: ITS Impressions Abdomen/Pelvis CT 11/30/24 22:40 IMPRESSION: 1. Dilated Small bowel loops suggestive of obstruction with inflammatory changes seen in the mesentery on the right side. Trace of fluid is seen in the pelvis. No definite free air. 2. Hypodensity in the liver. This may indicate a mass versus metastatic lesion versus a complex cyst or an abscess. Clinical correlation and follow-up advised. Abdomen X-Ray 12/02/24 07:24 IMPRESSION: 1. Nonspecific bowel gas pattern which could represent ileus or resolving small bowel obstruction. Labs Labs: Laboratory Results - last 24 hr 12/02/24 12/02/24 06:06 06:07 WBC 6.3 RBC 4.18 L Hgb 12.4 D Hct 38.7 MCV 92.6 MCH 29.7 MCHC 32.0 RDW 13.8 Plt Count 224 MPV 10.9 H Immature Gran % (Auto) 0.2 Neut % (Auto) 56.5 Lymph % (Auto) 23.5 [place] % (Auto) 15.4 H Eos % (Auto) 3.3 Baso % (Auto) 1.1 Lymph # (Auto) 1.48 [place] # (Auto) 1.0 H Eos # (Auto) 0.2 Baso # (Auto) 0.1 Abs Immat Gran (auto) 0.01 Absolute Neuts (auto) 3.6 Absolute Nucleated RBC 0.000 Nucleated RBC % 0.0 Sodium 137 Potassium 3.6 Chloride 104 Carbon Dioxide 26 Anion Gap 7 BUN 23 H Creatinine 0.96 Estim Creat Clear Calc 34 Estimated GFR 56 L Glucose 90 Calcium 8.1 L Total Bilirubin 1.0 AST 23 ALT 13 Alkaline Phosphatase 40 Total Protein 6.0 L Albumin 3.0 L
[2024-12-02] MEDS: MELATONIN 5 MG TABLET PO (21:01)
[2024-12-02] MEDS: ROSUVASTATIN 20 MG TABLET 40 MG PO (21:02)
[2024-12-02 21:57] VITALS: BP 144/63; PULSE 77; RESP 16; TEMP 36.9; O2SAT 94
[2024-12-03] MEDS: LEVOTHYROXINE SODIUM 50 MCG TABLET PO (05:38)
[2024-12-03 05:57] VITALS: BP 137/57; PULSE 72; RESP 17; TEMP 36.7; O2SAT 97
--- NOTE | 2024-12-03 07:05 | PM.IMPN ---
Progress Note: A&P Assessment and Plan (1) Bowel obstruction: Qualifiers: Intestinal obstruction extent: complete Intestinal obstruction type: unspecified Qualified Code(s): K56.601 - Complete intestinal obstruction, unspecified as to cause Code(s): K56.609 - Unspecified intestinal obstruction, unspecified as to partial versus complete obstruction Status: Deleted Assessment and Plan: CT of the abdomen and pelvis showed a dilated small bowel loops suggestive of obstructive of obstruction with inflammatory changes seen in the mesentery on the right side, hypodensity in the liver this may indicate a mass versus metastatic lesion versus a complex cyst or an abscess. NG tube placed in the ED to low intermittent suction DC IV fluids Continue antiemetics Continue Zosyn GI consulted General surgery following KUB today revealing nonspecific bowel gas pattern representing ileus or resolving small bowel obstruction Upper GI series was negative for obstruction Can likely advance to clear liquid diet and have NG tube out however we will defer to General surgery (2) Lesion of liver: Code(s): K76.9 - Liver disease, unspecified Status: Acute Assessment and Plan: History of breast cancer CT of the abdomen and pelvis showing hypodensity in the liver which may indicate a mass versus metastatic lesion versus a complex cyst or an abscess GI following Continue to trend liver enzymes (3) HTN (hypertension): Code(s): I10 - Essential (primary) hypertension Status: Chronic Assessment and Plan: Blood pressure ranging 139/60 to 156/77 Unable to take p.o. medication Continue to trend (4) GERD (gastroesophageal reflux disease): Code(s): K21.9 - Gastro-esophageal reflux disease without esophagitis Status: Acute Assessment and Plan: Will start Protonix Subjective Date/time seen: 12/03/24 07:05 Interval history: Interval history: This is an 84-year-old female with a significant past medical history of hypothyroidism, GERD, hypertension, hyperlipidemia, breast cancer, congestive heart failure, former smoker who presented to the hospital with complaints nausea vomiting and abdominal pain. Workup in the hospital included an abdomen/pelvis CT which showed dilated small bowel loops suggesting obstruction with inflammatory changes seen in the mesentery on the right side, hypodensity in the liver which may indicate a mass versus metastatic lesion verses a complex cyst or an abscess. NG tube was placed. Initial labs showed a white blood cell count of 15.8, hemoglobin 16.4, anion gap 15, creatinine 0.98, EGFR 54, blood sugar ranging 145-167, lactic acid 2.7> 1.1, lipase was normal at 83. UA was obtained and showed trace urine ketones, 1+ leukocyte, 3-5 urine RBC, otherwise normal. EKG showed sinus rhythm with left bundle branch block with a rate of 85, QTC 497. Patient was started on IV fluids and Zosyn. General surgery and GI were consulted and following Subjective: Review of Systems Review of Systems: All systems reviewed & are unremarkable except as noted in HPI and below Exam Narrative: General: In no acute distress, well nourished Head: atraumatic, no encephalopathy Eyes: PERRLA, sclera clear ENT: Tachy mucous membranes, nasal passages clear Neck: supple, no JVD, no adenopathy, trachea midline Cardiac: Normal S1 and S2. No murmur, gallops or friction rubs, peripheral pulses intact. Respiratory: Lungs clear to auscultation, no adventitious lung sounds currently on room air Gastrointestinal: soft, non-distended, non-tender, normoactive bowel sounds. BM x2, NG tube clamped : voiding without difficulty. Extremities: moves all extremities well, no edema Skin: clean, dry, intact. No wounds or lesions. Neuro: Alert and oriented x4, cranial nerves intact, no neuro deficits. Psych: normal mood, normal affect, interactive Objective Data Vital Signs Vital Signs: Vital Signs - 24 hr 12/02/24 14:00 12/02/24 20:00 12/02/24 21:57 Temperature 97.0 F L 98.5 F Pulse Rate 75 77 Respiratory Rate 14 16 Blood Pressure 175/70 H 144/63 H Pulse Oximetry 99 94 Oxygen Delivery Room Air 12/03/24 05:57 Temperature 98.1 F Pulse Rate 72 Respiratory Rate 17 Blood Pressure 137/57 L Pulse Oximetry 97 Oxygen Delivery Intake/Output Intake/Output: Intake & Output 11/30/24 12/01/24 12/02/24 12/03/24 23:59 23:59 23:59 23:59 Intake Total 1968.8 1293.3 550 Output Total 125 175 Balance 1843.8 1118.3 550 Meds/Results Medications: Active Medications Generic Name Dose Route Start Last Admin Trade Name Freq PRN Reason Stop Dose Admin Acetaminophen 650 mg 11/30/24 23:39 12/02/24 09:19 Acetaminophen 325 Mg Tablet PO 650 mg Q4H PRN Administration Mild Pain (1-3) or Fever Albuterol/Ipratropium 3 ml 12/01/24 05:42 Ipratropium 0.5 Mg/Albuterol Sulfate 2.5 Mg Ampul.Neb 3 Ml INHALATION Q4HRT PRN shortness of breath/Wheezing Aspirin 325 mg 12/02/24 16:21 Aspirin 325 Mg Tablet PO TID PRN Headache Bumetanide 1 mg 12/03/24 09:00 Bumetanide 1 Mg Tablet PO DAILY [facility] Enoxaparin Sodium 40 mg 12/03/24 09:00 Enoxaparin 40 Mg/0.4 Ml Syringe SUB-Q DAILY [facility] Guaifenesin/Dextromethorphan 10 ml 12/01/24 05:42 Guaifenesin/Dextromethorphan 10 Ml Udc PO Q4H PRN Cough Heparin Sodium (Porcine) 5,000 units 12/01/24 09:00 12/02/24 21:02 Heparin Sodium 5,000 Units/Ml Vial SUB-Q 5,000 units Q12HR [facility] Administration Levothyroxine Sodium 50 mcg 12/03/24 06:30 12/03/24 05:38 Levothyroxine Sodium 50 Mcg Tablet PO 50 mcg DAILY@0630 [facility] Administration Lisinopril 20 mg 12/03/24 09:00 Lisinopril 20 Mg Tablet PO DAILY [facility] Melatonin 5 mg 12/01/24 05:42 12/02/24 21:01 Melatonin 5 Mg Tablet PO 5 mg HS PRN Administration Insomnia Metoprolol Succinate 50 mg 12/03/24 09:00 Metoprolol Succinate Ext Rel 50 Mg Tabcr PO DAILY [facility] Morphine Sulfate 2 mg 11/30/24 23:39 12/01/24 06:21 Morphine Sulfate (*Crx) 2 Mg/Ml Inj IV PUSH 2 mg Q2H PRN Administration Pain Rated 7-10 Multivitamins/Calcium 1 tablet 12/03/24 09:00 Therapeutic Multivitamins/Minerals Tab (*Bkc) PO DAILY [facility] Ondansetron HCl 4 mg 11/30/24 23:39 Ondansetron Inj 4 Mg/2 Ml Vial IV PUSH Q4H PRN Nausea Pantoprazole Sodium 40 mg 12/03/24 09:00 Pantoprazole 40 Mg Tablet PO QAM [facility] Phenol 1 spray 12/02/24 10:12 12/02/24 11:06 Phenol/Sod Pheno [place] Mock (*Bkc) MUCOUS MEM 1 spray PRN PRN Administration Sore Throat Prochlorperazine Edisylate 10 mg 12/01/24 05:42 Prochlorperazine Edisylate 10 Mg/2 Ml Vial IV PUSH Q6H PRN Nausea And Vomiting Rosuvastatin Calcium 40 mg 12/02/24 21:00 12/02/24 21:02 Rosuvastatin 20 Mg Tablet PO 40 mg HS [facility] Administration Spironolactone 12.5 mg 12/03/24 09:00 Spironolactone 12.5 Mg Tablet PO DAILY [facility] Radiology Results: ITS Impressions Abdomen/Pelvis CT 11/30/24 22:40 IMPRESSION: 1. Dilated Small bowel loops suggestive of obstruction with inflammatory changes seen in the mesentery on the right side. Trace of fluid is seen in the pelvis. No definite free air. 2. Hypodensity in the liver. This may indicate a mass versus metastatic lesion versus a complex cyst or an abscess. Clinical correlation and follow-up advised. Abdomen X-Ray 12/02/24 07:24 IMPRESSION: 1. Nonspecific bowel gas pattern which could represent ileus or resolving small bowel obstruction. Upper GI Series 12/02/24 15:08 IMPRESSION: No evidence of obstruction seen. Quality VTE Prophylaxis VTE prophylaxis: mechanical ordered
[2024-12-03 08:58] VITALS: PULSE 72
[2024-12-03] MEDS: METOPROLOL SUCCINATE EXT REL 50 MG TABCR PO (08:58)
[2024-12-03] MEDS: SPIRONOLACTONE 12.5 MG TABLET PO (08:58)
[2024-12-03] MEDS: PANTOPRAZOLE 40 MG TABLET PO (08:58)
[2024-12-03] MEDS: BUMETANIDE 1 MG TABLET PO (08:58)
[2024-12-03] MEDS: THERAPEUTIC MULTIVITAMINS/MINERALS TAB (*BKC) 1 TABLET PO (09:00)
[2024-12-03] MEDS: ENOXAPARIN 40 MG/0.4 ML SYRINGE SUB-Q (09:02)
[2024-12-03 09:09] LABS: Basophils Absolute Auto 0.1 K/mm3 (0.0-0.1); Basophils Percent Auto 0.8 % (0.2-1.2); Eosinophils Absolute Auto 0.2 K/mm3 (0-0.3); Eosinophils Percent Auto 3.6 % (0-4.4); Hematocrit 39.2 % (37.0-47.0); Hemoglobin 12.5 g/dL (12.0-15.0); Immature Granulocyte Absolute 0.03 K/mm3 (0.00-0.031); Immature Granulocyte Percent A 0.5 % (0-0.5); Lymphocytes Absolute Auto 1.13 K/mm3 (0.9-3.2); Lymphocytes Percent Auto 17.5 % (18.3-44.2); Mean Corpuscular HGB Conc 31.9 g/dl (32-36); Mean Corpuscular Hemoglobin 29.1 pg (26-34); Mean Corpuscular Volume 91.2 fl (80-100); Monocytes Absolute Auto 0.6 K/mm3 (0.1-0.6); Monocytes Percent Auto 9.8 % (2.6-8.5); Neutrophils Absolute Auto 4.4 K/mm3 (1.3-6.7); Neutrophils Percent Auto 67.8 % (45.5-73.1); Platelet Count Result 245 k/mm3 (150-375); Red Cell Distribution Width 13.5 % (11.5-14.5); White Blood Count 6.4 K/mm3 (4.5-10.0)
[2024-12-03 09:16] LABS: Alanine Aminotransferase 13 U/L (6-35); Albumin Level 3.2 g/dL (3.5-5.1); Alkaline Phosphatase 51 U/L (38-126); Anion Gap 8 mmol/L (4-12); Aspartate Amino Transferase 28 U/L (14-36); Bilirubin,Total 0.8 mg/dL (0.2-1.3); Blood Urea Nitrogen 14 mg/dL (7-17); Calcium 8.4 mg/dL (8.4-10.2); Carbon Dioxide 25 mmol/L (22-30); Chloride 105 mmol/L (98-107); Estimated CRCL calculation 44 ml/min; Estimated Glomerular Filt Rate > 60; Glucose 73 mg/dL (65-110); Potassium 3.5 mmol/L (3.4-5.0); Sodium 138 mmol/L (137-145)
--- NOTE | 2024-12-03 10:08 | WPDGIPROGNO ---
Progress Note: A&P Assessment and Plan (1) Small bowel obstruction: Code(s): K56.609 - Unspecified intestinal obstruction, unspecified as to partial versus complete obstruction Status: Acute Assessment and Plan: UGI no obstruction tolerating diet hopefully home today (2) Nausea & vomiting: Qualifiers: Vomiting type: unspecified Qualified Code(s): R11.2 - Nausea with vomiting, unspecified Code(s): R11.2 - Nausea with vomiting, unspecified Status: Inactive Assessment and Plan: resolved (3) Abdominal bloating: Code(s): R14.0 - Abdominal distension (gaseous) Status: Inactive Assessment and Plan: better (4) Epigastric pain: Code(s): R10.13 - Epigastric pain Status: Inactive Assessment and Plan: almost gone (5) Lesion of liver: Code(s): K76.9 - Liver disease, unspecified Status: Acute Assessment and Plan: will get mri liver as outpatient in few weeks Subjective Date/time seen: 12/03/24 10:08 Interval history: had BM and pain almost gone today is tolerating diet and looking forward to going home Review of Systems Review of Systems: All systems reviewed & are unremarkable except as noted in HPI and below Exam Const: General: cooperative, comfortable, no acute distress, alert and awake Orientation/consciousness: patient oriented x3 HENMT: Face/Nose/Sinus: Normal nares present Eyes: Sclera: sclerae normal Neck: Neck: supple Resp: Effort & Inspection: normal respiratory effort Cardio: Rate: regular rate GI: Inspection: normal to inspection and non-distended GI Palp: Yes Soft to palpation, No Tenderness to palpation present (GI), No Guarding due to palpation present (GI) and No Rebound tenderness present Auscultation: normal bowel sounds Skin: General skin exam: normal color Neuro: General: patient oriented x3 and no focal motor deficits Extrem: General: no edema Psych: Affect: normal affect Insight: Good insight present (Psych) Judgement: Good judgement present (Psych) Objective Data Vital Signs Vital Signs: Vital Signs - 24 hr 12/02/24 14:00 12/02/24 20:00 12/02/24 21:57 Temperature 97.0 F L 98.5 F Pulse Rate 75 77 Respiratory Rate 14 16 Blood Pressure 175/70 H 144/63 H Pulse Oximetry 99 94 Oxygen Delivery Room Air 12/03/24 05:57 12/03/24 08:58 Temperature 98.1 F Pulse Rate 72 72 Respiratory Rate 17 Blood Pressure 137/57 L Pulse Oximetry 97 Oxygen Delivery Intake/Output Intake/Output: Intake & Output 11/30/24 12/01/24 12/02/24 12/03/24 23:59 23:59 23:59 23:59 Intake Total 1968.8 1293.3 550 Output Total 125 175 Balance 1843.8 1118.3 550 Meds/Results Medications: Active Medications Generic Name Dose Route Start Last Admin Trade Name Freq PRN Reason Stop Dose Admin Acetaminophen 650 mg 11/30/24 23:39 12/02/24 09:19 Acetaminophen 325 Mg Tablet PO 650 mg Q4H PRN Administration Mild Pain (1-3) or Fever Albuterol/Ipratropium 3 ml 12/01/24 05:42 Ipratropium 0.5 Mg/Albuterol Sulfate 2.5 Mg Ampul.Neb 3 Ml INHALATION Q4HRT PRN shortness of breath/Wheezing Aspirin 325 mg 12/02/24 16:21 Aspirin 325 Mg Tablet PO TID PRN Headache Bumetanide 1 mg 12/03/24 09:00 12/03/24 08:58 Bumetanide 1 Mg Tablet PO 1 mg DAILY [facility] Administration Enoxaparin Sodium 40 mg 12/03/24 09:00 12/03/24 09:02 Enoxaparin 40 Mg/0.4 Ml Syringe SUB-Q 40 mg DAILY [facility] Administration Guaifenesin/Dextromethorphan 10 ml 12/01/24 05:42 Guaifenesin/Dextromethorphan 10 Ml Udc PO Q4H PRN Cough Heparin Sodium (Porcine) 5,000 units 12/01/24 09:00 12/02/24 21:02 Heparin Sodium 5,000 Units/Ml Vial SUB-Q 5,000 units Q12HR [facility] Administration Levothyroxine Sodium 50 mcg 12/03/24 06:30 12/03/24 05:38 Levothyroxine Sodium 50 Mcg Tablet PO 50 mcg DAILY@0630 [facility] Administration Lisinopril 20 mg 12/03/24 09:00 Lisinopril 20 Mg Tablet PO DAILY [facility] Melatonin 5 mg 12/01/24 05:42 12/02/24 21:01 Melatonin 5 Mg Tablet PO 5 mg HS PRN Administration Insomnia Metoprolol Succinate 50 mg 12/03/24 09:00 12/03/24 08:58 Metoprolol Succinate Ext Rel 50 Mg Tabcr PO 50 mg DAILY [facility] Administration Morphine Sulfate 2 mg 11/30/24 23:39 12/01/24 06:21 Morphine Sulfate (*Crx) 2 Mg/Ml Inj IV PUSH 2 mg Q2H PRN Administration Pain Rated 7-10 Multivitamins/Calcium 1 tablet 12/03/24 09:00 12/03/24 09:00 Therapeutic Multivitamins/Minerals Tab (*Bkc) PO 1 tablet DAILY [facility] Administration Ondansetron HCl 4 mg 11/30/24 23:39 Ondansetron Inj 4 Mg/2 Ml Vial IV PUSH Q4H PRN Nausea Pantoprazole Sodium 40 mg 12/03/24 09:00 12/03/24 08:58 Pantoprazole 40 Mg Tablet PO 40 mg QAM [facility] Administration Phenol 1 spray 12/02/24 10:12 12/02/24 11:06 Phenol/Sod Pheno [place] Mock (*Bkc) MUCOUS MEM 1 spray PRN PRN Administration Sore Throat Prochlorperazine Edisylate 10 mg 12/01/24 05:42 Prochlorperazine Edisylate 10 Mg/2 Ml Vial IV PUSH Q6H PRN Nausea And Vomiting Rosuvastatin Calcium 40 mg 12/02/24 21:00 12/02/24 21:02 Rosuvastatin 20 Mg Tablet PO 40 mg HS [facility] Administration Spironolactone 12.5 mg 12/03/24 09:00 12/03/24 08:58 Spironolactone 12.5 Mg Tablet PO 12.5 mg DAILY [facility] Administration Radiology Results: ITS Impressions Abdomen/Pelvis CT 11/30/24 22:40 IMPRESSION: 1. Dilated Small bowel loops suggestive of obstruction with inflammatory changes seen in the mesentery on the right side. Trace of fluid is seen in the pelvis. No definite free air. 2. Hypodensity in the liver. This may indicate a mass versus metastatic lesion versus a complex cyst or an abscess. Clinical correlation and follow-up advised. Abdomen X-Ray 12/02/24 07:24 IMPRESSION: 1. Nonspecific bowel gas pattern which could represent ileus or resolving small bowel obstruction. Upper GI Series 12/02/24 15:08 IMPRESSION: No evidence of obstruction seen. Labs Labs: Laboratory Results - last 24 hr 12/03/24 08:04 WBC 6.4 RBC 4.30 Hgb 12.5 Hct 39.2 MCV 91.2 MCH 29.1 MCHC 31.9 L RDW 13.5 Plt Count 245 MPV 11.0 H Immature Gran % (Auto) 0.5 Neut % (Auto) 67.8 Lymph % (Auto) 17.5 L [place] % (Auto) 9.8 H Eos % (Auto) 3.6 Baso % (Auto) 0.8 Lymph # (Auto) 1.13 [place] # (Auto) 0.6 Eos # (Auto) 0.2 Baso # (Auto) 0.1 Abs Immat Gran (auto) 0.03 Absolute Neuts (auto) 4.4 Absolute Nucleated RBC 0.000 Nucleated RBC % 0.0 Sodium 138 Potassium 3.5 Chloride 105 Carbon Dioxide 25 Anion Gap 8 BUN 14 D Creatinine 0.73 Estim Creat Clear Calc 44 Estimated GFR > 60 Glucose 73 Calcium 8.4 Total Bilirubin 0.8 AST 28 ALT 13 Alkaline Phosphatase 51 Total Protein 6.0 L Albumin 3.2 L
--- NOTE | 2024-12-03 10:53 | P.DS_ITS ---
DS: Admitting Diagnosis Discharge Date 12/03/24 Admitting Diagnosis Nausea and vomiting Bowel obstruction DS: Discharge Diagnosis Discharge Diagnosis (1) Bowel obstruction: Qualifiers: Intestinal obstruction extent: complete Intestinal obstruction type: unspecified Qualified Code(s): K56.601 - Complete intestinal obstruction, unspecified as to cause Code(s): K56.609 - Unspecified intestinal obstruction, unspecified as to partial versus complete obstruction Status: Deleted (2) Lesion of liver: Code(s): K76.9 - Liver disease, unspecified Status: Acute (3) HTN (hypertension): Code(s): I10 - Essential (primary) hypertension Status: Chronic (4) GERD (gastroesophageal reflux disease): Code(s): K21.9 - Gastro-esophageal reflux disease without esophagitis Status: Acute DS: Summary Hospital Course Reason for hospitalization: Nausea and vomiting Bowel obstruction Hospital Course: This is an 84-year-old female with a significant past medical history of hypothyroidism, GERD, hypertension, hyperlipidemia, breast cancer, congestive heart failure, former smoker who presented to the hospital with complaints nausea vomiting and abdominal pain. Workup in the hospital included an abdomen/pelvis CT which showed dilated small bowel loops suggesting obstruction with inflammatory changes seen in the mesentery on the right side, hypodensity in the liver which may indicate a mass versus metastatic lesion verses a complex cyst or an abscess. NG tube was placed. Initial labs showed a white blood cell count of 15.8, hemoglobin 16.4, anion gap 15, creatinine 0.98, EGFR 54, blood sugar ranging 145-167, lactic acid 2.7> 1.1, lipase was normal at 83. UA was obtained and showed trace urine ketones, 1+ leukocyte, 3-5 urine RBC, otherwise normal. EKG showed sinus rhythm with left bundle branch block with a rate of 85, QTC 497. Patient was started on IV fluids and Zosyn. Patient had Upper GI series done yesterday that did not reveal an obstruction. NG tube was removed and diet was advanced. She has been tolerating advancement in diet, denies any nausea or vomiting today, and has had a few bowel movements since yesterday. She is stable for discharge at this time. She will need to follow up with General surgery in 2 weeks. She will also need to follow up with her PCP in 1 week to discuss getting an MRI to rule out liver lesion found on CT imaging. Final diagnosis: Small-bowel obstruction, Liver lesion Status at Discharge Cognitive/behavioral status at discharge: Alert oriented x4 Functional status at discharge: independent ambulation Overall status at discharge: patient is progressing back to baseline Time Spent with Patient Time attestation: Total time spent providing and/or coordinating discharge services: Time spent: Greater than 30 minutes Exam Narrative: General: In no acute distress, well nourished Cardiac: Normal S1 and S2. No murmur, gallops or friction rubs, peripheral pulses intact. Respiratory: Lungs clear to auscultation, no adventitious lung sounds currently on room air Gastrointestinal: soft, non-distended, non-tender, normoactive bowel sounds. Continues to have BMs : voiding without difficulty. Neuro: Alert and oriented x4 DS: Data Data Completed and Pending Completed studies during hospitalization: Upper GI series Abdomen x-ray x2 Abdomen/pelvis CT Pending studies at discharge: None Labs on day of discharge: Labs from last 24 hours 12/03/24 08:04 WBC 6.4 RBC 4.30 Hgb 12.5 Hct 39.2 MCV 91.2 MCH 29.1 MCHC 31.9 L RDW 13.5 Plt Count 245 MPV 11.0 H Immature Gran % (Auto) 0.5 Neut % (Auto) 67.8 Lymph % (Auto) 17.5 L [place] % (Auto) 9.8 H Eos % (Auto) 3.6 Baso % (Auto) 0.8 Lymph # (Auto) 1.13 [place] # (Auto) 0.6 Eos # (Auto) 0.2 Baso # (Auto) 0.1 Abs Immat Gran (auto) 0.03 Absolute Neuts (auto) 4.4 Absolute Nucleated RBC 0.000 Nucleated RBC % 0.0 Sodium 138 Potassium 3.5 Chloride 105 Carbon Dioxide 25 Anion Gap 8 BUN 14 D Creatinine 0.73 Estim Creat Clear Calc 44 Estimated GFR > 60 Glucose 73 Calcium 8.4 Total Bilirubin 0.8 AST 28 ALT 13 Alkaline Phosphatase 51 Total Protein 6.0 L Albumin 3.2 L Procedures/Treatments: None Discharge Plan Discharge Attending physician on discharge: Simón Starr Consulting providers: Tomas Puentes; Neno Llamas Discharging Clinician: Tamra Riggs Anticipated Discharge Date/Time: 12/03/24 10:50 Patient Disposition: Home, Self-Care Activity: as tolerated Diet: as tolerated and regular Discharge Instructions: * Follow up with General surgery in 2 weeks. * Continue to advance diet as tolerated * CT imaging of your abdomen/pelvis it showed a hyperdensity in the liver which may indicate mass. You will need an outpatient MRI to rule out anything concerning such as complex cyst, abscess, or tumor. Follow up with primary care doctor in 1 week regarding this incidental finding. Patient Instructions: Bowel Obstruction (DC) Patient Language: [place]an Stand Alone Forms: General Discharge Information Follow-up/Referrals: Tomas Puentes MD [Physician] - 2 Weeks Discharge Medications: New pantoprazole 40 mg Tablet,Delayed Release (Dr/Ec) 40 mg PO QAM Qty: 30 0RF Continued aspirin 325 mg Tablet 325 mg PO PRN PRN (Reason: Headache) levothyroxine [Synthroid] 50 mcg Tablet 50 mcg PO DAILY psyllium husk [Wal-Mucil Fiber] 0.52 gram Capsule 0.52 g PO DAILY rosuvastatin [Crestor] 40 mg Tablet 40 mg PO HS metoprolol succinate 50 mg Capsule,Sprinkle,Er 24hr 50 mg PO DAILY bumetanide 1 mg Tablet 1 mg PO DAILY lisinopril 20 mg tablet 20 mg PO DAILY spironolactone 25 mg tablet 12.5 mg PO DAILY multivit with min-folic acid 0.4 mg Tablet 1 tablet PO DAILY Discontinued pantoprazole 20 mg tablet,delayed release (DR/EC) 20 mg PO DAILY Date of admission: 12/01/24 00:35 Primary Care Provider: Danielle,Mariaelena Christopher Admitting Provider: Simón Sam Attending physician on admission: Tamra Riggs Condition: Improved Quality VTE Prophylaxis VTE prophylaxis: mechanical ordered Hospitalist MIPS Heart Failure (Exclusion) Patient has history of Heart Transplant or Left Ventricular Assistive Device?: No IF YES, STOP HERE Heart Failure (Qualifier) Patient has current or prior documentation of LVEF less than or equal to 40%, or mod/servere depressed LVSF?: No IF NO, STOP HERE
--- NOTE | 2024-12-03 12:05 | PM.PNGS ---
Progress Note: A&P Assessment and Plan (1) Small bowel obstruction: Code(s): K56.609 - Unspecified intestinal obstruction, unspecified as to partial versus complete obstruction Status: Acute Assessment and Plan: Discussed with hospitalist. Okay to discharge on regular diet. I would like to see her in the office in 2-3 weeks as this is the 3rd occurrence of this since August. (2) Lesion of liver: Code(s): K76.9 - Liver disease, unspecified Status: Acute Assessment and Plan: Small nodules described on CT in hepatic segments 8 and 6. Outpatient follow-up recommended. Subjective Subjective Date/Time Seen: 12/03/24 12:05 Patient reports: no new complaints, feels better, bowel movement and afebrile Review of Systems Review of Systems: All systems reviewed & are unremarkable except as noted in HPI and below (HPI) Exam Const: General: comfortable and no acute distress Orientation/consciousness: patient oriented x3 GI: Inspection: normal to inspection, non-distended and scaphoid GI Palp: Yes Soft to palpation, No Tenderness to palpation present (GI), No Guarding due to palpation present (GI) and No Rebound tenderness present Auscultation: normal bowel sounds Neuro: General: patient oriented x3 and no focal motor deficits Extrem: General: no calf tenderness and no edema Psych: Affect: normal affect Insight: Good insight present (Psych) Judgement: Good judgement present (Psych) Objective Data Vital Signs Vital Signs: Vital Signs - 24 hr 12/02/24 14:00 12/02/24 20:00 12/02/24 21:57 Temperature 36.1 C L 36.9 C Pulse Rate 75 77 Respiratory Rate 14 16 Blood Pressure 175/70 H 144/63 H Pulse Oximetry 99 94 Oxygen Delivery Room Air 12/03/24 05:57 12/03/24 08:58 Temperature 36.7 C Pulse Rate 72 72 Respiratory Rate 17 Blood Pressure 137/57 L Pulse Oximetry 97 Oxygen Delivery Intake/Output Intake/Output: Intake & Output 11/30/24 12/01/24 12/02/24 12/03/24 23:59 23:59 23:59 23:59 Intake Total 1968.8 1293.3 790 Output Total 125 175 Balance 1843.8 1118.3 790 Meds/Results Medications: Active Medications Generic Name Dose Route Start Last Admin Trade Name Freq PRN Reason Stop Dose Admin Acetaminophen 650 mg 11/30/24 23:39 12/02/24 09:19 Acetaminophen 325 Mg Tablet PO 650 mg Q4H PRN Administration Mild Pain (1-3) or Fever Albuterol/Ipratropium 3 ml 12/01/24 05:42 Ipratropium 0.5 Mg/Albuterol Sulfate 2.5 Mg Ampul.Neb 3 Ml INHALATION Q4HRT PRN shortness of breath/Wheezing Aspirin 325 mg 12/02/24 16:21 Aspirin 325 Mg Tablet PO TID PRN Headache Bumetanide 1 mg 12/03/24 09:00 12/03/24 08:58 Bumetanide 1 Mg Tablet PO 1 mg DAILY BERNARD Administration Enoxaparin Sodium 40 mg 12/03/24 09:00 12/03/24 09:02 Enoxaparin 40 Mg/0.4 Ml Syringe SUB-Q 40 mg DAILY BERNARD Administration Guaifenesin/Dextromethorphan 10 ml 12/01/24 05:42 Guaifenesin/Dextromethorphan 10 Ml Udc PO Q4H PRN Cough Heparin Sodium (Porcine) 5,000 units 12/01/24 09:00 12/02/24 21:02 Heparin Sodium 5,000 Units/Ml Vial SUB-Q 5,000 units Q12HR BERNARD Administration Levothyroxine Sodium 50 mcg 12/03/24 06:30 12/03/24 05:38 Levothyroxine Sodium 50 Mcg Tablet PO 50 mcg DAILY@0630 BERNARD Administration Lisinopril 20 mg 12/03/24 09:00 Lisinopril 20 Mg Tablet PO DAILY [facility] Melatonin 5 mg 12/01/24 05:42 12/02/24 21:01 Melatonin 5 Mg Tablet PO 5 mg HS PRN Administration Insomnia Metoprolol Succinate 50 mg 12/03/24 09:00 12/03/24 08:58 Metoprolol Succinate Ext Rel 50 Mg Tabcr PO 50 mg DAILY BERNARD Administration Morphine Sulfate 2 mg 11/30/24 23:39 12/01/24 06:21 Morphine Sulfate (*Crx) 2 Mg/Ml Inj IV PUSH 2 mg Q2H PRN Administration Pain Rated 7-10 Multivitamins/Calcium 1 tablet 12/03/24 09:00 12/03/24 09:00 Therapeutic Multivitamins/Minerals Tab (*Bkc) PO 1 tablet DAILY BERNARD Administration Ondansetron HCl 4 mg 11/30/24 23:39 Ondansetron Inj 4 Mg/2 Ml Vial IV PUSH Q4H PRN Nausea Pantoprazole Sodium 40 mg 12/03/24 09:00 12/03/24 08:58 Pantoprazole 40 Mg Tablet PO 40 mg QAM BERNARD Administration Phenol 1 spray 12/02/24 10:12 12/02/24 11:06 Phenol/Sod Pheno [place] Mock (*Bkc) MUCOUS MEM 1 spray PRN PRN Administration Sore Throat Prochlorperazine Edisylate 10 mg 12/01/24 05:42 Prochlorperazine Edisylate 10 Mg/2 Ml Vial IV PUSH Q6H PRN Nausea And Vomiting Rosuvastatin Calcium 40 mg 12/02/24 21:00 12/02/24 21:02 Rosuvastatin 20 Mg Tablet PO 40 mg HS BERNARD Administration Spironolactone 12.5 mg 12/03/24 09:00 12/03/24 08:58 Spironolactone 12.5 Mg Tablet PO 12.5 mg DAILY BERNARD Administration Radiology Results: ITS Impressions Abdomen/Pelvis CT 11/30/24 22:40 IMPRESSION: 1. Dilated Small bowel loops suggestive of obstruction with inflammatory changes seen in the mesentery on the right side. Trace of fluid is seen in the pelvis. No definite free air. 2. Hypodensity in the liver. This may indicate a mass versus metastatic lesion versus a complex cyst or an abscess. Clinical correlation and follow-up advised. Abdomen X-Ray 12/02/24 07:24 IMPRESSION: 1. Nonspecific bowel gas pattern which could represent ileus or resolving small bowel obstruction. Upper GI Series 12/02/24 15:08 IMPRESSION: No evidence of obstruction seen. Labs Labs: Laboratory Results - last 24 hr 12/03/24 08:04 WBC 6.4 RBC 4.30 Hgb 12.5 Hct 39.2 MCV 91.2 MCH 29.1 MCHC 31.9 L RDW 13.5 Plt Count 245 MPV 11.0 H Immature Gran % (Auto) 0.5 Neut % (Auto) 67.8 Lymph % (Auto) 17.5 L [place] % (Auto) 9.8 H Eos % (Auto) 3.6 Baso % (Auto) 0.8 Lymph # (Auto) 1.13 [place] # (Auto) 0.6 Eos # (Auto) 0.2 Baso # (Auto) 0.1 Abs Immat Gran (auto) 0.03 Absolute Neuts (auto) 4.4 Absolute Nucleated RBC 0.000 Nucleated RBC % 0.0 Sodium 138 Potassium 3.5 Chloride 105 Carbon Dioxide 25 Anion Gap 8 BUN 14 D Creatinine 0.73 Estim Creat Clear Calc 44 Estimated GFR > 60 Glucose 73 Calcium 8.4 Total Bilirubin 0.8 AST 28 ALT 13 Alkaline Phosphatase 51 Total Protein 6.0 L Albumin 3.2 L
--- OUTSIDE RECORDS SUMMARY | 2024-12-11 06:54 | XMS_ITS | Referral Summary ---
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
--- OUTSIDE RECORDS SUMMARY | 2024-12-11 06:54 | XMS_ITS | Encounter Summary ---
Author Organization [facility] Address [place] [address] Care Team Providers Care Partnership Manager Name Role Phone Lisa Coy MD Primary Care Provider [phone] Roberto Betancourt MD Unavailable [phone] Mariaelena Santos NP Primary Care Provider [phone] Shari Plummer RN Unavailable [phone] Encounter Details Date Type Department Care Team (Late st Contact Info) Description 07/01/2016 Abstract [facility] AT [address] [address] Kayla Maza MA Social History [...] PG pt send letter continue current meds K UNLOADER documented in this encounter Plan of Treatment Upcoming Encounters Date Type Department Care Team (Late st Contact Info) Description 03/14/2025 11:00 AM CDT Office Visit [facility], [address] [place] [address] Roberto Betancourt MD Three [facility]. [address] [place] [address] 05/08/2025 9:20 AM CDT Office Visit [facility] Family Medicine - [place] [address] [facility] [address] [place], [place] [address] Mariaelena Santos NP [address] [place] [address] documented as of this encounter Procedures Procedure [...] Results * CBC (OUTSIDE LAB) (07/26/2017) Pathologist [facility] WBC 6.0 HGB 14.0 HCT 43.2 PLT 293 07/26/2017 us [facility] Abstract LAB-OUTSIDE/ABSTRACTED Final Result * BASIC METABOLIC PANEL (04/07/2017) [facility] SODIUM S/P/B 137 POTASSIUM S/P/B 3.7 CO2 22 CHLORIDE S/P/B 103 GLUCOSE 111 mg/dL CALCIUM S/P/B 8.7 BUN 20 CREATININE S/P/B 0.70 0.5 - 1.0 EGFR NON-AFR. AMER. >60 <=90 04/07/2017 us Doc [facility] Abstract LABORATORY Final Result * CBC (OUTSIDE LAB) (04/07/2017) Pathologist [facility] WBC 8.3 HGB 14 HCT 42.1 PLT 257 04/07/2017 us Doc [facility] Abstract LAB-OUTSIDE/ABSTRACTED Final Result * BNP (08/23/2016) Pathologist [facility] B TYPE NATRIURETIC PEPTIDE 130 08/23/2016 us Doc [facility] Abstract LABORATORY Final Result * TROPONIN, QUANT (08/23/2016) Pathologist [facility] TROPONIN I 0.02 08/23/2016 us [facility] [...] on filedocumented in this encounter Care Teams Partnership Manager Relationship Specialty Start Date End Date Lisa Coy MD PCP - General INTERNAL MEDICINE 03/04/16 09/13/22 Mariaelena Santos NP [address] [place] [address] PCP - General NURSE PRACTITIONER 09/14/22 Roberto Betancourt MD Three [facility]. [address] [place] [address] Brando Twisting Frame Operator CARDIOVASCULAR DISEASE 03/04/16 Shari Plummer RN [address] [place], [place] [address] Syrup Mixer (Ambulatory) REGISTERED NURSE 04/28/24 documented as of this encounter
--- OUTSIDE RECORDS SUMMARY | 2024-12-11 06:54 | XMS_ITS | Encounter Summary ---
Author Organization [facility] Address [facility] [place] [place] [address] Care Team Providers Care Banking Services Clerk Name Role Phone Lisa Coy MD Primary Care Provider [phone] Roberto Betancourt MD Unavailable [phone] Mariaelena Santos NP Primary Care Provider [phone] Shari Plummer RN Unavailable [phone] Encounter Details Date Type Department Care Team (Late st Contact Info) Description 02/07/2021 Versie Christian Companion Message Enc [facility] Medical Group Family & Internal Medicine [address] [address] [facility] Provider Results Social History Tobacco Use [...] Visit [facility] THREE [facility] [address] [place], [place] [id number] Roberto Betancourt MD Three [facility]. [facility] [address] [place], [place] [address] 05/08/2025 9:20 AM CDT Office Visit [facility] Medical [facility] Family Medicine - [place] [address] [facility] [address] [place] [address] Mariaelena Santos NP [address] [place], [place] [address] documented as of this encounter Visit Diagnoses Not on filedocumented in this encounter Care Teams Banking Services Clerk Relationship Specialty Start Date End Date Lisa Coy MD PCP - General INTERNAL MEDICINE 03/04/16 09/13/22 Mariaelena Santos NP [address] [place] [address] PCP - General NURSE PRACTITIONER 09/14/22 Roberto Betancourt MD [facility]. [address] [place], [place] [id number] Brando Computer Systems Technology Instructor CARDIOVASCULAR DISEASE 03/04/16 Shari Plummer, RN [address] [place], [place] [address] Nutritionist Public Health (Ambulatory) REGISTERED NURSE 04/28/24 documented as of this encounter
--- OUTSIDE RECORDS SUMMARY | 2024-12-11 06:54 | XMS_ITS | Encounter Summary ---
Author Organization [facility] Address [facility] [place] [address] Care Team Providers Care Drawing Operator Name Role Phone Lisa Coy MD Primary Care Provider [phone] Roberto Betancourt MD Unavailable [phone] Mariaelena Santos NP Primary Care Provider [phone] Shari Plummer RN Unavailable [phone] Encounter Details Date Type Department Care Team (Late st Contact Info) Description 03/18/2022 [facility] Message Enc [facility] THREE [address] [address] [facility] Provider echo results Social History Tobacco [...] CDT Office Visit [facility] THREE [facility], [address] [place], [place] [id number] Roberto Betancourt MD Three [facility]. [address] [place], [place] [id number] 05/08/2025 9:20 AM CDT Office Visit [facility] Medical [facility] Family Medicine - [place] [address] [facility] [address] [place] [address] Mariaelena Snatos NP [address] [place] [address] documented as of this encounter Visit Diagnoses Not on filedocumented in this encounter Additional Health Concerns Assessment Noted Time PHQ-9 Depression Total Score: 0 03/17/20 22 8:03 AM CDT documented as of this encounter Care Teams Drawing Operator Relationship Specialty Start Date End Date Lisa Coy MD PCP - General INTERNAL MEDICINE 03/04/16 09/13/22 Mariaelena Santos NP [address] [place] [address] PCP - General NURSE PRACTITIONER 09/14/22 Roberto Betancourt MD [facility]. [address] [place] [address] Mclean Corporate Aircraft Mechanic CARDIOVASCULAR DISEASE 03/04/16 Shari Plummer, RN [address] [place] [address] Conveyor Feeder Offbearer (Ambulatory) REGISTERED NURSE 04/28/24 documented as of this encounter
--- OUTSIDE RECORDS SUMMARY | 2024-12-11 06:54 | XMS_ITS | Encounter Summary ---
Author Organization [facility] Address [facility] [place] [address] Care Team Providers Care Cell Cleaner Name Role Phone Lisa Coy MD Primary Care Provider [phone] Roberto Betancourt MD Unavailable [phone] Mariaelena Santos NP Primary Care Provider [phone] Shari Plummer RN Unavailable [phone] Encounter Details Date Type Department Care Team (Late st Contact Info) Description 08/03/2018 Abstract [facility] at [address] [id number] Kayla Maza MA Social History Tobacco Use [...] Visit [facility] THREE [facility], [address] [place] [address] Roberto Betancourt MD Three [facility]. [address] [place] [address] 05/08/2025 9:20 AM CDT Office Visit [facility] Medical [facility] Family Medicine - [place] [address] [place], [place] [address] Mariaelena Santos, KAREN [address] [place], [place] [address] documented as of this encounter Procedures Procedure [...] Result * CBC (OUTSIDE LAB) (01/24/2019) Pathologist [facility] WBC 6.6 HGB 9.4 HCT 30.6 PLT 394 01/24/2019 us Doc [facility] Abstract LAB-OUTSIDE/ABSTRACTED Edite d Result - Final * LIPID PANEL (07/25/2018) Pathologist [facility] CHOLESTEROL 193 HDL 47 TRIGLYCERIDES 122 LDL (CALCULATED) 105 07/25/2018 us Doc [facility] Abstract LABORATORY Final Result * COMPREHENSIVE METABOLIC PANEL (07/25/2018) Pathologist [facility] SODIUM S/P/B 141 POTASSIUM S/P/B [...] on filedocumented in this encounter Care Teams Cell Cleaner Relationship Specialty Start Date End Date Lisa Coy MD PCP - General INTERNAL MEDICINE 03/04/16 09/13/22 Mariaelena Santos NP [address] [place] [address] PCP - General NURSE PRACTITIONER 09/14/22 Roberto Betancourt MD [address] [address] [place] Instructor Adjunct Surgical Technician CARDIOVASCULAR DISEASE 03/04/16 Shari Plummer, RN [address] [place], [place] [address] Regional Sales Leader (Ambulatory) REGISTERED NURSE 04/28/24 documented as of this encounter
--- OUTSIDE RECORDS SUMMARY | 2024-12-11 06:54 | XMS_ITS | Clinical Summary ---
Author Organization [facility] [address] Address [address] [place] [address] Care Team Providers Care Cps Team Lead Name Role Phone Lisa Coy MD Primary Care Provider [phone] Allergies No known active allergies Medications levothyroxine (SYNTHROID) 50 mcg tablet Take 1 tablet (50 mcg total) by mouth fish bailer before breakfast 3 Active dicyclomine (BENTYL) 20 [...] 01/05/2011 Surgical History Surgery Date Site/Laterality Comments UT APPENDECTOMY Appendectomy - (Added by TW Conv) UT EXC CYST/ABERRANT BREAST TISSUE OPEN 1/> LESION Breast Surgery Lumpectomy - (Added by TW Conv) UT TOTAL ABDOMINAL HYSTERECT W/WO RMVL TUBE OVARY [...] on file 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 Gender Identity Not on file Sexual Orientation [...] Depression Screening 1940 Fall Risk Assessment 1940 Hepatitis B Screening 1958 Well Visit 65+ 2006 DTaP/Tdap/Td Vaccine (1 - Tdap) 03/07/2020 0 Covid-19 Vaccine (2023-2 5 season) 2024 07/15/2022, 12/31/2021, 08/04/2021, Additional history exists Osteoporosis Screening-Bone Density Scan 04/23/2025 04/23/2023 Pneumococcal vaccine 65+ Completed 08/18/2016, 04/2006 Zoster Vaccine Completed 01/28/2019, 01/02, 10/07/2018, Additional history exists Influenza Vaccine Completed 05/23/2024, , 06/14/2021, Additional history exists Insurance [employer] CHOICE MEDICARE PPO Care Teams Cps Team Lead Relationship Specialty [place] [address] [address] [address] PCP - General 04/10/19
--- OUTSIDE RECORDS SUMMARY | 2024-12-11 06:54 | XMS_ITS | Encounter Summary ---
Author Organization [facility] Address [facility] [place] [address] Care Team Providers Care Design Project Manager Name Role Phone Roberto Betancourt MD Unavailable [phone] Mariaelena Santos RADIOCOMMUNICATIONS TECHNICIAN Primary Care Provider [phone] Shari Plummer RN Unavailable [phone] Reason for Visit * Reason Comments Procedure [...] any time in the past 12 [facility], were you homeless or living in [...] [facility] [address] [place] [address] Roberto Betancourt MD [facility]. [facility] [address] [place] [address] 05/08/2025 9:20 AM CDT Office Visit [facility] Family Medicine - [place] [address] [facility] [address] [place], [place] [address] Mariaelena Santos NP [address] [place] [address] documented as of this encounter Goals Goal Patient Goal Type Associated Problems Recent Progress Patient-Stated? Author Blood Pressure < 140/90 Blood Pressure 136/80(10/30 8:15 AM ELECTRICIAN SUPERVISOR AIRPLANE) Shari Patton RN Note: Patient will monitor [...] r/t CHF Lifestyle On track(2024 3:11 PM ELECTRICIAN SUPERVISOR AIRPLANE) Shari Patton RN Note: Patient will monitor [...] for HTN Lifestyle On track(2024 3:11 PM ELECTRICIAN SUPERVISOR AIRPLANE) No Shari Plummer RN Note: Patient will [...] PROCEDURE GENERIC (SCAN ORDER) (12/01/2024) 12/01/2024 us [facility] Scanned SCANNING Final Resu lt * IMAGE GENERIC (12/01/2024) Anatomical Region Laterality Modality Other 12/01/2024 us [facility] Scanned SCANNING Final Resu lt documented in this encounter Visit Diagnoses Not on filedocumented in this encounter Additional Health Concerns Assessment Noted Time PHQ-9 Depression Total Score: 0 03/17/20 22 8:03 AM CDT documented as of this encounter Care Teams Design Project Manager Relationship Specialty Start Date End Date Mariaelena Santos NP [address] [place] [address] PCP - General NURSE PRACTITIONER 09/14/22 Roberto Betancourt MD [facility]. [address] [place] [address] [place] Kettle Tender CARDIOVASCULAR DISEASE 03/04/16 Shari Plummer, RN [address] [place], [place] [address] Fancy Packer (Ambulatory) REGISTERED NURSE 04/28/24 documented as of this encounter
--- OUTSIDE RECORDS SUMMARY | 2024-12-11 06:54 | XMS_ITS | Clinical Summary ---
Author Organization [facility] Address [address] [place] [address] Care Team Providers Care Loss Claim Clerk Name Role Phone Roberto Betancourt MD Unavailable [phone] Mariaelena Santos LANG INTERPRETER Primary Care Provider [phone] Shari Plummer RN Unavailable [phone] Allergies Active Allergy Reactions Criticality Noted Date [...] heart failure), NYHA class I, acute, systolic ([facility]) TAKE 1 TABLET(50 MG) [...] heart failure), NYHA class I, acute, systolic ([facility]) TAKE 1 TABLET(1 MG) BY MOUTH EVERY MORNING 90 tablet 1 11/01/19 25 Active Active Problems Problem Noted Date Diagnosed Date Care Management 04/28/2024 Adult BMI 26.0-26.9 kg/sq m 03/06/2020 Cardiac LV ejection fraction 21-40% 02/12/2017 Overview (02/01/2019): Annotation - [id number]: 35-40%; Annotation - [id number]: 12/18 Ejection fraction ; 35 - 45 % Non-rheumatic mitral regurgitation 01/04/2017 Chronic systolic heart failure ([facility] HHS/HCC) 01/04/2017 Anemia 08/28/2016 CHF (congestive heart failur e), NYHA class I, acute, systolic ([facility]) 06/17/2016 Seasonal allergies 12/25/2015 [...] syndrome 10/22/2014 2 Malignant neoplasm of breast ([facility]) 11/15/2013 09/14/2022 Overview (02/01/2019): Annotation - [id number]: status post lumpectomy, stopped tamoxifen after 5 years Hormone replacement therapy 09/14/2022 Encounters Date Type Department Care Team Description 12/11/2024 Patient Outreach [address] [place] [address] Cadence Tim RN Hospital Follow Up (Admission notification to [facility] 12/08/2024 Patient Outreach [address] [place] [address] Shari Plummer RN Care Management (CCM call with son ) 12/01/2024 Scan [facility] INFO SRVCS Scanned, Doc [facility] Procedure (SCAN); Image (SCAN) 11/30/2024 Scan [facility] SoundOut SRVCS Scanned, Doc Med Group CT (SCAN); Procedure (SCAN) 11/16/2024 Patient Outreach [address] [place] [address] Shari Plummer RN Care Management (CCM call to the patient. ) 11/16/2024 Outreach Visit [address] [place] [address] Shari Plummer RN 10/30/2024 8:20 AM GEAR LAPPING MACHINE OPERATOR Office Visit [address] [place] [address] Mariaelena Santos NP Follow Up (6mo ck doing ok) 10/30/2024 Travel 10/25/2024 Patient Outreach [address] [place] [address] Mariaelena Santos NP Pre-visit Gap Closure 10/19/2024 Patient Outreach [facility] [address] [facility] [address] [place] [address] Shari Plummer, RN Care Management (CCM call to the patient. ) 09/25/2024 Patient Outreach [facility] [address] [facility] [address] [place] [address] Shari Plummer RN Care Management (CCM call to the patient) 09/13/2024 10:30 AM GEAR LAPPING MACHINE OPERATOR Office Visit [facility], [address] [address] Mariangel [place], BRENDEN CHF; Coronary Artery Disease; Hypertension; Follow Up [...] Adult Use, Lf Unspecified 03/06/2020 Zoster (Zostavax) 22203 Unt/0.65Ml 08/10/2012 Family History Medical History Relation [...] were you homeless or living in a custodial (including now)? No 04/28/2024 Comments No Sex [...] Comments Blood Pressure 136/80 10/30/2024 8:15 AM GEAR LAPPING MACHINE OPERATOR Pulse 60 10/30/2024 8:15 AM GEAR LAPPING MACHINE OPERATOR Temperature 35.7 C (96.2 F) 10/30/2024 8:15 AM GEAR LAPPING MACHINE OPERATOR Respiratory Rate 16 04/27/2024 10:39 AM CDT Oxygen Saturation 98% 10/30/2024 8:15 AM GEAR LAPPING MACHINE OPERATOR Inhaled Oxygen Concentration - - Weight 69.9 kg (154 lb 3.2 oz) 10/30/2024 8:15 A M GEAR LAPPING MACHINE OPERATOR Height 162.6 cm (5' 4 ) 10/30/2024 8:15 AM GEAR LAPPING MACHINE OPERATOR Body Mass Index 26.47 10/30/2024 8:15 AM GEAR LAPPING MACHINE OPERATOR Plan of Treatment Upcoming Encounters Date Type Department Care Team (Late st Contact Info) Description 03/14/2025 11:00 AM CDT Office Visit [facility], [address] [address] Roberto Betancourt MD Three [facility]. [facility] [address] [place] [address] 05/08/2025 9:20 AM CDT Office Visit [facility] - [place] [address] [facility] [address] [place] [address] Mariaelena Santos, LANG INTERPRETER [address] [place] [address] Health Maintenance Due Date Last Done Comments [...] , 07/15/2022, Additional history exists PHQ-2 (Physician Holland) Completed 10/30/2024 Meningococcal B Vaccine Aged Out [...] < 140/90 Blood Pressure 136/80(10/30 8:15 AM GEAR LAPPING MACHINE OPERATOR) No Shari Plummer RN Note: Patient will [...] r/t CHF Lifestyle On track(2024 3:11 PM GEAR LAPPING MACHINE OPERATOR) No Shari Plummer RN Note: Patient will monitor daily weights [...] for HTN Lifestyle On track(2024 3:11 PM GEAR LAPPING MACHINE OPERATOR) Shari Patton RN Note: Patient will monitor [...] VENOUS BLOOD VENIPUNCTURE Routine 10/30/2024 8:55 AM GEAR LAPPING MACHINE OPERATOR Mixed hyperlipidemia TSH W/REFLEX Routine 10/30/2024 8:55 AM GEAR LAPPING MACHINE OPERATOR Acquired hypothyroidism COMPREHENSIVE METABOLIC PANEL Routine 10/30/2024 8:55 AM GEAR LAPPING MACHINE OPERATOR Essential hypertension Prediabetes HEMOGLOBIN, GLYCOSYLATED Routine 10/30/2024 8:55 AM GEAR LAPPING MACHINE OPERATOR Prediabetes LIPID PANEL Routine 11/01/2023 8:40 AM GEAR LAPPING MACHINE OPERATOR Dyslipidemia BONE DENSITY/DEXA Routine 04/23/2023 8:3 2 AM CDT Post-menopausal from Last 3 Months or Most Recently Relevant to Health Maintenance Results * IMAGE GENERIC (12/01/2024) Anatomical Region Laterality Modality Other 12/01/2024 us Doc [facility] Scanned SCANNING Final Resu lt * PROCEDURE GENERIC (SCAN ORDER) (12/01/2024) 12/01/2024 [facility] Group Scanned SCANNING Final Resu lt * CT GENERIC (11/30/2024) Anatomical Region Laterality Modality Other 11/30/2024 [facility] Group Scanned SCANNING Final Resu lt * PROCEDURE GENERIC (SCAN ORDER) (11/30/2024) 11/30/2024 [facility] Group Scanned SCANNING Final Resu lt * TSH W/REFLEX (10/30/2024 8:55 AM GEAR LAPPING MACHINE OPERATOR) TSH 1.800 0.358 - 3.740 uIU/ML 10/30/2024 2:56 PM GEAR LAPPING MACHINE OPERATOR [facility] 10/30/2024 8:55 AM GEAR LAPPING MACHINE OPERATOR Mariaelena Santos NP LABORATORY Final Res ult Performing Organization Address City/[facility] Co de Phone Number [facility] [address] [place] [address], * (ABNORMAL) HEMOGLOBIN, GLYCOSYLATED (10/30/2024 8:55 AM GEAR LAPPING MACHINE OPERATOR) HGB A1C 6.4(H) 4.5 - 6.2 % 10/30/2024 2:54 PM GEAR LAPPING MACHINE OPERATOR [facility] ESTIMATED AVG GLUCOSE 137(H) 74 - 106 MG/DL 10/30/2024 2:54 PM GEAR LAPPING MACHINE OPERATOR [facility] 10/30/2024 8:55 AM GEAR LAPPING MACHINE OPERATOR Mariaelena Santos NP LABORATORY Final Res ult [facility] [address] [place] [address], * (ABNORMAL) COMPREHENSIVE METABOLIC PANEL (10/30/2024 8:55 AM GEAR LAPPING MACHINE OPERATOR) [facility] SODIUM S/P/B 141 136 - 145 MMOL/L 10/30/2024 2:56 PM [facility] POTASSIUM S/P/B 4.1 3.5 - 5.1 MMOL/L 10/30/2024 2:56 PM GEAR LAPPING MACHINE OPERATOR [facility] CHLORIDE S/P/B 102 98 - 107 MMOL/L 10/30/2024 2:56 PM [facility] CO2 29.4 21 - 32 MMOL/L 10/30/2024 2:56 PM [facility] GLUCOSE 135(H) 70 - 99 MG/DL 10/30/2024 2:56 PM [facility] BUN 19(H) 7 - 18 MG/DL 10/30/2024 2:56 PM [facility] CREATININE S/P/B 0.93 0.55 - 1.02 MG/DL 10/30/2024 2:56 PM [facility] CALCIUM S/P/B 8.8 8.4 - 10.5 MG/DL 10/30/2024 2:56 PM [facility] BILIRUBIN TOTAL S/P/B 0.6 0.2 - 1.0 MG/DL 10/30/2024 2:56 PM [facility] ALKALINE PHOSPHATASE S/P/B 63 55 - 142 U/L 10/30/2024 2:56 PM [facility] AST 23 15 - 37 U/L 10/30/2024 2:56 PM [facility] ALT 25 14 - 59 U/L 10/30/2024 2:56 PM [facility] TOTAL PROTEIN S/P/B 6.2(L) 6.4 - 8.2 G/DL 10/30/2024 2:56 PM GEAR LAPPING MACHINE OPERATOR [facility] ALBUMIN S/P/B 3.6 3.4 - 5.0 G/DL 10/30/2024 2:56 PM GEAR LAPPING MACHINE OPERATOR [facility] ANION GAP 9.6 5 - 15 MMOL/L 10/30/2024 2:56 PM GEAR LAPPING MACHINE OPERATOR [facility] Comment:REFERENCE RANGE NOT ESTABLISHED OSMOLALITY (CALC) 296 MOSM/KG 025 2:56 PM GEAR LAPPING MACHINE OPERATOR [facility] Comment:REFERENCE RANGE NOT ESTABLISHED GFR ESTIMATE 61(L) >90 ML/MIN/1. 73 M2 10/30/2024 2:56 PM GEAR LAPPING MACHINE OPERATOR [facility] GFR NOTES GFR REFERENCE S: 10/30/2024 2:56 PM GEAR LAPPING MACHINE OPERATOR [facility] Comment: THE ESTIMATED GFR IS CALCULATED USING [...] FAILURE: <15 ml/min/1.73 m2 10/30/2024 8:55 AM GEAR LAPPING MACHINE OPERATOR us Mariaelena Santos NP LABORATORY Final Res ult [facility] [address] [place] [address], [place] [phone] * LIPID PANEL (11/01/2023 8:40 AM GEAR LAPPING MACHINE OPERATOR) CHOLESTEROL 135 <200 MG/DL 11/01/2023 3:59 PM GEAR LAPPING MACHINE OPERATOR [facility] TRIGLYCERIDES 134 <150 MG/DL 11/01/2023 3:59 PM GEAR LAPPING MACHINE OPERATOR [facility] RONKS HDL 54 >40 MG/DL 11/01/2023 3:59 PM GEAR LAPPING MACHINE OPERATOR [facility] LDL-C 54 <100 MG/DL 11/01/2023 3:59 PM GEAR LAPPING MACHINE OPERATOR [facility] VLDL CALCULATION 27 5 - 28 MG/DL 11/01/2023 3:59 PM GEAR LAPPING MACHINE OPERATOR [facility] RONKS CHOL/HDL RATIO 2.5 0.0 - 4.0 11/01/2023 3:59 PM GEAR LAPPING MACHINE OPERATOR [facility] LDL/HDL 1.0 0.41 - 2.13 11/01/2023 3:59 PM GEAR LAPPING MACHINE OPERATOR [facility] NON HDL CHOLESTEROL 81 <140 MG/DL 11/01/2023 3:59 PM GEAR LAPPING MACHINE OPERATOR [facility] 11/01/2023 8:40 AM GEAR LAPPING MACHINE OPERATOR us Mariaelena Santos LANG INTERPRETER LABORATORY Final Res ult [address] [place] [address], * BONE DENSITY/DEXA (04/23/2023 8:32 AM CDT) [...] Mederos MD, 04/23/2023 8:35 AM Mariaelena Santos LANG INTERPRETER DEXA Final Res ult from Last 3 Months or Most Recently Relevant to Health Maintenance Insurance A Care Teams Loss Claim Clerk Relationship Specialty Start Date End Date Mariaelena Santos NP [address] [place] [address] PCP - General NURSE PRACTITIONER 09/14/22 Roberto Betancourt MD [facility]. [address] [place] [address] [place] Manager Work CARDIOVASCULAR DISEASE 03/04/16 Shari Plummer, RN [address] [place], [place] [address] Lead Dental Assistant (Ambulatory) REGISTERED NURSE 04/28/24
--- OUTSIDE RECORDS SUMMARY | 2024-12-11 06:54 | XMS_ITS | Encounter Summary ---
Author Organization [facility] Address [address] [place] [address] Care Team Providers Care Materials Scheduler Name Role Phone Roberto Betancourt MD Unavailable [phone] Mariaelena Santos NP Primary Care Provider [phone] Shari Plummer RN Unavailable [phone] Reason for Visit * Reason Onset Date Comments Hospital Follow Up 12/11/2024 [address]mission [address] if[address] to [facility]. Encounter Details Date Type Department Care Team (Late st Contact Info) Description 12/11/2024 Patient Outreach [facility] Family Medicine [facility] [address] [address] Cadence Tim, RN [address] [place] [address] Hospital Follow Up (Admission notification to [facility] Social History Tobacco Use Types Packs/Day Years Used Date Smoking Tobacco: Former Cigarettes Q uit: 1972 Passive Smoke Exposure: Past Smokeless Tobacco: Never Alcohol Use Standard Drinks/Week Comments No 0 (1 standard drink = 0.6 oz pur e alcohol) Overall Financial Resource Strain (CARDIA) Marly selby Date Recorded How hard is it for [...] any time in the past 12 m [facility], were you homeless or living in a fdc (including now)? No 04/28/2024 Comments No Sex [...] 03/14/2025 11:00 AM CDT Office Visit Abelino Gonzalez-Maria schaffer [facility], [address] [id number] Roberto Betancourt MD [facility]. [facility] [address] [place], [place] [id number] 05/08/2025 9:20 AM CDT Office Visit [facility] Medical Group Family Medicine - [place] [address] [facility] [address] [place] [address] Mariaelena Santos NP [address] [place] [address] documented as of this encounter Goals Goal Patient Goal Type Associated Problems Recent Progress Patient-Stated? Author Blood Pressure < 140/90 Blood Pressure 136/80(10/30 8:15 AM WASHATERIA ATTENDANT) No Shari Plummer RN Note: Patient will [...] r/t CHF Lifestyle On track(2024 3:11 PM WASHATERIA ATTENDANT) Shari Patton RN Note: Patient will monitor [...] for HTN Lifestyle On track(2024 3:11 PM WASHATERIA ATTENDANT) Shari Patton RN Note: Patient will monitor [...] or PCP. documented as of this encounter Visit Diagnoses Not on filedocumented in this encounter Additional Health Concerns Assessment Noted Time PHQ-9 Depression Total Score: 0 03/17/20 22 8:03 AM CDT documented as of this encounter Care Teams Materials Scheduler Relationship Specialty Start Date End Date Mariaelena Santos NP [address] [place] [address] PCP - General NURSE PRACTITIONER 09/14/22 Roberto Betancourt MD [facility]. [address] [place] [address] [place] [employer] Developer CARDIOVASCULAR DISEASE 03/04/16 Shari Plummer, RN [address] [place] [address] Validation Software Facilitator (Ambulatory) REGISTERED NURSE 04/28/24 documented as of this encounter
== END 2024-12-03 13:15 | disposition home or self-care (01) | DRG 389 ==
LOC: ANHED 12-01 00:30 → ANH3MEDSUR 12-01 15:21
PROVIDERS: Internal Medicine Gastroenterology; Nurse Practitioner Family; Physician Assistant; Admitting Provider Internal Medicine; Emergency Provider Student in an Organized Health Care Education/Training Program; PCP Nurse Practitioner; Visit Provider Nurse Practitioner Acute Care
DX: K56.609 Unspecified intestinal obstruction, unspecified as to partial versus complete obstruction (principal); I50.22 Chronic systolic (congestive) heart failure; I11.0 Hypertensive heart disease with heart failure; E86.0 Dehydration; E03.9 Hypothyroidism, unspecified; E78.5 Hyperlipidemia, unspecified; K76.9 Liver disease, unspecified; K21.9 Gastro-esophageal reflux disease without esophagitis; M19.90 Unspecified osteoarthritis, unspecified site; Z85.3 Personal history of malignant neoplasm of breast; Z79.82 Long term (current) use of aspirin; Z87.891 Personal history of nicotine dependence
CPT/HCPCS: 36415; 74018; 74176; 74240; 74248; 80053; 81001; 82105; 83605; 83690; 85025; 87086; 93005; 96361; 96374; 96375; 96376; 99285; A9270; J1644; J1650; J2270; J2405; J2470; J2543; J2765; J7120

== ENCOUNTER 2024-12-08 08:51 | Inpatient (IN) | payer MEDICARE, SELFPAY ==
--- NOTE | ~2024-12-08 | US_ITS ---
EXAMINATION: Limited ultrasound of the liver. US core biopsy liver DATE: 12/12/2024 12:46 Real Estate Agent/Broker: Lu Garcia M.D. TECHNIQUE: The procedure including the risks, benefits, and alternatives was discussed with the patie nt. Risks discussed included bleeding, infection, and nontargeted biopsy. The patient understood the risks and benefits and agreed to proceed. Limited ultrasound examination was performed of liver to determine optimal site for biopsy. This demonstrated multiple lesions within the right lobe of the liver. The largest measured 14 mm in greatest dimension, but was located centrally, within segment 4. A smaller lesion measuring 9 mm in g reatest dimension was chosen as optimal for biopsy within the segment 8, as it was more superficial w ithin the liver. The skin overlying the right upper quadrant was prepped and draped in usual sterile fashion. Anesthe tic was administered with 1% lidocaine subcutaneously as well as within the capsule of the liver. A 17G introducer was placed utilizing continuous ultrasound guidance into the 9 mm lesion, and the in ner needle removed. An 18-gauge biopsy device was then used to obtain 4 biopsy specimens under continuous sonographic breanna dance. The biopsy device was then removed, and specimen was placed immediately into formalin without cold ischemia time. A Gelfoam slurry was then utilized for hemostasis. Postbiopsy imaging was without active extravasation from the liver. No perihepatic collection was appreciated. A sterile dressing was then applied (Steri-Strips, which should be allowed to fall off on their own). There were no immediate complications. The patient tolerated the procedure without difficulty, and was returned via stretcher to her room in good condition. IMPRESSION: 1. Technically successful ultrasound-guided core biopsy of a 9 mm hyperechoic lesion within the right lobe of the liver, likely representing metastatic disease. Typically, this appearance is often seen with metastatic breast, metastatic colon, or carcinoid. Reviewed, dictated and finalized at location A. IMPRESSION: 1. Technically successful ultrasound-guided core biopsy of a 9 mm hyperechoic l esion within the right lobe of the liver, likely representing metastatic diseas e. Typically, this appearance is often seen with metastatic breast, metastatic col on, or carcinoid.
--- NOTE | ~2024-12-08 | MR_ITS ---
MRI of the abdomen: Clinical indication: Liver mass. Technique: Coronal SSFSE ARC, WATER:coronal LAVA-FLEX, Coronal 2D FIESTA FatSat, Axial SSFSE BH ARC, Axial 3D DualEcho BH, Axial SSFSE-IR, Axial DWI b=500, Axial 2D FIESTA FatSat, pre and dynamic postco ntrast Axial LAVA ARC, postcontrast Coronal In and Opposed phase LAVA FLEX . Following intravenous ad ministration of 14 cc MultiHance gadolinium, T1-weighted fat-sat imaging was performed in the axial a nd coronal planes. COMPARISON: CT scan dated 12/08/2024 Findings: Gallbladder unremarkable. The common bile duct is normal in course and caliber. No filling defects are seen within the CBD. No evidence of intrahepatic biliary ductal dilatation. The pancreati c duct is normal in size. There is a 2.2 cm T2 hyperintense, T1 hypointense mass in the central right hepatic lobe (series 8 im age 14). There are several smaller T2 hyperintense masses in the more inferior right hepatic lobe, sm aller lesion measuring up to 1 cm in diameter (series 8 images 19, 20, 21). Lesions demonstrate somew hat ill-defined enhancement, with relative persistent enhancement of the larger lesion. Smaller lesio ns are somewhat hypervascular in appearance. Spleen, pancreas, adrenals, kidneys appear normal. The aorta and the paraaortic regions appear normal . Impression: At least 3 liver lesions, as detailed above, largest measuring 2.2 cm. Findings are suspicious for me tastatic disease. Reviewed, dictated and finalized at [facility]. Impression: At least 3 liver lesions, as detailed above, largest measuring 2.2 cm. Findings are suspicious for metastatic disease.
--- NOTE | ~2024-12-08 | XR_ITS ---
EXAMINATION: XR abdomen gastric tube insert DATE: 12/08/2024 12:56 INDICATION: Nasogastric tube placement. TECHNIQUE: A supine view of the abdomen was obtained. COMPARISON: Abdomen radiograph 11/30/2024 FINDINGS: The lower abdomen is excluded. There are dilated loops of small bowel. The colon is decompr essed. The nasogastric tube tip is in the stomach. IMPRESSION: 1. Nasogastric tube tip in the stomach. 2. Dilated small bowel, consistent with small bowel obstruction. Reviewed, dictated and finalized at location A. NG CUTTER
--- NOTE | ~2024-12-08 | XR_ITS ---
Supine and upright views of the abdomen Clinical history: Small bowel obstruction Findings: NG tube in satisfactory position. Bowel gas pattern is nonspecific. No evidence for obstruc tion or free air. No abnormal mass lesion or calcification is seen. Osseous structures are intact. Impression: NG tube in place. Nonspecific bowel gas pattern. Reviewed, dictated and finalized at [facility]. Impression: NG tube in place. Nonspecific bowel gas pattern.
--- NOTE | ~2024-12-08 | CT_ITS ---
EXAMINATION: CT abdomen pelvis wo con DATE: 12/08/2024 10:59 INDICATION: Abdominal pain. TECHNIQUE: Computed tomography (CT) of the abdomen and pelvis was performed without intravenous contr ast. Automated exposure control and iterative reconstruction technique were employed. The dose-length product was 436.72 mGy-cm. COMPARISON: CT abdomen and pelvis 11/30/2024, 06/02/23, ultrasound 06/02/23 FINDINGS: The visualized portions of lung bases demonstrate mild atelectasis. No pleural effusion. Th e heart size is normal. There is a trace pericardial effusion. There are coronary artery calcificatio ns. There is a small sliding hiatal hernia. There is a 2.0 cm hypodense mass in right hepatic lobe. T here is an 11 mm hypodense mass in right hepatic lobe. The gallbladder, spleen, pancreas, adrenal gla nds, and kidneys are normal. The appendix is not visualized. There are multiple dilated loops of smal l bowel with transition point in the inferior abdomen at the midline. There are no pathologically enl arged lymph nodes. There is trace ascites. There is severe lumbar spondylosis. IMPRESSION: 1. Small bowel obstruction with transition point in the inferior abdomen at the midline. 2. Liver masses, new from 06/02/2023, suspicious for metastatic disease. Abdomen CT with contrast is r ecommended. Reviewed, dictated and finalized at location A. RCYCLE BUILDER IMPRESSION: 1. Small bowel obstruction with transition point in the inferior abdomen at the midline. 2. Liver masses, new from 06/02/2023, suspicious for metastatic disease. Abdomen CT with contrast is recommended.
--- NOTE | ~2024-12-08 | US_ITS ---
Limited Abdominal Sonogram: Real-time sonographic imaging of the liver was performed. Clinical History: Liver lesions COMPARISON: MRI dated 12/09/2024 Findings: The liver demonstrates normal background echotexture, without biliary dilatation. There is a 1.9 x 1.8 x 1.9 cm hyperechoic mass in the liver, somewhat centrally.. Impression: 1.9 cm hyperechoic mass in the liver, as above. This may correlate with the largest presumed metastat ic lesion seen on recent MR. Smaller lesions in the liver seen on prior MRI are not appreciated sonog raphically. Reviewed, dictated and finalized at [facility]. Impression: 1.9 cm hyperechoic mass in the liver, as above. This may correlate with the lar gest presumed metastatic lesion seen on recent MR. Smaller lesions in the liver seen on prior MRI are not appreciated sonographically.
[2024-12-08 08:57] VITALS: BP 150/70; PULSE 87; RESP 16; TEMP 36.4; O2SAT 100
--- OUTSIDE RECORDS SUMMARY | 2024-12-08 09:12 | XMS_ITS | Encounter Summary ---
Author Organization [facility] Address [facility] [place] [address] Care Team Providers Care Poultry Culler Name Role Phone Lisa Coy MD Primary Care Provider [phone] Roberto Betancourt MD Unavailable [phone] Mariaelena Santos NP Primary Care Provider [phone] Shari Plummer RN Unavailable [phone] Encounter Details Date Type Department Care Team (Late st Contact Info) Description 08/03/2018 Abstract [facility] at [address] [id number] Kayla Maza MA Social History Tobacco Use [...] CDT Office Visit [facility] [address] [address], [address] [place] [address] Roberto Betancourt MD Three [facility]. [address] [place] [address] 05/08/2025 9:20 AM CDT Office Visit [facility] Family Medicine - [place] [address] [place], [place] [address] Mariaelena Santos, KAREN [address] [place], [place] [address] documented as of this encounter Procedures Procedure [...] Result * CBC (OUTSIDE LAB) (01/24/2019) Pathologist [facility] WBC 6.6 HGB 9.4 HCT 30.6 PLT 394 01/24/2019 us Doc [facility] Abstract LAB-OUTSIDE/ABSTRACTED Edite d Result - Final * LIPID PANEL (07/25/2018) Pathologist [facility] CHOLESTEROL 193 HDL 47 TRIGLYCERIDES 122 LDL (CALCULATED) 105 07/25/2018 us Doc [facility] Abstract LABORATORY Final Result * COMPREHENSIVE METABOLIC PANEL (07/25/2018) Pathologist [facility] SODIUM S/P/B 141 POTASSIUM S/P/B 3.9 CO2 [...] on filedocumented in this encounter Care Teams Poultry Culler Relationship Specialty Start Date End Date Lisa Coy MD PCP - General INTERNAL MEDICINE 03/04/16 09/13/22 Mariaelena Santos NP [address] [place] [address] PCP - General NURSE PRACTITIONER 09/14/22 Roberto Betancourt MD [address] [id number] [place] [employer] CARDIOVASCULAR DISEASE 03/04/16 Shari Plummer, RN [address] [place], [place] [address] [employer] (Ambulatory) REGISTERED NURSE 04/28/24 documented as of this encounter
--- OUTSIDE RECORDS SUMMARY | 2024-12-08 09:12 | XMS_ITS | Clinical Summary ---
Author Organization [facility] Address [address] [place] [address] Care Team Providers Care Auto Self Service Station Attendant Name Role Phone Roberto Betancourt MD Unavailable [phone] Mariaelena Santos CIRCUIT BREAKER ASSEMBLER Primary Care Provider [phone] Shari Plummer RN Unavailable [phone] Allergies Active Allergy Reactions Criticality Noted Date Comments Iodine Anaphylaxis High 06/29/2016 Poss Contrast Dye Allergy Medications Multiple Vitamins tablet Take 1 tablet by mouth daily. 11/08/19 15 Active aspirin EC 325 MG Tab EC tablet Take 1 tablet (325 mg total) by mouth daily. Active BLOOD PRESSURE CUFF, DME, 1 Device by Does not apply route daily. Take blood pressure daily and report findings to office nurse. DX: htn 1 Device 03/25/20 22 Active Multiple Vitamin (MULTIVITAMIN ADULT OR) Active PSYLLIUM FIBER OR Ac tive cetirizine (ZYRTEC) 10 MG tablet Take 1 tablet (10 mg total) by mouth daily. Active lisinopril (PRINIVIL) 20 MG tabletIndications: Essential hypertension TAKE 1 TABLET(20 MG) BY MOUTH DAILY 90 tablet 1 06/22/20 24 Active metoprolol succinate ER (TOPROL-XL) 50 MG 24 hr tabletIndications: CHF (congestive heart failure), NYHA class I, acute, systolic ([facility] HHS/[facility]) TAKE 1 TABLET(50 MG) BY MOUTH DAILY 90 tablet 1 06/26/20 24 Active spironolactone (ALDACTONE) 25 MG tablet TAKE 1/2 TABLET(12.5 MG) BY MOUTH DAILY 45 tablet 2 09/26/20 24 Active Additional Information Patient taking differently: 25 mg, Reported on 10/30/2024 rosuvastatin (CRESTOR) 40 MG tabletIndications: Dyslipidemia TAKE 1 TABLET(40 MG) BY MOUTH EVERY NIGHT AT BEDTIME 90 tablet 2 09/26/20 24 Active pantoprazole EC (PROTONIX) 20 MG tabletIndications: Gastroesophageal reflux disease, unspecified whether esophagitis present TAKE 1 TABLET(20 MG) BY MOUTH DAILY 90 tablet 1 10/05/19 25 Active levothyroxine (SYNTHROID) 50 MCG tabletIndications: Acquired hypothyroidism TAKE 1 TABLET(50 MCG) BY MOUTH DAILY 90 tablet 1 11/01/19 25 Active bumetanide (BUMEX) 1 MG tabletIndications: CHF (congestive heart failure), NYHA class I, acute, systolic ([facility]) TAKE 1 TABLET(1 MG) BY MOUTH EVERY MORNING 90 tablet 1 11/01/19 25 Active Active Problems Problem Noted Date Diagnosed Date Care Management 04/28/2024 Adult BMI 26.0-26.9 kg/sq m 03/06/2020 Cardiac LV ejection fraction 21-40% 02/12/2017 Overview (02/01/2019): Annotation - [id number]: 35-40%; Annotation - [id number]: 12/18 Ejection fraction ; 35 - 45 % Non-rheumatic mitral regurgitation 01/04/2017 Chronic systolic heart failure (CMS/[facility] HHS/HCC) 01/04/2017 Anemia 08/28/2016 CHF (congestive heart failur e), NYHA class I, acute, systolic ([facility]) 06/17/2016 Seasonal allergies 12/25/2015 Vitamin D deficiency 04/30/2014 Hypothyroidism 05/24/2013 Hyperlipidemia 12/07/2011 Atherosclerosis of coronary artery 06/26/2011 Abnormal blood chemistry level 02/27/2011 GERD (gastroesophageal reflux disease) Essential hypertension Dyslipidemia CAD (coronary artery disease) Resolved Problems Problem Noted Date Diagnosed Date Resolved Date Shortness of breath 06/11/2016 09/14/20 22 Claudication, intermittent 10/22/2014 0 04/27/2024 Metabolic syndrome 10/22/2014 2 Malignant neoplasm of breast ([facility]) 11/15/2013 09/14/2022 Overview (02/01/2019): Annotation - [id number]: status post lumpectomy, stopped tamoxifen after 5 years Hormone replacement therapy 09/14/2022 Encounters Date Type Department Care Team Description 12/01/2024 Scan [facility] SR[facility] Scanned, Doc [facility] Procedure (SCAN); Image (SCAN) 11/30/2024 Scan [facility] Scanned, Doc Med Group CT (SCAN); Procedure (SCAN) 11/16/2024 Patient Outreach [address] [address] Shari Plummer RN Care Management (CCM call to the patient. ) 11/16/2024 Outreach Visit [address] [address] Shari Plummer RN 10/30/2024 8:20 AM SENIOR UNDERWRITING ASSISTANT Office Visit [address] [address] Mariaelena Santos NP Follow Up (6mo ck doing ok) 10/30/2024 Travel 10/25/2024 Patient Outreach [address] [address] Mariaelena Santos NP Pre-visit Gap Closure 10/19/2024 Patient Outreach [address] [address] Shari Plummer RN Care Management (CCM call to the patient. ) 09/25/2024 Patient Outreach [address] [place] [address] Shari Plummer RN Care Management (CCM call to the patient) 09/13/2024 10:30 AM SENIOR UNDERWRITING ASSISTANT Office Visit [facility] THREE [facility], [address] [address] [place] Del [place] FNP CHF; Coronary Artery Disease; Hypertension; Follow Up 09/13/2024 Travel from Last 3 Months Immunizations Name Administration [...] Adult Use, Lf Unspecified 03/06/2020 Zoster (Zostavax) 96969 Unt/0.65Ml 08/10/2012 Family History Medical History Relation [...] any time in the past 12 m [facility], were you homeless or living in a alf (including now)? No 04/28/2024 Comments No Sex [...] Comments Blood Pressure 136/80 10/30/2024 8:15 AM SENIOR UNDERWRITING ASSISTANT Pulse 60 10/30/2024 8:15 AM SENIOR UNDERWRITING ASSISTANT Temperature 35.7 C (96.2 F) 10/30/2024 8:15 AM SENIOR UNDERWRITING ASSISTANT Respiratory Rate 16 04/27/2024 10:39 AM CDT Oxygen Saturation 98% 10/30/2024 8:15 AM SENIOR UNDERWRITING ASSISTANT Inhaled Oxygen Concentration - - Weight 69.9 kg (154 lb 3.2 oz) 10/30/2024 8:15 A M SENIOR UNDERWRITING ASSISTANT Height 162.6 cm (5' 4 ) 10/30/2024 8:15 AM SENIOR UNDERWRITING ASSISTANT Body Mass Index 26.47 10/30/2024 8:15 AM SENIOR UNDERWRITING ASSISTANT Plan of Treatment Upcoming Encounters Date Type Department Care Team (Late st Contact Info) Description 03/14/2025 11:00 AM CDT Office Visit [facility] THREE [facility], [address] [place] [address] Roberto Betancourt MD Three [facility]. [address] [place], [place] [id number] 05/08/2025 9:20 AM CDT Office Visit [facility] Family Medicine - [place] [address] [facility] [address] [place], [place] [address] Mariaelena Santos, KAREN [address] [place] [address] Health Maintenance Due Date Last Done Comments [...] , 07/15/2022, Additional history exists PHQ-2 (Physician [place]) Completed 10/30/2024 Meningococcal B Vaccine Aged Out [...] < 140/90 Blood Pressure 136/80(10/30 8:15 AM SENIOR UNDERWRITING ASSISTANT) Shari Patton RN Note: Patient will [...] r/t CHF Lifestyle On track(2024 3:11 PM SENIOR UNDERWRITING ASSISTANT) Shari Patton RN Note: Patient will [...] for HTN Lifestyle On track(2024 3:11 PM SENIOR UNDERWRITING ASSISTANT) Shari Patton RN Note: Patient will [...] Procedure Name Priority Date/Time Associated Diagnosis Comments IMAGE GENERIC 12/01/2024 PROCEDURE GENERIC (SCAN ORDER) 12/01/2024 CT GENERIC 11/30/2024 PROCEDURE GENERIC (SCAN ORDER) 11/30/2024 COLLECTION VENOUS BLOOD VENIPUNCTURE Routine 10/30/2024 8:55 AM SENIOR UNDERWRITING ASSISTANT Mixed hyperlipidemia TSH W/REFLEX Routine 10/30/2024 8:55 AM SENIOR UNDERWRITING ASSISTANT Acquired hypothyroidism COMPREHENSIVE METABOLIC PANEL Routine 10/30/2024 8:55 AM SENIOR UNDERWRITING ASSISTANT Essential hypertension Prediabetes HEMOGLOBIN, GLYCOSYLATED Routine 10/30/2024 8:55 AM SENIOR UNDERWRITING ASSISTANT Prediabetes LIPID PANEL Routine 11/01/2023 8:40 AM SENIOR UNDERWRITING ASSISTANT Dyslipidemia BONE DENSITY/DEXA Routine 04/23/2023 8:3 2 AM CDT Post-menopausal from Last 3 Months or Most Recently Relevant to Health Maintenance Results * IMAGE GENERIC (12/01/2024) Anatomical Region Laterality Modality Other 12/01/2024 [place] [facility] Scanned SCANNING Final Resu lt * PROCEDURE GENERIC (SCAN ORDER) (12/01/2024) 12/01/2024 [place] [facility] Scanned SCANNING Final Resu lt * CT GENERIC (11/30/2024) Anatomical Region Laterality Modality Other 11/30/2024 us Doc [facility] Scanned SCANNING Final Resu lt * PROCEDURE GENERIC (SCAN ORDER) (11/30/2024) 11/30/2024 [facility] Scanned SCANNING Final Resu lt * TSH W/REFLEX (10/30/2024 8:55 AM SENIOR UNDERWRITING ASSISTANT) TSH 1.800 0.358 - 3.740 uIU/ML 10/30/2024 2:56 PM SENIOR UNDERWRITING ASSISTANT [facility] 10/30/2024 8:55 AM SENIOR UNDERWRITING ASSISTANT Mariaelena Santos CIRCUIT BREAKER ASSEMBLER LABORATORY Final Res ult Performing Organization Address [facility] Co de Phone Number [address] [address], * (ABNORMAL) HEMOGLOBIN, GLYCOSYLATED (10/30/2024 8:55 AM SENIOR UNDERWRITING ASSISTANT) HGB A1C 6.4(H) 4.5 - 6.2 % 10/30/2024 2:54 PM SENIOR UNDERWRITING ASSISTANT [facility] ESTIMATED AVG GLUCOSE 137(H) 74 - 106 MG/DL 10/30/2024 2:54 PM SENIOR UNDERWRITING ASSISTANT [facility] 10/30/2024 8:55 AM SENIOR UNDERWRITING ASSISTANT Mariaelena Santos CIRCUIT BREAKER ASSEMBLER LABORATORY Final Res ult Performing Organization Address [facility]/ZIP Co de Phone Number [place] [address] [place] [address], * (ABNORMAL) COMPREHENSIVE METABOLIC PANEL (10/30/2024 8:55 AM SENIOR UNDERWRITING ASSISTANT) SODIUM S/P/B 141 136 - 145 MMOL/L 10/30/2024 2:56 PM SENIOR UNDERWRITING ASSISTANT [facility] POTASSIUM S/P/B 4.1 3.5 - 5.1 MMOL/L 10/30/2024 2:56 PM [facility] CHLORIDE S/P/B 102 98 - 107 MMOL/L 10/30/2024 2:56 PM [facility] CO2 29.4 21 - 32 MMOL/L 10/30/2024 2:56 PM [facility] GLUCOSE 135(H) 70 - 99 MG/DL 10/30/2024 2:56 PM [facility] BUN 19(H) 7 - 18 MG/DL 10/30/2024 2:56 PM [facility] CREATININE S/P/B 0.93 0.55 - 1.02 MG/DL 10/30/2024 2:56 PM [facility] CALCIUM S/P/B 8.8 8.4 - 10.5 MG/DL 10/30/2024 2:56 PM [facility] BILIRUBIN TOTAL S/P/B 0.6 0.2 - 1.0 MG/DL 10/30/2024 2:56 PM [facility] ALKALINE PHOSPHATASE S/P/B 63 55 - 142 U/L 10/30/2024 2:56 PM [facility] AST 23 15 - 37 U/L 10/30/2024 2:56 PM [facility] ALT 25 14 - 59 U/L 10/30/2024 2:56 PM [facility] TOTAL PROTEIN S/P/B 6.2(L) 6.4 - 8.2 G/DL 10/30/2024 2:56 PM [facility] ALBUMIN S/P/B 3.6 3.4 - 5.0 G/DL 10/30/2024 2:56 PM [facility] ANION GAP 9.6 5 - 15 MMOL/L 10/30/2024 2:56 PM [facility] Comment:REFERENCE RANGE NOT ESTABLISHED OSMOLALITY (CALC) 296 MOSM/KG 025 2:56 PM SENIOR UNDERWRITING ASSISTANT [facility] Comment:REFERENCE RANGE NOT ESTABLISHED GFR ESTIMATE 61(L) >90 ML/MIN/1. 73 M2 10/30/2024 2:56 PM SENIOR UNDERWRITING ASSISTANT [facility] GFR NOTES GFR REFERENCE S: 10/30/2024 2:56 PM SENIOR UNDERWRITING ASSISTANT [facility] Comment: THE ESTIMATED GFR IS CALCULATED USING [...] FAILURE: <15 ml/min/1.73 m2 10/30/2024 8:55 AM SENIOR UNDERWRITING ASSISTANT us Mariaelena Santos NP LABORATORY Final Res ult [facility] [address] [place] [address], * LIPID PANEL (11/01/2023 8:40 AM SENIOR UNDERWRITING ASSISTANT) CHOLESTEROL 135 <200 MG/DL 11/01/2023 3:59 PM SENIOR UNDERWRITING ASSISTANT [facility] TRIGLYCERIDES 134 <150 MG/DL 11/01/2023 3:59 PM SENIOR UNDERWRITING ASSISTANT [facility] HDL 54 >40 MG/DL 11/01/2023 3:59 PM SENIOR UNDERWRITING ASSISTANT [facility] LDL-C 54 <100 MG/DL 11/01/2023 3:59 PM SENIOR UNDERWRITING ASSISTANT [facility] VLDL CALCULATION 27 5 - 28 MG/DL 11/01/2023 3:59 PM SENIOR UNDERWRITING ASSISTANT [facility] CHOL/HDL RATIO 2.5 0.0 - 4.0 11/01/2023 3:59 PM SENIOR UNDERWRITING ASSISTANT [facility]OW[facility] LDL/HDL 1.0 0.41 - 2.13 11/01/2023 3:59 PM SENIOR UNDERWRITING ASSISTANT [facility] LOWELL NON HDL CHOLESTEROL 81 <140 MG/DL 11/01/2023 3:59 PM SENIOR UNDERWRITING ASSISTANT [facility] KRISTYN, LOWELL 11/01/2023 8:40 AM SENIOR UNDERWRITING ASSISTANT us Mariaelena Santos CIRCUIT BREAKER ASSEMBLER LABORATORY Final Res ult [facility] [address] [facility] [place] [address], * BONE DENSITY/DEXA (04/23/2023 8:32 AM CDT) [...] bone mineral density test. For patients eligible forMedicare, routine testing is allowed once every 2 [...] Mederos MD, 04/23/2023 8:35 AM Mariaelena Santos CIRCUIT BREAKER ASSEMBLER DEXA Final Res ult from Last 3 Months or Most Recently Relevant to Health Maintenance Insurance Care Teams Auto Self Service Station Attendant Relationship Specialty Start Date End Date Mariaelena Santos NP [address] [place] [address] PCP - General NURSE PRACTITIONER 09/14/22 Roberto Betancourt MD Three [facility]. [address] [place], [place] [address] [place] [employer] CARDIOVASCULAR DISEASE 03/04/16 Shari Plummer, RN [address] [place] [address] Roller Inspector And Mender (Ambulatory) REGISTERED NURSE 04/28/24
--- OUTSIDE RECORDS SUMMARY | 2024-12-08 09:12 | XMS_ITS | Encounter Summary ---
Author Organization [facility] Address [facility] [place] [address] Care Team Providers Care Child Care Lead Teacher Name Role Phone Roberto Betancourt MD Unavailable [phone] Mariaelena Santos SALES PLANNING ANALYST Primary Care Provider [phone] Shari Plummer RN Unavailable [phone] Reason for Visit * Reason Comments Procedure (SCAN) Image (SCAN) Encounter Details Date Type Department Care Team (Late st Contact Info) Description 12/01/2024 Scan HEALTH INFO SRVCS Scanned, Doc Med Group Procedure (SCAN); Image (SCAN) Social History Tobacco Use Types Packs/Day Years Used Date Smoking Tobacco: Former Cigarettes Q uit: 1972 Passive Smoke Exposure: Past Smokeless Tobacco: Never Alcohol Use Standard Drinks/Week [...] the money to buy more. Never true 07/26/20 24 Within the past 12 months, t [...] any time in the past 12 m [facility], were you homeless or living in a [place] health care facility (including now)? No 04/28/2024 Comments No Sex [...] CDT Office Visit [facility] THREE [facility] [address] [place] [address] Roberto Betancourt MD [facility]. [facility] [address] [place] [address] 05/08/2025 9:20 AM CDT Office Visit [facility] Medical [facility] Family Medicine - [place] [address] [facility] [address] [place], [place] [address] Mariaelena Santos NP [address] [place] [address] documented as of this encounter Goals Goal Patient Goal Type Associated Problems Recent Progress Patient-Stated? Author Blood Pressure < 140/90 Blood Pressure 136/80(10/30 8:15 AM ASSISTANT STORE DIRECTOR) Shari Patton RN Note: Patient will monitor [...] r/t CHF Lifestyle On track(2024 3:11 PM ASSISTANT STORE DIRECTOR) Shari Patton RN Note: Patient will monitor [...] for HTN Lifestyle On track(2024 3:11 PM ASSISTANT STORE DIRECTOR) No Shari Plummer RN Note: Patient will monitor B/P and [...] any abnormal readings to CC or PCP. documented as of this encounter Procedures Procedure Name Priority Date/Time Associated Diagnosis Comments IMAGE GENERIC 12/01/2024 PROCEDURE GENERIC (SCAN ORDER) 12/01/2024 documented in this encounter Results * PROCEDURE GENERIC (SCAN ORDER) (12/01/2024) 12/01/2024 us [facility] Scanned SCANNING Final Resu lt * IMAGE GENERIC (12/01/2024) Anatomical Region Laterality Modality Other 12/01/2024 us [facility] Scanned SCANNING Final Resu lt documented in this encounter Visit Diagnoses Not on filedocumented in this encounter Additional Health Concerns Assessment Noted Time PHQ-9 Depression Total Score: 0 03/17/20 22 8:03 AM CDT documented as of this encounter Care Teams Child Care Lead Teacher Relationship Specialty Start Date End Date Mariaelena Santos NP [address] [place] [address] PCP - General NURSE PRACTITIONER 09/14/22 Roberto Betancourt MD [facility]. [place] [address] [place] [address] [employer] Wireless Sales Consultant CARDIOVASCULAR DISEASE 03/04/16 Shari Plummer, RN [address] [place], [place] [address] Contour Stitcher (Ambulatory) REGISTERED NURSE 04/28/24 documented as of this encounter
--- OUTSIDE RECORDS SUMMARY | 2024-12-08 09:12 | XMS_ITS | Encounter Summary ---
Author Organization [facility] Address [facility] [place] [address] Care Team Providers Care Transfer Specialist Name Role Phone Lisa Coy MD Primary Care Provider [phone] Roberto Betancourt MD Unavailable [phone] Mariaelena Santos NP Primary Care Provider [phone] Shari Plummer RN Unavailable [phone] Encounter Details Date Type Department Care Team (Late st Contact Info) Description 03/18/2022 [employer] Message Enc [facility] THREE [address] [address] [facility] Provider echo results Social History Tobacco [...] CDT Office Visit [facility] THREE [facility], [place] [address] [place], [place] [address] Roberto Betancourt MD Three [facility]. [place] [address] [place], [place] [id number] 05/08/2025 9:20 AM CDT Office Visit [facility] Medical Group Family Medicine - [place] [address] [facility] [address] [place] [address] Mariaelena Santos NP [address] [place] [address] documented as of this encounter Visit Diagnoses Not on filedocumented in this encounter Additional Health Concerns Assessment Noted Time PHQ-9 Depression Total Score: 0 03/17/20 22 8:03 AM CDT documented as of this encounter Care Teams Transfer Specialist Relationship Specialty Start Date End Date Lisa Coy MD PCP - General INTERNAL MEDICINE 03/04/16 09/13/22 Mariaelena Santos NP [address] [place] [address] PCP - General NURSE PRACTITIONER 09/14/22 Roberto Betancourt MD [facility]. [address] [place] [address] [place] Retail Clerk CARDIOVASCULAR DISEASE 03/04/16 Shari Plummer, RN [address] [place] [address] Lithographic General Worker (Ambulatory) REGISTERED NURSE 04/28/24 documented as of this encounter
--- OUTSIDE RECORDS SUMMARY | 2024-12-08 09:12 | XMS_ITS | Clinical Summary ---
Author Organization [facility] [address] [place] Address [address] [place] [address] Care Team Providers Care Soda Dialyzer Name Role Phone Lisa Coy MD Primary Care Provider [phone] Allergies No known active allergies Medications levothyroxine (SYNTHROID) 50 mcg tablet Take 1 tablet (50 mcg total) by mouth molder closed molds before breakfast 3 Active dicyclomine (BENTYL) 20 [...] 01/05/2011 Surgical History Surgery Date Site/Laterality Comments MO APPENDECTOMY Appendectomy - (Added by TW Conv) MO EXC CYST/ABERRANT BREAST TISSUE OPEN 1/> LESION Breast Surgery Lumpectomy - (Added by TW Conv) MO TOTAL ABDOMINAL HYSTERECT W/WO RMVL TUBE OVARY [...] on file Legal Sex Female 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
--- OUTSIDE RECORDS SUMMARY | 2024-12-08 09:12 | XMS_ITS | Encounter Summary ---
Author Organization [facility] Address [facility] [place] [address] Care Team Providers Care Induction Heating Equipment Setter Name Role Phone Lisa Coy MD Primary Care Provider [phone] Roberto Betancourt MD Unavailable [phone] Mariaelena Santos NP Primary Care Provider [phone] Shari Plummer RN Unavailable [phone] Encounter Details Date Type Department Care Team (Late st Contact Info) Description 02/07/2021 [facility] Message Enc [facility] Family & Internal Medicine [address] [address] Ralf [facility] Provider Results Social History Tobacco Use Types [...] CDT Office Visit [facility] [address] [place], [place] [address] Roberto Betancourt MD Three [facility]. [facility] [address] [place], [place] [address] 05/08/2025 9:20 AM CDT Office Visit [facility] Family Medicine - [place] [address] [facility] [address] [place] [address] Mariaelena Santos NP [address] [place], [place] [address] documented as of this encounter Visit Diagnoses Not on filedocumented in this encounter Care Teams Induction Heating Equipment Setter Relationship Specialty Start Date End Date Lisa Coy MD PCP - General INTERNAL MEDICINE 03/04/16 09/13/22 Mariaelena Santos NP [address] [place] [address] PCP - General NURSE PRACTITIONER 09/14/22 Roberto Betancourt MD [facility]. [facility] [address] [place], [place] [address] Brando Twx Operator CARDIOVASCULAR DISEASE 03/04/16 Shari Plummer, RN [address] [place], [place] [address] Salesperson Furniture (Ambulatory) REGISTERED NURSE 04/28/24 documented as of this encounter
--- OUTSIDE RECORDS SUMMARY | 2024-12-08 09:12 | XMS_ITS | Referral Summary ---
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
--- OUTSIDE RECORDS SUMMARY | 2024-12-08 09:12 | XMS_ITS | Encounter Summary ---
Author Organization [facility] Address [facility] [place] [address] Care Team Providers Care Turf Manager Name Role Phone Lisa Coy MD Primary Care Provider [phone] Roberto Betancourt MD Unavailable [phone] Mariaelena Santos NP Primary Care Provider [phone] Shari Plummer RN Unavailable [phone] Encounter Details Date Type Department Care Team (Late st Contact Info) Description 07/01/2016 Abstract [facility] AT [address] [address] Kayla Maza MA Social History [...] PG pt send letter continue current meds SFORMATION CONSULTANT documented in this encounter Plan of Treatment Upcoming Encounters Date Type Department Care Team (Late st Contact Info) Description 03/14/2025 11:00 AM CDT Office Visit [facility] THREE [facility], [place] [address] [place] [address] Roberto Betancourt MD Three [facility]. [place] [address] [place] [address] 05/08/2025 9:20 AM CDT Office Visit [facility] Medical Group Family Medicine - [place] [address] [facility] [address] [place], [place] [address] Mariaelena Santos NP [address] [place] [address] documented as of this encounter Procedures Procedure [...] Results * CBC (OUTSIDE LAB) (07/26/2017) Pathologist [facility] WBC 6.0 HGB 14.0 HCT 43.2 PLT 293 07/26/2017 us [facility] Abstract LAB-OUTSIDE/ABSTRACTED Final Result * BASIC METABOLIC PANEL (04/07/2017) [facility] SODIUM S/P/B 137 POTASSIUM S/P/B 3.7 CO2 22 CHLORIDE S/P/B 103 GLUCOSE 111 mg/dL CALCIUM S/P/B 8.7 BUN 20 CREATININE S/P/B 0.70 0.5 - 1.0 EGFR NON-AFR. AMER. >60 <=90 04/07/2017 us Doc [facility] Abstract LABORATORY Final Result * CBC (OUTSIDE LAB) (04/07/2017) Pathologist [facility] WBC 8.3 HGB 14 HCT 42.1 PLT 257 04/07/2017 us Doc [facility] Abstract LAB-OUTSIDE/ABSTRACTED Final Result * BNP (08/23/2016) Pathologist [facility] B TYPE NATRIURETIC PEPTIDE 130 08/23/2016 us Doc [facility] Abstract LABORATORY Final Result * TROPONIN, QUANT (08/23/2016) Pathologist [facility] TROPONIN I 0.02 08/23/2016 us [facility] [...] on filedocumented in this encounter Care Teams Turf Manager Relationship Specialty Start Date End Date Lisa Coy MD PCP - General INTERNAL MEDICINE 03/04/16 09/13/22 Mariaelena Santos NP [address] [place] [address] PCP - General NURSE PRACTITIONER 09/14/22 Roberto Betancourt MD Three [facility]. [place] [address] [place] [address] Brando Stock Speculator CARDIOVASCULAR DISEASE 03/04/16 Shari Plummer RN [address] [place], [place] [address] Genetic Counselor (Ambulatory) REGISTERED NURSE 04/28/24 documented as of this encounter
--- OUTSIDE RECORDS SUMMARY | 2024-12-08 09:12 | XMS_ITS | Encounter Summary ---
Author Organization [facility] Address [facility] [place] [address] Care Team Providers Care Graduate Assistant Name Role Phone Roberto Betancourt MD Unavailable [phone] Mariaelena Santos CLINICAL REHABILITATION SPECIALIST Primary Care Provider [phone] Shari Plummer RN Unavailable [phone] Reason for Visit * Reason Comments CT (SCAN) Procedure (SCAN) Encounter Details Date Type Department Care Team (Late st Contact Info) Description 11/30/2024 Scan HEALTH INFO SRVCS Scanned, Doc Med Group CT (SCAN); Procedure (SCAN) Social History Tobacco Use Types Packs/Day [...] any time in the past 12 m [facility], were you homeless or living in a residential (including now)? No 04/28/2024 Comments No Sex [...] n THREE [facility], [facility] [address] [place] [address] Roberto Betancourt MD [facility]. [facility] [address] [place] [address] 05/08/2025 9:20 AM CDT Office Visit [facility] Medical Group Family Medicine - [place] [address] [facility] [address] [place], [place] [address] Mariaelena Santos NP [address] [place] [address] documented as of this encounter Goals Goal Patient Goal Type Associated Problems Recent Progress Patient-Stated? Author Blood Pressure < 140/90 Blood Pressure 136/80(10/30 8:15 AM ETL MANAGER) Shari Patton RN Note: Patient will monitor [...] r/t CHF Lifestyle On track(2024 3:11 PM ETL MANAGER) Shari Patton RN Note: Patient will monitor [...] for HTN Lifestyle On track(2024 3:11 PM ETL MANAGER) No Shari Plummer RN Note: Patient will [...] Procedure Name Priority Date/Time Associated Diagnosis Comments CT GENERIC 11/30/2024 PROCEDURE GENERIC (SCAN ORDER) 11/30/2024 documented in this encounter Results * PROCEDURE GENERIC (SCAN ORDER) (11/30/2024) 11/30/2024 us [facility] Scanned SCANNING Final Resu lt * CT GENERIC (11/30/2024) Anatomical Region Laterality Modality Other 11/30/2024 us [facility] Scanned SCANNING Final Resu lt documented in this encounter Visit Diagnoses Not on filedocumented in this encounter Additional Health Concerns Assessment Noted Time PHQ-9 Depression Total Score: 0 03/17/20 22 8:03 AM CDT documented as of this encounter Care Teams Graduate Assistant Relationship Specialty Start Date End Date Mariaelena Santos NP [address] [place] [address] PCP - General NURSE PRACTITIONER 09/14/22 Roberto Betancourt MD [facility]. [place] [address] [place] [address] [place] Animal Science Professor CARDIOVASCULAR DISEASE 03/04/16 Shari Plummer, RN [address] [place], [place] [address] Client Server Developer (Ambulatory) REGISTERED NURSE 04/28/24 documented as of this encounter
[2024-12-08 09:13] VITALS: BP 135/66; PULSE 83; PULSE 87; RESP 18; RESP 19; TEMP 36.4; O2SAT 100
[2024-12-08 09:15] LABS: Basophils Percent Auto 0.3 % (0.2-1.2); Eosinophils Absolute Auto 0.1 K/mm3 (0-0.3); Eosinophils Percent Auto 0.5 % (0-4.4); Hematocrit 43.8 % (37.0-47.0); Hemoglobin 14.5 g/dL (12.0-15.0); Immature Granulocyte Absolute 0.08 K/mm3 (0.00-0.031); Immature Granulocyte Percent A 0.7 % (0-0.5); Lymphocytes Absolute Auto 1.66 K/mm3 (0.9-3.2); Lymphocytes Percent Auto 15.1 % (18.3-44.2); Mean Corpuscular HGB Conc 33.1 g/dl (32-36); Mean Corpuscular Hemoglobin 29.4 pg (26-34); Mean Corpuscular Volume 88.7 fl (80-100); Mean Platelet Volume 9.7 fl (7.4-10.4); Monocytes Absolute Auto 1.2 K/mm3 (0.1-0.6); Monocytes Percent Auto 10.9 % (2.6-8.5); Neutrophils Absolute Auto 7.9 K/mm3 (1.3-6.7); Neutrophils Percent Auto 72.5 % (45.5-73.1); Platelet Count Result 361 k/mm3 (150-375); Red Blood Count 4.94 M/mm3 (4.2-5.4); Red Cell Distribution Width 13.6 % (11.5-14.5)
[2024-12-08 09:29] LABS: Alanine Aminotransferase 31 U/L (6-35); Albumin Level 3.9 g/dL (3.5-5.1); Alkaline Phosphatase 58 U/L (38-126); Anion Gap 14 mmol/L (4-12); Aspartate Amino Transferase 30 U/L (14-36); Bilirubin,Total 1.3 mg/dL (0.2-1.3); Blood Urea Nitrogen 12 mg/dL (7-17); Calcium 9.2 mg/dL (8.4-10.2); Carbon Dioxide 22 mmol/L (22-30); Chloride 97 mmol/L (98-107); Estimated CRCL calculation 41 ml/min; Estimated Glomerular Filt Rate > 60; Glucose 128 mg/dL (65-110); Lipase 213 U/L (23-300); Potassium 3.6 mmol/L (3.4-5.0); Sodium 133 mmol/L (137-145)
[2024-12-08 09:53] LABS: Add Urine Microscopic? YES; Appearance Urine Clear (Clear); Bacteria Urine None Seen /hpf; Bilirubin Urine Negative (Negative); Blood Urine Trace (Negative); Color Urine Yellow (Yellow); Glucose Urine UA Negative (Negative); Ketones Urine Trace mg/dL (Negative); Leukocyte Esterase Ur 2+ LEU/UL (Negative); Nitrate Urine Negative (Negative); Non Pathogenic Casts 0-2; Protein Urine Trace mg/dL (Negative); Specific Grav Ur 1.013 (1.001-1.035); Squamous Epithelial Cell Urine Few /hpf (Few); WBC Urine 21-50 /hpf (0-3); pH Urine 6.5 (5.0-9.0)
--- OUTSIDE RECORDS SUMMARY | 2024-12-08 10:15 | XMS_ITS | Encounter Summary ---
Author Organization [facility] Address [facility] [place] [address] Care Team Providers Care Director Of It Operations Name Role Phone Lisa Coy MD Primary Care Provider [phone] Roberto Betancourt MD Unavailable [phone] Mariaelena Santos NP Primary Care Provider [phone] Shari Plummer RN Unavailable [phone] Encounter Details Date Type Department Care Team (Late st Contact Info) Description 08/03/2018 Abstract [facility] at [address] [id number] Kayla Maza MA Social History Tobacco Use [...] Office Visit [facility] THREE [facility] [address], [place] [address] [place] [address] Roberto Betancourt MD Three [facility]. [place] [address] [place] [address] 05/08/2025 9:20 AM CDT Office Visit [facility] Medical Group Family Medicine - [place] [address] [place], [place] [address] Mariaelena Santos, KAREN [address] [place], [place] [address] documented as of this encounter Procedures Procedure [...] Result * CBC (OUTSIDE LAB) (01/24/2019) Pathologist [facility] WBC 6.6 HGB 9.4 HCT 30.6 PLT 394 01/24/2019 us Doc [facility] Abstract LAB-OUTSIDE/ABSTRACTED Edite d Result - Final * LIPID PANEL (07/25/2018) Pathologist [facility] CHOLESTEROL 193 HDL 47 TRIGLYCERIDES 122 LDL (CALCULATED) 105 07/25/2018 us Doc [facility] Abstract LABORATORY Final Result * COMPREHENSIVE METABOLIC PANEL (07/25/2018) Pathologist [facility] SODIUM S/P/B 141 POTASSIUM S/P/B 3.9 CO2 [...] on filedocumented in this encounter Care Teams Director Of It Operations Relationship Specialty Start Date End Date Lisa Coy MD PCP - General INTERNAL MEDICINE 03/04/16 09/13/22 Mariaelena Santos NP [address] [place] [address] PCP - General NURSE PRACTITIONER 09/14/22 Roberto Betancourt MD [address] [address] [place] Semiautomatic Stitcher Operator CARDIOVASCULAR DISEASE 03/04/16 Shari Plummer, RN [address] [place], [place] [address] Load Manager (Ambulatory) REGISTERED NURSE 04/28/24 documented as of this encounter
--- OUTSIDE RECORDS SUMMARY | 2024-12-08 10:15 | XMS_ITS | Referral Summary ---
Author Organization [facility] [address] Address [address] [place] [address] Care Team Providers Care Roll Hauler Name Role Phone Lisa Coy MD Primary Care Provider [phone] Allergies No known active allergies Medications levothyroxine (SYNTHROID) 50 mcg tablet Take 1 tablet (50 mcg total) by mouth conservation science teacher before breakfast 3 Active dicyclomine (BENTYL) [...] on file Legal Sex Female 7:13 AM DIET KITCHEN COOK Gender Identity Not on file Sexual Orientation [...] Insurance HUMANA CHOICE MEDICARE PPO Care Teams Roll Hauler Relationship Specialty [place] [address] [address] [address] PCP - General 04/10/19
--- OUTSIDE RECORDS SUMMARY | 2024-12-08 10:15 | XMS_ITS | Clinical Summary ---
Author Organization [facility] [address] Address [address] [place] [address] Care Team Providers Care Healthcare Administrative Assistant Name Role Phone Lisa Coy MD Primary Care Provider [phone] Allergies No known active allergies Medications levothyroxine (SYNTHROID) 50 mcg tablet Take 1 tablet (50 mcg total) by mouth podiatry doctor before breakfast 3 Active dicyclomine (BENTYL) 20 [...] 01/05/2011 Surgical History Surgery Date Site/Laterality Comments [place] APPENDECTOMY Appendectomy - (Added by TW Conv) [place] EXC CYST/ABERRANT BREAST TISSUE OPEN 1/> LESION Breast Surgery Lumpectomy - (Added by TW Conv) [place] TOTAL ABDOMINAL HYSTERECT W/WO RMVL TUBE OVARY [...] on file Legal Sex Female 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
--- OUTSIDE RECORDS SUMMARY | 2024-12-08 10:16 | XMS_ITS | Encounter Summary ---
Author Organization [facility] Address [facility] [place] [address] Care Team Providers Care Epoxy Fabrication Supervisor Name Role Phone Roberto Betancourt MD Unavailable [phone] Mariaelena Santos MEAL COOKER Primary Care Provider [phone] Shari Plummer RN Unavailable [phone] Reason for Visit * Reason Comments Procedure [...] any time in the past 12 m [facility], were you homeless or living in a group home (including now)? No 04/28/2024 Comments No Sex [...] CDT Office Visit [facility] THREE [facility], [facility] [address] [place] [address] Roberto Betancourt MD [facility]. [facility] [address] [place] [address] 05/08/2025 9:20 AM CDT Office Visit [facility] Medical [facility] Family Medicine - [place] [address] [facility] [address] [place], [place] [address] Mariaelena Santos NP [address] [place] [address] [place] [address] documented as of this encounter Goals Goal Patient Goal Type Associated Problems Recent Progress Patient-Stated? Author Blood Pressure < 140/90 Blood Pressure 136/80(10/30 8:15 AM AUTO TECHNICIAN) Shari Patton RN Note: Patient will monitor [...] r/t CHF Lifestyle On track(2024 3:11 PM AUTO TECHNICIAN) Shari Patton RN Note: Patient will monitor [...] for HTN Lifestyle On track(2024 3:11 PM AUTO TECHNICIAN) No Shari Plummer RN Note: Patient will [...] PROCEDURE GENERIC (SCAN ORDER) (12/01/2024) 12/01/2024 us [facility] Scanned SCANNING Final Resu lt * IMAGE GENERIC (12/01/2024) Anatomical Region Laterality Modality Other 12/01/2024 us [facility] Scanned SCANNING Final Resu lt documented in this encounter Visit Diagnoses Not on filedocumented in this encounter Additional Health Concerns Assessment Noted Time PHQ-9 Depression Total Score: 0 03/17/20 22 8:03 AM CDT documented as of this encounter Care Teams Epoxy Fabrication Supervisor Relationship Specialty Start Date End Date Mariaelena Santos NP [address] [place] [address] PCP - General NURSE PRACTITIONER 09/14/22 Roberto Betancourt MD [facility]. [place] [address] [place] [address] [place] Yolk Spray Drier CARDIOVASCULAR DISEASE 03/04/16 Shari Plummer, RN [address] [place], [place] [address] Advanced Manufacturing Vice President (Ambulatory) REGISTERED NURSE 04/28/24 documented as of this encounter
--- OUTSIDE RECORDS SUMMARY | 2024-12-08 10:16 | XMS_ITS | Encounter Summary ---
Author Organization [facility] Address [facility] [place] [address] Care Team Providers Care Wire Inserter Name Role Phone Lisa Coy MD Primary Care Provider [phone] Roberto Betancourt MD Unavailable [phone] Mariaelena Santos NP Primary Care Provider [phone] Shari Plummer RN Unavailable [phone] Encounter Details Date Type Department Care Team (Late st Contact Info) Description 03/18/2022 [employer] Message Enc [facility] THREE [address] [address] [facility] Provider echo results Social History Tobacco Use [...] CDT Office Visit [facility] THREE [facility], [place] [address] [place], [place] [address] Roberto Betancourt MD Three [facility]. [place] [place], [place] [address] 05/08/2025 9:20 AM CDT Office Visit [facility] Medical Group Family Medicine - [place] [address] [facility] [address] [place] [address] Mariaelena Santos NP [address] [place] [address] documented as of this encounter Visit Diagnoses Not on filedocumented in this encounter Additional Health Concerns Assessment Noted Time PHQ-9 Depression Total Score: 0 03/17/20 22 8:03 AM CDT documented as of this encounter Care Teams Wire Inserter Relationship Specialty Start Date End Date Lisa Coy MD PCP - General INTERNAL MEDICINE 03/04/16 09/13/22 Mariaelena Santos NP [address] [place] [address] PCP - General NURSE PRACTITIONER 09/14/[address] [facility]. [address] [place] [address] [place] Exhibit Preparator CARDIOVASCULAR DISEASE 03/04/16 Shari Plummer, RN [address] [place] [address] Contract Negotiation Specialist (Ambulatory) REGISTERED NURSE 04/28/24 documented as of this encounter
--- OUTSIDE RECORDS SUMMARY | 2024-12-08 10:16 | XMS_ITS | Encounter Summary ---
Author Organization [facility] Address [facility] [place] [address] Care Team Providers Care Open Tenter Operator Name Role Phone Lisa Coy MD Primary Care Provider [phone] Roberto Betancourt MD Unavailable [phone] Mariaelena Santos NP Primary Care Provider [phone] Shari Plummer RN Unavailable [phone] Encounter Details Date Type Department Care Team (Late st Contact Info) Description 02/07/2021 [employer] Message Enc [facility] Medical Group Family & Internal Medicine [address] [address] [facility] Provider Results Social History Tobacco Use Types [...] CDT Office Visit [facility], [email or web address] [address] [place], [place] [id number] Roberto Betancourt MD Three [facility]. [facility] [[email or web address] [address] [place], [place] [address] 05/08/2025 9:20 AM CDT Office Visit [facility] Medical Group Family Medicine - [place] [address] [facility] [address] [place] [address] Mariaelena Santos NP [address] [place], [place] [address] documented as of this encounter Visit Diagnoses Not on filedocumented in this encounter Care Teams Open Tenter Operator Relationship Specialty Start Date End Date Lisa Coy MD PCP - General INTERNAL MEDICINE 03/04/16 09/13/22 Mariaelena Santos NP [address] [place] [address] PCP - General NURSE PRACTITIONER 09/14/22 Roberto Betancourt MD [facility]. [facility] [address] [place], [place] [id number] [employer] Science Fcs Teacher CARDIOVASCULAR DISEASE 03/04/16 Shari Plummer, RN [address] [place], [place] [address] Progress Worker (Ambulatory) REGISTERED NURSE 04/28/24 documented as of this encounter
--- OUTSIDE RECORDS SUMMARY | 2024-12-08 10:16 | XMS_ITS | Encounter Summary ---
Author Organization [facility] Address [facility] [place] [address] Care Team Providers Care Manager Shop Name Role Phone Roberto Betancourt MD Unavailable [phone] Mariaelena Santos QUALITY ASSURANCE MONITOR CHASSIS Primary Care Provider [phone] Shari Plummer RN Unavailable [phone] Reason for Visit * Reason Comments CT [...] time in the past 12 m [facility], were you homeless or living in a chcf (including now)? No 04/28/2024 Comments No Sex [...] CDT Office Visit [facility], [facility] [address] [place] [address] Roberto Betancourt MD [facility]. [facility] [address] [place] [address] 05/08/2025 9:20 AM CDT Office Visit [facility] Medical Group Family Medicine - [place] [address] [facility] [address] [place], [place] [address] Mariaelena Santos NP [address] [place] [address] documented as of this encounter Goals Goal Patient Goal Type Associated Problems Recent Progress Patient-Stated? Author Blood Pressure < 140/90 Blood Pressure 136/80(10/30 8:15 AM WRAPPER STEMMER HAND) Shari Patton RN Note: Patient will monitor [...] r/t CHF Lifestyle On track(2024 3:11 PM WRAPPER STEMMER HAND) Shari Patton RN Note: Patient will monitor [...] for HTN Lifestyle On track(2024 3:11 PM WRAPPER STEMMER HAND) No Shari Plummer RN Note: Patient will [...] PROCEDURE GENERIC (SCAN ORDER) (11/30/2024) 11/30/2024 [facility] Scanned SCANNING Final Resu lt * CT GENERIC (11/30/2024) Anatomical Region Laterality Modality Other 11/30/2024 [facility] Scanned SCANNING Final Resu lt documented in this encounter Visit Diagnoses Not on filedocumented in this encounter Additional Health Concerns Assessment Noted Time PHQ-9 Depression Total Score: 0 03/17/20 22 8:03 AM CDT documented as of this encounter Care Teams Manager Shop Relationship Specialty Start Date End Date Mariaelena Santos NP [address] [place] [address] PCP - General NURSE PRACTITIONER 09/14/22 Roberto Betancourt MD [facility]. [facility] [address] [place] [address] [place] Safe Deposit Clerk CARDIOVASCULAR DISEASE 03/04/16 Shari Plummer, RN [address] [place], [place] [address] Product Safety Tester (Ambulatory) REGISTERED NURSE 04/28/24 documented as of this encounter
--- OUTSIDE RECORDS SUMMARY | 2024-12-08 10:16 | XMS_ITS | Clinical Summary ---
Author Organization [facility] Address [address] [place] [address] Care Team Providers Care Electric Trucker Name Role Phone Roberto Betancourt MD Unavailable [phone] Mariaelena Santos GAS STOVE SERVICER HELPER Primary Care Provider [phone] Shari Plummer RN Unavailable [phone] Allergies Active Allergy Reactions Criticality Noted Date [...] heart failure), NYHA class I, acute, systolic ([facility] HHS/[facility]) TAKE 1 TABLET(50 MG) BY MOUTH DAILY [...] heart failure), NYHA class I, acute, systolic ([facility] H[facility]) TAKE 1 TABLET(1 MG) BY MOUTH EVERY MORNING 90 tablet 1 11/01/19 25 Active Active Problems Problem Noted Date Diagnosed Date Care Management 04/28/2024 Adult BMI 26.0-26.9 kg/sq m 03/06/2020 Cardiac LV ejection fraction 21-40% 02/12/2017 Overview (02/01/2019): Annotation - [id number]: 35-40%; Annotation - [id number]: 12/18 Ejection fraction ; 35 - 45 % Non-rheumatic mitral regurgitation 01/04/2017 Chronic systolic heart failure (CMS/[facility] HHS/HCC) 01/04/2017 Anemia 08/28/2016 CHF (congestive heart failur e), NYHA class I, acute, systolic ([facility]) 06/17/2016 Seasonal allergies 12/25/2015 Vitamin D deficiency 04/30/2014 Hypothyroidism 05/24/2013 Hyperlipidemia 12/07/2011 Atherosclerosis of coronary artery 06/26/2011 Abnormal blood chemistry level 02/27/2011 GERD (gastroesophageal reflux disease) Essential hypertension Dyslipidemia CAD (coronary artery disease) Resolved Problems Problem Noted Date Diagnosed Date Resolved Date Shortness of breath 06/11/2016 09/14/20 22 Claudication, intermittent 10/22/2014 0 04/27/2024 Metabolic syndrome 10/22/2014 2 Malignant neoplasm of breast ([facility]) 11/15/2013 09/14/2022 Overview (02/01/2019): Annotation - [id number]: status post lumpectomy, stopped tamoxifen after 5 years Hormone replacement therapy 09/14/2022 Encounters Date Type Department Care Team Description 12/01/2024 Scan [facility] Scanned, Doc [facility] Procedure (SCAN); Image (SCAN) 11/30/2024 Scan [facility] Scanned, Doc Med Group CT (SCAN); Procedure (SCAN) 11/16/2024 Patient Outreach [address] [address] Shari Plummer RN Care Management (CCM call to the patient. ) 11/16/2024 Outreach Visit [address] [address] Shari Plummer RN 10/30/2024 8:20 AM DIRECTOR BUSINESS MANAGEMENT Office Visit [address] [address] Mariaelena Santos NP Follow Up (6mo ck doing ok) 10/30/2024 Travel 10/25/2024 Patient Outreach [address] [address] Mariaelena Santos NP Pre-visit Gap Closure 10/19/2024 Patient Outreach [address] [address] Shari Plummer RN Care Management (CCM call to the patient. ) 09/25/2024 Patient Outreach [address] [place] [address] Shari Plummer RN Care Management (CCM call to the patient) 09/13/2024 10:30 AM DIRECTOR BUSINESS MANAGEMENT Office Visit [facility] THREE [facility], [address] [address] Mariangel Del Angel FNP CHF; Coronary Artery [...] Adult Use, Lf Unspecified 03/06/2020 Zoster (Zostavax) 43940 Unt/0.65Ml 08/10/2012 Family History Medical History Relation [...] any time in the past 12 m [facility], were you homeless or living in a care home (including now)? No 04/28/2024 Comments No [...] Comments Blood Pressure 136/80 10/30/2024 8:15 AM DIRECTOR BUSINESS MANAGEMENT Pulse 60 10/30/2024 8:15 AM DIRECTOR BUSINESS MANAGEMENT Temperature 35.7 C (96.2 F) 10/30/2024 8:15 AM DIRECTOR BUSINESS MANAGEMENT Respiratory Rate 16 04/27/2024 10:39 AM CDT Oxygen Saturation 98% 10/30/2024 8:15 AM DIRECTOR BUSINESS MANAGEMENT Inhaled Oxygen Concentration - - Weight 69.9 kg (154 lb 3.2 oz) 10/30/2024 8:15 A M DIRECTOR BUSINESS MANAGEMENT Height 162.6 cm (5' 4 ) 10/30/2024 8:15 AM DIRECTOR BUSINESS MANAGEMENT Body Mass Index 26.47 10/30/2024 8:15 AM DIRECTOR BUSINESS MANAGEMENT Plan of Treatment Upcoming Encounters Date Type Department Care Team (Late st Contact Info) Description 03/14/2025 11:00 AM CDT Office Visit [facility], [place] [address] [place] [address] Roberto Betancourt MD [facility]. [facility] [address] [place], [place] [id number] 05/08/2025 9:20 AM CDT Office Visit [facility] Medical Group Family Medicine - [place] [address] [facility] [address] [place], [place] [address] Mariaelena Santos, KAREN [address] [place] [address] Health Maintenance Due Date Last Done Comments [...] , 07/15/2022, Additional history exists PHQ-2 (Physician [place]) Completed 10/30/2024 Meningococcal B Vaccine Aged Out [...] < 140/90 Blood Pressure 136/80(10/30 8:15 AM DIRECTOR BUSINESS MANAGEMENT) Shari Patton RN Note: Patient will monitor [...] r/t CHF Lifestyle On track(2024 3:11 PM DIRECTOR BUSINESS MANAGEMENT) Shari Patton RN Note: Patient will monitor [...] for HTN Lifestyle On track(2024 3:11 PM DIRECTOR BUSINESS MANAGEMENT) Shari Patton RN Note: Patient will monitor [...] VENOUS BLOOD VENIPUNCTURE Routine 10/30/2024 8:55 AM DIRECTOR BUSINESS MANAGEMENT Mixed hyperlipidemia TSH W/REFLEX Routine 10/30/2024 8:55 AM DIRECTOR BUSINESS MANAGEMENT Acquired hypothyroidism COMPREHENSIVE METABOLIC PANEL Routine 10/30/2024 8:55 AM DIRECTOR BUSINESS MANAGEMENT Essential hypertension Prediabetes HEMOGLOBIN, GLYCOSYLATED Routine 10/30/2024 8:55 AM DIRECTOR BUSINESS MANAGEMENT Prediabetes LIPID PANEL Routine 11/01/2023 8:40 AM DIRECTOR BUSINESS MANAGEMENT Dyslipidemia BONE DENSITY/DEXA Routine 04/23/2023 8:3 2 AM CDT Post-menopausal from Last 3 Months or Most Recently Relevant to Health Maintenance Results * IMAGE GENERIC (12/01/2024) Anatomical Region Laterality Modality Other 12/01/2024 [facility] Scanned SCANNING Final Resu lt * PROCEDURE GENERIC (SCAN ORDER) (12/01/2024) 12/01/2024 [facility] Scanned SCANNING Final Resu lt * CT GENERIC (11/30/2024) Anatomical Region Laterality Modality Other 11/30/2024 [facility] Scanned SCANNING Final Resu lt * PROCEDURE GENERIC (SCAN ORDER) (11/30/2024) 11/30/2024 [facility] Scanned SCANNING Final Resu lt * TSH W/REFLEX (10/30/2024 8:55 AM DIRECTOR BUSINESS MANAGEMENT) TSH 1.800 0.358 - 3.740 uIU/ML 10/30/2024 2:56 PM DIRECTOR BUSINESS MANAGEMENT [facility] 10/30/2024 8:55 AM DIRECTOR BUSINESS MANAGEMENT Mariaelena Santos GAS STOVE SERVICER HELPER LABORATORY Final Res ult Performing Organization Address [facility] Co de Phone Number [address] [address], * (ABNORMAL) HEMOGLOBIN, GLYCOSYLATED (10/30/2024 8:55 AM DIRECTOR BUSINESS MANAGEMENT) HGB A1C 6.4(H) 4.5 - 6.2 % 10/30/2024 2:54 PM DIRECTOR BUSINESS MANAGEMENT [facility] ESTIMATED AVG GLUCOSE 137(H) 74 - 106 MG/DL 10/30/2024 2:54 PM DIRECTOR BUSINESS MANAGEMENT [facility] 10/30/2024 8:55 AM DIRECTOR BUSINESS MANAGEMENT Mariaelena Santos GAS STOVE SERVICER HELPER LABORATORY Final Res ult Performing Organization Address [facility]/ZIP Co de Phone Number [place] [address] [place] [address], * (ABNORMAL) COMPREHENSIVE METABOLIC PANEL (10/30/2024 8:55 AM DIRECTOR BUSINESS MANAGEMENT) SODIUM S/P/B 141 136 - 145 MMOL/L 10/30/2024 2:56 PM DIRECTOR BUSINESS MANAGEMENT [facility] POTASSIUM S/P/B 4.1 3.5 - 5.1 MMOL/L 10/30/2024 2:56 PM [facility] CHLORIDE S/P/B 102 98 - 107 MMOL/L 10/30/2024 2:56 PM [facility] CO2 29.4 21 - 32 MMOL/L 10/30/2024 2:56 PM [facility] GLUCOSE 135(H) 70 - 99 MG/DL 10/30/2024 2:56 PM [facility] BUN 19(H) 7 - 18 MG/DL 10/30/2024 2:56 PM [facility] CREATININE S/P/B 0.93 0.55 - 1.02 MG/DL 10/30/2024 2:56 PM [facility] CALCIUM S/P/B 8.8 8.4 - 10.5 MG/DL 10/30/2024 2:56 PM [facility] BILIRUBIN TOTAL S/P/B 0.6 0.2 - 1.0 MG/DL 10/30/2024 2:56 PM [facility] ALKALINE PHOSPHATASE S/P/B 63 55 - 142 U/L 10/30/2024 2:56 PM [facility] AST 23 15 - 37 U/L 10/30/2024 2:56 PM [facility] ALT 25 14 - 59 U/L 10/30/2024 2:56 PM [facility] TOTAL PROTEIN S/P/B 6.2(L) 6.4 - 8.2 G/DL 10/30/2024 2:56 PM [facility] ALBUMIN S/P/B 3.6 3.4 - 5.0 G/DL 10/30/2024 2:56 PM [facility] ANION GAP 9.6 5 - 15 MMOL/L 10/30/2024 2:56 PM [facility] Comment:REFERENCE RANGE NOT ESTABLISHED OSMOLALITY (CALC) 296 MOSM/KG 025 2:56 PM DIRECTOR BUSINESS MANAGEMENT [facility] Comment:REFERENCE RANGE NOT ESTABLISHED GFR ESTIMATE 61(L) >90 ML/MIN/1. 73 M2 10/30/2024 2:56 PM DIRECTOR BUSINESS MANAGEMENT [facility] GFR NOTES GFR REFERENCE S: 10/30/2024 2:56 PM DIRECTOR BUSINESS MANAGEMENT [facility] Comment: THE ESTIMATED GFR IS CALCULATED USING [...] FAILURE: <15 ml/min/1.73 m2 10/30/2024 8:55 AM DIRECTOR BUSINESS MANAGEMENT us Mariaelena Santos NP LABORATORY Final Res ult [facility] [address] [place] [address], * LIPID PANEL (11/01/2023 8:40 AM DIRECTOR BUSINESS MANAGEMENT) CHOLESTEROL 135 <200 MG/DL 11/01/2023 3:59 PM DIRECTOR BUSINESS MANAGEMENT [facility] TRIGLYCERIDES 134 <150 MG/DL 11/01/2023 3:59 PM DIRECTOR BUSINESS MANAGEMENT [facility] HDL 54 >40 MG/DL 11/01/2023 3:59 PM DIRECTOR BUSINESS MANAGEMENT [facility] LDL-C 54 <100 MG/DL 11/01/2023 3:59 PM DIRECTOR BUSINESS MANAGEMENT [facility] VLDL CALCULATION 27 5 - 28 MG/DL 11/01/2023 3:59 PM DIRECTOR BUSINESS MANAGEMENT [facility] CHOL/HDL RATIO 2.5 0.0 - 4.0 11/01/2023 3:59 PM DIRECTOR BUSINESS MANAGEMENT [facility] LDL/HDL 1.0 0.41 - 2.13 11/01/2023 3:59 PM DIRECTOR BUSINESS MANAGEMENT [facility] NON HDL CHOLESTEROL 81 <140 MG/DL 11/01/2023 3:59 PM DIRECTOR BUSINESS MANAGEMENT [facility] K[facility]STYN, HYDES 11/01/2023 8:40 AM DIRECTOR BUSINESS MANAGEMENT us Mariaelena Santos GAS STOVE SERVICER HELPER LABORATORY Final Res ult [facility] [address] [facility] [facility] [address], * BONE DENSITY/DEXA (04/23/2023 8:32 AM CDT) [...] Mederos MD, 04/23/2023 8:35 AM Mariaelena Santos GAS STOVE SERVICER HELPER DEXA Final Res ult from Last 3 Months or Most Recently Relevant to Health Maintenance Insurance Care Teams Electric Trucker Relationship Specialty Start Date End Date Mariaelena Santos NP [address] [place] [address] PCP - General NURSE PRACTITIONER 09/14/22 Roberto Betancourt MD [facility]. [address] [place], [place] [address] [place] Cricket Coach CARDIOVASCULAR DISEASE 03/04/16 Shari Plummer, RN [address] [place] [address] Design Verification Engineer (Ambulatory) REGISTERED NURSE 04/28/24
--- OUTSIDE RECORDS SUMMARY | 2024-12-08 10:16 | XMS_ITS | Encounter Summary ---
Author Organization [facility] Address [facility] [place] [address] Care Team Providers Care Flat Spring Assembler Name Role Phone Lisa Coy MD Primary Care Provider [phone] Roberto Betancourt MD Unavailable [phone] Mariaelena Santos NP Primary Care Provider [phone] Shari Plummer RN Unavailable [phone] Encounter Details Date Type Department Care Team (Late st Contact Info) Description 07/01/2016 Abstract [facility] AT [address] [address] Kayla Maza MA Social History [...] PG pt send letter continue current meds ADJUSTER documented in this encounter Plan of Treatment Upcoming Encounters Date Type Department Care Team (Late st Contact Info) Description 03/14/2025 11:00 AM CDT Office Visit [facility] THREE [facility], [place] [address] [place] [address] Roberto Betancourt MD Three [facility]. [address] [address] [place] [address] 05/08/2025 9:20 AM CDT Office Visit [facility] Medical Group Family Medicine - [place] [address] [facility] [address] [place], [place] [address] Mariaelena Santos NP [address] [place] [address] documented as of this encounter Procedures Procedure [...] Final Result * BASIC METABOLIC PANEL (04/07/2017) [facility] SODIUM S/P/B 137 POTASSIUM S/P/B 3.7 [...] on filedocumented in this encounter Care Teams Flat Spring Assembler Relationship Specialty Start Date End Date Lisa Coy MD PCP - General INTERNAL MEDICINE 03/04/16 09/13/22 Mariaelena Santos NP [address] [place] [address] PCP - General NURSE PRACTITIONER 09/14/22 Roberto Betancourt MD Three [facility]. [address] [place] [address] Brando Scallop Shucker CARDIOVASCULAR DISEASE 03/04/16 Shari Plummer RN [address] [place], [place] [address] Photography Intern (Ambulatory) REGISTERED NURSE 04/28/24 documented as of this encounter
--- NOTE | 2024-12-08 10:28 | ED.ABDPAIN ---
HPI - Abdominal Pain General Chief Complaint: Abdominal Pain <Palmira Guadarrama APRN - Last Filed: 12/08/24 13:58> Stated Complaint: abd pain, SBO last week <Palmira Guadarrama APRN - Last Filed: 12/08/24 13:58> Time Seen by Provider: 12/08/24 09:29 <Palmira Guadarrama APRN - Last Filed: 12/08/24 13:58> History of Present Illness HPI narrative: Patient is an 84-year-old female who presents to the with bilateral upper abdominal pain. She reports her abdominal pain started yesterday. Patient reports she was recently hospitalized and discharged 5 days ago. She reports she has been vomiting since early this morning and continues to have regular bowel. Patient reports she had increased gastric reflux symptoms yesterday and ?took my reflux medication in the middle of the night. She endorses decreased p.o. intake over the past 24 hours. Patient is also scheduled to see Dr. Puentes on December 18, 2024 for follow-up from her last hospitalization. She denies any chest pain, fevers, back pain, lower extremity swelling. <Palmira Guadarrama APRN - Last Filed: 12/08/24 13:58> Related Data Home Medications: Home Medications ?Medication ?Instructions ?Recorded ?Confirmed ?Last Taken ?Type aspirin 325 mg tablet 325 mg PO PRN PRN Headache 12/26/19 12/08/24 07/22/23 History bumetanide 1 mg tablet 1 mg PO DAILY 12/26/19 12/08/24 07/22/23 History levothyroxine 50 mcg tablet 50 mcg PO DAILY 12/26/19 12/08/24 07/23/23 History (Synthroid) metoprolol succinate 50 mg capsule 50 mg PO DAILY 12/26/19 12/08/24 07/23/23 History sprinkle, ext. release 24 hr rosuvastatin 40 mg tablet (Crestor) 40 mg PO HS 12/26/19 12/08/24 07/22/23 History lisinopril 20 mg tablet 20 mg PO DAILY 07/15/23 12/08/24 07/22/23 History multivitamin with minerals-folic 1 tablet PO DAILY 07/15/23 12/08/24 07/22/23 History acid 0.4 mg tablet spironolactone 25 mg tablet 12.5 mg PO DAILY 07/15/23 12/08/24 07/22/23 History <Palmira Guadarrama APRN - Last Filed: 12/08/24 13:58> Allergies/Adverse Reactions: Allergies Allergy/AdvReac Type Severity Reaction Status Date / Time iodine Allergy Severe Swelling Verified 12/08/24 09:01 of Lip/Tongue/Throat <Palmira Guadarrama APRN - Last Filed: 12/08/24 13:58> Review of Systems Review of Systems: All systems reviewed & are unremarkable except as noted in HPI and below <Palmira Guadarrama APRN - Last Filed: 12/08/24 13:58> PMFSH Past Medical History Medical History: Medical History Small bowel obstruction Systolic congestive heart failure The patient reports that her ejection fraction had been as low as 30% in the past. Through cardiac rehab in medications her EF is up to 48% Breast cancer in situ History of radiation therapy Thirty treatments of localized radiation therapy to right breast Hypothyroid Arthritis Post-menopausal GERD (gastroesophageal reflux disease) Bronchitis HTN (hypertension) Hyperlipidemia <Palmira Guadarrama APRN - Last Filed: 12/08/24 13:58> Surgical History Surgical History: Surgical History History of bladder suspension procedure History of lumpectomy of right breast Due to breast cancer in-situ History of hysterectomy At 36 years of age History of appendectomy History of cardiac catheterization History of tonsillectomy <Palmira Guadarrama APRN - Last Filed: 12/08/24 13:58> Family History Family History: Family History Mother Colon cancer <Palmira Guadarrama APRN - Last Filed: 12/08/24 13:58> Social History Social History: Social History Smoking packs per day: 1 Smoking cigarettes per day: 20.0 Years smoked: 20 Smoking pack-years: 20.00 Smoking status: Never smoker Tobacco type: cigarettes Second hand tobacco smoke exposure: Yes Smoking end date: 10/04/76 Alcohol intake: never Substance use: never Substance use type: does not use Do You Feel Safe in your Home?: Yes Lack of Transportation: No Lack of Food: Never True Current Housing: I Have Housing Concerned About Future Housing: No Difficulty Paying Gas/Electric Bills: No Difficulty Paying for Meds: No Currently Unemployed: No Education: High School Diploma/GED Difficulty w/ Childcare or Family Care: No Living arrangements: alone Additional living arrangements comments: She lives with her of 60 years in [place]. Occupation/Education: retired Gender identity (if verbalized by the patient): Female Spiritual care concerns: No Agree to blood products: Yes <Palmira Guadarrama APRN - Last Filed: 12/08/24 13:58> Exam Narrative: GENERAL: Well appearing, well-nourished, non-toxic, in no acute distress. HEAD: Normocephalic, atraumatic. NECK: Supple. No adenopathy, no masses. RESPIRATORY: Airway patent, respirations nonlabored. Clear to auscultation bilaterally, no rales, rhonchi, wheezing. CARDIOVASCULAR: Regular rate and rhythm without murmurs, rubs, or gallops. Peripheral pulses 2+ and equal bilaterally. ABDOMINAL: Soft, tenderness in bilateral upper quadrants with palpation, nondistended, no hepatosplenomegaly. Normoactive BS. MUSCULOSKELETAL: Moves all extremities. Strength/ROM intact without gross deformities. SKIN: Warm, dry, normal color. No rashes. NEURO: A&O X3. Speech clear. Cranial nerves II-XII grossly intact. No ataxic movements. PSYCHIATRIC: Appropriate mood and affect. Normal interaction. <Palmira Guadarrama APRN - Last Filed: 12/08/24 13:58> Course SYSTEMS ENGINEER/PA Physician Supervision For this patient encounter, I reviewed the SYSTEMS ENGINEER or PA documentation, treatment plan, and medical decision making; and I had eaqd-io-lofl time with this patient. <Alejo Villegas MD - Last Filed: 12/09/24 07:31> Vital Signs Vital signs: Vital Signs Temperature 97.6 F 12/08/24 08:57 Pulse Rate 87 12/08/24 08:57 Respiratory Rate 16 12/08/24 08:57 Blood Pressure 150/70 H 12/08/24 08:57 Pulse Oximetry 100 12/08/24 08:57 Oxygen Delivery Room Air 12/08/24 08:57 Temperature 97.8 F 12/09/24 06:00 Pulse Rate 74 12/09/24 06:00 Respiratory Rate 18 12/09/24 06:00 Blood Pressure 154/78 H 12/09/24 06:00 Pulse Oximetry 100 12/09/24 06:00 Oxygen Delivery Room Air 12/08/24 20:00 <Palmira Guadarrama, MACHINE STRAP BUCKLER - Last Filed: 12/08/24 13:58> Vital Signs Temperature 97.6 F 12/08/24 08:57 Pulse Rate 87 12/08/24 08:57 Respiratory Rate 16 12/08/24 08:57 Blood Pressure 150/70 H 12/08/24 08:57 Pulse Oximetry 100 12/08/24 08:57 Oxygen Delivery Room Air 12/08/24 08:57 Temperature 97.8 F 12/09/24 06:00 Pulse Rate 74 12/09/24 06:00 Respiratory Rate 18 12/09/24 06:00 Blood Pressure 154/78 H 12/09/24 06:00 Pulse Oximetry 100 12/09/24 06:00 Oxygen Delivery Room Air 12/08/24 20:00 <Alejo Villegas MD - Last Filed: 12/09/24 07:31> MDM - Abdominal Pain MDM Narrative Medical decision making narrative: Patient is an 84-year-old female who presents to the with bilateral upper abdominal pain. She reports her abdominal pain started yesterday. Patient reports she was recently hospitalized and discharged 5 days ago. She reports she has been vomiting since early this morning and continues to have regular bowel. Patient reports she had increased gastric reflux symptoms yesterday and ?took my reflux medication in the middle of the night. She endorses decreased p.o. intake over the past 24 hours. Patient is also scheduled to see Dr. Puentes on December 18, 2024 for follow-up from her last hospitalization. She denies any chest pain, fevers, back pain, lower extremity swelling. Labs Ordered: CBC, CMP, INR, PTT, troponin, lactic acid, CRP, blood cultures, urinalysis Imaging Ordered: CT abdomen pelvis, abdominal x-ray Medications Ordered: Rocephin IV, Pepcid IV, Protonix IV Results: Patient's CT scan indicates small bowel obstruction with transition point in the inferior abdomen at the midline. 2. Liver masses, new from 06/02/2023, suspicious for metastatic disease. Abdomen CT with contrast is recommended. Diagnosis: Small-bowel obstruction, liver masses, UTI Pt started on IV antibiotics to treat her UTI. Consults: Spoke with Dr. Orr, general surgeon, who is in agreement with consulting on pt. He requesting an NG tube be placed to LIS. Spoke with hospitalist who is in agreement with plan for admission. Patient Education/Shared MDM: Results of exam shared with patient. She and her sons verbalize understanding and are in agreement with plan for admission. Pt was advised not to take in anything by mouth. She endorses significant pain at this time, will order Dilaudid 0.5mg IV X 1. <Palmira Guadarrama APRN - Last Filed: 12/08/24 13:58> Differential Diagnosis Differential diagnosis: Likely abdominal pain, acute appendicitis, constipation, diverticulitis, gastroenteritis and small bowel obstruction <Palmira Guadarrama APRN - Last Filed: 12/08/24 13:58> Lab Data Attestation: I reviewed the patient's lab results. <Palmira Guadarrama APRN - Last Filed: 12/08/24 13:58> Result diagrams: 12/09/24 06:08 12/09/24 06:08 <Palmira Guadarrama APRN - Last Filed: 12/08/24 13:58> Labs: Lab Results 12/08/24 12/08/24 12/08/24 Range/Units 09:09 09:42 11:18 WBC 11.0 H (4.5-10.0) K/mm3 RBC 4.94 (4.2-5.4) M/mm3 Hgb 14.5 (12.0-15.0) g/dL Hct 43.8 (37.0-47.0) % MCV 88.7 (80-100) fl MCH 29.4 (26-34) pg MCHC 33.1 (32-36) g/dl RDW 13.6 (11.5-14.5) % Plt Count 361 (150-375) k/mm3 MPV 9.7 (7.4-10.4) fl Immature Gran % (Auto) 0.7 H (0-0.5) % Neut % (Auto) 72.5 (45.5-73.1) % Lymph % (Auto) 15.1 L (18.3-44.2) % [place] % (Auto) 10.9 H (2.6-8.5) % Eos % (Auto) 0.5 (0-4.4) % Baso % (Auto) 0.3 (0.2-1.2) % Lymph # (Auto) 1.66 (0.9-3.2) K/mm3 [place] # (Auto) 1.2 H (0.1-0.6) K/mm3 Eos # (Auto) 0.1 (0-0.3) K/mm3 Baso # (Auto) 0.0 (0.0-0.1) K/mm3 Abs Immat Gran (auto) 0.08 H (0.00-0.031) K/mm3 Absolute Neuts (auto) 7.9 H (1.3-6.7) K/mm3 Absolute Nucleated RBC 0.000 (0.0-0.012) K/mm3 Nucleated RBC % 0.0 (0.0-0.2) % PT 13.9 (11.1-14.7) Seconds INR 1.0 APTT 27.3 (22.3-36.8) Seconds Sodium 133 L (137-145) mmol/L Potassium 3.6 (3.4-5.0) mmol/L Chloride 97 L (98-107) mmol/L Carbon Dioxide 22 (22-30) mmol/L Anion Gap 14 H (4-12) mmol/L BUN 12 (7-17) mg/dL Creatinine 0.78 (0.7-1.0) mg/dL Estim Creat Clear Calc 41 ml/min Estimated GFR > 60 (59 - ) Glucose 128 H (65-110) mg/dL Lactic Acid 1.1 (0.7-2.0) mmol/L Calcium 9.2 (8.4-10.2) mg/dL Total Bilirubin 1.3 (0.2-1.3) mg/dL AST 30 (14-36) U/L ALT 31 (6-35) U/L Alkaline Phosphatase 58 (38-126) U/L Troponin I < 0.012 (0.000-0.034) ng/mL C-Reactive Protein 0.9 (<1.0) mg/dL Total Protein 7.0 (6.3-8.2) g/dL Albumin 3.9 (3.5-5.1) g/dL Lipase 213 (23-300) U/L Urine Color Yellow (Yellow) Urine Appearance Clear (Clear) Urine pH 6.5 (5.0-9.0) Ur Specific [place] 1.013 (1.001-1.035) Urine Protein Trace (Negative) mg/dL Urine Glucose (UA) Negative (Negative) mg/dL Urine Ketones Trace H (Negative) mg/dL Ur Blood (Man) Trace (Negative) Urine Nitrate Negative (Negative) Urine Bilirubin Negative (Negative) Urine Urobilinogen 1.0 (<2.0) mg/dL Leukocyte Esterase Rfl 2+ H (Negative) MADDISON/UL Urine RBC 3-5 H (0-2) /hpf Urine WBC 21-50 H (0-3) /hpf Ur Squamous Epith Cells Few (Few) /hpf Urine Bacteria None seen /hpf Urine Casts 0-2 <Palmira Guadarrama, MACHINE STRAP BUCKLER - Last Filed: 12/08/24 13:58> Lab Results 12/08/24 12/08/24 12/08/24 Range/Units 09:09 09:42 11:18 WBC 11.0 H (4.5-10.0) K/mm3 RBC 4.94 (4.2-5.4) M/mm3 Hgb 14.5 (12.0-15.0) g/dL Hct 43.8 (37.0-47.0) % MCV 88.7 (80-100) fl MCH 29.4 (26-34) pg MCHC 33.1 (32-36) g/dl RDW 13.6 (11.5-14.5) % Plt Count 361 (150-375) k/mm3 MPV 9.7 (7.4-10.4) fl Immature Gran % (Auto) 0.7 H (0-0.5) % Neut % (Auto) 72.5 (45.5-73.1) % Lymph % (Auto) 15.1 L (18.3-44.2) % [place] % (Auto) 10.9 H (2.6-8.5) % Eos % (Auto) 0.5 (0-4.4) % Baso % (Auto) 0.3 (0.2-1.2) % Lymph # (Auto) 1.66 (0.9-3.2) K/mm3 [place] # (Auto) 1.2 H (0.1-0.6) K/mm3 Eos # (Auto) 0.1 (0-0.3) K/mm3 Baso # (Auto) 0.0 (0.0-0.1) K/mm3 Abs Immat Gran (auto) 0.08 H (0.00-0.031) K/mm3 Absolute Neuts (auto) 7.9 H (1.3-6.7) K/mm3 Absolute Nucleated RBC 0.000 (0.0-0.012) K/mm3 Nucleated RBC % 0.0 (0.0-0.2) % PT 13.9 (11.1-14.7) Seconds INR 1.0 APTT 27.3 (22.3-36.8) Seconds Sodium 133 L (137-145) mmol/L Potassium 3.6 (3.4-5.0) mmol/L Chloride 97 L (98-107) mmol/L Carbon Dioxide 22 (22-30) mmol/L Anion Gap 14 H (4-12) mmol/L BUN 12 (7-17) mg/dL Creatinine 0.78 (0.7-1.0) mg/dL Estim Creat Clear Calc 41 ml/min Estimated GFR > 60 (59 - ) Glucose 128 H (65-110) mg/dL Lactic Acid 1.1 (0.7-2.0) mmol/L Calcium 9.2 (8.4-10.2) mg/dL Total Bilirubin 1.3 (0.2-1.3) mg/dL AST 30 (14-36) U/L ALT 31 (6-35) U/L Alkaline Phosphatase 58 (38-126) U/L Troponin I < 0.012 (0.000-0.034) ng/mL C-Reactive Protein 0.9 (<1.0) mg/dL Total Protein 7.0 (6.3-8.2) g/dL Albumin 3.9 (3.5-5.1) g/dL Lipase 213 (23-300) U/L Urine Color Yellow (Yellow) Urine Appearance Clear (Clear) Urine pH 6.5 (5.0-9.0) Ur Specific [place] 1.013 (1.001-1.035) Urine Protein Trace (Negative) mg/dL Urine Glucose (UA) Negative (Negative) mg/dL Urine Ketones Trace H (Negative) mg/dL Ur Blood (Man) Trace (Negative) Urine Nitrate Negative (Negative) Urine Bilirubin Negative (Negative) Urine Urobilinogen 1.0 (<2.0) mg/dL Leukocyte Esterase Rfl 2+ H (Negative) MADDISON/UL Urine RBC 3-5 H (0-2) /hpf Urine WBC 21-50 H (0-3) /hpf Ur Squamous Epith Cells Few (Few) /hpf Urine Bacteria None seen /hpf Urine Casts 0-2 <Alejo Villegas MD - Last Filed: 12/09/24 07:31> Imaging Data Attestation: I personally reviewed and interpreted this imaging study as follows: <Palmira Guadarrama, MACHINE STRAP BUCKLER - Last Filed: 12/08/24 13:58> Radiologist's impression: ITS Impressions Abdomen/Pelvis CT 12/08/24 11:09 IMPRESSION: 1. Small bowel obstruction with transition point in the inferior abdomen at the midline. 2. Liver masses, new from 06/02/2023, suspicious for metastatic disease. Abdomen CT with contrast is recommended. Abdomen X-Ray 12/08/24 12:59 IMPRESSION: 1. Nasogastric tube tip in the stomach. 2. Dilated small bowel, consistent with small bowel obstruction. <Palmira Guadarrama APRN - Last Filed: 12/08/24 13:58> ITS Impressions Abdomen/Pelvis CT 12/08/24 11:09 IMPRESSION: 1. Small bowel obstruction with transition point in the inferior abdomen at the midline. 2. Liver masses, new from 06/02/2023, suspicious for metastatic disease. Abdomen CT with contrast is recommended. Abdomen X-Ray 12/08/24 12:59 IMPRESSION: 1. Nasogastric tube tip in the stomach. 2. Dilated small bowel, consistent with small bowel obstruction. <Alejo Villegas MD - Last Filed: 12/09/24 07:31> Discharge Plan Discharge Clinical Impression: Small bowel obstruction, Lesion of liver, Urinary tract infection <Palmira Guadarrama APRN - Last Filed: 12/08/24 13:58> Patient Disposition: Still a Patient <Palmira Guadarrama APRN - Last Filed: 12/08/24 13:58> Condition: Stable <Palmira Guadarrama APRN - Last Filed: 12/08/24 13:58>
[2024-12-08 11:19] VITALS: BP 145/68; PULSE 81; RESP 14; O2SAT 96
[2024-12-08] MEDS: SODIUM CHLORIDE 0.9% IV 1,000 ML 999 ML IV CONT (11:28)
[2024-12-08] MEDS: FAMOTIDINE 20 MG/2 ML VIAL IV PUSH (11:47)
[2024-12-08] MEDS: PANTOPRAZOLE SODIUM IV 40 MG VIAL IV PUSH (11:47)
[2024-12-08 11:48] LABS: Prothrombin Time 13.9 Seconds (11.1-14.7)
[2024-12-08 11:49] LABS: CRP 0.9 mg/dL (<1.0); Lactic Acid Reflex 1.1 mmol/L (0.7-2.0); Partial Thromboplastin Time 27.3 Seconds (22.3-36.8)
[2024-12-08 12:00] LABS: Troponin I < 0.012 ng/mL (0.000-0.034)
--- NOTE | 2024-12-08 13:19 | PM.IMHP ---
H&P: HPI History of Present Illness Date/Time: 12/08/24 13:19 Chief Complaint: Nausea vomiting Narrative: A 84-year-old female with history of several bowel obstructions patient of Dr. Puentes, systolic CHF, history of breast cancer status post radiation, hypothyroidism hypertension hyperlipidemia presents the hospital with nausea and vomiting. Patient with recurring small bowel obstructions well known to the surgical team. Patient has no other complaints at this time. In the ED her lab work shows leukocytosis 11.0 sodium 133, IN gap of 14, UA with 2+ leukocyte esterase negative for nitrates. CT shows small-bowel obstruction with transition point and Liver masses, new from 06/02/2023, suspicious for metastatic disease. Patient was seen by GI at beginning of this month for the liver masses with recommendations to follow-up outpatient with MRI. On bedside exam patient asked what time her surgery will be tomorrow. Patient educated we are doing NG tube with a surgical consult. That does not mean that she is having surgery they will have to see her and evaluate her 1st. Patient states that she has have surgery because she has small-bowel obstruction last week and the tube did not work. Review of Systems Review of Systems: 12 systems were reviewed and are negative except for as per HPI. [facility] Past Medical History Medical History Small bowel obstruction Systolic congestive heart failure The patient reports that her ejection fraction had been as low as 30% in the past. Through cardiac rehab in medications her EF is up to 48% Breast cancer in situ History of radiation therapy Thirty treatments of localized radiation therapy to right breast Hypothyroid Arthritis Post-menopausal GERD (gastroesophageal reflux disease) Bronchitis HTN (hypertension) Hyperlipidemia Surgical History Surgical History History of bladder suspension procedure History of lumpectomy of right breast Due to breast cancer in-situ History of hysterectomy At 36 years of age History of appendectomy History of cardiac catheterization History of tonsillectomy Family History Family History Mother Colon cancer Social History Social History Smoking packs per day: 1 Smoking cigarettes per day: 20.0 Years smoked: 20 Smoking pack-years: 20.00 Smoking status: Never smoker Tobacco type: cigarettes Second hand tobacco smoke exposure: Yes Smoking end date: 10/04/76 Alcohol intake: never Substance use: never Substance use type: does not use Do You Feel Safe in your Home?: Yes Lack of Transportation: No Lack of Food: Never True Current Housing: I Have Housing Concerned About Future Housing: No Difficulty Paying Gas/Electric Bills: No Difficulty Paying for Meds: No Currently Unemployed: No Education: High School Diploma/GED Difficulty w/ Childcare or Family Care: No Living arrangements: alone Additional living arrangements comments: She lives with her of 60 years in [place]. Occupation/Education: retired Gender identity (if verbalized by the patient): Female Spiritual care concerns: No Agree to blood products: Yes Meds Home Medications and Allergies Home Medications ?Medication ?Instructions ?Recorded ?Confirmed ?Type aspirin 325 mg tablet 325 mg PO PRN PRN Headache 12/26/19 12/08/24 History bumetanide 1 mg tablet 1 mg PO DAILY 12/26/19 12/08/24 History levothyroxine 50 mcg tablet 50 mcg PO DAILY 12/26/19 12/08/24 History (Synthroid) metoprolol succinate 50 mg capsule 50 mg PO DAILY 12/26/19 12/08/24 History sprinkle, ext. release 24 hr rosuvastatin 40 mg tablet (Crestor) 40 mg PO HS 12/26/19 12/08/24 History lisinopril 20 mg tablet 20 mg PO DAILY 07/15/23 12/08/24 History multivitamin with minerals-folic 1 tablet PO DAILY 07/15/23 12/08/24 History acid 0.4 mg tablet spironolactone 25 mg tablet 12.5 mg PO DAILY 07/15/23 12/08/24 History pantoprazole 40 mg tablet,delayed 40 mg PO QAM #30 tabs 12/03/24 12/08/24 Rx release Allergies Allergy/AdvReac Type Severity Reaction Status Date / Time iodine Allergy Severe Swelling Verified 12/08/24 09:01 of Lip/Tongue/Throat Vital Signs Vital Signs - 24 hr 12/08/24 08:57 12/08/24 09:13 12/08/24 09:13 Temperature 97.6 F 97.5 F L 97.5 F L Pulse Rate 87 83 87 Respiratory Rate 16 18 19 Blood Pressure 150/70 H 135/66 135/66 Pulse Oximetry 100 100 100 Oxygen Delivery Room Air Room Air 12/08/24 11:19 Temperature Pulse Rate 81 Respiratory Rate 14 Blood Pressure 145/68 H Pulse Oximetry 96 Oxygen Delivery Exam Narrative: General: well appearing, appears stated age. HEENT: normocephalic, atraumatic. Mucous membranes moist. EOMI, PERRLA, bilateral sclera anicteric, no conjunctival injection. Neck supple without JVD, lymphadenopathy, or bruit. NG tube Respiratory: clear to ascultation bilaterally. No rales/rhonic/wheezes. Cardiovascular: Regular rate and rhythm, normal S1-S2 upon ascultation. No murmurs, rubs, or clicks. PMI is nondisplaced, capillary refill less than 3 second. Abdomen: Soft, round, no pulsatile masses, nondistended and nontender. No rebound, no guarding. No CVA tenderness, no hepatosplenomegaly. Bowel sounds present to all four quadrants. No high pitch or tinkling sounds, resonant to percussion. Extremities: No cyanosis, clubbing, or edema present. Pulses are palpable 2/2. Active ROM to all four extremities. Neuro: Alert and orientated x 4. PERRLA. Cranial nerves 2-12 intact without focal deficit. Skin: Warm, dry, and intact, without rash, erythema, or lesion. Psych: pleasant, cooperative, normal speech, normal affect, no hallucinations, no dysarthia H&P: Results Labs Labs: Short CBC 12/08/24 Range/Units 09:09 WBC 11.0 H (4.5-10.0) K/mm3 Hgb 14.5 (12.0-15.0) g/dL Hct 43.8 (37.0-47.0) % Plt Count 361 (150-375) k/mm3 BMP 12/08/24 09:09 Sodium 133 L Potassium 3.6 Chloride 97 L Carbon Dioxide 22 BUN 12 Creatinine 0.78 Glucose 128 H Calcium 9.2 Cardiac Enzymes 12/08/24 Range/Units 11:18 Troponin I < 0.012 (0.000-0.034) ng/mL Liver Function 12/08/24 Range/Units 09:09 Total Bilirubin 1.3 (0.2-1.3) mg/dL AST 30 (14-36) U/L ALT 31 (6-35) U/L Alkaline Phosphatase 58 (38-126) U/L Albumin 3.9 (3.5-5.1) g/dL Urine 12/08/24 Range/Units 09:42 Urine Color Yellow (Yellow) Urine Appearance Clear (Clear) Urine pH 6.5 (5.0-9.0) Ur Specific [place] 1.013 (1.001-1.035) Urine Protein Trace (Negative) mg/dL Urine Glucose (UA) Negative (Negative) mg/dL Assessment and Plan Assessment and plan (1) Small bowel obstruction: Code(s): K56.609 - Unspecified intestinal obstruction, unspecified as to partial versus complete obstruction Status: Acute Assessment and Plan: Surgery consulted NG tube to low intermittent suction, NPO Gentle IV fluids for hydration, monitor for fluid overload Pain medication (2) Systolic congestive heart failure: Code(s): I50.20 - Unspecified systolic (congestive) heart failure Status: Acute Assessment and Plan: Currently holding diuretics, monitor for fluid overload (3) HTN (hypertension): Code(s): I10 - Essential (primary) hypertension Status: Chronic Assessment and Plan: IV hydralazine added (4) Hypothyroid: Code(s): E03.9 - Hypothyroidism, unspecified Status: Acute Assessment and Plan: Holding home meds until seen by surgery (5) Lesion of liver: Code(s): K76.9 - Liver disease, unspecified Status: Acute Assessment and Plan: Follow-up with GI outpatient and liver MRI as previously stated getting this month Quality VTE Prophylaxis VTE prophylaxis: mechanical ordered and pharmacologic ordered Hospitalist [facility] Advance Care Plan I have confirmed that the patient's Advanced Care Plan is present, code status is documented, or surrogate decision maker is listed in patient medical record.: Yes Medication Reconciliation I have utilized all available resources to obtain, update and review the patients current medications (includes all prescriptions, OTC, herbals, cannabis, and nutritional supplements).: Yes
[2024-12-08] MEDS: SODIUM CHLORIDE 0.45% 1,000 ML 100 ML IV CONT (14:10)
[2024-12-08] MEDS: HYDROmorphone HCL INJ (*CRX) 1 MG/ML SYR 0.5 MG IV PUSH (14:10)
[2024-12-08 14:15] VITALS: BP 166/72; PULSE 79; RESP 14; O2SAT 99
[2024-12-08 15:00] VITALS: BMI 26.5
--- NOTE | 2024-12-08 15:12 | ADMGEN ---
This patient, Princess Schulz, was admitted to [facility] Surg Room 316-01. Patient/family oriented to hospital policies and general routines including ID bracelet, bed and alarms, visiting hours, pain management, procedures, bathroom and other care routines, personal items, smoking policy, room service/diet, and visiting hours. Information on how to activate the Rapid Response Team has been discussed. Patient/Family are encouraged to report perceived risks to care and to ask questions if they do not understand what they are told or what they should do.
[2024-12-08 15:30] VITALS: BP 157/73; PULSE 65; RESP 16; TEMP 36.7; O2SAT 96
[2024-12-08] MEDS: SODIUM CHLORIDE 0.9% IV 1,000 ML 75 ML IV CONT (16:47)
[2024-12-08] MEDS: PHENOL/SOD PHENO SPRAY CHERRY (*BKC) 1 SPRAY MUCOUS MEM (18:04)
[2024-12-08 22:00] VITALS: BP 152/63; PULSE 70; RESP 18; TEMP 36.2; O2SAT 99
[2024-12-09 06:00] VITALS: BP 154/78; PULSE 74; RESP 18; TEMP 36.6; O2SAT 100
[2024-12-09 06:38] LABS: Basophils Percent Auto 0.6 % (0.2-1.2); Eosinophils Absolute Auto 0.2 K/mm3 (0-0.3); Eosinophils Percent Auto 2.7 % (0-4.4); Hematocrit 40.6 % (37.0-47.0); Hemoglobin 12.9 g/dL (12.0-15.0); Immature Granulocyte Absolute 0.05 K/mm3 (0.00-0.031); Immature Granulocyte Percent A 0.7 % (0-0.5); Lymphocytes Absolute Auto 1.42 K/mm3 (0.9-3.2); Lymphocytes Percent Auto 20.1 % (18.3-44.2); Mean Corpuscular HGB Conc 31.8 g/dl (32-36); Mean Corpuscular Hemoglobin 29.1 pg (26-34); Mean Corpuscular Volume 91.6 fl (80-100); Mean Platelet Volume 9.7 fl (7.4-10.4); Monocytes Absolute Auto 0.8 K/mm3 (0.1-0.6); Monocytes Percent Auto 10.6 % (2.6-8.5); Neutrophils Absolute Auto 4.6 K/mm3 (1.3-6.7); Neutrophils Percent Auto 65.3 % (45.5-73.1); Platelet Count Result 321 k/mm3 (150-375); Red Blood Count 4.43 M/mm3 (4.2-5.4); Red Cell Distribution Width 13.9 % (11.5-14.5); White Blood Count 7.1 K/mm3 (4.5-10.0)
[2024-12-09] MEDS: SODIUM CHLORIDE 0.9% IV 1,000 ML 75 ML IV CONT (06:41)
[2024-12-09 06:58] LABS: Anion Gap 10 mmol/L (4-12); Blood Urea Nitrogen 11 mg/dL (7-17); Calcium 8.3 mg/dL (8.4-10.2); Carbon Dioxide 21 mmol/L (22-30); Chloride 106 mmol/L (98-107); Estimated CRCL calculation 41 ml/min; Estimated Glomerular Filt Rate > 60; Glucose 85 mg/dL (65-110); Potassium 3.4 mmol/L (3.4-5.0); Sodium 137 mmol/L (137-145)
--- NOTE | 2024-12-09 08:13 | PM.IMPN ---
Progress Note: A&P Assessment and Plan (1) Small bowel obstruction: Code(s): K56.609 - Unspecified intestinal obstruction, unspecified as to partial versus complete obstruction Status: Acute Assessment and Plan: -consult surgery, small-bowel obstruction with transition point in the inferior abdomen at the midline -continue NG tube to low intermittent suction -NPO -gentle IV fluids for hydration, continue monitor fluid overload -pain management p.r.n. (2) Lesion of liver: Code(s): K76.9 - Liver disease, unspecified Status: Acute Assessment and Plan: -liver mass, new from 06/02/2023, suspicious for metastatic disease, abdomen CT with contrast is recommended -patient has iodine allergy, spoke with general surgeon -MRCP ordered/pending (3) HTN (hypertension): Code(s): I10 - Essential (primary) hypertension Status: Chronic Assessment and Plan: -hold home medication while in p.o. (4) Hypothyroid: Code(s): E03.9 - Hypothyroidism, unspecified Status: Acute Assessment and Plan: -hold home medication will NPO (5) GERD (gastroesophageal reflux disease): Code(s): K21.9 - Gastro-esophageal reflux disease without esophagitis Status: Acute Assessment and Plan: -chronic - GI following Plan Continue home medications: Hold home medication VTE Prophylaxis: Mechanical/pharmacologic DIET: NPO/ice chips Anticipated hospital stay: > 2 days Code Status: Information Services Assistant Spent With Patient Time with patient: 15 - 25 minutes Subjective Date/time seen: 12/09/24 10:13 Interval history: 84-year-old female with PMHx: of SBO, CHF, breast cancer s/p: radiation, hypothyroidism, HTN, hyperlipidemia presented to the emergency room with complaint of nausea vomiting along with a history of reoccurring small-bowel obstruction patient is well known to surgical team. 12/09/2024: Patient seen this morning, in no acute distress, denies any overnight events, NG present hooked up to wall suctioning with light brown output around 100ML, patient denies any SOB nausea vomiting fever chills. Family members 2 sons by the bedside with concerns of surgical intervention, along with questions on why episodes continue to repeat. Review of Systems Review of Systems: All systems reviewed & are unremarkable except as noted in HPI and below Exam Narrative: General: well appearing, appears stated age. resting in bed NAD HEENT: normocephalic, atraumatic. Mucous membranes moist. EOMI, PERRLA, bilateral sclera anicteric, no conjunctival injection. Neck supple without JVD, lymphadenopathy, or bruit. NG tube, hooked to low intermittent suction, light brown output Respiratory: clear to auscultation bilaterally. No rales/rhonic/wheezes. Cardiovascular: Regular rate and rhythm, normal S1-S2 upon auscultation. No murmurs, rubs, or clicks. PMI is nondisplaced, capillary refill less than 3 second. Abdomen: Soft, round, no pulsatile masses, nondistended and nontender. No rebound, no guarding. No CVA tenderness, no hepatosplenomegaly. Bowel sounds present to all four quadrants. No high pitch or tinkling sounds, resonant to percussion. Extremities: No cyanosis, clubbing, or edema present. Pulses are palpable 2/2. Active ROM to all four extremities. Neuro: Alert and orientated x 4. PERRLA. Cranial nerves 2-12 intact without focal deficit. Skin: Warm, dry, and intact, without rash, erythema, or lesion. Psych: pleasant, cooperative, normal speech, normal affect, no hallucinations, no dysarthria Objective Data Vital Signs Vital Signs: Vital Signs - 24 hr 12/08/24 08:57 12/08/24 09:13 12/08/24 09:13 Temperature 97.6 F 97.5 F L 97.5 F L Pulse Rate 87 83 87 Respiratory Rate 16 18 19 Blood Pressure 150/70 H 135/66 135/66 Pulse Oximetry 100 100 100 Oxygen Delivery Room Air Room Air 12/08/24 11:19 12/08/24 14:15 12/08/24 15:20 Temperature Pulse Rate 81 79 Respiratory Rate 14 14 Blood Pressure 145/68 H 166/72 H Pulse Oximetry 96 99 Oxygen Delivery Room Air 12/08/24 15:30 12/08/24 20:00 12/08/24 22:00 Temperature 98.0 F 97.2 F L Pulse Rate 65 70 Respiratory Rate 16 18 Blood Pressure 157/73 H 152/63 H Pulse Oximetry 96 99 Oxygen Delivery Room Air 12/09/24 06:00 Temperature 97.8 F Pulse Rate 74 Respiratory Rate 18 Blood Pressure 154/78 H Pulse Oximetry 100 Oxygen Delivery Intake/Output Intake/Output: Intake & Output 12/06/24 12/07/24 12/08/24 12/09/24 23:59 23:59 23:59 23:59 Intake Total 300 1200 Output Total 100 Balance 200 1200 Meds/Results Medications: Active Medications Generic Name Dose Route Start Last Admin Trade Name Freq PRN Reason Stop Dose Admin Enoxaparin Sodium 40 mg 12/09/24 09:00 Enoxaparin 40 Mg/0.4 Ml Syringe SUB-Q DAILY BERNARD Hydralazine HCl 10 mg 12/08/24 21:38 Hydralazine Hcl 20 Mg/Ml Vial IV PUSH Q8H PRN Blood Pressure - High Sodium Chloride 1,000 mls @ 75 mls/hr 12/08/24 16:40 12/09/24 06:41 Normal Saline Iv IV CONT 75 mls/hr .[id number] BERNARD Administration Metoprolol Succinate 50 mg 12/09/24 09:00 Metoprolol Succinate Ext Rel 50 Mg Tabcr PO DAILY BERNARD Morphine Sulfate 2 mg 12/08/24 16:13 Morphine Sulfate (*Crx) 2 Mg/Ml Inj IV PUSH Q4H PRN Pain Rated 7-10 Phenol 1 spray 12/08/24 17:29 12/08/24 18:04 Phenol/Sod Pheno [place] Mock (*Bkc) MUCOUS MEM 1 spray PRN PRN Administration Sore Throat Radiology Results: ITS Impressions Abdomen/Pelvis CT 12/08/24 11:09 IMPRESSION: 1. Small bowel obstruction with transition point in the inferior abdomen at the midline. 2. Liver masses, new from 06/02/2023, suspicious for metastatic disease. Abdomen CT with contrast is recommended. Abdomen X-Ray 12/08/24 12:59 IMPRESSION: 1. Nasogastric tube tip in the stomach. 2. Dilated small bowel, consistent with small bowel obstruction. Labs Labs: Laboratory Results - last 24 hr 12/08/24 12/08/24 12/08/24 09:09 09:42 11:18 WBC 11.0 H RBC 4.94 Hgb 14.5 Hct 43.8 MCV 88.7 MCH 29.4 MCHC 33.1 RDW 13.6 Plt Count 361 MPV 9.7 Immature Gran % (Auto) 0.7 H Neut % (Auto) 72.5 Lymph % (Auto) 15.1 L [place] % (Auto) 10.9 H Eos % (Auto) 0.5 Baso % (Auto) 0.3 Lymph # (Auto) 1.66 [place] # (Auto) 1.2 H Eos # (Auto) 0.1 Baso # (Auto) 0.0 Abs Immat Gran (auto) 0.08 H Absolute Neuts (auto) 7.9 H Absolute Nucleated RBC 0.000 Nucleated RBC % 0.0 PT 13.9 INR 1.0 APTT 27.3 Sodium 133 L Potassium 3.6 Chloride 97 L Carbon Dioxide 22 Anion Gap 14 H BUN 12 Creatinine 0.78 Estim Creat Clear Calc 41 Estimated GFR > 60 Glucose 128 H Lactic Acid 1.1 Calcium 9.2 Total Bilirubin 1.3 AST 30 ALT 31 Alkaline Phosphatase 58 Troponin I < 0.012 C-Reactive Protein 0.9 Total Protein 7.0 Albumin 3.9 Lipase 213 Urine Color Yellow Urine Appearance Clear Urine pH 6.5 Ur Specific [place] 1.013 Urine Protein Trace Urine Glucose (UA) Negative Urine Ketones Trace H Ur Blood (Man) Trace Urine Nitrate Negative Urine Bilirubin Negative Urine Urobilinogen 1.0 Leukocyte Esterase Rfl 2+ H Urine RBC 3-5 H Urine WBC 21-50 H Ur Squamous Epith Cells Few Urine Bacteria None seen Urine Casts 0-2 12/09/24 06:08 WBC 7.1 RBC 4.43 Hgb 12.9 Hct 40.6 MCV 91.6 MCH 29.1 MCHC 31.8 L RDW 13.9 Plt Count 321 MPV 9.7 Immature Gran % (Auto) 0.7 H Neut % (Auto) 65.3 Lymph % (Auto) 20.1 [place] % (Auto) 10.6 H Eos % (Auto) 2.7 Baso % (Auto) 0.6 Lymph # (Auto) 1.42 [place] # (Auto) 0.8 H Eos # (Auto) 0.2 Baso # (Auto) 0.0 Abs Immat Gran (auto) 0.05 H Absolute Neuts (auto) 4.6 Absolute Nucleated RBC 0.000 Nucleated RBC % 0.0 PT INR APTT Sodium 137 Potassium 3.4 Chloride 106 Carbon Dioxide 21 L Anion Gap 10 BUN 11 Creatinine 0.78 Estim Creat Clear Calc 41 Estimated GFR > 60 Glucose 85 Lactic Acid Calcium 8.3 L Total Bilirubin AST ALT Alkaline Phosphatase Troponin I C-Reactive Protein Total Protein Albumin Lipase Urine Color Urine Appearance Urine pH Ur Specific [place] Urine Protein Urine Glucose (UA) Urine Ketones Ur Blood (Man) Urine Nitrate Urine Bilirubin Urine Urobilinogen Leukocyte Esterase Rfl Urine RBC Urine WBC Ur Squamous Epith Cells Urine Bacteria Urine Casts Hospitalist MIPS Advance Care Plan I have confirmed that the patient's Advanced Care Plan is present, code status is documented, or surrogate decision maker is listed in patient medical record.: Yes Medication Reconciliation I have utilized all available resources to obtain, update and review the patients current medications (includes all prescriptions, OTC, herbals, cannabis, and nutritional supplements).: Yes
[2024-12-09 08:59] VITALS: PULSE 74
[2024-12-09] MEDS: METOPROLOL SUCCINATE EXT REL 50 MG TABCR PO (08:59)
[2024-12-09] MEDS: ENOXAPARIN 40 MG/0.4 ML SYRINGE SUB-Q (09:02)
[2024-12-09 14:00] VITALS: BP 171/63; PULSE 77; RESP 16; TEMP 36.7; O2SAT 98
--- NOTE | 2024-12-09 15:01 | P.CONGS_ITS ---
Assessment and Plan Assessment and plan (1) Small bowel obstruction: Code(s): K56.609 - Unspecified intestinal obstruction, unspecified as to partial versus complete obstruction Status: Acute Assessment and Plan: * I have reviewed the CT as well as the prior CTs and small-bowel follow-through from her recent hospitalizations. Patient was rehospitalized less than 1 week after being discharged for small-bowel obstruction. She has not previously been hospitalized for this but patient and family report about 4 prior episodes similar to this that resolved with vomiting at home. Due to the early recurrence, this is most likely going to require surgical exploration even though her small-bowel follow-through 1 week ago showed no bowel obstruction. Will start PPN to help with nutrition well patient is currently NPO. Will also get a obstructive series tomorrow morning to assess for any resolution of the obstruction. Continue NG decompression at this time. Will determine timing of surgery based on x-ray tomorrow. (2) Lesion of liver: Code(s): K76.9 - Liver disease, unspecified Status: Acute Assessment and Plan: * MRCP ordered by hospitalist to further assess nature of liver lesion. (3) Systolic congestive heart failure: Code(s): I50.20 - Unspecified systolic (congestive) heart failure Status: Acute Assessment and Plan: * No recent echocardiogram on file at this hospital. Will plan to get echo to assess cardiac ejection fraction prior to proceeding with surgery. (4) HTN (hypertension): Code(s): I10 - Essential (primary) hypertension Status: Chronic History of Present Illness Consult details Consult date: 12/09/24 Reason for consult: other (SBO) Requesting physician: Palmira Guadarrama, ATIYA Narrative: This is an 84-year-old who I am asked to see for a recurrent small-bowel obstruction. She presented to the emergency department yesterday with bloating, abdominal pain, nausea, and vomiting. She was just hospitalized from November 30 to December 03 with similar symptoms. This was her 1st hospitalization for a long time, but family is saying that she has had for prior small episode similar to this that resolved on their own. A small-bowel follow-through was obtained on 12/02/2024 which showed normal transit time within 60 minutes and no evidence of small-bowel obstruction. Her diet was able to be advanced to solid diet and she was discharged the following day. She was doing well for several days at home, but Wednesday evening began feeling some mild bloating and began experiencing nausea and vomiting. She is not passing any flatus but did have a bowel movement yesterday morning. Her CT in the emergency department yesterday showed small-bowel obstruction with transition in the lower midline which is fairly close to where the prior transition point was identified in the right lower quadrant 1 week ago. NG tube was placed in the emergency department and she was admitted for further treatment. She is no longer having any abdominal pain but is still not passing flatus. She has had an open appendectomy through a right lower quadrant incision about 70 years ago and also had an open hysterectomy. Review of Systems 2 Review of Systems: All systems reviewed & are unremarkable except as noted in HPI and below Constitutional: Constitutional: Denies chills and Denies fever(s) Eyes: Eyes: Denies change in vision ENT: Denies hearing loss, Denies neck pain and Denies sore throat Cardiovascular: Cardiovascular: Denies chest pain and Denies dyspnea Respiratory: Respiratory: Denies cough, Denies dyspnea and Denies wheezing Gastrointestinal: Gastrointestinal: Reports as per HPI Genitourinary: Genitourinary: Denies hematuria and Denies dysuria Musculoskeletal: Musculoskeletal: Denies arthralgias, Denies joint swelling and Denies neck pain Allergic/Immunologic: Allergic/Immunologic: Denies wheezing [facility] Past Medical History Medical History Small bowel obstruction Systolic congestive heart failure The patient reports that her ejection fraction had been as low as 30% in the past. Through cardiac rehab in [facility] her EF is up to 48% Breast cancer in situ History of radiation therapy Thirty treatments of localized radiation therapy to right breast Hypothyroid Arthritis Post-menopausal GERD (gastroesophageal reflux disease) Bronchitis HTN (hypertension) Hyperlipidemia Surgical History Surgical History History of bladder suspension procedure History of lumpectomy of right breast Due to breast cancer in-situ History of hysterectomy At 36 years of age History of appendectomy History of cardiac catheterization History of tonsillectomy Family History Family History Mother Colon cancer Social History Social History Smoking packs per day: 1 Smoking cigarettes per day: 20.0 Years smoked: 20 Smoking pack-years: 20.00 Smoking status: Never smoker Tobacco type: cigarettes Second hand tobacco smoke exposure: Yes Smoking end date: 10/04/76 Alcohol intake: never Substance use: never Substance use type: does not use Do You Feel Safe in your Home?: Yes Lack of Transportation: No Lack of Food: Never True Current Housing: I Have Housing Concerned About Future Housing: No Difficulty Paying Gas/Electric Bills: No Difficulty Paying for Meds: No Currently Unemployed: No Education: High School Diploma/GED Difficulty w/ Childcare or Family Care: No Living arrangements: alone Additional living arrangements comments: She lives with her of 60 years in [place]. Occupation/Education: retired Gender identity (if verbalized by the patient): Female Spiritual care concerns: No Agree to blood products: Yes Meds Home Medications and Allergies Home Medications ?Medication ?Instructions ?Recorded ?Confirmed ?Type aspirin 325 mg tablet 325 mg PO PRN PRN Headache 12/26/19 12/08/24 History bumetanide 1 mg tablet 1 mg PO DAILY 12/26/19 12/08/24 History levothyroxine 50 mcg tablet 50 mcg PO DAILY 12/26/19 12/08/24 History (Synthroid) metoprolol succinate 50 mg capsule 50 mg PO DAILY 12/26/19 12/08/24 History sprinkle, ext. release 24 hr rosuvastatin 40 mg tablet (Crestor) 40 mg PO HS 12/26/19 12/08/24 History lisinopril 20 mg tablet 20 mg PO DAILY 07/15/23 12/08/24 History multivitamin with minerals-folic 1 tablet PO DAILY 07/15/23 12/08/24 History acid 0.4 mg tablet spironolactone 25 mg tablet 12.5 mg PO DAILY 07/15/23 12/08/24 History pantoprazole 40 mg tablet,delayed 40 mg PO QAM #30 tabs 12/03/24 12/08/24 Rx release Allergies Allergy/AdvReac Type Severity Reaction Status Date / Time iodine Allergy Severe Swelling Verified 12/08/24 09:01 of Lip/Tongue/Throat Vital Signs Vital Signs - 24 hr 12/08/24 15:20 12/08/24 15:30 12/08/24 20:00 Temperature 98.0 F Pulse Rate 65 Respiratory Rate 16 Blood Pressure 157/73 H Pulse Oximetry 96 Oxygen Delivery Room Air Room Air 12/08/24 22:00 12/09/24 06:00 12/09/24 08:59 Temperature 97.2 F L 97.8 F Pulse Rate 70 74 74 Respiratory Rate 18 18 Blood Pressure 152/63 H 154/78 H Pulse Oximetry 99 100 Oxygen Delivery Exam 2 Const: General: alert; No acute distress Orientation/consciousness: patient oriented x3 Limitations: no limitations HENMT: Head: normocephalic and atraumatic Ears: hearing grossly normal bilaterally Face/Nose/Sinus: Normal external nose present and Normal nares present Mouth: Yes Normal oral and palatal mucosa present and Yes moist mucous membranes Eyes: General: appearance normal, both eyes and all related structures C onjunctivae: conjunctivae normal Sclera: sclerae normal Pupils: Equal, round and reactive pupils present EOM: EOMs intact bilaterally Neck: Neck: normal visual inspection, full ROM, no lymphadenopathy, supple and no JVD Lymphatic: no lymphadenopathy noted Chest: Chest palpation & inspection: normal inspection of the chest Resp: Effort & Inspection: normal respiratory effort and able to speak in complete sentences Auscultation: clear to auscultation bilaterally P ercussion: percussion normal Cardio: Jugular venous distension: no JVD Rate: regular rate Rhythm: r egular rhythm Heart sounds: S1 normal heart sound present and S2 normal heart sound present Peripheral pulses: Peripheral pulses 2+ throughout GI: Inspection: normal to inspection, non-distended and scar (RLQ and vertical midline lower abdominal scars) GI Palp: Yes Soft to palpation, No Tenderness to palpation present (GI), No Guarding due to palpation present (GI) and No Rebound tenderness present Percussion: Yes normal to percussion A uscultation: normal bowel sounds : General: Yes no CVA tenderness Back/Spine/Pelvis: Back: no CVA tenderness Skin: General skin exam: normal color and dry skin Neuro: General: patient oriented x3, gait normal, moves all extremities, no focal motor deficits and CN's II-XI intact bilaterally Cranial nerves: Yes Equal, round and reactive pupils present Speech: normal speech Extrem: General: normal to inspection and capillary refill normal Results Labs 12/09/24 06:08 12/09/24 06:08 Labs: Abnormal lab results 12/09/24 Range/Units 06:08 MCHC 31.8 L (32-36) g/dl Immature Gran % (Auto) 0.7 H (0-0.5) % [place] % (Auto) 10.6 H (2.6-8.5) % [place] # (Auto) 0.8 H (0.1-0.6) K/mm3 Abs Immat Gran (auto) 0.05 H (0.00-0.031) K/mm3 Carbon Dioxide 21 L (22-30) mmol/L Calcium 8.3 L (8.4-10.2) mg/dL Diabetes panel 12/09/24 Range/Units 06:08 Sodium 137 (137-145) mmol/L Potassium 3.4 (3.4-5.0) mmol/L Chloride 106 (98-107) mmol/L Carbon Dioxide 21 L (22-30) mmol/L BUN 11 (7-17) mg/dL Creatinine 0.78 (0.7-1.0) mg/dL Glucose 85 (65-110) mg/dL Calcium 8.3 L (8.4-10.2) mg/dL Calcium panel 12/09/24 Range/Units 06:08 Calcium 8.3 L (8.4-10.2) mg/dL Pituitary panel 12/09/24 Range/Units 06:08 Sodium 137 (137-145) mmol/L Potassium 3.4 (3.4-5.0) mmol/L Chloride 106 (98-107) mmol/L Carbon Dioxide 21 L (22-30) mmol/L BUN 11 (7-17) mg/dL Creatinine 0.78 (0.7-1.0) mg/dL Glucose 85 (65-110) mg/dL Calcium 8.3 L (8.4-10.2) mg/dL Adrenal panel 12/09/24 Range/Units 06:08 Sodium 137 (137-145) mmol/L Potassium 3.4 (3.4-5.0) mmol/L Chloride 106 (98-107) mmol/L Carbon Dioxide 21 L (22-30) mmol/L BUN 11 (7-17) mg/dL Creatinine 0.78 (0.7-1.0) mg/dL Glucose 85 (65-110) mg/dL Calcium 8.3 L (8.4-10.2) mg/dL All other labs normal. Imaging Additional studies: ITS Impressions Abdomen/Pelvis CT 12/08/24 11:09 IMPRESSION: 1. Small bowel obstruction with transition point in the inferior abdomen at the midline. 2. Liver masses, new from 06/02/2023, suspicious for metastatic disease. Abdomen CT with contrast is recommended. Abdomen X-Ray 12/08/24 12:59 IMPRESSION: 1. Nasogastric tube tip in the stomach. 2. Dilated small bowel, consistent with small bowel obstruction.
[2024-12-09] MEDS: FAT EMULSIONS IV 20% 250 ML 20.83 ML IVPB (17:24)
[2024-12-09] MEDS: AMINO ACIDS 4.25%/D5W/LYTES/CA 1,000 ML 80 ML IV CONT (17:24)
[2024-12-09 18:38] LABS: Glucose Point of Care 101 mg/dl (65-105)
[2024-12-09] MEDS: hydrALAZINE HCL 20 MG/ML VIAL 10 MG IV PUSH (21:04)
[2024-12-09 21:58] VITALS: BP 184/79; PULSE 74; RESP 18; TEMP 37.1; O2SAT 98
[2024-12-09] MEDS: PIPERACILLN/TAZ 3.375GM/NS50ML 3.375 GM/50 ML BAG IVPB (23:00)
[2024-12-10 00:32] LABS: Glucose Point of Care 106 mg/dl (65-105)
[2024-12-10] MEDS: MORPHINE SULFATE (*CRX) 2 MG/ML INJ IV PUSH (00:53)
--- NOTE | 2024-12-10 03:03 | PC.NURSE ---
Daylight Savings Time For Daylight Savings Time Ending in the Fall - Clocks are moved back. For Daylight Savings Time Beginning in the Spring - Clocks are moved ahead. For [facility], the time of change occurs at 0200 hrs. Time is taken from the appellate law clerk. This entry on the patient's chart recognizes the change in time reflected during documentation. Example: 2 entries for vital signs may be charted for 0200 hrs.
[2024-12-10] MEDS: PIPERACILLN/TAZ 3.375GM/NS50ML 3.375 GM/50 ML BAG IVPB ×3 (05:37→17:25)
[2024-12-10 05:44] LABS: Glucose Point of Care 115 mg/dl (65-105)
[2024-12-10 06:00] VITALS: BP 175/63; PULSE 78; RESP 19; TEMP 36.6; O2SAT 98
[2024-12-10 06:34] LABS: Anion Gap 8 mmol/L (4-12); Blood Urea Nitrogen 14 mg/dL (7-17); Calcium 8.5 mg/dL (8.4-10.2); Carbon Dioxide 22 mmol/L (22-30); Chloride 107 mmol/L (98-107); Estimated CRCL calculation 50 ml/min; Estimated Glomerular Filt Rate > 60; Glucose 121 mg/dL (65-110); Phosphorus 3.2 mg/dL (2.5-4.5); Potassium 3.4 mmol/L (3.4-5.0); Sodium 137 mmol/L (137-145)
[2024-12-10] MEDS: AMINO ACIDS 4.25%/D5W/LYTES/CA 1,000 ML 80 ML IV CONT ×2 (06:59→17:24)
[2024-12-10 08:40] VITALS: PULSE 78
[2024-12-10] MEDS: hydrALAZINE HCL 20 MG/ML VIAL 10 MG IV PUSH (08:40)
[2024-12-10] MEDS: METOPROLOL SUCCINATE EXT REL 50 MG TABCR PO (08:40)
--- NOTE | 2024-12-10 09:53 | PM.IMPN ---
Progress Note: A&P Assessment and Plan (1) Systolic congestive heart failure: Code(s): I50.20 - Unspecified systolic (congestive) heart failure Status: Acute (2) Small bowel obstruction: Code(s): K56.609 - Unspecified intestinal obstruction, unspecified as to partial versus complete obstruction Status: Acute (3) Urinary tract infection: Code(s): N39.0 - Urinary tract infection, site not specified Status: Acute Plan Small bowel obstruction: Code(s): K56.609 - Unspecified intestinal obstruction, unspecified as to partial versus complete obstruction Status: Acute Assessment and Plan: -consult surgery, small-bowel obstruction with transition point in the inferior abdomen at the midline -continue NG tube to low intermittent suction -NPO -gentle IV fluids for hydration, continue monitor fluid overload -pain management p.r.n. Further management per general surgeon Chronic systolic heart failure Per patient statement, recently EF about 49% Patient could run on a bicycle 30 minutes Lesion of liver: Code(s): K76.9 - Liver disease, unspecified Status: Acute Assessment and Plan: -liver mass, new from 06/02/2023, suspicious for metastatic disease, abdomen CT with contrast is recommended -patient has iodine allergy, spoke with general surgeon -MRCP: At least 3 liver lesions, as detailed above, largest measuring 2.2 cm. Findings are suspicious for metastatic disease. Consult heme oncologist for evaluation treatment HTN (hypertension): Code(s): I10 - Essential (primary) hypertension Status: Chronic Assessment and Plan: -hold home medication while in p.o. Hypothyroid: Code(s): E03.9 - Hypothyroidism, unspecified Status: Acute Assessment and Plan: Hold oral Synthroid 50 mcg daily po Start Synthroid 40 mcg IV daily UTI UA shows pyuria and microscopic hematuria No growth so far Bacteremia 1 of the 2 bottles grows Gram-positive cocci in cluster Repeat blood culture Patient is on Zosyn since 12/09 (5) GERD (gastroesophageal reflux disease): Code(s): K21.9 - Gastro-esophageal reflux disease without esophagitis Status: Acute Assessment and Plan: -chronic - GI following Plan Continue home medications: Hold home medication VTE Prophylaxis: Mechanical/pharmacologic DIET: NPO/ice chips Anticipated hospital stay: > 2 days Code Status: Deposition Operator Spent With Patient Time with patient: 15 - 25 minutes Subjective Date/time seen: 12/10/24 09:53 Interval history: Saw examined patient in presents of patient's son and [id number]. NG tube on intermittent suction. Patient denies abdomen pain, chest pain, shortness of breath. Patient states her last echo showed the EF of about 49%. She follow-up with internal communications specialist [facility] Patient is afebrile, blood pressure stable Exam Narrative: GENERAL: Pleasant, in no acute distress. Well-nourished. - EYES: EOMI. Anicteric. - HENT: Moist mucous membranes. NG tube in-situ - LUNGS: Clear to auscultation bilaterally, no wheezing, rhonchi, or rales. - CARDIOVASCULAR: Regular rate and rhythm. No murmur. No JVD. - ABDOMEN: Soft, non-tender and non-distended. No palpable masses. - EXTREMITIES: No edema. Peripheral pulses 2+. Non-tender. - NEUROLOGIC: No focal neurological deficits. CN II-XII grossly intact. - PSYCHIATRIC: Awake, Alert and oriented x 3. Appropriate mood and affect. - SKIN: No rashes or lesions. Warm. - LYMPH: No cervical lymphadenopathy. Objective Data Vital Signs Vital Signs: Vital Signs - 24 hr 12/09/24 08:59 12/09/24 14:00 12/09/24 20:00 Temperature 98.1 F Pulse Rate 74 77 Respiratory Rate 16 Blood Pressure 171/63 H Pulse Oximetry 98 Oxygen Delivery Room Air 12/09/24 21:58 12/10/24 06:00 12/10/24 08:40 Temperature 98.8 F 97.8 F Pulse Rate 74 78 78 Respiratory Rate 18 19 Blood Pressure 184/79 H 175/63 H Pulse Oximetry 98 98 Oxygen Delivery Intake/Output Intake/Output: Intake & Output 12/07/24 12/08/24 12/09/24 12/11/24 23:59 23:59 23:59 00:59 Intake Total 300 2071.3 1300 Output Total 100 Balance 200 2071.3 1300 Meds/Results Medications: Active Medications Generic Name Dose Route Start Last Admin Trade Name Freq PRN Reason Stop Dose Admin Enoxaparin Sodium 40 mg 12/09/24 09:00 12/09/24 09:02 Enoxaparin 40 Mg/0.4 Ml Syringe SUB-Q 40 mg DAILY BERNARD Administration Hydralazine HCl 10 mg 12/08/24 21:38 12/10/24 08:40 Hydralazine Hcl 20 Mg/Ml Vial IV PUSH 10 mg Q8H PRN Administration Blood Pressure - High Sodium Chloride 1,000 mls @ 75 mls/hr 12/08/24 16:40 12/09/24 17:38 Normal Saline Iv IV CONT 0 mls/hr .[id number] BERNARD Infusion Dextrose 1,000 mls @ 50 mls/hr 12/09/24 14:55 Dextrose 10% IV CONT .Q20H PRN if PN is interrupted Amino Acids/Electrolytes/Dextrose 1,000 mls @ 80 mls/hr 12/09/24 14:55 12/10/24 06:59 Clinimix E 4.25%/5% Solution IV CONT 80 mls/hr .[id number] BERNARD Administration Protocol Fat Emulsion Intravenous 250 mls @ 20.833 mls/hr 12/09/24 16:00 12/10/24 06:25 Lipids 20% IVPB Infused Q24H BERNARD Infusion Piperacillin/Tazobactam/Dextrose 3.375 gm in 50 mls @ 100 mls/hr 12/09/24 22:15 12/10/24 06:07 Zosyn 3.375 Gm/Ns 50 Ml IVPB Infused Q6HR BERNARD Infusion Metoprolol Succinate 50 mg 12/09/24 09:00 12/10/24 08:40 Metoprolol Succinate Ext Rel 50 Mg Tabcr PO 50 mg DAILY BERNARD Administration Morphine Sulfate 2 mg 12/08/24 16:13 12/10/24 00:53 Morphine Sulfate (*Crx) 2 Mg/Ml Inj IV PUSH 2 mg Q4H PRN Administration Pain Rated 7-10 Perflutren Lipid Microsphere 0 ml 12/09/24 14:54 Perflutren Lipid Microspheres 1.5 Ml Vial Diluted To 10 Ml Total Volume IV PUSH 12/12/24 14:55 ONCE PRN adequate visualization Protocol Phenol 1 spray 12/08/24 17:29 12/08/24 18:04 Phenol/Sod Pheno [place] Mock (*Bkc) MUCOUS MEM 1 spray PRN PRN Administration Sore Throat Radiology Results: ITS Impressions Abdomen/Pelvis CT 12/08/24 11:09 IMPRESSION: 1. Small bowel obstruction with transition point in the inferior abdomen at the midline. 2. Liver masses, new from 06/02/2023, suspicious for metastatic disease. Abdomen CT with contrast is recommended. MRCP 12/10/24 06:39 Impression: At least 3 liver lesions, as detailed above, largest measuring 2.2 cm. Findings are suspicious for metastatic disease. Abdomen X-Ray 12/10/24 08:32 Impression: NG tube in place. Nonspecific bowel gas pattern. Labs Labs: Laboratory Results - last 24 hr 12/09/24 12/10/24 12/10/24 18:36 00:02 05:22 Sodium Potassium Chloride Carbon Dioxide Anion Gap BUN Creatinine Estim Creat Clear Calc Estimated GFR Glucose POC Capillary Glucose 101 106 H 115 H Calcium Phosphorus 12/10/24 06:05 Sodium 137 Potassium 3.4 Chloride 107 Carbon Dioxide 22 Anion Gap 8 BUN 14 Creatinine 0.63 L Estim Creat Clear Calc 50 Estimated GFR > 60 Glucose 121 H POC Capillary Glucose Calcium 8.5 Phosphorus 3.2
[2024-12-10 09:57] VITALS: BP 165/55
[2024-12-10 09:58] VITALS: BP 165/56
[2024-12-10 10:22] LABS: Basophils Absolute Auto 0.1 K/mm3 (0.0-0.1); Basophils Percent Auto 0.6 % (0.2-1.2); Eosinophils Absolute Auto 0.3 K/mm3 (0-0.3); Eosinophils Percent Auto 3.2 % (0-4.4); Hematocrit 38.5 % (37.0-47.0); Hemoglobin 12.5 g/dL (12.0-15.0); Immature Granulocyte Absolute 0.04 K/mm3 (0.00-0.031); Immature Granulocyte Percent A 0.5 % (0-0.5); Immature Platelet Fraction Pct 1.8 % (0.9-11.2); Lymphocytes Absolute Auto 1.22 K/mm3 (0.9-3.2); Lymphocytes Percent Auto 15.1 % (18.3-44.2); Mean Corpuscular HGB Conc 32.5 g/dl (32-36); Mean Corpuscular Hemoglobin 29.6 pg (26-34); Mean Platelet Volume 10.6 fl (7.4-10.4); Monocytes Absolute Auto 0.9 K/mm3 (0.1-0.6); Monocytes Percent Auto 11.5 % (2.6-8.5); Neutrophils Absolute Auto 5.6 K/mm3 (1.3-6.7); Neutrophils Percent Auto 69.1 % (45.5-73.1); Platelet Count Result 319 k/mm3 (150-375); Red Blood Count 4.23 M/mm3 (4.2-5.4); Red Cell Distribution Width 13.5 % (11.5-14.5); White Blood Count 8.1 K/mm3 (4.5-10.0)
[2024-12-10 10:34] LABS: Magnesium 2.2 mg/dL (1.6-2.3)
--- NOTE | 2024-12-10 11:06 | PM.PNGS ---
Progress Note: A&P Assessment and Plan (1) Small bowel obstruction: Code(s): K56.609 - Unspecified intestinal obstruction, unspecified as to partial versus complete obstruction Status: Acute Assessment and Plan: Appears to be resolving. Patient and family still concerned that obstruction will recur given the early re-admission. Discussed trying to remove NG and advance diet vs proceeding with surgical exploration. Patient and family want to proceed with surgery. Will keep NG in place today and plan for diagnostic laparoscopy, possible open, possible bowel resection tomorrow. I discussed risks, benefits, and alternatives in detail. (2) Lesion of liver: Code(s): K76.9 - Liver disease, unspecified Status: Acute Assessment and Plan: Multiple lesions concerning for metastases. I discussed findings with patient and need to consider biopsy. Patient understands but still wants to proceed with surgery for bowel obstruction. See above. (3) Urinary tract infection: Code(s): N39.0 - Urinary tract infection, site not specified Status: Acute Assessment and Plan: On antibiotics for UTI. No bowel issues necessitate antibiotics. (4) Systolic congestive heart failure: Code(s): I50.20 - Unspecified systolic (congestive) heart failure Status: Acute Assessment and Plan: Echocardiogram ordered to ensure that patient will be safe for surgery. Subjective Subjective Date/Time Seen: 12/10/24 11:06 Interval history: Passing flatus, had a small BM. No abdominal pain. Exam GI: Inspection: non-distended GI Palp: Yes Soft to palpation, No Tenderness to palpation present (GI), No Guarding due to palpation present (GI), No Palpable mass present and No Rebound tenderness present Percussion: Yes normal to percussion Auscultation: normal bowel sounds Objective Data Vital Signs Vital Signs: Vital Signs - 24 hr 12/09/24 14:00 12/09/24 20:00 12/09/24 21:58 Temperature 98.1 F 98.8 F Pulse Rate 77 74 Respiratory Rate 16 18 Blood Pressure 171/63 H 184/79 H Pulse Oximetry 98 98 Oxygen Delivery Room Air 12/10/24 06:00 12/10/24 08:40 12/10/24 09:57 Temperature 97.8 F Pulse Rate 78 78 Respiratory Rate 19 Blood Pressure 175/63 H 165/55 H Pulse Oximetry 98 Oxygen Delivery 12/10/24 09:58 Temperature Pulse Rate Respiratory Rate Blood Pressure 165/56 H Pulse Oximetry Oxygen Delivery Intake/Output Intake/Output: Intake & Output 12/07/24 12/08/24 12/09/24 12/11/24 23:59 23:59 23:59 00:59 Intake Total 300 2071.3 1300 Output Total 100 Balance 200 2071.3 1300 Meds/Results Medications: Active Medications Generic Name Dose Route Start Last Admin Trade Name Freq PRN Reason Stop Dose Admin Enoxaparin Sodium 40 mg 12/09/24 09:00 12/09/24 09:02 Enoxaparin 40 Mg/0.4 Ml Syringe SUB-Q 40 mg DAILY BERNARD Administration Hydralazine HCl 10 mg 12/08/24 21:38 12/10/24 08:40 Hydralazine Hcl 20 Mg/Ml Vial IV PUSH 10 mg Q8H PRN Administration Blood Pressure - High Dextrose 1,000 mls @ 50 mls/hr 12/09/24 14:55 Dextrose 10% IV CONT .Q20H PRN if PN is interrupted Amino Acids/Electrolytes/Dextrose 1,000 mls @ 80 mls/hr 12/09/24 14:55 12/10/24 06:59 Clinimix E 4.25%/5% Solution IV CONT 80 mls/hr .[id number] BERNARD Administration Protocol Fat Emulsion Intravenous 250 mls @ 20.833 mls/hr 12/09/24 16:00 12/10/24 06:25 Lipids 20% IVPB Infused Q24H BERNARD Infusion Piperacillin/Tazobactam/Dextrose 3.375 gm in 50 mls @ 100 mls/hr 12/09/24 22:15 12/10/24 06:07 Zosyn 3.375 Gm/Ns 50 Ml IVPB Infused Q6HR BERNARD Infusion Metoprolol Succinate 50 mg 12/09/24 09:00 12/10/24 08:40 Metoprolol Succinate Ext Rel 50 Mg Tabcr PO 50 mg DAILY BERNARD Administration Morphine Sulfate 2 mg 12/08/24 16:13 12/10/24 00:53 Morphine Sulfate (*Crx) 2 Mg/Ml Inj IV PUSH 2 mg Q4H PRN Administration Pain Rated 7-10 Perflutren Lipid Microsphere 0 ml 12/09/24 14:54 Perflutren Lipid Microspheres 1.5 Ml Vial Diluted To 10 Ml Total Volume IV PUSH 12/12/24 14:55 ONCE PRN adequate visualization Protocol Phenol 1 spray 12/08/24 17:29 12/08/24 18:04 Phenol/Sod Pheno [place] Mock (*Bkc) MUCOUS MEM 1 spray PRN PRN Administration Sore Throat Radiology Results: ITS Impressions Abdomen/Pelvis CT 12/08/24 11:09 IMPRESSION: 1. Small bowel obstruction with transition point in the inferior abdomen at the midline. 2. Liver masses, new from 06/02/2023, suspicious for metastatic disease. Abdomen CT with contrast is recommended. MRCP 12/10/24 06:39 Impression: At least 3 liver lesions, as detailed above, largest measuring 2.2 cm. Findings are suspicious for metastatic disease. Abdomen X-Ray 12/10/24 08:32 Impression: NG tube in place. Nonspecific bowel gas pattern. Labs Labs: Laboratory Results - last 24 hr 12/09/24 12/10/24 12/10/24 18:36 00:02 05:22 WBC RBC Hgb Hct MCV MCH MCHC RDW Plt Count MPV Immature Gran % (Auto) Neut % (Auto) Lymph % (Auto) [place] % (Auto) Eos % (Auto) Baso % (Auto) Lymph # (Auto) [place] # (Auto) Eos # (Auto) Baso # (Auto) Abs Immat Gran (auto) Absolute Neuts (auto) Absolute Nucleated RBC Nucleated RBC % % Immature Plt Fraction Sodium Potassium Chloride Carbon Dioxide Anion Gap BUN Creatinine Estim Creat Clear Calc Estimated GFR Glucose POC Capillary Glucose 101 106 H 115 H Calcium Phosphorus Magnesium 12/10/24 12/10/24 05:58 06:05 WBC 8.1 RBC 4.23 Hgb 12.5 Hct 38.5 MCV 91.0 MCH 29.6 MCHC 32.5 RDW 13.5 Plt Count 319 MPV 10.6 H Immature Gran % (Auto) 0.5 Neut % (Auto) 69.1 Lymph % (Auto) 15.1 L [place] % (Auto) 11.5 H Eos % (Auto) 3.2 Baso % (Auto) 0.6 Lymph # (Auto) 1.22 [place] # (Auto) 0.9 H Eos # (Auto) 0.3 Baso # (Auto) 0.1 Abs Immat Gran (auto) 0.04 H Absolute Neuts (auto) 5.6 Absolute Nucleated RBC 0.000 Nucleated RBC % 0.0 % Immature Plt Fraction 1.8 Sodium 137 Potassium 3.4 Chloride 107 Carbon Dioxide 22 Anion Gap 8 BUN 14 Creatinine 0.63 L Estim Creat Clear Calc 50 Estimated GFR > 60 Glucose 121 H POC Capillary Glucose Calcium 8.5 Phosphorus 3.2 Magnesium 2.2
[2024-12-10] MEDS: IBUPROFEN IV 800 MG/200 ML 800 MG/200 ML BAG 400 MG IVPB ×2 (11:36→18:39)
[2024-12-10 11:40] LABS: Glucose Point of Care 137 mg/dl (65-105)
[2024-12-10 14:00] VITALS: BP 150/64; PULSE 78; RESP 18; TEMP 36.8; O2SAT 98
[2024-12-10 15:33] LABS: Triglycerides 112 mg/dL (<150)
[2024-12-10] MEDS: FAT EMULSIONS IV 20% 250 ML 20.8 ML IVPB (17:25)
[2024-12-10 18:17] LABS: Glucose Point of Care 129 mg/dl (65-105)
[2024-12-10 22:00] VITALS: BP 156/68; PULSE 74; RESP 18; TEMP 36.4; O2SAT 94
[2024-12-11] VITALS (13 sets, daily range): BP systolic 115–169; BP diastolic 53–80; PULSE 68–82; RESP 12–20; TEMP 35.6–37; O2SAT 95–100; BMI 26.5
--- NOTE | 2024-12-11 | ECHO_ITS ---
Patient Info Name: Princess Schulz Age: 84 years : 1940 Gender: Female Ht: 64 in Wt: 154 lbs BSA: 1.79 m2 HR: 74 bpm BP: 151 / 66 mmHg Heart Rhythm: Sinus Rhythm Technical Quality: Fair Exam Date: 12/11/2024 9:22 AM Exam Location: Echo Lab Patient Status: Inpatient Admit Date: 12/08/2024 Staff Ordering Physician: Temo Orr DO Insole Toe Snipping Machine Operator: Padmini Brewer RDCS Attending Provider: Gautam Shah MD Referring Physician: Dominga COX; Exam Type: CA echo doppler color flow Study Info Indications - CHF Complete two-dimensional, color flow and Doppler transthoracic echocardiogram is performed. Summary 1. Complete two-dimensional, color flow and Doppler transthoracic echocardiogram is performed. 2. Left ventricular chamber dimension is normal. 3. Left ventricular systolic function is normal, estimated at 55-60%. 4. Left ventricular septal wall motion is abnormal with septal motion related to bundle branch block. 5. The left ventricular diastolic function is grade I diastolic dysfunction. 6. E/e' 9 is minimally elevated. 7. Left atrial chamber dimension is mildly enlarged. 8. There is mild aortic valve sclerosis. 9. There is trace aortic valve regurgitation. 10. No pulmonary hypertension, estimated pulmonary arterial systolic pressure is 27 mmHg. Left Ventricle E/e' 9 is minimally elevated. Left ventricular chamber dimension is normal. Left ventricular systolic function is normal, estimated at 55-60%. Left ventricular septal wall motion is abnormal with septal motion related to bundle branch block. The left ventricular diastolic function is grade I diastolic dysfunction. Right Ventricle Right ventricular systolic function is normal and with normal TAPSE 2.3 cm. Right ventricular chamber dimension is normal. Left Atria Left atrial chamber dimension is mildly enlarged. Right Atria Right atrial chamber dimension is normal. Aortic Valve The aortic valve is trileaflet. There is mild aortic valve sclerosis. There is no aortic valve stenosis. There is trace aortic valve regurgitation. Pulmonic Valve There is no pulmonic regurgitation. Mitral Valve There is no mitral valve stenosis. There is no mitral valve regurgitation. Tricuspid Valve There is no tricuspid valve regurgitation. No pulmonary hypertension, estimated pulmonary arterial systolic pressure is 27 mmHg. Pericardium/Pleural There is no pericardial effusion. Inferior Vena Cava Normal inferior vena cava with >50% collapse upon inspiration consistent with normal right atrial pressure, 5 mmHg. Aorta The aortic root size at the sinus of Valsalva is normal. Left Ventricular Outflow Tract Name Value Normal LVOT 2D LVOT Diameter 2.0 cm LVOT Doppler LVOT Peak Gradient 3 mmHg LVOT Mean Gradient 1 mmHg LVOT VTI 18 cm LVOT VTI/AV VTI Ratio 0.6 LVOT Stroke Volume 55 ml LVOT CO 4.0 l/min LVOT CI 2.2 l/min/m2 Pulmonic Valve Name Value Normal RVOT Doppler RVOT Peak Gradient 4 mmHg PV Doppler PV Peak Gradient 5 mmHg Mitral Valve Name Value Normal MV Doppler MV Decel [place] 299 cm/s2 MV PHT 51 ms MV Area (PHT) 4.4 cm2 4.0-5.0 MV Diastolic Function MV E Peak Velocity 52 cm/s MV A Peak Velocity 100 cm/s MV E/A 0.5 MV Decel Time 174 ms MV Annular TDI MV E/e' (Septal) 8.4 <=8.0 MV E/e' (Lateral) 11.1 <=8.0 MV E/e' (Average) 9.8 Tricuspid Valve Name Value Normal TV Regurgitation Doppler TR Peak Velocity 235 cm/s TR Peak Gradient 22 mmHg Estimated PAP/RSVP RA Pressure 5 mmHg <=5 PA Systolic Pressure 27 mmHg <36 RV Systolic Pressure 27 mmHg <36 Aorta Name Value Normal Ascending Aorta Ao Root Diameter (MM) 2.8 cm Ao Root Diam Index (MM) 1.6 cm/m2 Aortic Valve Name Value Normal AV Doppler AV Peak Velocity 153 cm/s AV Peak Gradient 9 mmHg AV Mean Gradient 4 mmHg AV VTI 28 cm AV Area (Cont Eq VTI) 1.9 cm2 >=3.0 AV Area (Cont Eq Capo) 1.8 cm2 AV Regurgitation 2D LVOT Area 3.1 cm2 Ventricles Name Value Normal LV Dimensions 2D/MM IVS Diastolic Thickness (2D) 1.0 cm 0.6-1.0 LVID Diastole (2D) 4.6 cm 3.8-5.2 LVIW Diastolic Thickness (2D) 0.9 cm 0.6-0.9 LVID Systole (2D) 3.1 cm 2.2-3.5 LVOT Diameter 2.0 cm LV Mass (2D Cubed) 148.66 g 67.00-162.00 LV Mass Index (2D Cubed) 83 g/m2 43-95 Relative Wall Thickness (2D) 0.37 LV Fractional Shortening/Ejection Fraction 2D/MM LV Fractional Shortening (2D) 32 % 27-45 LV EF (2D Teicholz) 60 % 54-74 LV Diastolic Volume (4C MOD) 78 ml LV EF (4C MOD) 59 % LV Diastolic Volume (2C MOD) 58 ml LV EF (2C MOD) 58 % LV Diastolic Volume (BP MOD) 72 ml 46-106 LV Diastolic Volume Index (BP MOD) 40 ml/m2 29-61 LV Systolic Volume (BP MOD) 30 ml 14-42 LV Systolic Volume Index (BP MOD) 17 ml/m2 8-24 LV EF (BP MOD) 58 % 54-74 LV Diastolic Length (4C) 8.3 cm LV Systolic Length (4C) 7.0 cm LV Stroke Volume (4C MOD) 46 ml Atria Name Value Normal LA Dimensions LA Dimension (MM) 4.6 cm 2.7-3.8 LA Volume (4C A-L) 51 ml LA Volume (BP A-L) 48 ml RA Dimensions RA Area (4C) 15.2 cm2 <=18.0 Report Signatures
[2024-12-11 00:46] LABS: Glucose Point of Care 129 mg/dl (65-105)
[2024-12-11 04:53] LABS: Glucose Point of Care 111 mg/dl (65-105)
[2024-12-11] MEDS: LEVOTHYROXINE SODIUM INJ 100 MCG/5 ML VIAL 40 MCG IV PUSH (05:50)
[2024-12-11] MEDS: PIPERACILLN/TAZ 3.375GM/NS50ML 3.375 GM/50 ML BAG IVPB ×3 (05:51→11:20)
[2024-12-11 06:32] LABS: Basophils Absolute Auto 0.1 K/mm3 (0.0-0.1); Basophils Percent Auto 0.6 % (0.2-1.2); Eosinophils Absolute Auto 0.3 K/mm3 (0-0.3); Eosinophils Percent Auto 3.3 % (0-4.4); Hematocrit 39.3 % (37.0-47.0); Hemoglobin 12.8 g/dL (12.0-15.0); Immature Granulocyte Absolute 0.03 K/mm3 (0.00-0.031); Immature Granulocyte Percent A 0.4 % (0-0.5); Lymphocytes Absolute Auto 1.15 K/mm3 (0.9-3.2); Lymphocytes Percent Auto 13.9 % (18.3-44.2); Mean Corpuscular HGB Conc 32.6 g/dl (32-36); Mean Corpuscular Hemoglobin 29.8 pg (26-34); Mean Corpuscular Volume 91.4 fl (80-100); Monocytes Absolute Auto 0.7 K/mm3 (0.1-0.6); Neutrophils Absolute Auto 6.1 K/mm3 (1.3-6.7); Neutrophils Percent Auto 73.8 % (45.5-73.1); Platelet Count Result 331 k/mm3 (150-375); Red Cell Distribution Width 13.9 % (11.5-14.5); White Blood Count 8.3 K/mm3 (4.5-10.0)
[2024-12-11 06:50] LABS: Alanine Aminotransferase 16 U/L (6-35); Albumin Level 3.4 g/dL (3.5-5.1); Alkaline Phosphatase 50 U/L (38-126); Anion Gap 9 mmol/L (4-12); Aspartate Amino Transferase 23 U/L (14-36); Bilirubin,Total 0.7 mg/dL (0.2-1.3); Blood Urea Nitrogen 16 mg/dL (7-17); Calcium 8.6 mg/dL (8.4-10.2); Carbon Dioxide 21 mmol/L (22-30); Chloride 109 mmol/L (98-107); Estimated CRCL calculation 41 ml/min; Estimated Glomerular Filt Rate > 60; Glucose 129 mg/dL (65-110); Magnesium 2.2 mg/dL (1.6-2.3); Phosphorus 3.9 mg/dL (2.5-4.5); Potassium 3.4 mmol/L (3.4-5.0); Sodium 139 mmol/L (137-145)
[2024-12-11 06:53] LABS: Prothrombin Time 13.5 Seconds (11.1-14.7)
[2024-12-11 06:54] LABS: Partial Thromboplastin Time 27.5 Seconds (22.3-36.8)
[2024-12-11 06:58] LABS: Transferrin 216 mg/dL (206-381)
[2024-12-11] MEDS: IBUPROFEN IV 800 MG/200 ML 800 MG/200 ML BAG 400 MG IVPB (08:39)
[2024-12-11 11:36] LABS: Glucose Point of Care 106 mg/dl (65-105)
--- NOTE | 2024-12-11 12:11 | PC.NURSE ---
To OR per [ ], IV [ ]. Report given to [AN ].
--- NOTE | 2024-12-11 12:28 | WPDHPUPDATE1 ---
History and Physical Update Update Date/Time: 12/11/24 12:28 History and Physical has been reviewed, including an updated exam of the patient. There are NO changes in the patient's condition. Risks, benefits, and alternatives have been discussed and questions answered. Patient agrees to proceed with procedure.
--- NOTE | 2024-12-11 12:34 | WPDANESEPPF ---
Anes - Initial Pre Proc Eval Procedure: Operation Date: 12/11/24 13:30 Proposed Procedures p Diagnostic Laparoscopy, Possible Open, Possible Bowel Resection - Temo Orr DO Date/Time: 12/11/24 12:34 Surgeon: Gautam Shah MD Pre Op Diagnosis: Small Bowel Obstruction/UTI Patient Data Age: 84 Gender: F Height: 1.63 m Weight: 70.2 kg Last Vital Signs Temp 36.3 C L 12/11/24 05:22 Pulse 74 12/11/24 05:22 Resp 18 12/11/24 05:22 BP 151/66 H 12/11/24 05:22 Pulse Ox 95 12/11/24 05:22 O2 Del Method Room Air 12/10/24 20:00 Allergies Allergy/AdvReac Type Severity Reaction Status Date / Time iodine Allergy Severe Swelling Verified 12/08/24 09:01 of Lip/Tongue/Throat Home Medications ?Medication ?Instructions ?Recorded ?Confirmed ?Type aspirin 325 mg tablet 325 mg PO PRN PRN Headache 12/26/19 12/08/24 History bumetanide 1 mg tablet 1 mg PO DAILY 12/26/19 12/08/24 History levothyroxine 50 mcg tablet 50 mcg PO DAILY 12/26/19 12/08/24 History (Synthroid) metoprolol succinate 50 mg capsule 50 mg PO DAILY 12/26/19 12/08/24 History sprinkle, ext. release 24 hr rosuvastatin 40 mg tablet (Crestor) 40 mg PO HS 12/26/19 12/08/24 History lisinopril 20 mg tablet 20 mg PO DAILY 07/15/23 12/08/24 History multivitamin with minerals-folic 1 tablet PO DAILY 07/15/23 12/08/24 History acid 0.4 mg tablet spironolactone 25 mg tablet 12.5 mg PO DAILY 07/15/23 12/08/24 History pantoprazole 40 mg tablet,delayed 40 mg PO QAM #30 tabs 12/03/24 12/08/24 Rx release Laboratory Tests 12/10/24 12/10/24 12/11/24 14:55 18:10 00:32 WBC RBC Hgb Hct MCV MCH MCHC RDW Plt Count MPV Immature Gran % (Auto) Neut % (Auto) Lymph % (Auto) Mcdonald % (Auto) Eos % (Auto) Baso % (Auto) Lymph # (Auto) Mcdonald # (Auto) Eos # (Auto) Baso # (Auto) Abs Immat Gran (auto) Absolute Neuts (auto) Absolute Nucleated RBC Nucleated RBC % PT INR APTT Sodium Potassium Chloride Carbon Dioxide Anion Gap BUN Creatinine Estim Creat Clear Calc Estimated GFR Glucose POC Capillary Glucose 129 H mg/dl 129 H mg/dl (65-105) (65-105) Calcium Phosphorus Magnesium Transferrin Total Bilirubin AST ALT Alkaline Phosphatase Total Protein Albumin Triglycerides 112 mg/dL (<150) 12/11/24 12/11/24 12/11/24 04:47 06:05 11:21 WBC 8.3 K/mm3 (4.5-10.0) RBC 4.30 M/mm3 (4.2-5.4) Hgb 12.8 g/dL (12.0-15.0) Hct 39.3 % (37.0-47.0) MCV 91.4 fl (80-100) MCH 29.8 pg (26-34) MCHC 32.6 g/dl (32-36) RDW 13.9 % (11.5-14.5) Plt Count 331 k/mm3 (150-375) MPV 10.0 fl (7.4-10.4) Immature Gran % (Auto) 0.4 % (0-0.5) Neut % (Auto) 73.8 H % (45.5-73.1) Lymph % (Auto) 13.9 L % (18.3-44.2) Mcdonald % (Auto) 8.0 % (2.6-8.5) Eos % (Auto) 3.3 % (0-4.4) Baso % (Auto) 0.6 % (0.2-1.2) Lymph # (Auto) 1.15 K/mm3 (0.9-3.2) Mcdonald # (Auto) 0.7 H K/mm3 (0.1-0.6) Eos # (Auto) 0.3 K/mm3 (0-0.3) Baso # (Auto) 0.1 K/mm3 (0.0-0.1) Abs Immat Gran (auto) 0.03 K/mm3 (0.00-0.031) Absolute Neuts (auto) 6.1 K/mm3 (1.3-6.7) Absolute Nucleated RBC 0.000 K/mm3 (0.0-0.012) Nucleated RBC % 0.0 % (0.0-0.2) PT 13.5 Seconds (11.1-14.7) INR 1.0 APTT 27.5 Seconds (22.3-36.8) Sodium 139 mmol/L (137-145) Potassium 3.4 mmol/L (3.4-5.0) Chloride 109 H mmol/L (98-107) Carbon Dioxide 21 L mmol/L (22-30) Anion Gap 9 mmol/L (4-12) BUN 16 mg/dL (7-17) Creatinine 0.77 mg/dL (0.7-1.0) Estim Creat Clear Calc 41 ml/min Estimated GFR > 60 (59 - ) Glucose 129 H mg/dL (65-110) POC Capillary Glucose 111 H mg/dl 106 H mg/dl (65-105) (65-105) Calcium 8.6 mg/dL (8.4-10.2) Phosphorus 3.9 mg/dL (2.5-4.5) Magnesium 2.2 mg/dL (1.6-2.3) Transferrin 216 mg/dL (206-381) Total Bilirubin 0.7 mg/dL (0.2-1.3) AST 23 U/L (14-36) ALT 16 U/L (6-35) Alkaline Phosphatase 50 U/L (38-126) Total Protein 6.0 L g/dL (6.3-8.2) Albumin 3.4 L g/dL (3.5-5.1) Triglycerides Patient hx anesthesia problems: none Family hx anesthesia problems: none Results Review: All pre-operative results and documents have been reviewed as part of the pre-operative evaluation. [facility] Past Medical History Medical History Small bowel obstruction Systolic congestive heart failure The patient reports that her ejection fraction had been as low as 30% in the past. Through cardiac rehab in medications her EF is up to 48% Breast cancer in situ History of radiation therapy Thirty treatments of localized radiation therapy to right breast Hypothyroid Arthritis Post-menopausal GERD (gastroesophageal reflux disease) Bronchitis HTN (hypertension) Hyperlipidemia Surgical History Surgical History History of bladder suspension procedure History of lumpectomy of right breast Due to breast cancer in-situ History of hysterectomy At 36 years of age History of appendectomy History of cardiac catheterization History of tonsillectomy Family History Family History Mother Colon cancer Social History Social History (Updated 12/11/24 @ 12:35 by Carlitos Woodson MD) Smoking packs per day: 1 Smoking cigarettes per day: 20.0 Years smoked: 20 Smoking pack-years: 20.00 Smoking status: Former smoker Tobacco type: cigarettes Second hand tobacco smoke exposure: Yes Smoking end date: 10/04/76 Alcohol intake: never Substance use: never Substance use type: does not use Do You Feel Safe in your Home?: Yes Lack of Transportation: No Lack of Food: Never True Current Housing: I Have Housing Concerned About Future Housing: No Difficulty Paying Gas/Electric Bills: No Difficulty Paying for Meds: No Currently Unemployed: No Education: High School Diploma/GED Difficulty w/ Childcare or Family Care: No Living arrangements: alone Additional living arrangements comments: She lives with her of 60 years in [place]. Occupation/Education: retired Gender identity (if verbalized by the patient): Female Spiritual care concerns: No Agree to blood products: Yes Anes - Eval Final PreProcedure Day of Procedure 12/11/24 12:34 Patient weight: overweight Heart: regular rate and rhythm Lungs: clear to auscultation Airway: Mallampati scale class II Neurological: alert and oriented Last oral intake: >/= 8 hours ASA classification: III Emergent: no Anesthetic plan: proceed Anesthesia type and monitoring: general ETT and standard monitoring Results Review: All pre-operative results and documents have been reviewed as part of the pre-operative evaluation. Informed Consent: The patient's anesthetic plan and its attendant risks and benefits were discussed with the patient/family/POA. Questions were solicited and answers provided to the satisfaction of the patient/family/POA.
[2024-12-11] MEDS: LACTATED RINGERS 1,000 ML 30 ML IV CONT (12:45)
[2024-12-11 12:53] LABS: Glucose Point of Care 105 mg/dl (65-105)
[2024-12-11] MEDS: BUPIVACAINE/EPINEPHRINE 0.5% 50 ML VIAL 30 ML INFILTRATE (13:18)
--- NOTE | 2024-12-11 13:55 | P.OP_ITS ---
Procedure Note - Detailed Date of Procedure 12/11/24 Pre-op Diagnosis Small Bowel Obstruction Post-op Diagnosis Same Procedure Performed Laparoscopic adhesiolysis, release of small-bowel obstruction Surgeon Temo Orr, DO Anesthesia General and Local (0.5% bupivacaine with epinephrine) Indications This is an 84-year-old woman who presented with a recurrent small-bowel obstruction. She had recently been hospitalized last week with a small-bowel obstruction that resolved with NG decompression. Small-bowel follow-through at that time showed no further evidence of bowel obstruction. She then was home for about 3 days before symptoms began to recur. She then was placed back in the hospital and NG tube was placed again. After decompression, discussions were made with the patient and family about continuing with nonoperative treatment versus proceeding with surgery. They were opting to proceed with surgery. I discussed proceeding with diagnostic laparoscopy with possible open and possible bowel resection. Findings Diagnostic laparoscopy was performed. There were adhesions in the right lower quadrant and pelvis. There were a couple loops of distal ileum about 20 cm proximal to the ileocecal valve where the obstruction was located. These adhesions were tethered to the right pelvic sidewall. The adhesions were carefully taken down and this freed up the obstruction. The small bowel was then able to be run from the ligament of Treitz all the way to the cecum with no other evidence of adhesions or obstruction. No specimens were obtained for pathology. Description of Procedure Procedure as well as risks, benefits, and alternatives were discussed with the patient. Written consent was obtained and placed in chart prior to procedure. Patient was brought back to surgical suite. She was placed supine on operating table. Time-out was done to confirm patient and procedure. She was then intubated by anesthesia department. Her abdomen was prepped and draped in sterile fashion using chlorhexidine prep. A 5 mm incision was made in the left upper quadrant a 5 mm Optiview trocar was advanced through the abdominal layers under direct visualization. Once inside the abdominal cavity, carbon dioxide insufflation was used to create a pneumoperitoneum. The camera was inserted in the abdomen was inspected. No immediate abnormalities were identified at the location of port placement or surrounding structures. I then placed another 5 mm incision in the left lower quadrant and a 5 mm incision in left lateral abdomen and 2 more 5 mm ports were placed under direct visualization. Carefully inspected the abdominal cavity. There were a few omental adhesions up to the right lower quadrant wall. These were carefully taken down using Metzenbaum scissors this allowed me to reflect the omentum out of the right lower quadrant pelvis. The patient was then placed in Trendelenburg position. The cecum was identified and there were some adhesions of the terminal ileum to the right lower quadrant abdominal wall. These were taken down using laparoscopic scissors. Then inspected further into the pelvis and identified a loop of ileum that had a adhesions to the right pelvic wall. These were taken down carefully using laparoscopic scissors in this freed up this loop of ileum. I then continued running the bowel proximally and found 1 more loop of ileum that was tethered to the right pelvic sidewall. These adhesions were also taken down using laparoscopic scissors. After taking these adhesions down there appear to any further adhesions to small pelvis. Was then able to run the small proximally all the way to the ligament of Treitz. No other signs of obstruction were identified. Carefully inspected all of the areas for a he has no lysis and there did not appear to be any signs of injury to the wall. Hemostasis appeared. There did not appear to be any sign of stricture other cause persistent obstruction the sigmoid colon appeared healthy and viable. The c ecum, ascending colon, and transverse colon all appeared viable as well. The patient was then flattened out in bed and 1 final inspection was made around the abdominal cavity. The omentum was then brought back down over the bowel. The ports were then removed under direct visualization, camera was removed, and the pneumoperitoneum was released. 0.5% bupivacaine with epinephrine was infiltrated locally at each of the incisions. The skin of the incisions was then approximated using 4-0 Monocryl subcuticular sutures. Exofin glue was applied. The patient was then awakened from anesthesia, extubated, transferred to recovery. Estimated Blood Loss 5 Complications No immediate complications Condition Stable Disposition Floor [facility] Billing Surgery - Charge Forward: Surgery Billing
[2024-12-11 14:17] LABS: Glucose Point of Care 137 mg/dl (65-105)
[2024-12-11] MEDS: fentaNYL CITRATE INJ (*CRX) 100 MCG/2 ML VIAL 25 MCG IV PUSH ×2 (14:25→14:37)
--- NOTE | 2024-12-11 14:49 | PC.NURSE ---
Returned from OR per [ ]. Report received from [Melisa ].
--- NOTE | 2024-12-11 15:15 | PM.IMPN ---
Progress Note: A&P Assessment and Plan (1) Systolic congestive heart failure: Code(s): I50.20 - Unspecified systolic (congestive) heart failure Status: Acute (2) Small bowel obstruction: Code(s): K56.609 - Unspecified intestinal obstruction, unspecified as to partial versus complete obstruction Status: Acute (3) Urinary tract infection: Code(s): N39.0 - Urinary tract infection, site not specified Status: Acute Plan Small bowel obstruction: Code(s): K56.609 - Unspecified intestinal obstruction, unspecified as to partial versus complete obstruction Status: Acute Assessment and Plan: -consult surgery, small-bowel obstruction with transition point in the inferior abdomen at the midline -continue NG tube to low intermittent suction -NPO -gentle IV fluids for hydration, continue monitor fluid overload -pain management p.r.n. S/P laparoscopic adhesiolysis, release of small-bowel obstruction without complications, NG tube was removed, hypoactive bowel sounds, has not passed gas yet D0 12/11 Further management per general surgeon Chronic systolic heart failure Per patient statement, recently EF about 49% Patient could run on a bicycle 30 minutes Lungs clear, no sign of fluid overload Lesion of liver: Code(s): K76.9 - Liver disease, unspecified Status: Acute Assessment and Plan: -liver mass, new from 06/02/2023, suspicious for metastatic disease, abdomen CT with contrast is recommended -patient has iodine allergy, spoke with general surgeon -MRCP: At least 3 liver lesions, as detailed above, largest measuring 2.2 cm. Findings are suspicious for metastatic disease. Consult heme oncologist for evaluation treatment HTN (hypertension): Code(s): I10 - Essential (primary) hypertension Status: Chronic Assessment and Plan: -hold home medication while in p.o. Hypothyroid: Code(s): E03.9 - Hypothyroidism, unspecified Status: Acute Assessment and Plan: Hold oral Synthroid 50 mcg daily po Start Synthroid 40 mcg IV daily UTI UA shows pyuria and microscopic hematuria No growth so far Bacteremia 1 of the 2 bottles grows Gram-positive cocci in cluster Repeat blood culture Patient is on Zosyn since 12/09 (5) GERD (gastroesophageal reflux disease): Code(s): K21.9 - Gastro-esophageal reflux disease without esophagitis Status: Acute Assessment and Plan: -chronic - GI following Plan Continue home medications: Hold home medication VTE Prophylaxis: Mechanical/pharmacologic DIET: NPO/ice chips Anticipated hospital stay: > 2 days Code Status: Full Subjective Date/time seen: 12/11/24 15:15 Interval history: S/P laparoscopic adhesiolysis, release of small-bowel obstruction D0 I saw examined patient in present patient's son. Patient feels comfortable, patient denies headache, vision change, focal weakness, chest pain, shortness of breath, abdomen pain is minimal, patient denies nausea vomiting. Patient has not passed gas yet. Exam Narrative: GENERAL: Pleasant, in no acute distress. Well-nourished. - EYES: EOMI. Anicteric. - HENT: Moist mucous membranes. NG tube was removed - LUNGS: Clear to auscultation bilaterally, no wheezing, rhonchi, or rales. - CARDIOVASCULAR: Regular rate and rhythm. No murmur. No JVD. - ABDOMEN: Soft, non-tender and non-distended. Hypoactive bowel sounds No palpable masses. - EXTREMITIES: No edema. Peripheral pulses 2+. Non-tender. - NEUROLOGIC: No focal neurological deficits. CN II-XII grossly intact. - PSYCHIATRIC: Awake, Alert and oriented x 3. Appropriate mood and affect. - SKIN: No rashes or lesions. Warm. - LYMPH: No cervical lymphadenopathy. Objective Data Vital Signs Vital Signs: Vital Signs - 24 hr 12/10/24 20:00 12/10/24 22:00 12/11/24 05:22 Temperature 97.6 F 97.4 F L Pulse Rate 74 74 Respiratory Rate 18 18 Blood Pressure 156/68 H 151/66 H Pulse Oximetry 94 95 Oxygen Delivery Room Air Oxygen Flow Rate 12/11/24 12:41 12/11/24 13:58 12/11/24 14:10 Temperature 98.6 F 98.0 F Pulse Rate 75 76 72 Respiratory Rate 18 16 12 Blood Pressure 153/53 H 149/56 H 152/55 H Pulse Oximetry 99 99 100 Oxygen Delivery Room Air Simple Face Mask Simple Face Mask Oxygen Flow Rate 8 8 12/11/24 14:25 12/11/24 14:40 12/11/24 14:55 Temperature Pulse Rate 73 71 71 Respiratory Rate 18 12 12 Blood Pressure 156/65 H 148/63 H 148/60 H Pulse Oximetry 97 95 97 Oxygen Delivery Room Air Room Air Room Air Oxygen Flow Rate Intake/Output Intake/Output: Intake & Output 12/08/24 12/09/24 12/11/24 12/11/24 23:59 23:59 00:59 23:59 Intake Total 300 2071.3 2633.3 350 Output Total 100 300 Balance 200 2071.3 2333.3 350 Meds/Results Medications: Active Medications Generic Name Dose Route Start Last Admin Trade Name Freq PRN Reason Stop Dose Admin Bumetanide 1 mg 12/12/24 09:00 Bumetanide 1 Mg Tablet PO DAILY [facility] Enoxaparin Sodium 40 mg 12/09/24 09:00 12/11/24 08:29 Enoxaparin 40 Mg/0.4 Ml Syringe SUB-Q Not Given DAILY [facility] Hydralazine HCl 10 mg 12/08/24 21:38 12/10/24 08:40 Hydralazine Hcl 20 Mg/Ml Vial IV PUSH 10 mg Q8H PRN Administration Blood Pressure - High Dextrose 1,000 mls @ 50 mls/hr 12/09/24 14:55 Dextrose 10% IV CONT .Q20H PRN if PN is interrupted Amino Acids/Electrolytes/Dextrose 1,000 mls @ 80 mls/hr 12/09/24 14:55 12/10/24 17:24 Clinimix E 4.25%/5% Solution IV CONT 80 mls/hr .[id number] BERNARD Administration Protocol Fat Emulsion Intravenous 250 mls @ 20.833 mls/hr 12/09/24 16:00 12/10/24 17:25 Lipids 20% IVPB 20.8 mls/hr Q24H BERNARD Administration Ibuprofen 800 mg in 200 mls @ 400 mls/hr 12/10/24 11:26 12/11/24 09:09 Caldolor 800 Mg/200 Ml IVPB Infused Q6H PRN Infusion Pain Rated 4-6 Levothyroxine Sodium 40 mcg 12/11/24 06:30 12/11/24 05:50 Levothyroxine Sodium Inj 100 Mcg/5 Ml Vial IV PUSH 40 mcg DAILY@0630 BERNARD Administration Metoprolol Succinate 50 mg 12/09/24 09:00 12/11/24 07:47 Metoprolol Succinate Ext Rel 50 Mg Tabcr PO Not Given DAILY [facility] Morphine Sulfate 2 mg 12/08/24 16:13 12/10/24 00:53 Morphine Sulfate (*Crx) 2 Mg/Ml Inj IV PUSH 2 mg Q4H PRN Administration Pain Rated 7-10 Ondansetron HCl 4 mg 12/11/24 14:59 Ondansetron Inj 4 Mg/2 Ml Vial IV PUSH Q4H PRN Nausea And Vomiting Pantoprazole Sodium 40 mg 12/12/24 09:00 Pantoprazole 40 Mg Tablet PO QAM [facility] Perflutren Lipid Microsphere 0 ml 12/09/24 14:54 Perflutren Lipid Microspheres 1.5 Ml Vial Diluted To 10 Ml Total Volume IV PUSH 12/12/24 14:55 ONCE PRN adequate visualization Protocol Phenol 1 spray 12/08/24 17:29 12/08/24 18:04 Phenol/Sod Pheno [place] (*Bkc) MUCOUS MEM 1 spray PRN PRN Administration Sore Throat Spironolactone 12.5 mg 12/12/24 09:00 Spironolactone 12.5 Mg Tablet PO DAILY [facility] Radiology Results: ITS Impressions Abdomen/Pelvis CT 12/08/24 11:09 IMPRESSION: 1. Small bowel obstruction with transition point in the inferior abdomen at the midline. 2. Liver masses, new from 06/02/2023, suspicious for metastatic disease. Abdomen CT with contrast is recommended. MRCP 12/10/24 06:39 Impression: At least 3 liver lesions, as detailed above, largest measuring 2.2 cm. Findings are suspicious for metastatic disease. Abdomen X-Ray 12/10/24 08:32 Impression: NG tube in place. Nonspecific bowel gas pattern. Labs Labs: Laboratory Results - last 24 hr 12/10/24 12/10/24 12/11/24 14:55 18:10 00:32 WBC RBC Hgb Hct MCV MCH MCHC RDW Plt Count MPV Immature Gran % (Auto) Neut % (Auto) Lymph % (Auto) [place] % (Auto) Eos % (Auto) Baso % (Auto) Lymph # (Auto) [place] # (Auto) Eos # (Auto) Baso # (Auto) Abs Immat Gran (auto) Absolute Neuts (auto) Absolute Nucleated RBC Nucleated RBC % PT INR APTT Sodium Potassium Chloride Carbon Dioxide Anion Gap BUN Creatinine Estim Creat Clear Calc Estimated GFR Glucose POC Capillary Glucose 129 H 129 H Calcium Phosphorus Magnesium Transferrin Total Bilirubin AST ALT Alkaline Phosphatase Total Protein Albumin Triglycerides 112 12/11/24 12/11/24 12/11/24 04:47 06:05 11:21 WBC 8.3 RBC 4.30 Hgb 12.8 Hct 39.3 MCV 91.4 MCH 29.8 MCHC 32.6 RDW 13.9 Plt Count 331 MPV 10.0 Immature Gran % (Auto) 0.4 Neut % (Auto) 73.8 H Lymph % (Auto) 13.9 L [place] % (Auto) 8.0 Eos % (Auto) 3.3 Baso % (Auto) 0.6 Lymph # (Auto) 1.15 [place] # (Auto) 0.7 H Eos # (Auto) 0.3 Baso # (Auto) 0.1 Abs Immat Gran (auto) 0.03 Absolute Neuts (auto) 6.1 Absolute Nucleated RBC 0.000 Nucleated RBC % 0.0 PT 13.5 INR 1.0 APTT 27.5 Sodium 139 Potassium 3.4 Chloride 109 H Carbon Dioxide 21 L Anion Gap 9 BUN 16 Creatinine 0.77 Estim Creat Clear Calc 41 Estimated GFR > 60 Glucose 129 H POC Capillary Glucose 111 H 106 H Calcium 8.6 Phosphorus 3.9 Magnesium 2.2 Transferrin 216 Total Bilirubin 0.7 AST 23 ALT 16 Alkaline Phosphatase 50 Total Protein 6.0 L Albumin 3.4 L Triglycerides 12/11/24 12/11/24 12:48 14:16 WBC RBC Hgb Hct MCV MCH MCHC RDW Plt Count MPV Immature Gran % (Auto) Neut % (Auto) Lymph % (Auto) [place] % (Auto) Eos % (Auto) Baso % (Auto) Lymph # (Auto) [place] # (Auto) Eos # (Auto) Baso # (Auto) Abs Immat Gran (auto) Absolute Neuts (auto) Absolute Nucleated RBC Nucleated RBC % PT INR APTT Sodium Potassium Chloride Carbon Dioxide Anion Gap BUN Creatinine Estim Creat Clear Calc Estimated GFR Glucose POC Capillary Glucose 105 137 H Calcium Phosphorus Magnesium Transferrin Total Bilirubin AST ALT Alkaline Phosphatase Total Protein Albumin Triglycerides
[2024-12-11] MEDS: FAT EMULSIONS IV 20% 250 ML 20.8 ML IVPB (15:38)
[2024-12-11] MEDS: AMINO ACIDS 4.25%/D5W/LYTES/CA 1,000 ML 80 ML IV CONT (15:38)
--- NOTE | 2024-12-11 17:17 | P.CONONC_ITS ---
Assessment and Plan Assessment and plan (1) Lesion of liver: Code(s): K76.9 - Liver disease, unspecified Status: Acute Assessment and Plan: Metastatic liver lesions. Patient is a pleasant 84-year-old female with history of breast cancer status post radiation therapy treatment current bowel obstruction came into the hospital with nausea vomiting and CT scan was performed that showed small-bowel obstruction with transition point and liver masses new from May 2023. She laparoscopy with resection of adhesion. MRCP was also performed that showed 2.2 cm liver mass along with 2 other liver lesions. These findings are concerning for metastatic cancer. I will order CA 15-3 and CEA. I will order liver biopsy. She will follow-up in the office. She was provided with my office information. I have answered all the questions to patient's satisfaction. HPI Data of Consult Date/Time: 12/11/24 17:17 Requesting Physician: Gautam Shah MD Primary Care Provider: Mariaelena Santos, PASSENGER SERVICE REPRESENTATIVE Consult Narrative Narrative: Princess Schulz is a 84 year old female with history of breast cancer status post radiation therapy along with hypertension, hyperlipidemia and hypothyroidism came into the hospital with nausea and vomiting. Obstructions. She has a history of hysterectomy 50 years ago as well as appendectomy in the past. CT scan shows bowel obstruction with liver masses suspicious for metastatic disease. She denies any weight loss. December 11 patient had laparoscopic adhesion lysis with the small-bowel obstruction done. Patient had MRCP done that showed 3 liver lesions cm suspicious for metastatic disease. She denies any other complaints. Review of Systems 2 Review of Systems: Review of systems PI otherwise negative [facility] Past Medical History Medical History Small bowel obstruction Systolic congestive heart failure The patient reports that her ejection fraction had been as low as 30% in the past. Through cardiac rehab in medications her EF is up to 48% Breast cancer in situ History of radiation therapy Thirty treatments of localized radiation therapy to right breast Hypothyroid Arthritis Post-menopausal GERD (gastroesophageal reflux disease) Bronchitis HTN (hypertension) Hyperlipidemia Surgical History Surgical History History of bladder suspension procedure History of lumpectomy of right breast Due to breast cancer in-situ History of hysterectomy At 36 years of age History of appendectomy History of cardiac catheterization History of tonsillectomy Family History Family History Mother Colon cancer Social History Social History (Updated 12/11/24 @ 12:35 by Carlitos Woodson MD) Smoking packs per day: 1 Smoking cigarettes per day: 20.0 Years smoked: 20 Smoking pack-years: 20.00 Smoking status: Former smoker Tobacco type: cigarettes Second hand tobacco smoke exposure: Yes Smoking end date: 10/04/76 Alcohol intake: never Substance use: never Substance use type: does not use Do You Feel Safe in your Home?: Yes Lack of Transportation: No Lack of Food: Never True Current Housing: I Have Housing Concerned About Future Housing: No Difficulty Paying Gas/Electric Bills: No Difficulty Paying for Meds: No Currently Unemployed: No Education: High School Diploma/GED Difficulty w/ Childcare or Family Care: No Living arrangements: alone Additional living arrangements comments: She lives with her of 60 years in [place]. Occupation/Education: retired Gender identity (if verbalized by the patient): Female Spiritual care concerns: No Agree to blood products: Yes Meds Home Medications and Allergies Home Medications ?Medication ?Instructions ?Recorded ?Confirmed ?Type aspirin 325 mg tablet 325 mg PO PRN PRN Headache 12/26/19 12/08/24 History bumetanide 1 mg tablet 1 mg PO DAILY 12/26/19 12/08/24 History levothyroxine 50 mcg tablet 50 mcg PO DAILY 12/26/19 12/08/24 History (Synthroid) metoprolol succinate 50 mg capsule 50 mg PO DAILY 12/26/19 12/08/24 History sprinkle, ext. release 24 hr rosuvastatin 40 mg tablet (Crestor) 40 mg PO HS 12/26/19 12/08/24 History lisinopril 20 mg tablet 20 mg PO DAILY 07/15/23 12/08/24 History multivitamin with minerals-folic 1 tablet PO DAILY 07/15/23 12/08/24 History acid 0.4 mg tablet spironolactone 25 mg tablet 12.5 mg PO DAILY 07/15/23 12/08/24 History pantoprazole 40 mg tablet,delayed 40 mg PO QAM #30 tabs 12/03/24 12/08/24 Rx release Allergies Allergy/AdvReac Type Severity Reaction Status Date / Time iodine Allergy Severe Swelling Verified 12/11/24 12:39 of Lip/Tongue/Throat Vital Signs Vital Signs - 24 hr 12/10/24 20:00 12/10/24 22:00 12/11/24 05:22 Temperature 36.4 C 36.3 C L Pulse Rate 74 74 Respiratory Rate 18 18 Blood Pressure 156/68 H 151/66 H Pulse Oximetry 94 95 Oxygen Delivery Room Air Oxygen Flow Rate 12/11/24 12:41 12/11/24 13:58 12/11/24 14:10 Temperature 37.0 C 36.7 C Pulse Rate 75 76 72 Respiratory Rate 18 16 12 Blood Pressure 153/53 H 149/56 H 152/55 H Pulse Oximetry 99 99 100 Oxygen Delivery Room Air Simple Face Mask Simple Face Mask Oxygen Flow Rate 8 8 12/11/24 14:25 12/11/24 14:40 12/11/24 14:55 Temperature Pulse Rate 73 71 71 Respiratory Rate 18 12 12 Blood Pressure 156/65 H 148/63 H 148/60 H Pulse Oximetry 97 95 97 Oxygen Delivery Room Air Room Air Room Air Oxygen Flow Rate 12/11/24 15:10 12/11/24 15:25 12/11/24 15:55 Temperature 35.7 C L 35.6 C L 35.7 C L Pulse Rate 82 73 68 Respiratory Rate 20 18 18 Blood Pressure 154/80 H 115/77 169/61 H Pulse Oximetry 100 99 97 Oxygen Delivery Oxygen Flow Rate 12/11/24 16:55 Temperature 35.8 C L Pulse Rate 78 Respiratory Rate 16 Blood Pressure 155/55 H Pulse Oximetry 100 Oxygen Delivery Oxygen Flow Rate Exam 2 Narrative: Lungs are clear to auscultation bilaterally Cardiovascular regular rate rhythm no murmurs Abdomen soft nontender nondistended bowel sounds are diminished Extremities no edema Results Labs 12/11/24 06:05 12/11/24 06:05 Labs: Short CBC 12/11/24 Range/Units 06:05 WBC 8.3 (4.5-10.0) K/mm3 Hgb 12.8 (12.0-15.0) g/dL Hct 39.3 (37.0-47.0) % Plt Count 331 (150-375) k/mm3 BMP 12/11/24 06:05 Sodium 139 Potassium 3.4 Chloride 109 H Carbon Dioxide 21 L BUN 16 Creatinine 0.77 Glucose 129 H Calcium 8.6 Liver Function 12/11/24 Range/Units 06:05 Total Bilirubin 0.7 (0.2-1.3) mg/dL AST 23 (14-36) U/L ALT 16 (6-35) U/L Alkaline Phosphatase 50 (38-126) U/L Albumin 3.4 L (3.5-5.1) g/dL
[2024-12-11 17:44] LABS: Glucose Point of Care 138 mg/dl (65-105)
[2024-12-11 18:27] LABS: Carcinoembryonic Antigen 0.6 ng/mL (0.0-3.0)
[2024-12-12 00:42] LABS: Glucose Point of Care 127 mg/dl (65-105)
[2024-12-12 00:44] VITALS: BP 146/56; PULSE 79; RESP 18; TEMP 36.6; O2SAT 99
[2024-12-12 04:44] VITALS: BP 151/52; PULSE 74; RESP 18; TEMP 36.4; O2SAT 97
[2024-12-12] MEDS: LEVOTHYROXINE SODIUM INJ 100 MCG/5 ML VIAL 40 MCG IV PUSH (05:37)
[2024-12-12 06:04] LABS: Glucose Point of Care 123 mg/dl (65-105)
[2024-12-12 06:34] LABS: Basophils Percent Auto 0.3 % (0.2-1.2); Eosinophils Absolute Auto 0.2 K/mm3 (0-0.3); Eosinophils Percent Auto 2.3 % (0-4.4); Hematocrit 34.8 % (37.0-47.0); Hemoglobin 11.4 g/dL (12.0-15.0); Immature Granulocyte Absolute 0.04 K/mm3 (0.00-0.031); Immature Granulocyte Percent A 0.4 % (0-0.5); Lymphocytes Percent Auto 13.2 % (18.3-44.2); Mean Corpuscular HGB Conc 32.8 g/dl (32-36); Mean Corpuscular Hemoglobin 29.8 pg (26-34); Mean Corpuscular Volume 91.1 fl (80-100); Mean Platelet Volume 10.2 fl (7.4-10.4); Monocytes Absolute Auto 0.5 K/mm3 (0.1-0.6); Monocytes Percent Auto 5.9 % (2.6-8.5); Neutrophils Absolute Auto 7.1 K/mm3 (1.3-6.7); Neutrophils Percent Auto 77.9 % (45.5-73.1); Platelet Count Result 314 k/mm3 (150-375); Red Blood Count 3.82 M/mm3 (4.2-5.4); Red Cell Distribution Width 14.1 % (11.5-14.5); White Blood Count 9.1 K/mm3 (4.5-10.0)
[2024-12-12 06:46] LABS: Anion Gap 9 mmol/L (4-12); Blood Urea Nitrogen 14 mg/dL (7-17); Calcium 8.2 mg/dL (8.4-10.2); Carbon Dioxide 20 mmol/L (22-30); Chloride 108 mmol/L (98-107); Estimated CRCL calculation 49 ml/min; Estimated Glomerular Filt Rate > 60; Glucose 122 mg/dL (65-110); Magnesium 2.1 mg/dL (1.6-2.3); Phosphorus 3.5 mg/dL (2.5-4.5); Potassium 3.5 mmol/L (3.4-5.0); Sodium 137 mmol/L (137-145)
[2024-12-12 08:00] VITALS: BP 153/63; PULSE 78; RESP 16; TEMP 35.6; O2SAT 98
[2024-12-12 08:43] LABS: Prothrombin Time 13.8 Seconds (11.1-14.7)
[2024-12-12 08:46] VITALS: PULSE 88
[2024-12-12 08:46] LABS: Partial Thromboplastin Time 27.6 Seconds (22.3-36.8)
[2024-12-12] MEDS: BUMETANIDE 1 MG TABLET PO (08:46)
[2024-12-12] MEDS: PANTOPRAZOLE 40 MG TABLET PO (08:46)
[2024-12-12] MEDS: SPIRONOLACTONE 12.5 MG TABLET PO (08:46)
[2024-12-12] MEDS: METOPROLOL SUCCINATE EXT REL 50 MG TABCR PO (08:46)
[2024-12-12 08:58] LABS: CA 15-3 12 U/mL (<32)
--- NOTE | 2024-12-12 09:22 | WPDANESPN ---
Anes - Prog Note Post-Op Date/Time: 12/12/24 09:22 Cardiovascular status: normal Respiratory status: normal Airway patency: baseline Mental status: baseline Post-Op hydration status: normal Vital Signs: Last Vital Signs Temp 35.6 C L 12/12/24 08:00 Pulse 88 12/12/24 08:46 Resp 16 12/12/24 08:00 BP 153/63 H 12/12/24 08:00 Pulse Ox 98 12/12/24 08:00 O2 Del Method Room Air 12/11/24 20:00 O2 Flow Rate 8 12/11/24 14:10 Pain Score (VAS): 4 Laboratory Tests 12/12/24 05:56 12/12/24 05:56 12/11/24 12/11/24 12/11/24 05:59 11:21 12:48 WBC RBC Hgb Hct MCV MCH MCHC RDW Plt Count MPV Immature Gran % (Auto) Neut % (Auto) Lymph % (Auto) [place] % (Auto) Eos % (Auto) Baso % (Auto) Lymph # (Auto) [place] # (Auto) Eos # (Auto) Baso # (Auto) Abs Immat Gran (auto) Absolute Neuts (auto) Absolute Nucleated RBC Nucleated RBC % PT INR APTT Sodium Potassium Chloride Carbon Dioxide Anion Gap BUN Creatinine Estim Creat Clear Calc Estimated GFR Glucose POC Capillary Glucose 106 H 105 Calcium Phosphorus Magnesium Carcinoembryonic Ag 0.6 CA 15-3 Antigen 12 12/11/24 12/11/24 12/12/24 14:16 17:41 00:38 WBC RBC Hgb Hct MCV MCH MCHC RDW Plt Count MPV Immature Gran % (Auto) Neut % (Auto) Lymph % (Auto) [place] % (Auto) Eos % (Auto) Baso % (Auto) Lymph # (Auto) [place] # (Auto) Eos # (Auto) Baso # (Auto) Abs Immat Gran (auto) Absolute Neuts (auto) Absolute Nucleated RBC Nucleated RBC % PT INR APTT Sodium Potassium Chloride Carbon Dioxide Anion Gap BUN Creatinine Estim Creat Clear Calc Estimated GFR Glucose POC Capillary Glucose 137 H 138 H 127 H Calcium Phosphorus Magnesium Carcinoembryonic Ag CA 15-3 Antigen 12/12/24 12/12/24 12/12/24 04:40 05:56 08:15 WBC 9.1 RBC 3.82 L Hgb 11.4 L Hct 34.8 L MCV 91.1 MCH 29.8 MCHC 32.8 RDW 14.1 Plt Count 314 MPV 10.2 Immature Gran % (Auto) 0.4 Neut % (Auto) 77.9 H Lymph % (Auto) 13.2 L [place] % (Auto) 5.9 Eos % (Auto) 2.3 Baso % (Auto) 0.3 Lymph # (Auto) 1.20 [place] # (Auto) 0.5 Eos # (Auto) 0.2 Baso # (Auto) 0.0 Abs Immat Gran (auto) 0.04 H Absolute Neuts (auto) 7.1 H Absolute Nucleated RBC 0.000 Nucleated RBC % 0.0 PT 13.8 INR 1.0 APTT 27.6 Sodium 137 Potassium 3.5 Chloride 108 H Carbon Dioxide 20 L Anion Gap 9 BUN 14 Creatinine 0.64 L Estim Creat Clear Calc 49 Estimated GFR > 60 Glucose 122 H POC Capillary Glucose 123 H Calcium 8.2 L Phosphorus 3.5 Magnesium 2.1 Carcinoembryonic Ag CA 15-3 Antigen Microbiology 12/10/24 14:55 Blood Blood Culture - Preliminary 12/10/24 14:55 Blood Blood Culture - Preliminary 12/08/24 11:26 Blood Blood Culture - Preliminary Staphylococcus epidermidis Patient Feedback: Patient satisfied with anesthetic care.
--- NOTE | 2024-12-12 10:40 | P.PNIM_ITS ---
Progress Note: A&P Assessment and Plan (1) Systolic congestive heart failure: Code(s): I50.20 - Unspecified systolic (congestive) heart failure Status: Acute (2) Small bowel obstruction: Code(s): K56.609 - Unspecified intestinal obstruction, unspecified as to partial versus complete obstruction Status: Acute (3) Urinary tract infection: Code(s): N39.0 - Urinary tract infection, site not specified Status: Acute Plan Small bowel obstruction: Code(s): K56.609 - Unspecified intestinal obstruction, unspecified as to partial versus complete obstruction Status: Acute Assessment and Plan: -consult surgery, small-bowel obstruction with transition point in the inferior abdomen at the midline -continue NG tube to low intermittent suction -NPO intially -received gentle IV fluids for hydration, continue monitor fluid overload -pain management p.r.n. S/P laparoscopic adhesiolysis, release of small-bowel obstruction without complications, NG tube was removed, hypoactive bowel sounds, has not passed gas yet D0 on 12/11 Further management per general surgeon Chronic systolic heart failure Per patient statement, recently EF about 49% Patient could run on a bicycle 30 minutes Lungs clear, no sign of fluid overload Lesion of liver: Code(s): K76.9 - Liver disease, unspecified Status: Acute Assessment and Plan: -liver mass, new from 06/02/2023, suspicious for metastatic disease, abdomen CT with contrast is recommended -patient has iodine allergy, spoke with general surgeon -MRCP: At least 3 liver lesions, as detailed above, largest measuring 2.2 cm. Findings are suspicious for metastatic disease. Consult heme oncologist for evaluation treatment Appreciate heme oncologist consultation, biopsy done, pending report HTN (hypertension): Code(s): I10 - Essential (primary) hypertension Status: Chronic Assessment and Plan: -hold home medication while in p.o. Hypothyroid: Code(s): E03.9 - Hypothyroidism, unspecified Status: Acute Assessment and Plan: Hold oral Synthroid 50 mcg daily po Start Synthroid 40 mcg IV daily UTI UA shows pyuria and microscopic hematuria No growth so far Bacteremia 1 of the 2 bottles grows Gram-positive cocci in cluster Repeat blood culture on 12/10, no growth so far received Zosyn possible contamination (5) GERD (gastroesophageal reflux disease): Code(s): K21.9 - Gastro-esophageal reflux disease without esophagitis Status: Acute Assessment and Plan: -chronic - GI following Plan Continue home medications: Hold home medication VTE Prophylaxis: Mechanical/pharmacologic DIET: NPO/ice chips Anticipated hospital stay: > 2 days Code Status: Full Subjective Date/time seen: 12/12/24 10:40 Interval history: Patient underwent liver biopsy, patient feels comfortable, denies abdomen pain but has some soreness feeling. Patient also denies nausea vomiting.. Patient afebrile blood pressure stable Exam Narrative: GENERAL: Pleasant, in no acute distress. Well-nourished. - EYES: EOMI. Anicteric. - HENT: Moist mucous membranes. NG tube was removed - LUNGS: Clear to auscultation bilateral ly, no wheezing, rhonchi, or rales. - CARDIOVASCULAR: Regular rate and rhyth m. No murmur. No JVD. - ABDOMEN: Soft, non-tender and non-dist ended. Hypoactive bowel sounds No palpable masses. - EXTREMITIES: No edema. Peripheral puls es 2+. Non-tender. - NEUROLOGIC: No focal neurological defi cits. CN II-XII grossly intact. - PSYCHIATRIC: Awake, Alert and oriented x 3. Appropriate mood and affect. - SKIN: No rashes or lesions. Warm. - LYMPH: No cervical lymphadenopathy. Objective Data Vital Signs Vital Signs: Vital Signs - 24 hr 12/11/24 12:41 12/11/24 13:58 12/11/24 14:10 Temperature 98.6 F 98.0 F Pulse Rate 75 76 72 Respiratory Rate 18 16 12 Blood Pressure 153/53 H 149/56 H 152/55 H Pulse Oximetry 99 99 100 Oxygen Delivery Room Air Simple Face Mask Simple Face Mask Oxygen Flow Rate 8 8 12/11/24 14:25 12/11/24 14:40 12/11/24 14:55 Temperature Pulse Rate 73 71 71 Respiratory Rate 18 12 12 Blood Pressure 156/65 H 148/63 H 148/60 H Pulse Oximetry 97 95 97 Oxygen Delivery Room Air Room Air Room Air Oxygen Flow Rate 12/11/24 15:10 12/11/24 15:25 12/11/24 15:55 Temperature 96.2 F L 96.1 F L 96.3 F L Pulse Rate 82 73 68 Respiratory Rate 20 18 18 Blood Pressure 154/80 H 115/77 169/61 H Pulse Oximetry 100 99 97 Oxygen Delivery Oxygen Flow Rate 12/11/24 16:55 12/11/24 20:00 12/11/24 20:44 Temperature 96.4 F L 97.3 F L Pulse Rate 78 82 82 Respiratory Rate 16 18 18 Blood Pressure 155/55 H 158/68 H Pulse Oximetry 100 99 99 Oxygen Delivery Room Air Oxygen Flow Rate 12/12/24 00:44 12/12/24 04:44 12/12/24 08:00 Temperature 97.8 F 97.6 F 96.1 F L Pulse Rate 79 74 78 Respiratory Rate 18 18 16 Blood Pressure 146/56 H 151/52 H 153/63 H Pulse Oximetry 99 97 98 Oxygen Delivery Oxygen Flow Rate 12/12/24 08:46 Temperature Pulse Rate 88 Respiratory Rate Blood Pressure Pulse Oximetry Oxygen Delivery Oxygen Flow Rate Intake/Output Intake/Output: Intake & Output 12/09/24 12/11/24 12/11/24 12/12/24 23:59 00:59 23:59 23:59 Intake Total 2071.3 2633.3 1600 Output Total 300 Balance 2071.3 2333.3 1600 Meds/Results Medications: Active Medications Generic Name Dose Route Start Last Admin Trade Name Freq PRN Reason Stop Dose Admin Bumetanide 1 mg 12/12/24 09:00 12/12/24 08:46 Bumetanide 1 Mg Tablet PO 1 mg DAILY [facility] Administration Enoxaparin Sodium 40 mg 12/09/24 09:00 12/12/24 07:57 Enoxaparin 40 Mg/0.4 Ml Syringe SUB-Q Not Given DAILY [facility] Hydralazine HCl 10 mg 12/08/24 21:38 12/10/24 08:40 Hydralazine Hcl 20 Mg/Ml Vial IV PUSH 10 mg Q8H PRN Administration Blood Pressure - High Dextrose 1,000 mls @ 50 mls/hr 12/09/24 14:55 Dextrose 10% IV CONT .Q20H PRN if PN is interrupted Amino Acids/Electrolytes/Dextrose 1,000 mls @ 80 mls/hr 12/09/24 14:55 12/11/24 15:38 Clinimix E 4.25%/5% Solution IV CONT 80 mls/hr .[id number] [facility] Administration Protocol Fat Emulsion Intravenous 250 mls @ 20.833 mls/hr 12/09/24 16:00 12/11/24 15:38 Lipids 20% IVPB 20.8 mls/hr Q24H [facility] Administration Ibuprofen 800 mg in 200 mls @ 400 mls/hr 12/10/24 11:26 12/11/24 09:09 Caldolor 800 Mg/200 Ml IVPB Infused Q6H PRN Infusion Pain Rated 4-6 Levothyroxine Sodium 40 mcg 12/11/24 06:30 12/12/24 05:37 Levothyroxine Sodium Inj 100 Mcg/5 Ml Vial IV PUSH 40 mcg DAILY@0630 [facility] Administration Metoprolol Succinate 50 mg 12/09/24 09:00 12/12/24 08:46 Metoprolol Succinate Ext Rel 50 Mg Tabcr PO 50 mg DAILY [facility] Administration Morphine Sulfate 2 mg 12/08/24 16:13 12/10/24 00:53 Morphine Sulfate (*Crx) 2 Mg/Ml Inj IV PUSH 2 mg Q4H PRN Administration Pain Rated 7-10 Ondansetron HCl 4 mg 12/11/24 14:59 Ondansetron Inj 4 Mg/2 Ml Vial IV PUSH Q4H PRN Nausea And Vomiting Pantoprazole Sodium 40 mg 12/12/24 09:00 12/12/24 08:46 Pantoprazole 40 Mg Tablet PO 40 mg QAM [facility] Administration Perflutren Lipid Microsphere 0 ml 12/09/24 14:54 Perflutren Lipid Microspheres 1.5 Ml Vial Diluted To 10 Ml Total Volume IV PUSH 12/12/24 14:55 ONCE PRN adequate visualization Protocol Phenol 1 spray 12/08/24 17:29 12/08/24 18:04 Phenol/Sod Pheno [place] Mock (*Bkc) MUCOUS MEM 1 spray PRN PRN Administration Sore Throat Spironolactone 12.5 mg 12/12/24 09:00 12/12/24 08:46 Spironolactone 12.5 Mg Tablet PO 12.5 mg DAILY [facility] Administration Radiology Results: ITS Impressions Abdomen/Pelvis CT 12/08/24 11:09 IMPRESSION: 1. Small bowel obstruction with transition point in the inferior abdomen at the midline. 2. Liver masses, new from 06/02/2023, suspicious for metastatic disease. Abdomen CT with contrast is recommended. MRCP 12/10/24 06:39 Impression: At least 3 liver lesions, as detailed above, largest measuring 2.2 cm. Findings are suspicious for metastatic disease. Abdomen X-Ray 12/10/24 08:32 Impression: NG tube in place. Nonspecific bowel gas pattern. Abdomen Ultrasound 12/12/24 06:26 Impression: 1.9 cm hyperechoic mass in the liver, as above. This may correlate with the largest presumed metastatic lesion seen on recent MR. Smaller lesions in the liver seen on prior MRI are not appreciated sonographically. Labs Labs: Laboratory Results - last 24 hr 12/11/24 12/11/24 12/11/24 05:59 11:21 12:48 WBC RBC Hgb Hct MCV MCH MCHC RDW Plt Count MPV Immature Gran % (Auto) Neut % (Auto) Lymph % (Auto) [place] % (Auto) Eos % (Auto) Baso % (Auto) Lymph # (Auto) [place] # (Auto) Eos # (Auto) Baso # (Auto) Abs Immat Gran (auto) Absolute Neuts (auto) Absolute Nucleated RBC Nucleated RBC % PT INR APTT Sodium Potassium Chloride Carbon Dioxide Anion Gap BUN Creatinine Estim Creat Clear Calc Estimated GFR Glucose POC Capillary Glucose 106 H 105 Calcium Phosphorus Magnesium Carcinoembryonic Ag 0.6 CA 15-3 Antigen 12 12/11/24 12/11/24 12/12/24 14:16 17:41 00:38 WBC RBC Hgb Hct MCV MCH MCHC RDW Plt Count MPV Immature Gran % (Auto) Neut % (Auto) Lymph % (Auto) [place] % (Auto) Eos % (Auto) Baso % (Auto) Lymph # (Auto) [place] # (Auto) Eos # (Auto) Baso # (Auto) Abs Immat Gran (auto) Absolute Neuts (auto) Absolute Nucleated RBC Nucleated RBC % PT INR APTT Sodium Potassium Chloride Carbon Dioxide Anion Gap BUN Creatinine Estim Creat Clear Calc Estimated GFR Glucose POC Capillary Glucose 137 H 138 H 127 H Calcium Phosphorus Magnesium Carcinoembryonic Ag CA 15-3 Antigen 12/12/24 12/12/24 12/12/24 04:40 05:56 08:15 WBC 9.1 RBC 3.82 L Hgb 11.4 L Hct 34.8 L MCV 91.1 MCH 29.8 MCHC 32.8 RDW 14.1 Plt Count 314 MPV 10.2 Immature Gran % (Auto) 0.4 Neut % (Auto) 77.9 H Lymph % (Auto) 13.2 L [place] % (Auto) 5.9 Eos % (Auto) 2.3 Baso % (Auto) 0.3 Lymph # (Auto) 1.20 [place] # (Auto) 0.5 Eos # (Auto) 0.2 Baso # (Auto) 0.0 Abs Immat Gran (auto) 0.04 H Absolute Neuts (auto) 7.1 H Absolute Nucleated RBC 0.000 Nucleated RBC % 0.0 PT 13.8 INR 1.0 APTT 27.6 Sodium 137 Potassium 3.5 Chloride 108 H Carbon Dioxide 20 L Anion Gap 9 BUN 14 Creatinine 0.64 L Estim Creat Clear Calc 49 Estimated GFR > 60 Glucose 122 H POC Capillary Glucose 123 H Calcium 8.2 L Phosphorus 3.5 Magnesium 2.1 Carcinoembryonic Ag CA 15-3 Antigen
[2024-12-12 11:09] LABS: Triglycerides 197 mg/dL (<150)
[2024-12-12 12:00] VITALS: BP 162/90; PULSE 78; RESP 18; TEMP 37.3; O2SAT 97
--- NOTE | 2024-12-12 12:25 | PCNFU ---
Nutrition Follow-Up Complete: Inadequate po energy intake related to altered GI function as evidenced by need for alternative nutrition support via PPN with NPO status Goal:Meet estimated needs Slowly progress to PO diet Pt current nutrition is NPO, to possibly advance to clear liquids today. Nutrition recommendation: Advance diet as tolerated Last recorded weight is 70.2 kg. Bowel Motility: No BM at this time, no gas Labs Reviewed: Hgb:11.4, HCt:34.8, Cr:0.64, Glu:122 Meds Noted: Bumex Skin: WNL Additional Notes: Pt on PPN running at 80ml/hr and providing 1183kcals, 82g protein per 24hrs with lipids. On hold at this time for a procedure. Diet to possible start with clear liquids post procedure. Agree with orders. Monitor diet orders, plan of care, wt, labs. Follow up Tuesdays and Fridays per protocol
--- NOTE | 2024-12-12 16:07 | P.PNGS_ITS ---
Progress Note: A&P Assessment and Plan (1) Small bowel obstruction: Code(s): K56.609 - Unspecified intestinal obstruction, unspecified as to partial versus complete obstruction Status: Acute Assessment and Plan: * Resolved following laparoscopic adhesiolysis. Bowel function has returned. * Will advance to full liquids and advance as tolerated. Stop PPN (2) Lesion of liver: Code(s): K76.9 - Liver disease, unspecified Status: Acute Assessment and Plan: * Multiple lesions concerning for metastases. Oncology consulted and ordered US-guided liver biopsy which was done today. (3) Urinary tract infection: Code(s): N39.0 - Urinary tract infection, site not specified Status: Acute (4) Systolic congestive heart failure: Code(s): I50.20 - Unspecified systolic (congestive) heart failure Status: Acute Plan I have discussed the patient's case and plan of care with Dr. Orr. Subjective Subjective Date/Time Seen: 12/12/24 16:07 Exam GI: Inspection: non-distended Auscultation: normal bowel sounds Objective Data Vital Signs Vital Signs: Vital Signs - 24 hr 12/11/24 16:55 12/11/24 20:00 12/11/24 20:44 Temperature 96.4 F L 97.3 F L Pulse Rate 78 82 82 Respiratory Rate 16 18 18 Blood Pressure 155/55 H 158/68 H Pulse Oximetry 100 99 99 Oxygen Delivery Room Air 12/12/24 00:44 12/12/24 04:44 12/12/24 08:00 Temperature 97.8 F 97.6 F 96.1 F L Pulse Rate 79 74 78 Respiratory Rate 18 18 16 Blood Pressure 146/56 H 151/52 H 153/63 H Pulse Oximetry 99 97 98 Oxygen Delivery 12/12/24 08:46 12/12/24 12:00 Temperature 99.1 F Pulse Rate 88 78 Respiratory Rate 18 Blood Pressure 162/90 H Pulse Oximetry 97 Oxygen Delivery Intake/Output Intake/Output: Intake & Output 12/09/24 12/11/24 12/11/24 12/12/24 23:59 00:59 23:59 23:59 Intake Total 2071.3 2633.3 1600 Output Total 300 Balance 2071.3 2333.3 1600 Meds/Results Medications: Active Medications Generic Name Dose Route Start Last Admin Trade Name Freq PRN Reason Stop Dose Admin Bumetanide 1 mg 12/12/24 09:00 12/12/24 08:46 Bumetanide 1 Mg Tablet PO 1 mg DAILY [facility] Administration Enoxaparin Sodium 40 mg 12/09/24 09:00 12/12/24 07:57 Enoxaparin 40 Mg/0.4 Ml Syringe SUB-Q Not Given DAILY [facility] Hydralazine HCl 10 mg 12/08/24 21:38 12/10/24 08:40 Hydralazine Hcl 20 Mg/Ml Vial IV PUSH 10 mg Q8H PRN Administration Blood Pressure - High Dextrose 1,000 mls @ 50 mls/hr 12/09/24 14:55 Dextrose 10% IV CONT .Q20H PRN if PN is interrupted Amino Acids/Electrolytes/Dextrose 1,000 mls @ 80 mls/hr 12/09/24 14:55 12/11/24 15:38 Clinimix E 4.25%/5% Solution IV CONT 80 mls/hr .[id number] [facility] Administration Protocol Fat Emulsion Intravenous 250 mls @ 20.833 mls/hr 12/09/24 16:00 12/11/24 15:38 Lipids 20% IVPB 20.8 mls/hr Q24H [facility] Administration Ibuprofen 800 mg in 200 mls @ 400 mls/hr 12/10/24 11:26 12/11/24 09:09 Caldolor 800 Mg/200 Ml IVPB Infused Q6H PRN Infusion Pain Rated 4-6 Levothyroxine Sodium 40 mcg 12/11/24 06:30 12/12/24 05:37 Levothyroxine Sodium Inj 100 Mcg/5 Ml Vial IV PUSH 40 mcg DAILY@0630 [facility] Administration Metoprolol Succinate 50 mg 12/09/24 09:00 12/12/24 08:46 Metoprolol Succinate Ext Rel 50 Mg Tabcr PO 50 mg DAILY [facility] Administration Morphine Sulfate 2 mg 12/08/24 16:13 12/10/24 00:53 Morphine Sulfate (*Crx) 2 Mg/Ml Inj IV PUSH 2 mg Q4H PRN Administration Pain Rated 7-10 Ondansetron HCl 4 mg 12/11/24 14:59 Ondansetron Inj 4 Mg/2 Ml Vial IV PUSH Q4H PRN Nausea And Vomiting Pantoprazole Sodium 40 mg 12/12/24 09:00 12/12/24 08:46 Pantoprazole 40 Mg Tablet PO 40 mg QAM [facility] Administration Phenol 1 spray 12/08/24 17:29 12/08/24 18:04 Phenol/Sod Pheno [place] Mock (*Bkc) MUCOUS MEM 1 spray PRN PRN Administration Sore Throat Spironolactone 12.5 mg 12/12/24 09:00 12/12/24 08:46 Spironolactone 12.5 Mg Tablet PO 12.5 mg DAILY [facility] Administration Radiology Results: ITS Impressions Abdomen/Pelvis CT 12/08/24 11:09 IMPRESSION: 1. Small bowel obstruction with transition point in the inferior abdomen at the midline. 2. Liver masses, new from 06/02/2023, suspicious for metastatic disease. Abdomen CT with contrast is recommended. MRCP 12/10/24 06:39 Impression: At least 3 liver lesions, as detailed above, largest measuring 2.2 cm. Findings are suspicious for metastatic disease. Abdomen X-Ray 12/10/24 08:32 Impression: NG tube in place. Nonspecific bowel gas pattern. Abdomen Ultrasound 12/12/24 06:26 Impression: 1.9 cm hyperechoic mass in the liver, as above. This may correlate with the largest presumed metastatic lesion seen on recent MR. Smaller lesions in the liver seen on prior MRI are not appreciated sonographically. Liver Biopsy Ultrasound 12/12/24 13:19 IMPRESSION: 1. Technically successful ultrasound-guided core biopsy of a 9 mm hyperechoic lesion within the right lobe of the liver, likely representing metastatic disease. Typically, this appearance is often seen with metastatic breast, metastatic colon, or carcinoid. Labs Labs: Laboratory Results - last 24 hr 12/11/24 12/11/24 12/12/24 05:59 17:41 00:38 WBC RBC Hgb Hct MCV MCH MCHC RDW Plt Count MPV Immature Gran % (Auto) Neut % (Auto) Lymph % (Auto) [place] % (Auto) Eos % (Auto) Baso % (Auto) Lymph # (Auto) [place] # (Auto) Eos # (Auto) Baso # (Auto) Abs Immat Gran (auto) Absolute Neuts (auto) Absolute Nucleated RBC Nucleated RBC % PT INR APTT Sodium Potassium Chloride Carbon Dioxide Anion Gap BUN Creatinine Estim Creat Clear Calc Estimated GFR Glucose POC Capillary Glucose 138 H 127 H Calcium Phosphorus Magnesium Triglycerides Carcinoembryonic Ag 0.6 CA 15-3 Antigen 12 12/12/24 12/12/24 12/12/24 04:40 05:56 08:15 WBC 9.1 RBC 3.82 L Hgb 11.4 L Hct 34.8 L MCV 91.1 MCH 29.8 MCHC 32.8 RDW 14.1 Plt Count 314 MPV 10.2 Immature Gran % (Auto) 0.4 Neut % (Auto) 77.9 H Lymph % (Auto) 13.2 L [place] % (Auto) 5.9 Eos % (Auto) 2.3 Baso % (Auto) 0.3 Lymph # (Auto) 1.20 [place] # (Auto) 0.5 Eos # (Auto) 0.2 Baso # (Auto) 0.0 Abs Immat Gran (auto) 0.04 H Absolute Neuts (auto) 7.1 H Absolute Nucleated RBC 0.000 Nucleated RBC % 0.0 PT 13.8 INR 1.0 APTT 27.6 Sodium 137 Potassium 3.5 Chloride 108 H Carbon Dioxide 20 L Anion Gap 9 BUN 14 Creatinine 0.64 L Estim Creat Clear Calc 49 Estimated GFR > 60 Glucose 122 H POC Capillary Glucose 123 H Calcium 8.2 L Phosphorus 3.5 Magnesium 2.1 Triglycerides 197 H Carcinoembryonic Ag CA 15-3 Antigen
[2024-12-12 16:26] VITALS: BP 167/70; PULSE 80; RESP 18; TEMP 36.2; O2SAT 99
[2024-12-13 04:55] VITALS: BP 138/74; PULSE 68; RESP 16; TEMP 36.1; O2SAT 97
[2024-12-13] MEDS: LEVOTHYROXINE SODIUM INJ 100 MCG/5 ML VIAL 40 MCG IV PUSH (06:05)
[2024-12-13 06:58] LABS: Hematocrit 34.8 % (37.0-47.0); Mean Corpuscular HGB Conc 31.6 g/dl (32-36); Mean Corpuscular Hemoglobin 28.9 pg (26-34); Mean Corpuscular Volume 91.3 fl (80-100); Mean Platelet Volume 10.4 fl (7.4-10.4); Platelet Count Result 296 k/mm3 (150-375); Red Blood Count 3.81 M/mm3 (4.2-5.4); Red Cell Distribution Width 13.8 % (11.5-14.5); White Blood Count 7.5 K/mm3 (4.5-10.0)
[2024-12-13 07:09] LABS: Anion Gap 8 mmol/L (4-12); Blood Urea Nitrogen 10 mg/dL (7-17); Calcium 8.4 mg/dL (8.4-10.2); Carbon Dioxide 22 mmol/L (22-30); Chloride 107 mmol/L (98-107); Estimated CRCL calculation 44 ml/min; Estimated Glomerular Filt Rate > 60; Glucose 86 mg/dL (65-110); Potassium 3.5 mmol/L (3.4-5.0); Sodium 137 mmol/L (137-145)
[2024-12-13 08:09] VITALS: PULSE 78
[2024-12-13] MEDS: ENOXAPARIN 40 MG/0.4 ML SYRINGE SUB-Q (08:09)
[2024-12-13] MEDS: PANTOPRAZOLE 40 MG TABLET PO (08:09)
[2024-12-13] MEDS: SPIRONOLACTONE 12.5 MG TABLET PO (08:09)
[2024-12-13] MEDS: METOPROLOL SUCCINATE EXT REL 50 MG TABCR PO (08:09)
[2024-12-13] MEDS: BUMETANIDE 1 MG TABLET PO (08:09)
--- NOTE | 2024-12-13 08:24 | P.PNIM_ITS ---
Progress Note: A&P Assessment and Plan (1) Systolic congestive heart failure: Code(s): I50.20 - Unspecified systolic (congestive) heart failure Status: Acute (2) Small bowel obstruction: Code(s): K56.609 - Unspecified intestinal obstruction, unspecified as to partial versus complete obstruction Status: Acute (3) Urinary tract infection: Code(s): N39.0 - Urinary tract infection, site not specified Status: Acute Plan Small bowel obstruction: Code(s): K56.609 - Unspecified intestinal obstruction, unspecified as to partial versus complete obstruction Status: Acute Assessment and Plan: -consult surgery, small-bowel obstruction with transition point in the inferior abdomen at the midline -continue NG tube to low intermittent suction -NPO intially -received gentle IV fluids for hydration, continue monitor fluid overload -pain management p.r.n. S/P laparoscopic adhesiolysis, release of small-bowel obstruction without complications, NG tube was removed, hypoactive bowel sounds, has not passed gas yet D0 on 12/11 Resolved, tolerated diet well, patient is cleared by surgeon for discharge Chronic systolic heart failure Per patient statement, recently EF about 49% Patient could run on a bicycle 30 minutes Lungs clear, no sign of fluid overload Lesion of liver: Code(s): K76.9 - Liver disease, unspecified Status: Acute Assessment and Plan: -liver mass, new from 06/02/2023, suspicious for metastatic disease, abdomen CT with contrast is recommended -patient has iodine allergy, spoke with general surgeon -MRCP: At least 3 liver lesions, as detailed above, largest measuring 2.2 cm. Findings are suspicious for metastatic disease. Consult heme oncologist for evaluation treatment Appreciate heme oncologist consultation, biopsy done, pending report Patient will follow-up with heme oncologist in office HTN (hypertension): Code(s): I10 - Essential (primary) hypertension Status: Chronic Assessment and Plan: -hold home medication while in p.o. Hypothyroid: Code(s): E03.9 - Hypothyroidism, unspecified Status: Acute Assessment and Plan: Hold oral Synthroid 50 mcg daily po Start Synthroid 40 mcg IV daily Resume home medication at discharge UTI UA shows pyuria and microscopic hematuria No growth so far Bacteremia 1 of the 2 bottles grows Gram-positive cocci in cluster Repeat blood culture on 12/10, no growth so far received Zosyn possible contamination No need antibiotics (5) GERD (gastroesophageal reflux disease): Code(s): K21.9 - Gastro-esophageal reflux disease without esophagitis Status: Acute Assessment and Plan: -chronic - GI following Plan Continue home medications: Hold home medication VTE Prophylaxis: Mechanical/pharmacologic Code Status: Full Subjective Date/time seen: 12/13/24 08:24 Interval history: Patient tolerated diet well, denies nausea vomiting abdomen pain. Patient afebrile blood pressure stable Exam Narrative: GENERAL: Pleasant, in no acute distress. Well-nourished. - EYES: EOMI. Anicteric. - HENT: Moist mucous membranes. - LUNGS: Clear to auscultation bilateral ly, no wheezing, rhonchi, or rales. - CARDIOVASCULAR: Regular rate and rhyth m. No murmur. No JVD. - ABDOMEN: Soft, non-tender and non-dist ended. No palpable masses. - EXTREMITIES: No edema. Peripheral puls es 2+. Non-tender. - NEUROLOGIC: No focal neurological defi cits. CN II-XII grossly intact. - PSYCHIATRIC: Awake, Alert and oriented x 3. Appropriate mood and affect. - SKIN: No rashes or lesions. Warm. - LYMPH: No cervical lymphadenopathy. Objective Data Vital Signs Vital Signs: Vital Signs - 24 hr 12/12/24 08:46 12/12/24 12:00 12/12/24 16:26 Temperature 99.1 F 97.1 F L Pulse Rate 88 78 80 Respiratory Rate 18 18 Blood Pressure 162/90 H 167/70 H Pulse Oximetry 97 99 12/13/24 04:55 12/13/24 08:09 Temperature 96.9 F L Pulse Rate 68 78 Respiratory Rate 16 Blood Pressure 138/74 Pulse Oximetry 97 Intake/Output Intake/Output: Intake & Output 12/11/24 12/11/24 12/12/24 12/13/24 00:59 23:59 23:59 23:59 Intake Total 2633.3 1600 240 550 Output Total 300 Balance 2333.3 1600 240 550 Meds/Results Medications: Active Medications Generic Name Dose Route Start Last Admin Trade Name Freq PRN Reason Stop Dose Admin Bumetanide 1 mg 12/12/24 09:00 12/13/24 08:09 Bumetanide 1 Mg Tablet PO 1 mg DAILY BERNARD Administration Enoxaparin Sodium 40 mg 12/09/24 09:00 12/13/24 08:09 Enoxaparin 40 Mg/0.4 Ml Syringe SUB-Q 40 mg DAILY BERNARD Administration Hydralazine HCl 10 mg 12/08/24 21:38 12/10/24 08:40 Hydralazine Hcl 20 Mg/Ml Vial IV PUSH 10 mg Q8H PRN Administration Blood Pressure - High Dextrose 1,000 mls @ 50 mls/hr 12/09/24 14:55 Dextrose 10% IV CONT .Q20H PRN if PN is interrupted Ibuprofen 800 mg in 200 mls @ 400 mls/hr 12/10/24 11:26 12/11/24 09:09 Caldolor 800 Mg/200 Ml IVPB Infused Q6H PRN Infusion Pain Rated 4-6 Levothyroxine Sodium 40 mcg 12/11/24 06:30 12/13/24 06:05 Levothyroxine Sodium Inj 100 Mcg/5 Ml Vial IV PUSH 40 mcg DAILY@0630 BERNARD Administration Metoprolol Succinate 50 mg 12/09/24 09:00 12/13/24 08:09 Metoprolol Succinate Ext Rel 50 Mg Tabcr PO 50 mg DAILY BERNARD Administration Morphine Sulfate 2 mg 12/08/24 16:13 12/10/24 00:53 Morphine Sulfate (*Crx) 2 Mg/Ml Inj IV PUSH 2 mg Q4H PRN Administration Pain Rated 7-10 Ondansetron HCl 4 mg 12/11/24 14:59 Ondansetron Inj 4 Mg/2 Ml Vial IV PUSH Q4H PRN Nausea And Vomiting Pantoprazole Sodium 40 mg 12/12/24 09:00 12/13/24 08:09 Pantoprazole 40 Mg Tablet PO 40 mg QAM BERNARD Administration Phenol 1 spray 12/08/24 17:29 12/08/24 18:04 Phenol/Sod Pheno [place] Mock (*Bkc) MUCOUS MEM 1 spray PRN PRN Administration Sore Throat Spironolactone 12.5 mg 12/12/24 09:00 12/13/24 08:09 Spironolactone 12.5 Mg Tablet PO 12.5 mg DAILY BERNARD Administration Radiology Results: ITS Impressions Abdomen/Pelvis CT 12/08/24 11:09 IMPRESSION: 1. Small bowel obstruction with transition point in the inferior abdomen at the midline. 2. Liver masses, new from 06/02/2023, suspicious for metastatic disease. Abdomen CT with contrast is recommended. MRCP 12/10/24 06:39 Impression: At least 3 liver lesions, as detailed above, largest measuring 2.2 cm. Findings are suspicious for metastatic disease. Abdomen X-Ray 12/10/24 08:32 Impression: NG tube in place. Nonspecific bowel gas pattern. Abdomen Ultrasound 12/12/24 06:26 Impression: 1.9 cm hyperechoic mass in the liver, as above. This may correlate with the largest presumed metastatic lesion seen on recent MR. Smaller lesions in the liver seen on prior MRI are not appreciated sonographically. Liver Biopsy Ultrasound 12/12/24 13:19 IMPRESSION: 1. Technically successful ultrasound-guided core biopsy of a 9 mm hyperechoic lesion within the right lobe of the liver, likely representing metastatic disease. Typically, this appearance is often seen with metastatic breast, metastatic colon, or carcinoid. Labs Labs: Laboratory Results - last 24 hr 12/11/24 12/12/24 12/12/24 05:59 05:56 08:15 WBC RBC Hgb Hct MCV MCH MCHC RDW Plt Count MPV PT 13.8 INR 1.0 APTT 27.6 Sodium Potassium Chloride Carbon Dioxide Anion Gap BUN Creatinine Estim Creat Clear Calc Estimated GFR Glucose Calcium Triglycerides 197 H CA 15-3 Antigen 12 12/13/24 06:01 WBC 7.5 RBC 3.81 L Hgb 11.0 L Hct 34.8 L MCV 91.3 MCH 28.9 MCHC 31.6 L RDW 13.8 Plt Count 296 MPV 10.4 PT INR APTT Sodium 137 Potassium 3.5 Chloride 107 Carbon Dioxide 22 Anion Gap 8 BUN 10 Creatinine 0.73 Estim Creat Clear Calc 44 Estimated GFR > 60 Glucose 86 Calcium 8.4 Triglycerides CA 15-3 Antigen
--- NOTE | 2024-12-13 09:57 | P.PNGS_ITS ---
Progress Note: A&P Assessment and Plan (1) Small bowel obstruction: Code(s): K56.609 - Unspecified intestinal obstruction, unspecified as to partial versus complete obstruction Status: Acute Assessment and Plan: * Resolved following laparoscopic adhesiolysis. Continues to improve. Bowels are moving. * Advance to soft diet for lunch. * Okay to discharge later today if tolerating a solid diet. F/u in [address] Orr. Discussed all d/c instructions with patient. (2) Lesion of liver: Code(s): K76.9 - Liver disease, unspecified Status: Acute Assessment and Plan: * Multiple lesions concerning for metastases. S/p liver biopsy, results pending. (3) Urinary tract infection: Code(s): N39.0 - Urinary tract infection, site not specified Status: Acute (4) Systolic congestive heart failure: Code(s): I50.20 - Unspecified systolic (congestive) heart failure Status: Acute Plan I have discussed the patient's case and plan of care with Dr. Orr. Subjective Subjective Date/Time Seen: 12/13/24 09:57 Patient reports: voiding w/o difficulty, flatus, bowel movement and afebrile Interval history: Denies any abdominal pain. Reports some soreness at her incisions when getting up. No nausea or vomiting. Tolerating full liquids. Tolerating activity and ambulating well. Exam Const: General: comfortable and no acute distress GI: Inspection: non-distended and incision (incisions dry and intact) GI Palp: Yes Soft to palpation, No Tenderness to palpation present (GI) and No G uarding due to palpation present (GI) Auscultation: normal bowel sounds Neuro: General: moves all extremities and no focal motor deficits Extrem: General: no calf tenderness and no edema Objective Data Vital Signs Vital Signs: Vital Signs - 24 hr 12/12/24 12:00 12/12/24 16:26 12/13/24 04:55 Temperature 99.1 F 97.1 F L 96.9 F L Pulse Rate 78 80 68 Respiratory Rate 18 18 16 Blood Pressure 162/90 H 167/70 H 138/74 Pulse Oximetry 97 99 97 Oxygen Delivery 12/13/24 08:00 12/13/24 08:09 Temperature Pulse Rate 78 Respiratory Rate Blood Pressure Pulse Oximetry Oxygen Delivery Room Air Intake/Output Intake/Output: Intake & Output 12/11/24 12/11/24 12/12/24 12/13/24 00:59 23:59 23:59 23:59 Intake Total 2633.3 1600 240 790 Output Total 300 Balance 2333.3 1600 240 790 Meds/Results Medications: Active Medications Generic Name Dose Route Start Last Admin Trade Name Freq PRN Reason Stop Dose Admin Bumetanide 1 mg 12/12/24 09:00 12/13/24 08:09 Bumetanide 1 Mg Tablet PO 1 mg DAILY BERNARD Administration Enoxaparin Sodium 40 mg 12/09/24 09:00 12/13/24 08:09 Enoxaparin 40 Mg/0.4 Ml Syringe SUB-Q 40 mg DAILY BERNARD Administration Hydralazine HCl 10 mg 12/08/24 21:38 12/10/24 08:40 Hydralazine Hcl 20 Mg/Ml Vial IV PUSH 10 mg Q8H PRN Administration Blood Pressure - High Dextrose 1,000 mls @ 50 mls/hr 12/09/24 14:55 Dextrose 10% IV CONT .Q20H PRN if PN is interrupted Ibuprofen 800 mg in 200 mls @ 400 mls/hr 12/10/24 11:26 12/11/24 09:09 Caldolor 800 Mg/200 Ml IVPB Infused Q6H PRN Infusion Pain Rated 4-6 Levothyroxine Sodium 40 mcg 12/11/24 06:30 12/13/24 06:05 Levothyroxine Sodium Inj 100 Mcg/5 Ml Vial IV PUSH 40 mcg DAILY@0630 BERNARD Administration Metoprolol Succinate 50 mg 12/09/24 09:00 12/13/24 08:09 Metoprolol Succinate Ext Rel 50 Mg Tabcr PO 50 mg DAILY BERNARD Administration Morphine Sulfate 2 mg 12/08/24 16:13 12/10/24 00:53 Morphine Sulfate (*Crx) 2 Mg/Ml Inj IV PUSH 2 mg Q4H PRN Administration Pain Rated 7-10 Ondansetron HCl 4 mg 12/11/24 14:59 Ondansetron Inj 4 Mg/2 Ml Vial IV PUSH Q4H PRN Nausea And Vomiting Pantoprazole Sodium 40 mg 12/12/24 09:00 12/13/24 08:09 Pantoprazole 40 Mg Tablet PO 40 mg QAM BERNARD Administration Phenol 1 spray 12/08/24 17:29 12/08/24 18:04 Phenol/Sod Pheno [place] Mock (*Bkc) MUCOUS MEM 1 spray PRN PRN Administration Sore Throat Spironolactone 12.5 mg 12/12/24 09:00 12/13/24 08:09 Spironolactone 12.5 Mg Tablet PO 12.5 mg DAILY BERNARD Administration Radiology Results: ITS Impressions Abdomen/Pelvis CT 12/08/24 11:09 IMPRESSION: 1. Small bowel obstruction with transition point in the inferior abdomen at the midline. 2. Liver masses, new from 06/02/2023, suspicious for metastatic disease. Abdomen CT with contrast is recommended. MRCP 12/10/24 06:39 Impression: At least 3 liver lesions, as detailed above, largest measuring 2.2 cm. Findings are suspicious for metastatic disease. Abdomen X-Ray 12/10/24 08:32 Impression: NG tube in place. Nonspecific bowel gas pattern. Abdomen Ultrasound 12/12/24 06:26 Impression: 1.9 cm hyperechoic mass in the liver, as above. This may correlate with the largest presumed metastatic lesion seen on recent MR. Smaller lesions in the liver seen on prior MRI are not appreciated sonographically. Liver Biopsy Ultrasound 12/12/24 13:19 IMPRESSION: 1. Technically successful ultrasound-guided core biopsy of a 9 mm hyperechoic lesion within the right lobe of the liver, likely representing metastatic disease. Typically, this appearance is often seen with metastatic breast, metastatic colon, or carcinoid. Labs Labs: Laboratory Results - last 24 hr 12/12/24 12/13/24 05:56 06:01 WBC 7.5 RBC 3.81 L Hgb 11.0 L Hct 34.8 L MCV 91.3 MCH 28.9 MCHC 31.6 L RDW 13.8 Plt Count 296 MPV 10.4 Sodium 137 Potassium 3.5 Chloride 107 Carbon Dioxide 22 Anion Gap 8 BUN 10 Creatinine 0.73 Estim Creat Clear Calc 44 Estimated GFR > 60 Glucose 86 Calcium 8.4 Triglycerides 197 H
--- NOTE | 2024-12-13 12:38 | P.DS_ITS ---
DS: Admitting Diagnosis Discharge Date 12/13/24 Admitting Diagnosis (1) Systolic congestive heart failure: Code(s): I50.20 - Unspecified systolic (congestive) heart failure Status: Acute (2) Small bowel obstruction: Code(s): K56.609 - Unspecified intestinal obstruction, unspecified as to partial versus complete obstruction Status: Acute (3) Urinary tract infection: Code(s): N39.0 - Urinary tract infection, site not specified Status: Acute DS: Discharge Diagnosis Discharge Diagnosis (1) Systolic congestive heart failure: Code(s): I50.20 - Unspecified systolic (congestive) heart failure Status: Acute (2) Small bowel obstruction: Code(s): K56.609 - Unspecified intestinal obstruction, unspecified as to partial versus complete obstruction Status: Acute (3) Urinary tract infection: Code(s): N39.0 - Urinary tract infection, site not specified Status: Acute DS: Summary Hospital Course Hospital Course: A 84-year-old female with history of several bowel obstructions patient of Dr. Puentes, systolic CHF, history of breast cancer status post radiation, hypothyroidism hypertension hyperlipidemia presents the hospital with nausea and vomiting. Patient with recurring small bowel obstructions well known to the surgical team. Patient has no other complaints at this time. In the ED her lab work shows leukocytosis 11.0 sodium 133, IN gap of 14, UA with 2+ leukocyte esterase negative for nitrates. CT shows small-bowel obstruction with transition point and Liver masses, new from 06/02/2023, suspicious for metastatic disease. Patient was seen by GI at beginning of this month for the liver masses with recommendations to follow-up outpatient with MRI. On bedside exam patient asked what time her surgery will be tomorrow. Patient educated we are doing NG tube with a surgical consult. That does not mean that she is having surgery they will have to see her and evaluate her 1st. Patient states that she has have surgery because she has small-bowel obstruction last week and the tube did not work. The following med issues have been addressed during hospitalization Small bowel obstruction: Code(s): K56.609 - Unspecified intestinal obstruction, unspecified as to partial versus complete obstruction Status: Acute Assessment and Plan: -consult surgery, small-bowel obstruction with transition point in the inferior abdomen at the midline -continue NG tube to low intermittent suction -NPO intially -received gentle IV fluids for hydration, continue monitor fluid overload -pain management p.r.n. S/P laparoscopic adhesiolysis, release of small-bowel obstruction without complications, NG tube was removed, hypoactive bowel sounds, has not passed gas yet D0 on 12/11 Resolved, tolerated diet well, patient is cleared by surgeon for discharge Chronic systolic heart failure Per patient statement, recently EF about 49% Patient could run on a bicycle 30 minutes Lungs clear, no sign of fluid overload Lesion of liver: Code(s): K76.9 - Liver disease, unspecified Status: Acute Assessment and Plan: -liver mass, new from 06/02/2023, suspicious for metastatic disease, abdomen CT with contrast is recommended -patient has iodine allergy, spoke with general surgeon -MRCP: At least 3 liver lesions, as detailed above, largest measuring 2.2 cm. Findings are suspicious for metastatic disease. Consult heme oncologist for evaluation treatment Appreciate heme oncologist consultation, biopsy done, pending report Patient will follow-up with heme oncologist in office HTN (hypertension): Code(s): I10 - Essential (primary) hypertension Status: Chronic Assessment and Plan: -hold home medication while in p.o. Hypothyroid: Code(s): E03.9 - Hypothyroidism, unspecified Status: Acute Assessment and Plan: Hold oral Synthroid 50 mcg daily po Start Synthroid 40 mcg IV daily Resume home medication at discharge UTI UA shows pyuria and microscopic hematuria No growth so far Bacteremia 1 of the 2 bottles grows Gram-positive cocci in cluster Repeat blood culture on 12/10, no growth so far received Zosyn possible contamination No need antibiotics (5) GERD (gastroesophageal reflux disease): Code(s): K21.9 - Gastro-esophageal reflux disease without esophagitis Status: Acute Assessment and Plan: -chronic - GI following Plan Continue home medications: Hold home medication VTE Prophylaxis: Mechanical/pharmacologic Code Status: Senior Occupational Therapist Spent with Patient Time attestation: Total time spent providing and/or coordinating discharge services: Exam Narrative: GENERAL: Pleasant, in no acute distress. Well-nourished. - EYES: EOMI. Anicteric. - HENT: Moist mucous membranes. - LUNGS: Clear to auscultation bilateral ly, no wheezing, rhonchi, or rales. - CARDIOVASCULAR: Regular rate and rhyth m. No murmur. No JVD. - ABDOMEN: Soft, non-tender and non-dist ended. No palpable masses. - EXTREMITIES: No edema. Peripheral puls es 2+. Non-tender. - NEUROLOGIC: No focal neurological defi cits. CN II-XII grossly intact. - PSYCHIATRIC: Awake, Alert and oriented x 3. Appropriate mood and affect. - SKIN: No rashes or lesions. Warm. - LYMPH: No cervical lymphadenopathy. DS: Data Data Completed and Pending Pending studies at discharge: Pending at discharge 12/12/24 11:47 Surgical [PTH] Routine Labs on day of discharge: Labs from last 24 hours 12/13/24 06:01 WBC 7.5 RBC 3.81 L Hgb 11.0 L Hct 34.8 L MCV 91.3 MCH 28.9 MCHC 31.6 L RDW 13.8 Plt Count 296 MPV 10.4 Sodium 137 Potassium 3.5 Chloride 107 Carbon Dioxide 22 Anion Gap 8 BUN 10 Creatinine 0.73 Estim Creat Clear Calc 44 Estimated GFR > 60 Glucose 86 Calcium 8.4 Preliminary micro results at discharge 12/08/24 11:26 Blood Culture - Preliminary Blood Staphylococcus epidermidis 12/10/24 14:55 Blood Culture - Preliminary Blood 12/10/24 14:55 Blood Culture - Preliminary Blood 12/08/24 11:26 Blood Culture - Preliminary Blood Discharge Plan Discharge Attending physician on discharge: Thanh Lovett Consulting providers: Temo Orr; Ran Mcmillan; Carine Minaya; Kera Benito; Carlitos Woodson; Juan R Armstrong; Venita Luevano; Hai Nava; Tova Garcia Discharging Clinician: Thanh Lovett Anticipated Discharge Date/Time: 12/13/24 12:38 Patient Disposition: Home, Self-Care Activity: may shower, no driving and other - see discharge instructions Diet: as tolerated and regular Wound Care Instructions: incision open to air Discharge Instructions: General surgery discharge instructions * Follow-up with Dr. Orr in 2 weeks. Call the office to schedule an appointment. [phone] * No lifting more than 10-15 lb x 2 weeks * Walk at least 3 times daily. Stairs are okay. * Okay to wash over incisions daily with soap and water. Pat dry. Call the office sooner if you develop any redness or drainage from your incisions. * No driving for 3 days or while taking narcotics. Patient Instructions: Antibiotic Form, Heart Failure (DC) Patient Language: Belarusian Stand Alone Forms: General Discharge Information Follow-up/Referrals: Ran Mcmillan MD [Physician] - (Patient needs to call heme oncologist for follow-up appointment) Temo Orr DO [Physician] - 2 Weeks Discharge Medications: Continued aspirin 325 mg Tablet 325 mg PO PRN PRN (Reason: Headache) levothyroxine [Synthroid] 50 mcg Tablet 50 mcg PO DAILY rosuvastatin [Crestor] 40 mg Tablet 40 mg PO HS metoprolol succinate 50 mg Capsule,Sprinkle,Er 24hr 50 mg PO DAILY bumetanide 1 mg Tablet 1 mg PO DAILY pantoprazole 40 mg Tablet,Delayed Release (Dr/Ec) 40 mg PO QAM Qty: 30 0RF lisinopril 20 mg tablet 20 mg PO DAILY spironolactone 25 mg tablet 12.5 mg PO DAILY multivit with min-folic acid 0.4 mg Tablet 1 tablet PO DAILY Date of admission: 12/08/24 15:16 Primary Care Provider: Danielle,Mariaelena Christopher Admitting Provider: Gautam Shah Attending physician on admission: Thanh Lovett Condition: Stable
== END 2024-12-13 14:05 | disposition home or self-care (01) | DRG 336 ==
LOC: ANHED 13:53 → ANH3MEDSUR 14:41
PROVIDERS: Emergency Medicine; Internal Medicine Hematology & Oncology; Nurse Practitioner Family; Nurse Practitioner Gerontology; Surgery; Admitting Provider Internal Medicine; Emergency Provider Registered Nurse; PCP Nurse Practitioner; Visit Provider Hospitalist
PROC: 0DTF4ZZ Resection of Right Large Intestine, Percutaneous Endoscopic Approach (ICD-10-PCS; CPT 44204; principal; 2024-12-11 13:30)
DX: K56.50 Intestinal adhesions [bands], unspecified as to partial versus complete obstruction (principal); I50.22 Chronic systolic (congestive) heart failure; N39.0 Urinary tract infection, site not specified; I11.0 Hypertensive heart disease with heart failure; K76.9 Liver disease, unspecified; E03.9 Hypothyroidism, unspecified; E78.5 Hyperlipidemia, unspecified; K21.9 Gastro-esophageal reflux disease without esophagitis; M19.90 Unspecified osteoarthritis, unspecified site; Z85.3 Personal history of malignant neoplasm of breast; Z79.82 Long term (current) use of aspirin; Z80.0 Family history of malignant neoplasm of digestive organs; Z92.3 Personal history of irradiation; Z87.891 Personal history of nicotine dependence
CPT/HCPCS: 36415; 47000; 74019; 74176; 74183; 76376; 76705; 76942; 80048; 80053; 81001; 82378; 82948; 83605; 83690; 83735; 84100; 84466; 84478; 84484; 85025; 85027; 85055; 85610; 85730; 86140; 86300; 87040; 87086; 87181; 88307; 88342; 88360; 93306; 96361; 96365; 96375; 99285; A9270; A9577; G0378; J0360; J0650; J0696; J1171; J1650; J1741; J2003; J2270; J2470; J2543; J2704; J3010; J7030; J7120

== ENCOUNTER 2024-12-19 09:32 | Outpatient (CLI) | payer MEDICARE, SELFPAY ==
[2024-12-19 09:49] LABS: Basophils Percent Auto 0.7 % (0.2-1.2); Eosinophils Absolute Auto 0.1 K/mm3 (0-0.3); Hematocrit 39.3 % (37.0-47.0); Hemoglobin 12.6 g/dL (12.0-15.0); Immature Granulocyte Absolute 0.01 K/mm3 (0.00-0.031); Immature Granulocyte Percent A 0.2 % (0-0.5); Lymphocytes Absolute Auto 0.86 K/mm3 (0.9-3.2); Lymphocytes Percent Auto 21.3 % (18.3-44.2); Mean Corpuscular HGB Conc 32.1 g/dl (32-36); Mean Corpuscular Hemoglobin 29.2 pg (26-34); Mean Platelet Volume 10.4 fl (7.4-10.4); Monocytes Absolute Auto 0.5 K/mm3 (0.1-0.6); Monocytes Percent Auto 12.9 % (2.6-8.5); Neutrophils Absolute Auto 2.5 K/mm3 (1.3-6.7); Neutrophils Percent Auto 62.9 % (45.5-73.1); Platelet Count Result 359 k/mm3 (150-375); Red Blood Count 4.32 M/mm3 (4.2-5.4); Red Cell Distribution Width 13.7 % (11.5-14.5)
--- OUTSIDE RECORDS SUMMARY | 2024-12-19 10:24 | XMS_ITS | Encounter Summary ---
Author Organization [facility] Address [facility] [place] [address] Care Team Providers Care Senior Sas Programmer Name Role Phone Roberto Betancourt MD Unavailable [phone] Mariaelena Santos MEAT BONER Primary Care Provider [phone] Shari Plummer RN Unavailable [phone] Reason for Visit * Reason Comments Image (SCAN) Encounter Details Date Type Department Care Team (Latest Contact Info) Description 12/10/2024 Scan HEALTH INFO [facility]VCS Scanned, Doc Med Group Image (SCAN) Social History Tobacco Use Types [...] any time in the past 12 m [facility], were you homeless or living in a nursing home (including now)? No 04/28/2024 Comments No [...] Care Team (Late st Contact Info) Description 12/21/2024 12:40 PM CDT Office Visit [facility] [place] [address] [facility] [address] [place] [id number] Mariaelena Santos NP [address] [place] [address] 03/14/2025 11:00 AM CDT Office Visit [facility] [place] [address] [place], [place] [id number] Roberto Betancourt MD [facility]. [facility] [address] [place] [address] 05/08/2025 9:20 AM CDT Office Visit [facility] - [place] [address] [place] [address] Mariaelena Santos NP [address] [place] [address] documented as of this encounter Goals Goal Patient Goal Type Associated Problems Recent Progress Patient-Stated? Author Blood Pressure < 140/90 Blood Pressure 136/80(10/30 8:15 AM CHIN STRAP SEWER) No Shari Plummer RN Note: Patient will [...] to PCP r/t CHF Lifestyle On track(2024 9:04 AM CDT) Shari Patton RN Note: Patient will monitor [...] as Prescribed for HTN Lifestyle On track(2024 9:04 AM CDT) Shari Patton RN Note: Patient will monitor [...] Priority Date/Time Associated Diagnosis Comments IMAGE GENERIC 12/10/2024 documented in this encounter Results * IMAGE GENERIC (12/10/2024) Anatomical Region Laterality Modality Other 12/10/2024 us Doc [facility] Scanned SCANNING Final Resu lt documented in this encounter Visit Diagnoses Not on filedocumented in this encounter Additional Health Concerns Assessment Noted Time PHQ-9 Depression Total Score: 0 03/17/20 22 8:03 AM CDT documented as of this encounter Care Teams Senior Sas Programmer Relationship Specialty Start Date End Date Mariaelena Santos NP [address] [place] [address] PCP - General NURSE PRACTITIONER 09/14/22 Roberto Betancourt MD [facility]. [address] [address] [place] [facility] Asst CARDIOVASCULAR DISEASE 03/04/16 Shari Plummer, RN [address] [place], [place] [address] Arranging Funeral Director (Ambulatory) REGISTERED NURSE 04/28/24 documented as of this encounter
--- OUTSIDE RECORDS SUMMARY | 2024-12-19 10:24 | XMS_ITS | Referral Summary ---
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
--- OUTSIDE RECORDS SUMMARY | 2024-12-19 10:24 | XMS_ITS | Encounter Summary ---
Author Organization [facility] Address [facility] [place] [address] Care Team Providers Care Supervisor Partial Denture Department Name Role Phone Lisa Coy MD Primary Care Provider [phone] Roberto Betancourt MD Unavailable [phone] Mariaelena Santos NP Primary Care Provider [phone] Shari Plummer RN Unavailable [phone] Encounter Details Date Type Department Care Team (Late st Contact Info) Description 08/03/2018 Abstract [facility] at [address] [id number] Kayla Maza MA Social History Tobacco Use [...] Description 12/21/2024 12:40 PM CDT Office Visit [facility] [address] [facility] [address] [place] [address] Mariaelena Santos NP [address] [place] [address] 03/14/2025 11:00 AM CDT Office Visit [facility] THREE [facility], [address] [place] [address] Roberto Betancourt MD Three [facility]. [address] [place] [address] 05/08/2025 9:20 AM CDT Office Visit [facility] [address] [facility] [address] [place] [address] Mariaelena Santos NP [address] [place] [address] documented as of this encounter Procedures Procedure [...] Result * THYROID STIM HORMONE, TSH (01/24/2019) Pathologist [facility] TSH 1.640 01/24/2019 [facility] Abstract LABORATORY Final Result * CBC (OUTSIDE LAB) (01/24/2019) Pathologist [facility] WBC 6.6 HGB 9.4 HCT 30.6 PLT 394 01/24/2019 us Doc [facility] Abstract LAB-OUTSIDE/ABSTRACTED Edite d Result - Final * LIPID PANEL (07/25/2018) Pathologist [facility] CHOLESTEROL 193 HDL 47 TRIGLYCERIDES 122 LDL (CALCULATED) 105 07/25/2018 us Doc [facility] Abstract LABORATORY Final Result * COMPREHENSIVE METABOLIC PANEL (07/25/2018) Pathologist [facility] SODIUM S/P/B 141 POTASSIUM S/P/B 3.9 CO2 [...] on filedocumented in this encounter Care Teams Supervisor Partial Denture Department Relationship Specialty Start Date End Date Lisa Coy MD PCP - General INTERNAL MEDICINE 03/04/16 09/13/22 Mariaelena Santos NP [address] [place] [address] PCP - General NURSE PRACTITIONER 09/14/22 Roberto Betancourt MD Three [facility]. [place] [address] [place] [address] [id number] Sterling Interactive Web Developer CARDIOVASCULAR DISEASE 03/04/16 Shari Plummer, RN [address] [place], [place] 55[address] Computer Applications Engineer (Ambulatory) REGISTERED NURSE 04/28/24 documented as of this encounter
--- OUTSIDE RECORDS SUMMARY | 2024-12-19 10:24 | XMS_ITS | Encounter Summary ---
Author Organization [facility] Address [facility] [place] [address] Care Team Providers Care Rn Clinical Review Name Role Phone Roberto Betancourt MD Unavailable [phone] Mariaelena Santos LOOPER OPERATOR Primary Care Provider [phone] Shari Plummer RN Unavailable Reason for Visit * Reason Comments Ultrasound (SCAN) CT (SCAN) Echo (SCAN) Encounter Details Date Type Department Care Team (Late st Contact Info) Description 12/08/2024 Scan HEALTH INFO SRVCS Scanned, [facility] Ultrasound (SCAN); CT (SCAN); Echo (SCAN) Social History Tobacco Use Types Packs/Day [...] any time in the past 12 m [facility], were you homeless or living in a penitentiary (including now)? No 04/28/2024 Comments No Sex [...] Description 12/21/2024 12:40 PM CDT Office Visit [facility] Family Medicine - [place] [address] [facility] [address] [place] [address] Mariaelena Santos NP [address] [place] [address] 03/14/2025 11:00 AM CDT Office Visit [facility] THREE [facility], [facility] [address] [place], [place] [address] Roberto Betancourt MD [facility]. [facility] [address] [place], [place] [address] 05/08/2025 9:20 AM CDT Office Visit [facility] Family Medicine - [place] [address] [facility] [address] [place] [address] Mariaelena Santos, KAREN [address] [place] [address] documented as of this encounter Goals Goal Patient Goal Type Associated Problems Recent Progress Patient-Stated? Author Blood Pressure < 140/90 Blood Pressure 136/80(10/30 8:15 AM WAREHOUSE DELIVERY DRIVER) No Shari Plummer RN Note: Patient will [...] Priority Date/Time Associated Diagnosis Comments CT GENERIC 12/08/2024 ECHO GENERIC (SCAN ORDER) 12/08/2024 ULTRASOUND GENERIC (SCAN ORDER) 12/08/2024 documented in this encounter Results * ECHO GENERIC (SCAN ORDER) (12/08/2024) Anatomical Region Laterality Modality Other 12/08/2024 [facility] Scanned SCANNING Final Resu lt * ULTRASOUND GENERIC (SCAN ORDER) (12/08/2024) Anatomical Region Laterality Modality Other 12/08/2024 [facility] Scanned SCANNING Final Resu lt * CT GENERIC (12/08/2024) Anatomical Region Laterality Modality Other 12/08/2024 [facility] Scanned SCANNING Final Resu lt documented in this encounter Visit Diagnoses Not on filedocumented in this encounter Additional Health Concerns Assessment Noted Time PHQ-9 Depression Total Score: 0 03/17/20 22 8:03 AM CDT documented as of this encounter Care Teams Rn Clinical Review Relationship Specialty Start Date End Date Mariaelena Santos NP [address] [place] [address] PCP - General NURSE PRACTITIONER 09/14/[address] [facility]. [address] [address] Brando Circulation Analyst CARDIOVASCULAR DISEASE 03/04/16 Shari Plummer, RN [address] [place] [address] Filter Screen Cleaner (Ambulatory) REGISTERED NURSE 04/28/24 documented as of this encounter
--- OUTSIDE RECORDS SUMMARY | 2024-12-19 10:24 | XMS_ITS | Encounter Summary ---
Author Organization [facility] Address [facility] [place] [address] Care Team Providers Care Utility Sales Representative Name Role Phone Roberto Betancourt MD Unavailable [phone] Mariaelena Santos COUNTER POCKET TRIMMER Primary Care Provider [phone] Shari Plummer RN Unavailable [phone] Reason for Visit * Reason Comments Procedure (SCAN) Encounter Details Date Type Department Care Team ([facility] Contact Info) Description 12/11/2024 Scan HEALTH INFO SRVCS Scanned, Doc Med [facility] Procedure (SCAN) Social History Tobacco Use Types [...] any time in the past 12 m [facility], were you homeless or living in a snf (including now)? No 04/28/2024 Comments No Sex [...] Description 12/21/2024 12:40 PM CDT Office Visit [facility] Family Medicine - [place] [address] [facility] [address] [place] [address] Mariaelena Santos NP [address] [place] [address] 03/14/2025 11:00 AM CDT Office Visit [facility] THREE [facility], [place] [address] [place] [address] Roberto Betancourt MD [facility]. [facility] [address] [place] [address] 05/08/2025 9:20 AM CDT Office Visit [facility] Family Medicine - [place] [address] [facility] [address] [place] [address] Mariaelena Santos NP [address] [place] [address] documented as of this encounter Goals Goal Patient Goal Type Associated Problems Recent Progress Patient-Stated? Author Blood Pressure < 140/90 Blood Pressure 136/80(10/30 8:15 AM ACID WASH OPERATOR) No Shari Plummer RN Note: Patient [...] Procedure Name Priority Date/Time Associated Diagnosis Comments PROCEDURE GENERIC (SCAN ORDER) 12/11/2024 documented in this encounter Results * PROCEDURE GENERIC (SCAN ORDER) (12/11/2024) 12/11/2024 us Doc [facility] Scanned SCANNING Final Resu lt documented in this encounter Visit Diagnoses Not on filedocumented in this encounter Additional Health Concerns Assessment Noted Time PHQ-9 Depression Total Score: 0 03/17/20 22 8:03 AM CDT documented as of this encounter Care Teams Utility Sales Representative Relationship Specialty Start Date End Date Mariaelena Santos NP [address] [place] [address] PCP - General NURSE PRACTITIONER 09/14/22 Roberto Betancourt MD Three [facility]. [address] [place] [address] [address] Engineer CARDIOVASCULAR DISEASE 03/04/16 Shari Plummer, RN [address] [place], [place] [address] Spanish Speaking Nanny (Ambulatory) REGISTERED NURSE 04/28/24 documented as of this encounter
--- OUTSIDE RECORDS SUMMARY | 2024-12-19 10:24 | XMS_ITS | Clinical Summary ---
Author Organization [facility] [address] [place] Address [address] [place] [address] Care Team Providers Care Lens Hardener Name Role Phone Lisa Coy MD Primary Care Provider [phone] Allergies No known active allergies Medications levothyroxine (SYNTHROID) 50 mcg tablet Take 1 tablet (50 mcg total) by mouth dietary cook before breakfast 3 Active dicyclomine (BENTYL) 20 [...] 01/05/2011 Surgical History Surgery Date Site/Laterality Comments MD APPENDECTOMY Appendectomy - (Added by TW Conv) MD EXC CYST/ABERRANT BREAST TISSUE OPEN 1/> LESION Breast Surgery Lumpectomy - (Added by TW Conv) MD TOTAL ABDOMINAL HYSTERECT W/WO RMVL TUBE OVARY [...] on file Legal Sex Female 7:13 AM SENIOR TECHNICAL MANAGER Gender Identity Not on file Sexual Orientation [...] Insurance HU[employer]NA CHOICE MEDICARE PPO Care Teams Lens Hardener Relationship Specialty [place] [address] [address] PCP - General 04/10/19
--- OUTSIDE RECORDS SUMMARY | 2024-12-19 10:24 | XMS_ITS | Encounter Summary ---
Author Organization [facility] Address [address] [place] [address] Care Team Providers Care Clarifier Name Role Phone Unavailable Primary Care Provider Unavailabl e Encounter Details Date Type Department Care Team (Late Contact Info) Description 12/19/2024 Orders Only [facility] Surgical Oncology [place] [address] [facility] [address] [place] [address] Alyssa Gipson MD [address] [facility] [address] [place] [address] Neuroendocrine tumor (CMS/HCC) (Primary Dx) Social History Tobacco Use Types Packs/Day Years Used Date Smoking Tobacco: Former Cigarettes 0.3 12 0 10/04/1957 - 10/04/1969 Smokeless Tobacco: Never Alcohol Use Standard Drinks/Week Comments Not Currently 0 (1 standard drink = 0.6 oz pur e alcohol) Socially Comments Unknown Sex and Gender Information Value Date Recorded Sex Assigned at Not on file Legal Sex Female 9:38 AM CDT Gender Identity Not on file Sexual Orientation Not on file documented as of this encounter Plan of Treatment Upcoming Encounters Date Type Department Care Team (Late Contact Info) Description 01/05/2025 8:45 AM CDT Office Visit [facility] Oncology and Hematology - [place] [address] [facility] [address] [place] [address] Ran Mcmillan MD [address] [facility] [address] [place] [address] Scheduled Orders Name Type Priority Associated Diagnoses Orde r Schedule MISCELLANEOUS LAB TEST Lab Stat Neuroendocrine tumor (CMS/HCC) Expected: 12/19/2024 (Approximate), Expires: 12/19/2025 documented as of this encounter Visit Diagnoses Diagnosis 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
--- OUTSIDE RECORDS SUMMARY | 2024-12-19 10:24 | XMS_ITS | Encounter Summary ---
Author Organization [facility] Address [facility] [place] [address] Care Team Providers Care Conference Concierge Name Role Phone Roberto Betancourt MD Unavailable [phone] Mariaelena Santos MACHINE TACK PULLER Primary Care Provider [phone] Shari Plummer RN Unavailable [phone] Encounter Details Date Type Department Care Team (Latest Contact Info) Description 12/03/2024 Scan HEALTH INFO SRVCS Scanned, Doc [facility] Social History Tobacco Use Types Packs/Day Years [...] any time in the past 12 m [facility], were you homeless or living in a half-way (including now)? No 04/28/2024 Comments No Sex [...] Description 12/21/2024 12:40 PM CDT Office Visit [address] [address] Mariaelena Santos NP [address] [facility] [address] [place] [address] 03/14/2025 11:00 AM CDT Office Visit [facility] THREE [facility], [facility] [address] [place], [place] [address] Roberto Betancourt MD [facility]. [facility] [address] [place] [address] 05/08/2025 9:20 AM CDT Office Visit [facility] Family [address] [place] [address] Mariaelena Santos NP [address] [place] [address] [place] [address] documented as of this encounter Goals Goal Patient Goal Type Associated Problems Recent Progress Patient-Stated? Author Blood Pressure < 140/90 Blood Pressure 136/80(10/30 8:15 AM PHLEBOTOMY TECHNICIAN) No Shari Plummer RN Note: Patient [...] CHF Lifestyle On track(2024 9:04 AM CDT) No Shari Plummer RN Note: Patient will [...] Time PHQ-9 Depression Total Score: 0 03/17/20 8:03 AM CDT documented as of this encounter Care Teams Conference Concierge Relationship Specialty Start Date End Date Mariaelena Santos NP [address] [place] [address] PCP - General NURSE PRACTITIONER 09/14/22 Robetro Betancourt MD [facility]. [place] [place] [address] Brando Director Speech Language CARDIOVASCULAR DISEASE 03/04/16 Shari Plummer, RN [address] [place], [place] [address] Vice President Process (Ambulatory) REGISTERED NURSE 04/28/24 documented as of this encounter
--- OUTSIDE RECORDS SUMMARY | 2024-12-19 10:24 | XMS_ITS | Clinical Summary ---
Author Organization [facility] Address [address] [facility] [place] [address] Care Team Providers Care Brass Buffer Name Role Phone Unavailable Primary Care Provider Unavailabl e Allergies No known active allergies Medications aspirin (ECOTRIN EC) 325 mg Tablet, Delayed Release (E.C.) Take 325 mg by mouth daily. Active bumetanide (BUMEX) 1 mg tablet Take 1 mg by mouth daily. 11/01/2024 Active levothyroxine 50 mcg tablet Take 50 mcg by mouth daily. 05/26/2023 Active lisinopriL (PRINIVIL) 20 mg tablet Take 20 mg by mouth daily. 03/29/2023 Active metoprolol succinate (TOPROL XL) 50 mg Extended Release 24 hour tablet Take 50 mg by mouth daily. 04/13/2023 Active pantoprazole (PROTONIX) 40 mg Tablet, Delayed Release (E.C.) Take 40 mg by mouth daily in the morning. Active rosuvastatin (CRESTOR) 40 mg tablet Take 40 mg by mouth daily. 03/30/2023 Active spironolactone (ALDACTONE) 25 mg tablet Take 25 mg by mouth daily. Take 1/2 tablet 03/17/2023 Active Active Problems No known active problems Encounters Date Type Department Care Team Description 12/19/2024 8:30 AM CDT Office Visit [facility] Oncology and Hematology - [place] [address] [facility] [address] [place] [address] Ran Mcmillan MD Neuroendocrine tumor (CMS/HCC) (Primary Dx) 12/19/2024 Orders Only [facility] Surgical Oncology [place] [address] [facility] [address] [place] [address] Alyssa Gipson MD Neuroendocrine tumor (CMS/HCC) (Primary Dx) from Last 3 Months Family History Medical History Relation Name Comments No Known Problems Child 1 No Known Problems Child 2 No Known Problems Child 3 No Known Problems Child 4 No Known Problems Child 5 No Known Problems Child 6 Prostate Cancer Father Cancer Mother Brain Cancer Sister Relation Name Status Comments Child 1 Alive Child 2 Child 3 Alive Child 4 Alive Child 5 Alive Child 6 Alive Father Mother Sister Social History Tobacco Use Types Packs/Day Years Used Date Smoking Tobacco: Former Cigarettes 0.3 12 0 10/04/1957 - 10/04/1969 Smokeless Tobacco: Never Tobacco Cessation:Counseling Given: Not Answered Alcohol Use Standard Drinks/Week Comments Not Currently 0 (1 standard drink = 0.6 oz pur e alcohol) Socially Comments Unknown Sex and Gender Information Value Date Recorded Sex Assigned at Not on file Legal Sex Female 9:38 AM CDT Gender Identity Not on file Sexual Orientation Not on file Last Filed Vital Signs Vital Sign Reading Time Taken Comments Blood Pressure 139/69 12/19/2024 8:39 AM CDT Pulse 94 12/19/2024 8:39 AM CDT Temperature 36.6 C (97.9 F) 12/19/2024 8:39 AM CDT Respiratory Rate 16 12/19/2024 8:39 AM CDT Oxygen Saturation 96% 12/19/2024 8:39 AM CDT Inhaled Oxygen Concentration - - Weight 66.3 kg (146 lb 3.2 oz) 12/19/2024 8:39 A M CDT Height 162.6 cm (5' 4 ) 12/19/2024 8:39 AM CDT Body Mass Index 25.1 12/19/2024 8:39 AM CDT Plan of Treatment Upcoming Encounters Date Type Department Care Team (Late st Contact Info) Description 01/05/2025 8:45 AM CDT Office Visit [facility] Oncology and Hematology - [place] [address] [facility] [facility] [address] [place] [address] Ran Mcmillan MD [address] [facility] [address] [place] [address] Health Maintenance Due Date Last Done Comments RSV VACCINE (60+ or ) (1 - 1-dose 75+ series) 2016 DTAP/TDAP/TD VACCINES (1 - Tdap) 03/07/2020 03/06/20 20 COVID-19 Vaccine (5 - 2023-2 5 season) 2024 12/31/2021, 08/04/2021, 12/13/2020, Additional history exists [place] Preventative Visit/Annual Wellness Visit 10/04/2024 PNEUMOCOCCAL VACCINE 50+ YEARS Completed 08/18/2016 , 08/10/2006 ZOSTER VACCINE Completed 01/28/2019, 01/2019, 08/10/2012 OSTEOPOROSIS SCREENING Completed 04/23/2023, 2022 INFLUENZA VACCINE Completed 05/23/2024, , 07/15/2022, Additional history exists Insurance D square [place] [facility]
--- OUTSIDE RECORDS SUMMARY | 2024-12-19 10:24 | XMS_ITS | Encounter Summary ---
Author Organization [facility] Address [facility] [place] [address] Care Team Providers Care Corporate Librarian Name Role Phone Lisa Coy MD Primary Care Provider [phone] Roberto Betancourt MD Unavailable [phone] Mariaelena Santos NP Primary Care Provider [phone] Shari Plummer RN Unavailable [phone] Encounter Details Date Type Department Care Team (Late st Contact Info) Description 07/01/2016 Abstract [facility] AT [address] [address] Kayla Maza MA Social History [...] PG pt send letter continue current meds ARY COOK documented in this encounter Plan of Treatment Upcoming Encounters Date Type Department Care Team (Late st Contact Info) Description 12/21/2024 12:40 PM CDT Office Visit [facility] [place] [address] [facility] [address] [place] [address] Mariaelena Santos NP [address] [place] [address] 03/14/2025 11:00 AM CDT Office Visit [facility] THREE [facility], [address] [place] [address] Roberto Betancourt MD Three [facility]. [address] [place] [address] 05/08/2025 9:20 AM CDT Office Visit [facility] [place] [address] [place] [address] Mariaelena Santos NP [address] [place] [address] documented as of this encounter Procedures Procedure [...] encounter Results * CBC (OUTSIDE LAB) (07/26/2017) WBC 6.0 HGB 14.0 HCT 43.2 PLT 293 07/26/2017 us Doc [facility] Abstract LAB-OUTSIDE/ABSTRACTED Final Result * BASIC METABOLIC PANEL (04/07/2017) SODIUM S/P/B 137 POTASSIUM S/P/B 3.7 CO2 22 CHLORIDE S/P/B 103 GLUCOSE 111 mg/dL CALCIUM S/P/B 8.7 BUN 20 CREATININE S/P/B 0.70 0.5 - 1.0 EGFR NON-AFR. AMER. >60 <=90 04/07/2017 us Doc [facility] Abstract LABORATORY Final Result * CBC (OUTSIDE LAB) (04/07/2017) WBC 8.3 HGB 14 HCT 42.1 PLT 257 04/07/2017 us Doc [facility] Abstract LAB-OUTSIDE/ABSTRACTED Final Result * BNP (08/23/2016) B TYPE NATRIURETIC PEPTIDE 130 08/23/2016 us Doc [facility] Abstract LABORATORY Final Result * TROPONIN, QUANT (08/23/2016) TROPONIN I 0.02 08/23/2016 us Doc [facility] [...] LAB-OUTSIDE/ABSTRACTED Final Result * LIPID PANEL (06/11/2016) Pathologist [facility] CHOLESTEROL 156 HDL 48 TRIGLYCERIDES 153 LDL (CALCULATED) 77.4 06/11/2016 us Doc [facility] Abstract LABORATORY Final Result documented in this encounter Visit Diagnoses Not on filedocumented in this encounter Care Teams Corporate Librarian Relationship Specialty Start Date End Date Lisa Coy MD PCP - General INTERNAL MEDICINE 03/04/16 09/13/22 Mariaelena Santos NP [address] [place] [address] PCP - General NURSE PRACTITIONER 09/14/22 Roberto Betancourt MD Three [facility]. [address] [place] [address] Brando Retail Sales Teammate CARDIOVASCULAR DISEASE 03/04/16 Shari Plummer, RN [address] [place] [address] Sawyer Cork Slabs (Ambulatory) REGISTERED NURSE 04/28/24 documented as of this encounter
--- OUTSIDE RECORDS SUMMARY | 2024-12-19 10:24 | XMS_ITS | Encounter Summary ---
Author Organization [facility] Address [facility] [place] [address] Care Team Providers Care Guard Immigration Name Role Phone Roberto Betancourt MD Unavailable [phone] Mariaelena Santos WIREWORKER Primary Care Provider [phone] Shari Plummer RN Unavailable [phone] Reason for Visit * Reason Comments MRI (SCAN) Encounter Details Date Type Department Care Team (Latest Contact Info) Description 12/09/2024 Scan HEALTH INFO SRVCS Scanned, Doc Med Group MRI (SCAN) Social History Tobacco Use Types Packs/Day [...] any time in the past [address] [facility], were you homeless or living in a fpc (including now)? No 04/28/2024 Comments No Sex [...] Description 12/21/2024 12:40 PM CDT Office Visit [facility] Family Medicine - [place] [address] [facility] [address] [place] [address] Mariaelena Santos NP [address] [place] [address] [place] [address] 03/14/2025 11:00 AM CDT Office Visit [facility] THREE [facility] [place] [address] [place], [place] [address] Roberto Betancourt MD [facility] [address] [place] [address] 05/08/2025 9:20 AM CDT Office Visit [facility] Family Medicine - [place] [address] [facility] [address] [place] [address] Mariaelena Santos NP [address] [place] [address] [place] [address] documented as of this encounter Goals Goal Patient Goal Type Associated Problems Recent Progress Patient-Stated? Author Blood Pressure < 140/90 Blood Pressure 136/80(10/30 8:15 AM CRT) No Shari Plummer RN Note: Patient will [...] Procedure Name Priority Date/Time Associated Diagnosis Comments MRI GENERIC 12/09/2024 documented in this encounter Results * MRI GENERIC (12/09/2024) Anatomical Region Laterality Modality Other 12/09/2024 us Doc Med Group Scanned SCANNING Final Resu lt documented in this encounter Visit Diagnoses Not on filedocumented in this encounter Additional Health Concerns Assessment Noted Time PHQ-9 Depression Total Score: 0 03/17/20 22 8:03 AM CDT documented as of this encounter Care Teams Guard Immigration Relationship Specialty Start Date End Date Mariaelena Santos NP [address] [place] [address] PCP - General NURSE PRACTITIONER 09/14/22 Roberto Betancourt MD [facility] [address] [address] [employer] Switchboard Operator CARDIOVASCULAR DISEASE 03/04/16 Shari Plummer, RN [address] [place], [place] [address] Vascular Technician (Ambulatory) REGISTERED NURSE 04/28/24 documented as of this encounter
--- OUTSIDE RECORDS SUMMARY | 2024-12-19 10:24 | XMS_ITS | Encounter Summary ---
Author Organization [facility] Address [address] [place] [address] Care Team Providers Care Senior Manufacturing Supervisor Name Role Phone Unavailable Primary Care Provider Unavailabl e Reason for Referral * Eval and Treat (Routine) - Open Specialty Diagnoses / Procedures Referred By Carmen t Referred To Contact Surgical Oncology / General Surgery Diagnoses Neuroendocrine tumor (CMS/HCC) Procedures CO OFFICE/OUTPATIENT ESTABLISHED MOD MDM 30 MIN CO OFFICE/OUTPATIENT NEW MODERATE MDM 45 MINUTES Ran Mcmillan MD [address] [address] Phone: tel: fax: Pipe Jean [place] [id number] [place] [phone] Phone: tel: fax: Referral ID Status Reason Start Date Expiration Date V isits Requested Visits Authorized [id number] Open CRS to Schedule 12/19/2024 12/19/2025 1 1 * PET Scan (Routine) - Open Specialty Diagnoses / Procedures Referred By Carmen t Referred To Contact Diagnoses Neuroendocrine tumor (CMS/HCC) Procedures PET TUMOR NEURO CU64 DOTATATE IMG W CT SKB MDTH CHG PET IMAGING CT ATTENUATION SKULL BASE MID-THIGH CO COPPER CU 64 DOTATATE DIAG HCHG NM COPPER CU-64 DOTATATE DX 1 MCI Ran Mcmillan MD [address] [facility] [address] [place] [phone] Phone: tel: fax: [facility] [address] [place] [phone] Referral ID Status Reason Start Date Expiration Date V isits Requested Visits Authorized [id number] Open CRS to Schedule 12/19/2024 01/19/2026 1 1 Encounter Details Date Type Department Care Team (Late Contact Info) Description 12/19/2024 8:30 AM CDT Office Visit [facility] Oncology and Hematology - [place] [address] [facility] [address] [place] [address] Ran Mcmillan MD [address] [facility] [address] [place] [address] Neuroendocrine tumor (CMS/HCC) (Primary Dx) Social History [...] on file documented as of this encounter Last Filed Vital Signs Vital Sign Reading [...] Mass Index 25.1 12/19/2024 8:39 AM CDT documented in this encounter Plan of Treatment Upcoming Encounters Date Type Department Care Team (Late Contact Info) Description 01/05/2025 8:45 AM CDT Office Visit [facility] Oncology and Hematology [facility] [address] [facility] [address] [place] [address] Ran Mcmillan MD [address] [facility] [address] [place] [address] Scheduled Orders Name Type Priority Associated Diagnoses Orde r Schedule PET TUMOR NEURO CU[address] SKB MDTH Imaging Routine Neuroendocrine tumor (CMS/HCC) 1 Occurrences starting 12/19/2024 until 12/19/2025 CHROMOGRANIN A Lab Routine Neuroendocrine tumor (CMS/HCC) Expected: 12/19/2024, Expires: 06/17/2025 SEROTONIN LEVEL Lab Routine Neuroendocrine tumor (CMS/HCC) Expected: 12/19/2024, Expires: 06/17/2025 CBC WITH DIFFERENTIAL Lab Stat Neuroendocrine tumor (CMS/HCC) Expected: 12/19/2024, Expires: 12/19/2025 COMPREHENSIVE METABOLIC PANEL Lab Stat Neuroendocrine tumor (CMS/HCC) Expected: 12/19/2024, Expires: 12/19/2025 Scheduled Referrals Name Type Priority Associated Diagnoses Orde r Schedule AMB REFERRAL TO SURGICAL ONCOLOGY Outpatient Referral Routine Neuroendocrine tumor (CMS/HCC) Ordered: 12/19/2024 documented as of this encounter Visit Diagnoses Diagnosis 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
--- OUTSIDE RECORDS SUMMARY | 2024-12-19 10:25 | XMS_ITS | Encounter Summary ---
Author Organization [facility] Address [facility] [place] [address] Care Team Providers Care Electronics Teacher Name Role Phone Lisa Coy MD Primary Care Provider [phone] Roberto Betancourt MD Unavailable [phone] Mariaelena Santos NP Primary Care Provider [phone] Shari Plummer RN Unavailable [phone] Encounter Details Date Type Department Care Team (Late st Contact Info) Description 03/18/2022 [employer] Message Enc [facility] THREE [address] [address] [facility] Provider echo results Social History [...] Description 12/21/2024 12:40 PM CDT Office Visit [facility] [address] [facility] [address] [place], [place] [address] Mariaelena Santos NP [address] [place] [address] [place] [address] 03/14/2025 11:00 AM CDT Office Visit [facility] THREE [facility], [facility] [address] [place] [address] Roberto Betancourt MD [facility]. [facility] [address] [place] [address] 05/08/2025 9:20 AM CDT Office Visit [facility] [address] [facility] [address] [place], [place] [address] Mariaelena Santos NP [address] [place] [address] documented as of this encounter Visit Diagnoses Not on filedocumented in this encounter Additional Health Concerns Assessment Noted Time PHQ-9 Depression Total Score: 0 03/17/20 8:03 AM CDT documented as of this encounter Care Teams Electronics Teacher Relationship Specialty Start Date End Date Lisa Coy MD PCP - General INTERNAL MEDICINE 03/04/16 09/13/22 Mariaelena Santos NP [address] [place] [address] PCP - General NURSE PRACTITIONER 09/14/22 Roberto Betancourt MD [facility]. [place] [facility] [place] [address] [place] Regulatory Submissions Associate CARDIOVASCULAR DISEASE 03/04/16 Shari Plummer, RN [address] [place] [address] Men'S Leather Dress Belt Maker (Ambulatory) REGISTERED NURSE 04/28/24 documented as of this encounter
--- OUTSIDE RECORDS SUMMARY | 2024-12-19 10:25 | XMS_ITS | Encounter Summary ---
Author Organization [facility] Address [facility] [place] [address] Care Team Providers Care Warehouse Puller Name Role Phone Roberto Betancourt MD Unavailable [phone] Mariaelena Santos CHILD NUTRITION ASSISTANT Primary Care Provider [phone] Shari Plummer RN Unavailable [phone] Reason for Visit * Reason Comments Procedure (SCAN) Encounter Details Date Type Department Care Team ([facility] Contact Info) Description 12/12/2024 Scan HEALTH INFO SRVCS Scanned, Doc Med [...] any time in the past 12 m [facility], were you homeless or living [...] Description 12/21/2024 12:40 PM CDT Office Visit [facility] Family Medicine - [place] [address] [facility] [address] [place] [address] Mariaelena Santos NP [address] [place] [address] [place] [address] 03/14/2025 11:00 AM CDT Office Visit [facility] THREE [facility], [place] [address] [place] [address] Roberto Betancourt MD [facility]. [facility] [address] [place] [address] 05/08/2025 9:20 AM CDT Office Visit [facility] Family Medicine - [place] [address] [facility] [address] [place] [address] Mariaelena Santos NP [address] [place] [address] [place] [address] documented as of this encounter Goals Goal Patient Goal Type Associated Problems Recent Progress Patient-Stated? Author Blood Pressure < 140/90 Blood Pressure 136/80(10/30 8:15 AM CANOPY INSPECTOR) No Shari Plummer RN Note: Patient will [...] Associated Diagnosis Comments PROCEDURE GENERIC (SCAN ORDER) 12/12/2024 documented in this encounter Results * PROCEDURE GENERIC (SCAN ORDER) (12/12/2024) 12/12/2024 us Doc Med Group Scanned SCANNING Final Resu lt documented in this encounter Visit Diagnoses Not on filedocumented in this encounter Additional Health Concerns Assessment Noted Time PHQ-9 Depression Total Score: 0 03/17/20 22 8:03 AM CDT documented as of this encounter Care Teams Warehouse Puller Relationship Specialty Start Date End Date Mariaelena Santos NP [address] [place] [address] PCP - General NURSE PRACTITIONER 09/14/22 Roberto Betancourt MD Three [facility]. [place] [address] [place] [address] [place] Administrator CARDIOVASCULAR DISEASE 03/04/16 Shari Plummer, RN [address] [place], [place] [address] Social Service Assistant (Ambulatory) REGISTERED NURSE 04/28/24 documented as of this encounter
--- OUTSIDE RECORDS SUMMARY | 2024-12-19 10:25 | XMS_ITS | Encounter Summary ---
Author Organization [facility] Address [facility] [place] [address] Care Team Providers Care Wafer Machine Operator Name Role Phone Lisa Coy MD Primary Care Provider [phone] Roberto Betancourt MD Unavailable [phone] Mariaelena Santos NP Primary Care Provider [phone] Shari Plummer RN Unavailable [phone] Encounter Details Date Type Department Care Team (Late st Contact Info) Description 02/07/2021 [employer] Message Enc [facility] Medical Group Family & Internal Medicine [address] [address] [facility] Provider Results Social History Tobacco Use Types [...] Description 12/21/2024 12:40 PM CDT Office Visit [facility] [address] [facility] [address] [place] [address] Mariaelena Santos NP [address] [place] [address] 03/14/2025 11:00 AM CDT Office Visit [facility], [facility] [address] [place] [address] Roberto Betancourt MD Three [facility]. [facility] [address] [place], [place] [address] 05/08/2025 9:20 AM CDT Office Visit [facility] [address] [facility] [address] [place] [address] Mariaelena Santos NP [address] [place] [address] documented as of this encounter Visit Diagnoses Not on filedocumented in this encounter Care Teams Wafer Machine Operator Relationship Specialty Start Date End Date Lisa Coy MD PCP - General INTERNAL MEDICINE 03/04/16 09/13/22 Mariaelena Santos NP [address] [place] [address] PCP - General NURSE PRACTITIONER 09/14/22 Roberto Betancourt MD [address] [address] [employer] Teacher CARDIOVASCULAR DISEASE 03/04/16 Shari Plummer, RN [address] [place] [address] Color Shop Helper (Ambulatory) REGISTERED NURSE 04/28/24 documented as of this encounter
--- OUTSIDE RECORDS SUMMARY | 2024-12-19 10:25 | XMS_ITS | Clinical Summary ---
Author Organization [facility] Address [address] [place] [address] Care Team Providers Care Recording Studio Setup Worker Name Role Phone Roberto Betancourt MD Unavailable [phone] Mariaelena Santos MANAGER CONTINUOUS IMPROVEMENT Primary Care Provider [phone] Shari Plummer RN Unavailable [phone] Allergies Active Allergy Reactions Criticality Noted Date [...] nurse. DX: htn 1 Device 022 Active PSYLLIUM FIBER OR Take 1 capsule by mouth daily. Active metoprolol succinate ER (TOPROL-XL) 50 MG 24 hr tabletIndications :CHF (congestive heart failure), NYHA class I, acute, systolic (CMS/HCC HHS/HCC) TAKE 1 TABLET(50 MG) BY MOUTH DAILY 90 tablet 1 024 Active spironolactone (ALDACTONE) 25 MG tablet TAKE 1/2 TABLET(12.5 MG) BY MOUTH DAILY 45 tablet 2 024 Active Additional Information Patient taking differently: 25 mg, Reported on 12/14/2024 rosuvastatin (CRESTOR) 40 MG tabletIndications :Dyslipidemia TAKE 1 TABLET(40 MG) BY MOUTH EVERY NIGHT AT BEDTIME 90 tablet 2 024 Active pantoprazole EC (PROTONIX) 20 MG tabletIndications :Gastroesophageal reflux disease, unspecified whether esophagitis present TAKE 1 TABLET(20 MG) BY MOUTH DAILY 90 tablet 1 025 Active Additional Information Patient taking differently: 40 mgOral Daily, Informant: Self, Reported on 12/14/2024 levothyroxine (SYNTHROID) 50 MCG tabletIndications :Acquired hypothyroidism TAKE 1 TABLET(50 MCG) BY MOUTH DAILY 90 tablet 1 025 Active bumetanide (BUMEX) 1 MG tabletIndications :CHF (congestive heart failure), NYHA class I, acute, systolic ([facility] HHS/[facility]) TAKE 1 TABLET(1 MG) BY MOUTH EVERY MORNING 90 tablet 1 025 Active lisinopril (PRINIVIL) 20 MG tabletIndications :Essential hypertension TAKE 1 TABLET(20 MG) BY MOUTH DAILY 90 tablet 1 025 Active cetirizine (ZYRTEC) 10 MG tablet Take 1 tablet (10 mg total) by mouth daily. Active Multiple Vitamin (MULTIVITAMIN ADULT OR) 2024 Discontinued(D uplicate Med) cetirizine (ZYRTEC) 10 MG tablet Take 1 tablet (10 mg total) by mouth daily. 2024 Discontinued(P atient/family declined) lisinopril (PRINIVIL) 20 MG tabletIndications :Essential hypertension TAKE 1 TABLET(20 MG) BY MOUTH DAILY 90 tablet 1 024 2024 Discontinued Active Problems Problem Noted Date Diagnosed Date Care Management 04/28/2024 Adult BMI 26.0-26.9 kg/sq m 03/06/2020 Cardiac LV ejection fraction 21-40% 02/12/2017 Overview (02/01/2019): Annotation - [id number]: 35-40%; Annotation - [id number]: 12/18 Ejection fraction ; 35 - 45 % Non-rheumatic mitral regurgitation 01/04/2017 Chronic systolic heart failure ([facility]) 01/04/2017 Anemia 08/28/2016 CHF (congestive heart failur e), NYHA class I, acute, systolic ([facility]) 06/17/2016 Seasonal allergies 12/25/2015 Vitamin D deficiency 04/30/2014 Hypothyroidism 05/24/2013 Hyperlipidemia 12/07/2011 Atherosclerosis of coronary artery 06/26/2011 Abnormal blood chemistry level 02/27/2011 GERD (gastroesophageal reflux disease) Essential hypertension Dyslipidemia CAD (coronary artery disease) Resolved Problems Problem Noted Date Diagnosed Date Resolved Date Shortness of breath 06/11/2016 09/14/20 22 Claudication, intermittent 10/22/2014 0 04/27/2024 Metabolic syndrome 10/22/2014 Malignant neoplasm of breast ([facility]) 11/15/2013 09/14/2022 Overview (02/01/2019): Annotation - [id number]: status post lumpectomy, stopped tamoxifen after 5 years Hormone replacement therapy 09/14/2022 Encounters Date Type Department Care Team Description 12/14/2024 Patient Outreach [address] [place], [place] [id number] Shari Plummer RN TCM ([facility] 12/08-12/13/24 SBO and UTI) 12/13/2024 Patient Outreach [address] [place], [place] [address] Shari Plummer RN Hospital Follow Up (Call to [facility] ) 12/12/2024 Scan [facility] SRVCS Scanned, [facility] Procedure (SCAN) 12/11/2024 Scan [facility] SRVCS Scanned, [facility] Procedure (SCAN) 12/11/2024 Patient Outreach [address] [place], [place] [address] Cadence Tim RN Hospital Follow Up (Admission notification to [facility] 12/10/2024 Scan [facility] INFO SRVCS Scanned, [facility] Image (SCAN) 12/09/2024 Scan [facility] SRVCS Scanned, [facility] MRI (SCAN) 12/08/2024 Scan [facility] Scanned, [facility] Ultrasound (SCAN); CT (SCAN); Echo (SCAN) 12/08/2024 Patient Outreach [address] [place] [address] Shari Plummer, RN Care Management (CCM call with son ) 12/03/2024 Scan [facility] SRVCS Scanned, [facility] 12/01/2024 Scan [facility] Scanned, [facility] Procedure (SCAN); Image (SCAN) 11/30/2024 Scan [facility]VCS Scanned, Doc [facility] CT (SCAN); Procedure (SCAN) 11/16/2024 Patient Outreach [address] [address] Shari Plummer RN Care Management (CCM call to the patient. ) 11/16/2024 Outreach Visit [address] [address] Shari Plummer RN 10/30/2024 8:20 AM JOB PRESS OPERATOR Office Visit [address] [address] Mariaelena Santos NP Follow Up (6mo ck doing ok) 10/30/2024 Travel 10/25/2024 Patient Outreach [address] [place] [address] Mariaelena Santos NP Pre-visit Gap Closure 10/19/2024 Patient Outreach [address] [address] Shari Plummer RN Care Management (CCM call to the patient. ) 09/25/2024 Patient Outreach [address] [place] [address] Shari Plummer RN Care Management (CCM call to the patient) from Last 3 Months Immunizations Name Administration [...] Adult Use, Lf Unspecified 03/06/2020 Zoster (Zostavax) 16013 Unt/0.65Ml 08/10/2012 Family History Medical History Relation [...] any time in the past 12 m [facility], were you homeless or living in a skilled nursing (including now)? No 04/28/2024 Comments No Sex [...] Comments Blood Pressure 136/80 10/30/2024 8:15 AM JOB PRESS OPERATOR Pulse 60 10/30/2024 8:15 AM JOB PRESS OPERATOR Temperature 35.7 C (96.2 F) 10/30/2024 8:15 AM JOB PRESS OPERATOR Respiratory Rate 16 04/27/2024 10:39 AM CDT Oxygen Saturation 98% 10/30/2024 8:15 AM JOB PRESS OPERATOR Inhaled Oxygen Concentration - - Weight 69.9 kg (154 lb 3.2 oz) 10/30/2024 8:15 A M JOB PRESS OPERATOR Height 162.6 cm (5' 4 ) 10/30/2024 8:15 AM JOB PRESS OPERATOR Body Mass Index 26.47 10/30/2024 8:15 AM JOB PRESS OPERATOR Plan of Treatment Upcoming Encounters Date Type Department Care Team (Late st Contact Info) Description 12/21/2024 12:40 PM CDT Office Visit [facility] [address] [facility] [address] [place] [address] Mariaelena Santos NP [address] [place] [address] 03/14/2025 11:00 AM CDT Office Visit [facility], [address] [place] [address] Roberto Betancourt MD [facility]. [address] [place], [place] [id number] 05/08/2025 9:20 AM CDT Office Visit [facility] [address] [facility] [address] [place] [address] Mariaelena Santos NP [address] [place] [address] Health Maintenance Due Date Last Done Comments [...] , 07/15/2022, Additional history exists PHQ-2 (Physician [facility]) Completed 10/30/2024 Meningococcal B Vaccine Aged Out [...] < 140/90 Blood Pressure 136/80(10/30 8:15 AM JOB PRESS OPERATOR) Shari Patton RN Note: Patient will [...] Diagnosis Comments PROCEDURE GENERIC (SCAN ORDER) 12/12/2024 PROCEDURE GENERIC (SCAN ORDER) 12/11/2024 IMAGE GENERIC 12/10/2024 MRI GENERIC 12/09/2024 ECHO GENERIC (SCAN ORDER) 12/08/2024 CT GENERIC 12/08/2024 ULTRASOUND GENERIC (SCAN ORDER) 12/08/2024 IMAGE GENERIC 12/01/2024 PROCEDURE GENERIC (SCAN ORDER) 12/01/2024 CT GENERIC 11/30/2024 PROCEDURE GENERIC (SCAN ORDER) 11/30/2024 COLLECTION VENOUS BLOOD VENIPUNCTURE Routine 10/30/2024 8:55 AM JOB PRESS OPERATOR Mixed hyperlipidemia TSH W/REFLEX Routine 10/30/2024 8:55 AM JOB PRESS OPERATOR Acquired hypothyroidism COMPREHENSIVE METABOLIC PANEL Routine 10/30/2024 8:55 AM JOB PRESS OPERATOR Essential hypertension Prediabetes HEMOGLOBIN, GLYCOSYLATED Routine 10/30/2024 8:55 AM JOB PRESS OPERATOR Prediabetes LIPID PANEL Routine 11/01/2023 8:40 AM JOB PRESS OPERATOR Dyslipidemia BONE DENSITY/DEXA Routine 04/23/2023 8:3 2 AM CDT Post-menopausal from Last 3 Months or Most Recently Relevant to Health Maintenance Results * PROCEDURE GENERIC (SCAN ORDER) (12/12/2024) 12/12/2024 [facility] Scanned SCANNING Final Resu lt * PROCEDURE GENERIC (SCAN ORDER) (12/11/2024) 12/11/2024 [facility] Scanned SCANNING Final Resu lt * IMAGE GENERIC (12/10/2024) Only the most recent of2 resultswithin the time period is included. Anatomical Region Laterality Modality Other 12/10/2024 Result [facility] Scanned SCANNING Final Resu lt * MRI GENERIC (12/09/2024) Anatomical Region Laterality Modality Other 12/09/2024 Result [facility] Scanned SCANNING Final Resu lt * CT GENERIC (12/08/2024) Only the most recent of2 resultswithin the time period is included. Anatomical Region Laterality Modality Other 12/08/2024 Result [facility] Scanned SCANNING Final Resu lt * ECHO GENERIC (SCAN ORDER) (12/08/2024) Anatomical Region Laterality Modality Other 12/08/2024 Result [facility] Scanned SCANNING Final Resu lt * ULTRASOUND GENERIC (SCAN ORDER) (12/08/2024) Anatomical Region Laterality Modality Other 12/08/2024 Result [facility] Scanned SCANNING Final Resu lt * PROCEDURE GENERIC (SCAN ORDER) (12/01/2024) 12/01/2024 Result [facility] Scanned SCANNING Final Resu lt * PROCEDURE GENERIC (SCAN ORDER) (11/30/2024) 11/30/2024 Result [facility] Scanned SCANNING Final Resu lt * TSH W/REFLEX (10/30/2024 8:55 AM JOB PRESS OPERATOR) TSH 1.800 0.358 - 3.740 uIU/ML 10/30/2024 2:56 PM JOB PRESS OPERATOR [facility] 10/30/2024 8:55 AM JOB PRESS OPERATOR Mariaelena Santos MANAGER CONTINUOUS IMPROVEMENT LABORATORY Final Res ult [facility] [address] [place] [address], [place] [phone] * (ABNORMAL) HEMOGLOBIN, GLYCOSYLATED (10/30/2024 8:55 AM JOB PRESS OPERATOR) HGB A1C 6.4(H) 4.5 - 6.2 % 10/30/2024 2:54 PM JOB PRESS OPERATOR [facility] ESTIMATED AVG GLUCOSE 137(H) 74 - 106 MG/DL 10/30/2024 2:54 PM JOB PRESS OPERATOR [facility] 10/30/2024 8:55 AM JOB PRESS OPERATOR Mariaelena Santos MANAGER CONTINUOUS IMPROVEMENT LABORATORY Final Res ult Performing Organization Address City/[facility]/ZIP Co de Phone Number [facility] [address] [place] [address], [place] [phone] * (ABNORMAL) COMPREHENSIVE METABOLIC PANEL (10/30/2024 8:55 AM JOB PRESS OPERATOR) SODIUM S/P/B 141 136 - 145 MMOL/L 10/30/2024 2:56 PM JOB PRESS OPERATOR [facility] POTASSIUM S/P/B 4.1 3.5 - 5.1 MMOL/L 10/30/2024 2:56 PM JOB PRESS OPERATOR [facility] CHLORIDE S/P/B 102 98 - 107 MMOL/L 10/30/2024 2:56 PM [facility] CO2 29.4 21 - 32 MMOL/L 10/30/2024 2:56 PM [facility] GLUCOSE 135(H) 70 - 99 MG/DL 10/30/2024 2:56 PM [facility] BUN 19(H) 7 - 18 MG/DL 10/30/2024 2:56 PM [facility] CREATININE S/P/B 0.93 0.55 - 1.02 MG/DL 10/30/2024 2:56 PM [facility] CALCIUM S/P/B 8.8 8.4 - 10.5 MG/DL 10/30/2024 2:56 PM [facility] BILIRUBIN TOTAL S/P/B 0.6 0.2 - 1.0 MG/DL 10/30/2024 2:56 PM [facility] ALKALINE PHOSPHATASE S/P/B 63 55 - 142 U/L 10/30/2024 2:56 PM [facility] AST 23 15 - 37 U/L 10/30/2024 2:56 PM [facility] ALT 25 14 - 59 U/L 10/30/2024 2:56 PM [facility] TOTAL PROTEIN S/P/B 6.2(L) 6.4 - 8.2 G/DL 10/30/2024 2:56 PM [facility] ALBUMIN S/P/B 3.6 3.4 - 5.0 G/DL 10/30/2024 2:56 PM [facility] ANION GAP 9.6 5 - 15 MMOL/L 10/30/2024 2:56 PM [facility] Comment:REFERENCE RANGE NOT ESTABLISHED OSMOLALITY (CALC) 296 MOSM/KG 025 2:56 PM [facility] Comment:REFERENCE RANGE NOT ESTABLISHED GFR ESTIMATE 61(L) >90 ML/MIN/1. 73 M2 10/30/2024 2:56 PM JOB PRESS OPERATOR [facility] GFR NOTES GFR REFERENCE S: 10/30/2024 2:56 PM JOB PRESS OPERATOR [facility] Comment: THE ESTIMATED GFR IS CALCULATED USING [...] FAILURE: <15 ml/min/1.73 m2 10/30/2024 8:55 AM JOB PRESS OPERATOR Mariaelena Santos NP LABORATORY Final Res ult [facility] [address] [place] [address], * LIPID PANEL (11/01/2023 8:40 AM JOB PRESS OPERATOR) CHOLESTEROL 135 <200 MG/DL 11/01/2023 3:59 PM [facility] TRIGLYCERIDES 134 <150 MG/DL 11/01/2023 3:59 PM [facility] HDL 54 >40 MG/DL 11/01/2023 3:59 PM JOB PRESS OPERATOR [facility] LDL-C 54 <100 MG/DL 11/01/2023 3:59 PM JOB PRESS OPERATOR [facility] VLDL CALCULATION 27 5 - 28 MG/DL 11/01/2023 3:59 PM JOB PRESS OPERATOR [facility] CHOL/HDL RATIO 2.5 0.0 - 4.0 11/01/2023 3:59 PM JOB PRESS OPERATOR [facility] LDL/HDL 1.0 0.41 - 2.13 11/01/2023 3:59 PM JOB PRESS OPERATOR [facility] KRISTYN, [place] NON HDL CHOLESTEROL 81 <140 MG/DL 11/01/2023 3:59 PM JOB PRESS OPERATOR [facility] 11/01/2023 8:40 AM JOB PRESS OPERATOR us Mariaelena Santos MANAGER CONTINUOUS IMPROVEMENT LABORATORY Final Res ult [facility] [place] [address] [place] [address], * BONE DENSITY/DEXA (04/23/2023 8:32 AM CDT) [...] bone mineral density test. [facility] is allowed once every 2 [...] Mederos MD, 04/23/2023 8:35 AM Mariaelena Santos NP DEXA Final Res ult from Last 3 Months or Most Recently Relevant to Health Maintenance Insurance [employer] Care Teams Recording Studio Setup Worker Relationship Specialty Start Date End Date Mariaelena Santos NP [address] [place] [address] PCP - General NURSE PRACTITIONER 09/14/22 Roberto Betancourt MD [facility]. [address] [address] Brando Bricklayer Apprentice CARDIOVASCULAR DISEASE 03/04/16 Shari Plummer, RN [address] [place], [place] [address] Envelope Stamping Machine Operator (Ambulatory) REGISTERED NURSE 04/28/24
[2024-12-19 12:49] LABS: Alanine Aminotransferase 22 U/L (6-35); Albumin Level 3.9 g/dL (3.5-5.1); Alkaline Phosphatase 59 U/L (38-126); Anion Gap 12 mmol/L (4-12); Aspartate Amino Transferase 30 U/L (14-36); Bilirubin,Total 0.5 mg/dL (0.2-1.3); Blood Urea Nitrogen 15 mg/dL (7-17); Calcium 9.1 mg/dL (8.4-10.2); Carbon Dioxide 26 mmol/L (22-30); Chloride 100 mmol/L (98-107); Estimated Glomerular Filt Rate > 60; Glucose 124 mg/dL (65-110); Potassium 3.3 mmol/L (3.4-5.0); Sodium 138 mmol/L (137-145)
== END 2024-12-19 09:33 | disposition home or self-care (01) ==
PROVIDERS: PCP Nurse Practitioner; Visit Provider Internal Medicine Hematology & Oncology
DX: D3A.8 Other benign neuroendocrine tumors (principal)
CPT/HCPCS: 36415; 80053; 84260; 85025; 86316

== ENCOUNTER 2025-02-28 10:00 | Outpatient (CLI) | payer MEDICARE, SELFPAY ==
--- OUTSIDE RECORDS SUMMARY | 2025-02-28 10:08 | XMS_ITS | Clinical Summary ---
Author Organization [facility] Manny Thacker Address [address] [place] [address] Care Team Providers Care Mechanic'S Assistant Name Role Phone Unavailable Primary Care Provider Unavailabl e Allergies No known active allergies Medications bumetanide (BUMEX) 1 mg tablet Take 1 [...] mouth daily. Take 1/2 tablet 03/17/2023 Active multivitamin (DAILY-KYRA) tablet Take 1 Tablet by mouth daily. Active FIBER ORAL Take by mouth. Active HYDROcodone-rosmery taminophen (NORCO) 5-325 mg tabletIndicatio ns:Neuroendocri ne tumor (CMS/HCC) Take 1 Tablet by mouth every 4 hours as needed for Pain, Moderate. Max Daily Amount: 6 Tablets 20 Tablet 01/29/2025 Active sennosides-docu sate sodium (SENNA-S) 8.6-50 mg tablet Take 2 Tablets by mouth 2 times daily for 7 days. 28 Tablet 01/29/2025 02/06/20 25 apixaban (ELIQUIS) 2.5 mg tablet Take 1 Tablet (2.5 mg) by mouth 2 times daily for 24 days. 48 Tablet 01/29/2025 02/23/20 25 potassium, sodium PHOSPHATES (PHOS-NaK) 280-160-250 mg Powder in Packet Take 2 Packets by mouth 2 times daily for 7 days. 28 Packet 01/29/2025 02/06/20 25 Hospital, Clinic, or Other Facility Administered Medication Ordered Dose Route Frequency Start Date End Date Status piperacillin-tazobac slater (ZOSYN) IVPB 3.375 GramIndications:[place] static malignant neuroendocrine tumor to liver (CMS/HCC) 3.375 Gram IV EVERY 6 HOURS 01/01/2025 01/30/20 2 5 Discontinued Active Problems Problem Noted Date Diagnosed Date HTN (hypertension), benign 01/25/2025 Hyperlipidemia 01/25/2025 Heart disease 01/25/2025 Hypothyroidism 01/25/2025 CHF (congestive heart failure) 01/25/2025 GERD (gastroesophageal reflux disease) Malignant neoplasm of right female breast 2024 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 er 12/31/2024 Encounters Date Type Department Care Team Description 02/27/2025 External Device Data STL ABSTRACTION Provider, Abstract 02/27/2025 External Device Data STL ABSTRACTION Provider, Abstract 02/22/2025 External Device Data ST[facility] ABSTRACTION Provider, Abstract 02/21/2025 External Device Data STL ABSTRACTION Provider, Abstract 02/20/2025 External Device Data STL ABSTRACTION Provider, Abstract 02/12/2025 11:00 AM CDT Office Visit [facility] [place] [address] [facility] [address] [place] [address] Lima Magallanes PA-C 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) (Primary Dx); 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) 02/09/2025 Telephone [facility] [place] [address] [facility] [address] [place] [address] Lima Magallanes PA-C Appointment Verification 02/09/2025 Orders Only [facility] Oncology and Hematology - [place] [address] [place] [address] Ran Mcmillan MD High platelet count (Primary Dx); Neuroendocrine tumor (CMS/HCC) 01/30/2025 External Device Data STL ABSTRACTION Provider, Abstract 01/30/2025 External Device Data STL ABSTRACTION Provider, Abstract 01/30/2025 External Device Data STL ABSTRACTION Provider, Abstract 01/30/2025 Telephone [facility] [place] [address] [facility] [address] [place] [address] Lima Magallanes PA-C Labs Only 01/29/2025 Orders Only [facility] [place] [address] [facility] 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 Operating Room [address] [place] [address] Topher Pinto MD Zino, Adam Z, AA-C 01/25/2025 12:45 PM CDT Anesthesia Event [facility] Operating Room [address] [place] [address] Tan Brown MD 01/25/2025 12:26 PM CDT - 01/25/2025 6:07 PM CDT Surgery [facility] Operating Room [address] [place] [address] Haley Gipson MD LAPAROTOMY EXPLORATORY 01/25/2025 9:50 AM CDT - 01/29/2025 2:30 PM CDT Hospital Encounter 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) Discharge Disposition: Home Health Care [facility] 01/25/2025 Travel 01/09/2025 1:58 PM CDT - 01/09/2025 11:59 PM CDT Hospital Encounter [facility] [address] [address] [place] [address] Haley Gipson MD Discharge Disposition: Home or Self Care 01/09/2025 Orders Only [facility] Oncology and [facility] [address] [place] [address] Ran Mcmillan MD 01/05/2025 8:45 AM CDT Office Visit [facility] Oncology [facility] [address] [place] [address] Ran Mcmillan MD Neuroendocrine tumor (CMS/HCC) (Primary Dx) 01/05/2025 Telephone [facility] [address] [place] [address] Ran Mcmillan MD Pathology Report 01/05/2025 Telephone [facility] [place] [address] [place] [address] Haley Gipson MD pathology report 01/01/2025 9:05 AM CDT - 01/01/2025 11:59 PM CDT Hospital Encounter [facility] Laboratory Services [facility] [address] [place] [address] Haley Gipson MD Discharge Disposition: Home or Self Care 01/01/2025 8:00 AM CDT Office Visit [facility] [place] [address] [place] [address] Haley Gipson MD 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) (Primary Dx); Overweight (BMI 25.0-29.9) 01/01/2025 Telephone [facility] [place] [address] [place] [address] Haley Gipson MD New Prescription Request 01/01/2025 Orders Only [facility] [id number] [place] [address] [place] [address] Haley Gipson MD 01/01/2025 Orders Only [facility] [id number] [place] [address] [place] [address] Merry Vides RN 01/01/2025 Prep for Surgery [facility] [place] [address] [address] Haley Gipson MD 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) (Primary Dx) 01/01/2025 Prep for Surgery [facility] [id number] [place] [address] [place] [address] Haley Gipson MD 12/29/2024 1:48 PM CDT - 12/29/2024 11:59 PM CDT Hospital [facility] [address] [place] [address] Haley Gipson MD Discharge Disposition: Home or Self Care 12/29/2024 1:46 PM CDT - 12/29/2024 11:59 PM CDT Hospital Encounter [facility] CT Scan [address] [place] [address] Haley Gipson MD Discharge Disposition: Home or Self Care 12/29/2024 Telephone [facility] [place] [address] [place] [address] Haley Gipson MD Appointment Verification 12/28/2024 2:06 PM CDT - 12/28/2024 11:59 PM CDT Hospital Encounter [facility] Nuclear Medicine [address] [place] [address] [id number] Ran Mcmillan MD Discharge Disposition: Home or Self Care 12/26/2024 External Device Data STL ABSTRACTION Provider, Abstract 12/21/2024 Orders Only [facility] Oncology and Hematology [place] [address] [place] [address] Ran Mcmillan MD 12/20/2024 External Device Data STL ABSTRACTION Provider, Abstract 12/20/2024 External Device Data STL ABSTRACTION Provider, Abstract 12/19/2024 8:30 AM CDT Office Visit [facility] Oncology and [facility] [address] [place] [address] Ran Mcmillan MD Neuroendocrine tumor (CMS/HCC) (Primary Dx) 12/19/2024 Telephone [facility] [place] [address] [facility] [address] [place] [address] Haley Gipson MD Appointment Notification 12/19/2024 Orders Only [facility] [place] [address] [facility] [address] [place] [address] Haley Gipson MD Neuroendocrine tumor (CMS/HCC) (Primary Dx); 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 No 01/25/2025 Food Insecurity Answer Date Recorded Patient needs follow up regardin 01/24/2025 Transportation Needs Answer Date Record ed Patient needs follow up regardin 01/24/2025 Housing Stability Answer Date Recorded Social/Environmental Concerns No concerns Utility Needs Answer Date Recorded Patient needs follow up regardin 01/24/2025 Comments No Sex and Gender Information Value Date Recorded Sex Assigned at Not on file Legal Sex Female 9:38 AM CDT Gender Identity Not on file Sexual Orientation Not on file Last Filed Vital Signs Vital Sign Reading Time Taken Comments Blood Pressure 113/67 02/12/2025 10:51 AM CDT Pulse 91 02/12/2025 10:51 AM CDT Temperature 36.7 C (98 F) 02/12/2025 10:51 AM CDT Respiratory Rate 18 01/29/2025 12:30 PM CDT Oxygen Saturation 98% 02/12/2025 10:51 AM CDT Inhaled Oxygen Concentration - - Weight 64.1 kg (141 lb 6.4 oz) 02/12/2025 10:51 AM CDT Height 162.6 cm (5' 4) 02/12/2025 10:51 AM CDT Body Mass Index 24.27 02/12/2025 10:51 AM CDT Plan of Treatment Upcoming Encounters Date Type Department Care Team (Late st Contact Info) Description 03/08/2025 9:45 AM CDT Office Visit [facility] Oncology and Hematology - [place] [address] [place] [address] Ran Mcmillan MD [address] [facility] [address] [place] [address] Health Maintenance Due Date Last Done Comments RSV VACCINE (60+ or ) (1 - -dose 75+ series) 2016 DTAP/TDAP/TD VACCINES (1 - Tdap) 03/07/2020 03/06/20 20 COVID-19 Vaccine (5 - 2023-2 5 season) 2024 12/31/2021, 08/04/2021, 12/13/2020, Additional history exists Medicare Ad[place]age ([place]) Preventative Visit/Annual Wellness Visit 10/04/2024 OSTEOPOROSIS SCREENING 04/23/2028 04/23/2023, 2022 PNEUMOCOCCAL VACCINE 50+ YEARS Completed 08/18/2016 , 08/10/2006 ZOSTER VACCINE Completed 01/28/2019, 01/2019, 08/10/2012 INFLUENZA VACCINE Completed 05/23/2024, , 07/15/2022, Additional history exists Medical Devices Implanted Type Area Lead Android Developer Device Identifier Shelf Expiration Date Model / Serial / Lot Barrier Seprafilm 3x5in [id number] - [id number] Implanted:Qty : 1 on 01/25/2025 by Haley Gipson MD at [facility] Adhesion Barrier N/A: Abdomen SANOFI [employer]ENTIS PHARM 01/14/2027 [id number] / / [id number] Clip Ligating Horizon Lrg Ti 10.07x12.38mm 188526 - Csc - [id number] Implanted:Qty : 1 on 01/25/2025 by Haley Gipson MD at [facility] Clip N/A: Abdomen TELEFLEX- WECK CLOSURE SYS 04/27/2028 [id number] / / [id number] Clip Ligating Horizon Med Ti 033835 - Csc - [id number] Implanted:Qty : 1 on 01/25/2025 by Haley Gipson MD at [facility] Clip N/A: Abdomen TELEFLEX- WECK CLOSURE SYS 05/14/2029 [id number] / / [id number] Clip Ligating Horizon Med Ti 005090 - Csc - [id number] Implanted:Qty : 1 on 01/25/2025 by Haley Gipson MD at [facility] Clip N/A: Abdomen TELEFLEX- WECK CLOSURE SYS 05/25/2029 [id number] / / [id number] Hemostat Surg Snow 2x4in 2081 - [id number] Implanted:Qty : 1 on 01/25/2025 by Haley Gipson MD at 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) PHOSPHORUS Stat 01/29/2025 10:13 AM CDT HEPATIC FUNCTION PANEL Stat 01/29/2025 10:13 AM CDT BASIC METABOLIC PANEL Stat 01/29/2025 10:13 AM CDT CBC WITH DIFFERENTIAL Stat 01/29/2025 10:13 AM CDT EXTRA TUBE (GREEN) Routine 01/28/2025 8: 10 AM CDT EXTRA TUBE Routine 01/28/2025 8:10 AM CDT PHOSPHORUS Routine 01/28/2025 8:10 AM CDT HEPATIC FUNCTION PANEL Routine 01/28/2025 8:10 AM CDT BASIC METABOLIC PANEL Routine 01/28/2025 8:10 AM CDT CBC WITHOUT DIFFERENTIAL Routine 01/28/2025 8:10 AM CDT MAGNESIUM LEVEL Routine 01/27/2025 10:10 AM CDT PHOSPHORUS Routine 01/27/2025 10:10 AM CDT HEPATIC FUNCTION PANEL Routine 01/27/2025 10:10 AM CDT BASIC METABOLIC PANEL Routine 01/27/2025 10:10 AM CDT CBC WITHOUT DIFFERENTIAL Routine 01/27/2025 10:10 AM CDT MAGNESIUM LEVEL Routine 01/26/2025 9:47 AM CDT PHOSPHORUS Routine 01/26/2025 9:47 AM CDT HEPATIC FUNCTION PANEL Routine 01/26/2025 9:47 AM CDT BASIC METABOLIC PANEL Routine 01/26/2025 9:47 AM CDT CBC WITHOUT DIFFERENTIAL Routine 01/26/2025 9:47 AM CDT OT EVAL AND TREAT Routine 01/25/2025 9:1 6 PM CDT XR ABDOMEN FOR FEEDING TUBE 1 VW Stat 01/25/2025 7:54 PM CDT POC LACTIC ACID Routine 01/25/2025 4:05 PM CDT BLOOD GAS,(INCL. H+H, LYTES, GLUC) Routine 01/25/2025 4:05 PM CDT ME ANESTHESIA BLOCK PB PLACEHOLDER CHARGE Routine 01/25/2025 3:32 PM CDT POC LACTIC ACID Routine 01/25/2025 2:44 PM CDT BLOOD GAS,(INCL. H+H, LYTES, GLUC) Routine 01/25/2025 2:44 PM CDT PATHOLOGY Pathology 01/25/2025 2:12 PM CDT Neuroendocrine tumor (CMS/HCC) ME ANES INSERT CATH, ART, PERCUT, SHORTTERM Routine 01/25/2025 1:57 PM CDT PERIPHERAL IV ADULT Routine 01/25/2025 1 :56 PM CDT ME ANES VNPNXR 3 YEARS/> PHYS/QHP SKILL Routine 01/25/2025 1:56 PM CDT PERIPHERAL IV ADULT Routine 01/25/2025 1 :56 PM CDT ME ANES VNPNXR 3 YEARS/> PHYS/QHP SKILL Routine 01/25/2025 1:56 PM CDT ME ANES INSERT ENDOTRACHEAL AIRWAY Routine 01/25/2025 1:30 PM CDT LIVER RESECTION 01/25/2025 12:26 PM CDT Neuroendocrine tumor (CMS/HCC) ME LAPS SURG ABLTJ 1/> LVR BRITNEY RF 01/25/2025 12:26 PM CDT Neuroendocrine tumor (CMS/HCC) ME ENTRC RESCJ SMALL INTESTINE 1 RESCJ & ANAST 01/25/2025 12:26 PM CDT Neuroendocrine tumor (CMS/HCC) ME EXPLORATORY LAPAROTOMY CELIOTOMY W/WO BIOPSY SPX 01/25/2025 12:26 PM CDT Neuroendocrine tumor (CMS/HCC) VERIFICATION BLOOD GROUP Stat 01/25/2025 11:45 AM CDT Encounter for blood typing EKG 12-LEAD Routine 01/09/2025 3:22 PM CDT 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) TYPE AND SCREEN Routine 01/09/2025 3:17 PM CDT COMPREHENSIVE METABOLIC PANEL Routine 01/09/2025 3:17 PM CDT 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) CBC WITH DIFFERENTIAL Routine 01/09/2025 3:17 PM CDT 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) HEPATIC FUNCTION PANEL Routine 01/01/2025 9:25 AM CDT Neuroendocrine tumor (CMS/HCC) CANCER ANTIGEN 19-9 Routine 01/01/2025 9 :25 AM CDT Neuroendocrine tumor (CMS/HCC) Neoplasm of uncertain behavior of liver, gallbladder and bile ducts CEA Routine 01/01/2025 9:25 AM CDT Neuroendocrine tumor (CMS/HCC) 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 PHOSPHORUS 3.8 2.1 - 4.3 mg/dL [facility] Comment: Test Performed at: [facility] [address] [place] [address] Ruddy Thi Vo Blood 01/31/2025 8:46 AM CDT 01/31/2025 8:46 AM CDT Lima Magallanes PA-C CHEMISTRY ORDERABLES Final Result [facility] [phone] [facility] [address] [place] [address] * (ABNORMAL) COMPREHENSIVE METABOLIC PANEL (01/31/2025 8:46 AM CDT) Only the most recent of2 resultswithin the time period is included. GLUCOSE 109(H) 65 - 99 mg/dL [facility] Comment: Fasting reference interval For someone without known diabetes, a glucose value between 100 and 125 mg/dL is consistent with prediabetes and should be confirmed with a follow-up test. BUN 10 7 - 25 mg/dL [facility] CREATININE 0.56(L) 0.60 - 0.95 mg/dL [facility] GFR 90 > OR = 60 mL/min/1. 73m2 [facility] BUN/CREAT RATIO 18 6 - 22 (calc) [facility] SODIUM 134(L) 135 - 146 mmol/L [facility] Chen POTASSIUM 3.6 3.5 - 5.3 mmol/L [facility] Chen CHLORIDE 98 98 - 110 mmol/L [facility] CO2 25 20 - 32 mmol/L [facility] Chen CALCIUM 8.0(L) 8.6 - 10.4 mg/dL [facility] TOTAL PROTEIN 5.2(L) 6.1 - 8.1 g/dL [facility] ALBUMIN 3.0(L) 3.6 - 5.1 g/dL [facility] GLOBULIN 2.2 1.9 - 3.7 g/dL (calc) [facility] Gustavo ALBUMIN/GLOBULIN RATIO 1.4 1.0 - 2.5 (calc) [facility] Gustavo BILIRUBIN TOTAL 0.9 0.2 - 1.2 mg/dL [facility] Gustavo ALKALINE PHOSPHATASE 149 37 - 153 U/L [facility] AST 88(H) 10 - 35 U/L [facility] ALT 155(H) 6 - 29 U/L [facility] Chen Comment: Test Performed at: [facility] [address] [address] Ruddy Elmore Blood 01/31/2025 8:46 AM CDT 01/31/2025 8:46 AM CDT us Lima Magallanes PA-C CHEMISTRY ORDERABLES Final Result [facility] [phone] [facility] [address] [place] [address] * (ABNORMAL) CBC WITH DIFFERENTIAL (01/29/2025 10:13 AM CDT) Only the most recent of3 resultswithin the time period is included. WBC 9.1 4.0 - 9.8 K/uL 01/29/2025 10:58 AM CDT [facility] RBC 4.10 3.90 - 4.90 M/uL 01/29/2025 10:58 AM CDT [facility] HEMOGLOBIN 11.9 11.8 - 14.8 g/dL 01/29/2025 10:58 AM CDT [facility] HEMATOCRIT 35.9 35.5 - 44.0 % 01/29/2025 10:58 AM CDT [facility] MCV 87.6 82.0 - 99.0 fL 01/29/2025 10:58 AM CDT [facility] MCH 29.0 27.2 - 32.6 pg 01/29/2025 10:58 AM CDT [facility] MCHC 33.1 31.5 - 35.5 g/dL 01/29/2025 10:58 AM CDT [facility] RDW 14.3 11.5 - 14.5 % 01/29/2025 10:58 AM CDT [facility] RDW-STDEV 45.7 37.1 - 48.7 fL 01/29/2025 10:58 AM CDT [facility] PLATELETS 134(L) 140 - 350 K/uL 01/29/2025 10:58 AM CDT [facility] MPV 10.9 9.3 - 12.4 fL 01/29/2025 10:58 AM CDT [facility] NEUTROPHILS 79 % 01/29/2025 10:58 AM CDT [facility] - . [facility] LYMPHOCYTES 8 % 01/29/2025 10:58 AM CDT [facility] MONOCYTES 11 % 01/29/2025 10:58 AM CDT [facility] EOSINOPHILS 1 % 01/29/2025 10:58 AM CDT [facility] - . [facility] BASOPHILS 0 % 01/29/2025 10:58 AM CDT [facility] - . [facility] IMMATURE GRANULOCYTES 0 % 01/29/2025 10:58 AM CDT [facility] - . [facility] NEUTROPHIL ABSOLUTE 7.11(H) 1.90 - 7.00 K/uL 01/29/2025 10:58 AM CDT [facility] - . [facility] LYMPHOCYTE ABSOLUTE 0.72 0.70 - 4.50 K/uL 01/29/2025 10:58 AM CDT [facility] - . [facility] MONOCYTE ABSOLUTE 1.02 0.10 - 1.30 K/uL 01/29/2025 10:58 AM CDT [facility] - . [facility] EOSINOPHIL ABSOLUTE 0.13 0.00 - 0.70 K/uL 01/29/2025 10:58 AM CDT [facility] - . [facility] BASOPHILS ABSOLUTE 0.03 0.00 - 0.20 K/uL 01/29/2025 10:58 AM CDT [facility] - . [facility] IMMATURE GRANULOCYTES ABSOLUTE 0.04(H) 0.00 - 0.03 K/uL 01/29/2025 10:58 AM CDT [facility] - [facility] Blood Venipuncture / Unknown 01/29/2025 10:13 AM CDT 01/29/2025 10:36 AM CDT us Lima Magallanes PA-C HEMATOLOGY ORDERABLES Final Result [facility] CLIA# [id number] [facility] [address] [place] [id number] * (ABNORMAL) HEPATIC FUNCTION PANEL (01/29/2025 10:13 AM CDT) Only the most recent of5 resultswithin the time period is included. TOTAL PROTEIN 5.6(L) 6.7 - 8.6 g/dL 01/29/2025 11:27 AM [facility] ALBUMIN 2.9(L) 3.5 - 5.2 g/dL 01/29/2025 11:27 AM [facility] BILIRUBIN TOTAL 1.1 0.2 - 1.1 mg/dL 01/29/2025 11:27 AM [facility] BILIRUBIN DIRECT 0.5(H) <0.4 mg/dL 01/30/20 11:27 AM [facility] Comment:Slight hemolysis pre sent. Result may be falsely decreased. ALKALINE PHOSPHATASE 254(H) 35 - 104 U/L 01/29/2025 11:27 AM [facility] AST 274(H) <33 U/L 01/29/2025 11:27 AM [facility] Comment:Hemolysis present. R esult may be falsely elevated. ALT 376(H) <34 U/L 01/29/2025 11:27 AM [facility] Blood Venipuncture / Unknown 01/29/2025 10:13 AM CDT 01/29/2025 10:36 AM T [facility] - 01/29/2025 11:27 AM CDT Samples containing indocyanine green cause interferences on Total and/or Direct Bilirubin and must not be measured. Lima Magallanes PA-C CHEMISTRY ORDERABLES Final Result [id number] [place] [place] [id number] * (ABNORMAL) BASIC METABOLIC PANEL (01/29/2025 10:13 AM CDT) Only the most recent of4 resultswithin the time period is included. SODIUM 136 136 - 145 mmol/L 01/29/2025 11:27 AM [facility] POTASSIUM 3.3(L) 3.5 - 5.0 mmol/L 01/29/2025 11:27 AM [facility] CHLORIDE 100 98 - 107 mmol/L 01/29/2025 11:27 AM [facility] CO2 24 22 - 29 mmol/L 01/29/2025 11:27 AM [facility] CALCIUM 8.3(L) 8.6 - 10.2 mg/dL 01/29/2025 11:27 AM [facility] BUN 8 8 - 23 mg/dL 01/29/2025 11:27 AM [facility] CREATININE 0.58 0.51 - 0.95 mg/dL 01/29/2025 11:27 AM [facility] Comment:The GFR result is no t clinically significant on patients <18 or >70 years of age. GLUCOSE 122(H) 74 - 99 mg/dL 01/29/2025 11:27 AM [facility] GFR >60 mL/min/1.7 3 sq meter 01/29/2025 11:27 AM [facility] Comment:eGFR calculated with 2020 CKD-EPI equation. Vegetarian diet, extremely high or low muscle mass, and may affect results. Cystatin C with Glomerular Filtration Rate is a suitable alternative for these patients. ANION GAP 12 8 - 16 mmol/L 01/29/2025 11:27 AM T [facility] Blood Venipuncture / Unknown 01/29/2025 10:13 AM CDT 01/29/2025 10:36 AM CDT us Lima Magallanes PA-C CHEMISTRY ORDERABLES Final Result [facility] ABDELRAHMANIA# [id number] [address] [facility] [place] [address] * EXTRA TUBE (GREEN) (01/28/2025 8:10 AM CDT) Blood Venipuncture / Unknown 01/28/2025 8:10 AM CDT 01/28/2025 9:38 AM CDT us External Provider [facility] CHEMISTRY ORDERABLES Fin al Result [facility] - [facility] CLIA# [id number] [address] [facility] [place] [address] * (ABNORMAL) CBC WITHOUT DIFFERENTIAL (01/28/2025 8:10 AM CDT) Only the most recent of3 resultswithin the time period is included. WBC 10.6(H) 4.0 - 9.8 K/uL 01/28/2025 8:53 AM CDT [facility] RBC 4.29 3.90 - 4.90 M/uL 01/28/2025 8:53 AM CDT [facility] HEMOGLOBIN 12.4 11.8 - 14.8 g/dL 01/28/2025 8:53 AM CDT [facility] HEMATOCRIT 38.5 35.5 - 44.0 % 01/28/2025 8:53 AM CDT [facility] MCV 89.7 82.0 - 99.0 fL 01/28/2025 8:53 AM CDT [facility] MCH 28.9 27.2 - 32.6 pg 01/28/2025 8:53 AM CDT [facility] MCHC 32.2 31.5 - 35.5 g/dL 01/28/2025 8:53 AM CDT [facility] PLATELETS 129(L) 140 - 350 K/uL 01/28/2025 8:53 AM CDT [facility] MPV 11.2 9.3 - 12.4 fL 01/28/2025 8:53 AM CDT [facility] RDW 14.1 11.5 - 14.5 % 01/28/2025 8:53 AM CDT [facility] RDW-STDEV 46.2 37.1 - 48.7 fL 01/28/2025 8:53 AM CDT [facility] [employer] Blood Venipuncture / Unknown 01/28/2025 8:10 AM CDT 01/28/2025 8:30 AM CDT Pipe Jean MD HEMATOLOGY ORDERABLES Fi nal Result Performing Organization Address [facility]/ZIP Co de Phone Number [facility]# [id number] [address] [place] [address] * MAGNESIUM LEVEL (01/27/2025 10:10 AM CDT) Only the most recent of2 resultswithin the time period is included. MAGNESIUM 2.0 1.6 - 2.4 mg/dL 01/27/2025 10:49 AM CDT [facility] Blood Venipuncture / Unknown 01/27/2025 10:10 AM CDT 01/27/2025 10:14 AM CDT Pipe Jean MD CHEMISTRY ORDERABLES Fin al Result Performing Organization Address [facility] Co de Phone Number [facility] [employer]# [id number] [address] [place] [address] * XR ABDOMEN FOR FEEDING TUBE 1 VW (01/25/2025 7:54 PM CDT) Anatomical Region Laterality Modality Abdomen Computed Radiogr aphy 01/25/2025 7:54 PM CDT Impressions 01/25/2025 8:05 PM CDT IMPRESSION: 1. Tip the gastric tube is in mid stomach. DICTATION LOCATION: Location 2 - [facility] Narrative 01/25/2025 8:05 PM CDT XR ABDOMEN FOR FEEDING TUBE 1 VW DATE: 01/25/2025 7:54 PM HISTORY: Check Tube Placement. 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 Exam shows a gastric tube extending below the diaphragm into the stomach. The tip the gastric tube is in the mid stomach. Procedure Note Atilio Locke MD - 01/25/2025 XR ABDOMEN FOR FEEDING TUBE 1 VW DATE: 01/25/2025 7:54 PM HISTORY: Check Tube Placement. 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 Exam shows a gastric tube extending below the diaphragm into the stomach. The tip the gastric tube is in the mid stomach. IMPRESSION: 1. Tip the gastric tube is in mid stomach. DICTATION LOCATION: [address] Haley Gipson MD DIAGNOSTIC IMAGING ORD ERABLES Final Result * POC LACTIC ACID (01/25/2025 4:05 PM CDT) Only the most recent of2 resultswithin the time period is included. Pathologist [facility] LACTIC ACID POC 1.5 <=2.0 mmol/L 01/25/2025 4:05 PM CDT [facility] SPECIMEN SOURCE, GASES POC Arterial 01/25/2025 4:05 PM CDT [facility] COMMENT, GASES POC Responsible Clinical Caregiver notified 01/25/2025 4:05 PM CDT [facility] Blood 01/25/2025 4:05 PM CDT 01/25/2025 4:06 PM CDT Haley Gipson MD POINT OF CARE TESTING Final Result [facility] CLIA# [id number] [address] [place] [address] * (ABNORMAL) BLOOD GAS,(INCL. H+H, LYTES, GLUC) (01/25/2025 4:05 PM CDT) Only the most recent of2 resultswithin the time period is included. Pathologist [facility] PH BLOOD POC 7.33(L) 7.35 - 7.45 01/25/2025 4:05 PM [facility] PCO2 POC 37 35 - 48 mm Hg 01/25/2025 4:05 PM [facility] PO2 POC 201(H) 83 - 108 mm Hg 01/25/2025 4:05 PM [facility] TCO2 (CALC) POC 21 19 - 24 mmol/L 01/25/2025 4:05 PM [facility] HCO3 (CALC) POC 20(L) 22 - 26 mmol/L 01/25/2025 4:05 PM [facility] O2 SATURATION POC 100(H) 94 - 98 % 01/25/2025 4:05 PM [facility] BASE EXCESS POC -6(L) -2 - 3 mmol/L 01/25/2025 4:05 PM [facility] HEMOGLOBIN POC 13.3 11.8 - 14.8 g/dL 01/25/2025 4:05 PM [facility] HEMATOCRIT POC 40 36 - 44 % 01/25/2025 4:05 PM [facility] Comment:Estimated Value GLUCOSE POC 145(H) 74 - 99 mg/dL 01/25/2025 4:05 PM [facility] SODIUM POC 130(L) 136 - 145 mmol/L 01/25/2025 4:05 PM [facility] POTASSIUM POC 3.7 3.5 - 5.0 mmol/L 01/25/2025 4:05 PM [facility] CHLORIDE POC 103 98 - 107 mmol/L 01/25/2025 4:05 PM [facility] CALCIUM IONIZED POC 4.6(L) 4.7 - 5.1 mg/dL 01/25/2025 4:05 PM [facility] PH TEMP CORRECT 7.33(L) 7.35 - 7.45 01/25/2025 4:05 PM [facility] PCO2 TEMP CORRECT 37 35 - 48 mm Hg 01/25/2025 4:05 PM CDT [facility] PO2 TEMP CORRECT 201(H) 83 - 108 mm Hg 01/25/2025 4:05 PM CDT [facility] SPECIMEN SOURCE, GASES POC Arterial 01/25/2025 4:05 PM CDT [facility] PATIENT'S TEMPERATURE POC 37.0 degrees 01/25/2025 4:05 PM CDT [facility] COMMENT, GASES POC Responsible Clinical Caregiver notified 01/25/2025 4:05 PM CDT [facility] Blood, arterial 01/25/2025 4 :05 PM CDT 01/25/2025 4:06 PM CDT Haley Gipson MD ABG ORDERABLES Final Result Performing Organization Address City/State/[facility] Co de Phone Number [facility]# [id number] [address] [place] [address] * ME ANESTHESIA BLOCK PB PLACEHOLDER CHARGE (01/25/2025 3:32 PM CDT) Narrative Tan Brown MD - 01/25/2025 3:32 PM CDT Tan Brown MD 01/25/2025 3:34 PM Epidural Block Patient location during procedure: pre-op Start time: 01/25/2025 12:45 PM End time: 01/25/2025 1:06 PM Reason for block: at surgeon's request and post-op pain management Staffing Performed: Anesthesiologist (/) Authorized by: Tan Brown MD Performed by: Tan Brown MD Certified Rehabilitation Counselor: Fide Laguerre RN Preanesthetic Checklist Completed: patient identified, IV checked, risks and benefits discussed, surgical consent, monitors and equipment checked, pre-op evaluation and timeout performed Epidural Hand hygiene performed prior to procedure Patient was prepped and draped in usual sterile fashion Time out performed Mask worn Patient position: sitting Prep: ChloraPrep Local Anesthetic: Lidocaine 2% without epinephrine Patient monitoring: continuous pulse oximetry, EKG, heart rate and non-invasive blood pressure Approach: left paramedian [place] Identification: palpation technique Number of Attempts: 3 Epidural Needle Identification Technique: SENA saline Needle Type: Tuohy Needle Gauge: 18 G Needle Length: 3.5 in Needle Insertion Depth (cm): 4 Location: thoracic (1-12) and T9-10 Catheter Catheter Type: side hole Catheter Size: 20 G Skin Depth (cm): 10 Test dose: lidocaine 1.5% with epinephrine 1-to-200,000 Test dose: 3 Events: easy and well tolerated and no block events Secured with: Tegaderm, SteriStrips and Medipore Tape Test Dose Time: 01/25/2025 1:05 PM Assessment Outcome: Complete Additional Notes Prior attempt one level up with suspected wet tap, moved level down and had successful placement. Vasovagal episode after paresthesia with wet tap, paresthesia resolved immediately. Gave glycopyrrolate and ephedrine for hypotension and bradycardia. Resolution of near syncope. Recommended initial epidural bolus dose: Duramorph 1 mg and 4-6 mL of solution from epidural pump. Tan Brown MD PROCEDURE/MINOR SURGICAL ORDERABLES Final Result * PATHOLOGY (01/25/2025 2:12 PM CDT) CASE REPORT Surgical Pathology Report Case: [id number] Authorizing Provider: Haley Gipson, Collected: 01/25/2025 02:12 PM Ordering Location: [facility] Received: 01/26/2025 06:44 AM Operating Room Pathologist: Annalisa Rollins MD Specimens: A) - Peritoneum, mesenteric nodule #1 B) - Peritoneum, mesenteric nodule #2 C) - Peritoneum, mesenteric nodule #3 D) - Small Intestine, small bowel resection #1; stitch [place] distal E) - Liver, segement 5 liver resection F) - Gallbladder G) - Small Intestine, Small bowel resection #2; stitch [place] distal H) - Liver, Segment #6 ablated lesions I) - Liver, Segment #3 liver lesion J) - Liver, Segment #4 a lesion K) - Liver, Segment #7 liver lesion #1 L) - Liver, Segment #7 liver lesion #2 11:15 AM [facility] FINAL DIAGNOSIS A. Soft tissue, mesentery, #1, excision: - Metastatic well-differentiated neuroendocrine tumor. B. Soft tissue, mesentery, #2, excision: - Metastatic well-differentiated neuroendocrine tumor. C. Soft tissue, mesentery, #3, excision: - Metastatic well-differentiated neuroendocrine tumor. D. Small bowel, #1, resection: - Well-differentiated neuroendocrine neuroendocrine tumor (WHO grade 2 of 3), 2.5 cm in greatest diameter (see synoptic report). - Ki-67 proliferation index: Up to 10% - Tumor invades into subserosal adipose tissue. - Positive for lymphovascular invasion. - Remaining small bowel mucosa with focal ulceration, underlying granulation tissue and reactive epithelial atypia. - Mesenteric tumor deposit with tumor extending to the blue inked serosal surface. - Proximal and distal resection margin negative for neoplasm. - 2 of 8 lymph nodes positive for metastatic malignancy (isolated tumor cells) (2/8). E. Liver, segment 5, resection: - Metastatic well-differentiated neuroendocrine tumor, extending to inked resection margin. F. Gallbladder, cholecystectomy: - Mild chronic cholecystitis. - Single benign lymph node. - No evidence of malignancy. G. Small bowel, #2, resection: - Benign small bowel wall with serosal and subserosal deposits of well-differentiated neuroendocrine tumor and with serosal adhesions. - Multiple additional mesenteric tumor deposits (grossly designated as lymph nodes). - No evidence of lymph nodes. - Proximal and distal resection margin negative for neoplasm. H. Liver, segment 6, ablated lesion, excision: - Metastatic well-differentiated neuroendocrine tumor, 2 separate nodules, partially ablated. - 1 mm from closest hepatic resection margin. I. Liver, segment 3, excision: - Benign liver parenchyma with partially sclerosed fibrotic nodule, negative for malignancy. J. Liver, segment 4A, excision: - Metastatic well-differentiated neuroendocrine tumor. - Focally extending to the black inked resection margin. K. Liver, segment 7, #1, excision: - Metastatic well-differentiated neuroendocrine tumor. L. Liver, segment 7, #2, excision: - Metastatic well-differentiated neuroendocrine tumor, extending to the black inked margin. 5 11:15 AM [facility] at 1115 CDT GROSS DESCRIPTION The specimens are received in twelve containers each labeled Princess Day. Received in the first container additionally labeled mesenteric nodule #1 is a 0.7 x 0.7 x 0.5 cm irregular fragment of garcia-yellow, firm tissue. The specimen is bisected to show a 0.3 x 0.3 x 0.3 cm garcia-white, firm, well-defined nodule. Entirely submitted in cassette labeled A1. Received in the second container additionally labeled mesenteric nodule #2 is a 1 x 0.8 x 0.2 cm irregular fragment of garcia-yellow, fatty tissue. Entirely submitted in cassette labeled B1. Received in the third container additionally labeled mesenteric nodule #3 is a 0.8 x 0.6 x 0.6 cm garcia-yellow, firm tissue fragment. The specimen is bisected and submitted entirely in cassette labeled C1. Received in the fourth container additionally labeled small bowel resection #1 stitch [place] distal is a 22.5 cm in length by 5 cm in maximum internal circumference segment of small bowel that is received stapled across each end. The specimen is received with a suture on one end that has been previously designated as distal. The serosal surface is pink-mooney, focally erythematous and focally puckered. The puckered area measures 2 cm in greatest dimension (inked blue), 9.5 cm from the distal end margin. Attached mesentery is present. The mesenteric margin is inked black. A firm, disrupted, puckered area is present within the mesentery measuring 1.5 cm in greatest dimension (inked blue), 1 cm from the mesenteric margin. The small bowel is opened to show pink-garcia, normally folded bowel mucosa that is remarkable for a firm, flattened mass with heaped up borders measuring 2.5 x 1.8 x 0.8 cm, 9.5 cm from the distal margin and 11.5 cm from the proximal margin. The mass is located at the serosal puckered area. Sections show involvement of the bowel wall, less than 0.1 cm from the blue inked serosal surface. The mass lies 4.2 cm from the mesenteric margin. The puckered area of the mesentery is sectioned to show an additional garcia-white, firm mass measuring 1.5 x 1.1 x 1 cm, less than 0.1 cm from the blue inked surface, 1 cm from the mesenteric margin, and 2.5 cm from the previously mentioned mass. The mesentery contains multiple putative lymph nodes ranging from 0.1 to 0.4 cm in greatest dimension. [employer]er sections are submitted in cassette labeled D1-proximal margin, en face; D2-distal margin, en face; D3 through D7-small bowel mass, submitted entirely; D8 through Z57-alxtwlgmet mass, submitted entirely; 8: Closest mesenteric margin to both masses); D12-5 putative lymph nodes, intact; D13 and D14-3 putative lymph nodes in each cassette, intact. Received in the fifth container additionally labeled segment 5 liver resection is a 0.9 x 0.9 x 0.4 cm portion of garcia-brown tissue. The capsule is inked blue and the resection margin is inked black. Sections show a garcia-white, firm cut surface. Entirely submitted in cassettes labeled E1 and E2. Received in the sixth container additionally labeled gallbladder is a 9.5 x 3 x 2.5 cm intact gallbladder with attached 0.3 cm patent cystic duct (inked black). The serosal surface is pink-mooney, green-tinged and wrinkled. The specimen is opened to show green-brown, viscous bile. No calculi are present. The mucosal surface is green-brown and velvety with a maximum wall thickness of 0.4 cm. No masses or polyps identified. A single lymph node is present adjacent to the cystic duct measuring 0.7 cm in greatest dimension. Replen[employer] Buyer sections of gallbladder and lymph node (submitted entirely) are submitted in cassette labeled F1. Received in the seventh container additionally labeled small bowel resection #2 stitch [place] distal is a 15.6 cm in length by 2.5 cm in diameter segment of small bowel that is received with a staple line across each end. The specimen is received with a staple line 1 is identified previously designated as distal. The serosal surface is pink-mooney, focally erythematous and roughened with adhesions present. Abundant amount of attached mesentery is present. The mesenteric margin is inked black. The small bowel is opened to show pink-garcia, normally folded bowel mucosa with no masses identified. The mesentery contains multiple putative lymph nodes measuring up to 0.6 cm in greatest dimension. Replen[employer] Buyer sections are submitted in cassette labeled G1-proximal margin, en face; G2-distal margin, en face; G3-adhesions; G4-largest putative lymph node with mesenteric margin, bisected; G5 and G6-6 putative lymph nodes in each cassette, intact. Received in the eighth container additionally labeled segment #6 ablated lesion is a portion of the liver parenchyma measuring 4.4 x 2.2 x 1.6 cm. The liver capsule is garcia-brown and wrinkled with 2 bulging firm nodules ranging from 1.3 to 1.5 cm. The liver capsule is inked blue. The parenchymal margin is inked black. Sections show garcia-brown liver parenchyma that is remarkable for 2 garcia-white nodules, corresponding with the bulging nodules, ranging from 1.6 to 1.7 cm in greatest dimension. The smallest nodule lies 0.2 cm from the resection margin. The largest nodule lies 0.3 cm from the resection margin. Replenishment Buyer sections are submitted in cassettes labeled H1 and H2-smaller nodule with closest resection margin in H1; H3-uninvolved parenchyma between nodules; H4 and H5-tax representative sections of largest nodule with closest resection margin in H4. Received in the ninth container additionally labeled segment #3 liver lesion is a 1.5 x 0.7 x 0.5 cm portion of liver. The liver capsule is inked blue and the resection margin is inked black. The specimen is bisected to show garcia-brown, homogenous liver parenchyma that is remarkable for a 0.2 cm garcia-white, firm lesion, abutting the blue inked capsule and 0.4 cm from the parenchymal margin. Entirely submitted in cassette labeled I1. Received in the 10th container additionally labeled segment #4 a lesion, liver is a 1.3 x 0.9 x 0.8 cm portion of liver. The liver capsule is inked blue. The resection margin is inked black and is remarkable for a bulging nodule measuring 0.8 cm in greatest dimension. The specimen partially fragmented during sectioning. Entirely submitted in cassettes labeled J1. Received in the 11th container additionally labeled segment #7 liver lesion #1 are 2 irregular fragments of garcia-brown tissue ranging from 0.6 to 0.7 cm in greatest dimension. Entirely submitted in cassette labeled K1. Received in the 12th container additionally labeled segment #7 liver lesion #2 is a 1.1 x 0.9 x 0.4 cm portion of liver. The liver capsule is inked blue. The parenchymal margin is received with the next close bulging nodule measuring 0.7 cm in greatest dimension. The margin is inked black. The specimen is sectioned and submitted entirely in cassette labeled L1. SMB 5 11:15 AM [facility] [employer] MICROSCOPIC DESCRIPTION The slides are labeled [id number] and Princess Day. The patient's clinical history of well-differentiated neuroendocrine tumor is noted. Sections of small bowel show a neoplasm composed of variably sized nests of tumor cells extending through the muscularis propria into the subserosal adipose tissue. Individual tumor cells show round to slightly irregular nuclei with coarse chromatin and abundant pink to amphophilic cytoplasm. There is prominent artificial retraction around tumor nests. In addition the tumor shows focal lymphovascular invasion which is also confirmed through immunohistochemical staining with CD31 and D2-40. Immunohistochemical staining for cytokeratin AE1/AE3/CK18, CD56, Ki-67, chromogranin and synaptophysin is performed on block D7. Tumor cells show immunoreactivity with cytokeratin AE1/AE3/CK18, CD56 (variable), synaptophysin and chromogranin. Ki-67 highlights up to 10% of neoplastic nuclei. There are 3 mitoses per mm2. The remaining small bowel mucosa is inflamed with superficial ulceration and reactive epithelial atypia as well as underlying granulation tissue. The tumor extends into the attached mesentery which shows several tumor nodules none of which measures more than 2 cm. The tumor focally abuts the blue inked serosal surface. Multiple liver lesions are excised, some of which show extension of tumor to the black inked resection margin. There are 8 lymph nodes, 2 of which show isolated tumor cells, as confirmed through immunohistochemical staining with cytokeratin AE1/AE3/CK18. 5 11:15 AM [facility] [employer] OPERATIVE PROCEDURE 1: LAPAROTOMY EXPLORATORY 2: SMALL BOWEL RESECTION 3: LIVER CYST MASS LESION ABLATION LAPAROSCOPIC 4: LIVER RESECTION 5 11:15 AM [facility] [employer] CLINICAL INFORMATION NET to LIVER D3A.8-Neuroendocrine tumor (CMS/HCC) 5 11:15 AM [facility] [employer] SYNOPTIC REPORT JEJUNUM AND ILEUM NEUROENDOCRINE TUMOR JEJUNUM AND ILEUM NEUROENDOCRINE TUMOR - D, G 9th Edition - Protocol posted: 09/15/2023 SPECIMEN Procedure: Segmental resection, small intestine TUMOR Tumor Site: Ileum Histologic Type and Grade: G2, well-differentiated neuroendocrine tumor Histologic Grade Determination: Mitotic Rate: 3 mitoses per 2 mm2 Ki-67 Labeling Index: 3% to 20% Tumor Size: Greatest Dimension (Centimeters): 2.5 cm Tumor Focality: Unifocal Tumor Extent: Invades visceral peritoneum (serosa) Lymphatic and / or Vascular Invasion: Not identified Large Mesenteric Masses (greater than 2 cm): Present MARGINS Margin Status: All margins negative for tumor REGIONAL LYMPH NODES Regional Lymph Node Status: : Tumor present in regional lymph node(s) Number of Lymph Nodes with Tumor: 2 Number of Lymph Nodes Examined: 8 DISTANT METASTASIS Distant Site(s) Involved: Liver pTNM CLASSIFICATION (AJCC Version 9) Reporting of pT, pN, and (when applicable) pM categories is based on information available to the pathologist at the time the report is issued. As per the AJCC (Chapter 1, 8th Ed.) it is the managing physician s responsibility to establish the final pathologic stage based upon all pertinent information, including but potentially not limited to this pathology report. pT Category: pT4 pN Category: pN1 pM Category: pM1a ADDITIONAL FINDINGS Additional Findings: Mesenteric tumor deposit(s) less than or equal to 2 cm 5 11:15 AM CDT [facility] COMMENT Special stain, immunohistochemical, and/or in situ hybridization results are interpreted with controls that demonstrate appropriate staining reactions. Note on use of immunohistochemistry reagents and in situ hybridization probes: These tests were developed and their performance characteristics determined by [place] [facility], Department of Laboratory Medicine. It has not been cleared or approved by the U.S. Food and Drug Administration. The FDA has determined that such clearance or approval is not necessary. The test is used for clinical purposes. It should not be regarded as investigational or for research. This laboratory is certified to perform high complexity testing. Frozen section/operating room consultation, gross examination and dissection, and case sign out may have been performed in part or completely in the following laboratories: [facility], CLIA #[id number] [address] [place] [address] [facility], [place] #[id number] [address] [place] [address] [facility]/[place], [place] #[id number] [address] [place] [address] This report was created with the Dragon voice-activated dictation system. Inherent to this system is the possibility of syntax, grammar, punctuation and other errors that could impact the interpretation of the report. If there are interpretative questions about aspects of this report, please contact the performing pathologist. 11:15 AM CDT [facility] Tissue ENTIRE SEROUS MEMBRANE OF PERITONEUM / Unknown Collection / Unknown 01/25/2025 2:12 PM CDT 01/26/2025 6:44 AM CDT Tissue specimen (specimen) ENTIRE SEROUS MEMBRANE OF PERITONEUM / Unknown 01/25/2025 2:13 PM CDT 01/26/2025 6:44 AM CDT Tissue specimen (specimen) ENTIRE SEROUS MEMBRANE OF PERITONEUM / Unknown 01/25/2025 2:13 PM CDT 01/26/2025 6:44 AM CDT Tissue specimen (specimen) (Small Intestine) 01/25/2025 2:22 PM CDT 01/26/2025 6:44 AM CDT Tissue specimen (specimen) ENTIRE LIVER / Unknown 01/25/2025 2:32 PM CDT 01/26/2025 6:44 AM CDT Tissue specimen (specimen) ENTIRE GALLBLADDER / Unknown 01/25/2025 2:43 PM CDT 01/26/2025 6:44 AM CDT Tissue specimen (specimen) (Small Intestine) 01/25/2025 3:06 PM CDT 01/26/2025 6:44 AM CDT Tissue specimen (specimen) ENTIRE LIVER / Unknown 01/25/2025 3:24 PM CDT 01/26/2025 6:44 AM CDT Tissue specimen (specimen) ENTIRE LIVER / Unknown 01/25/2025 3:28 PM CDT 01/26/2025 6:44 AM CDT Tissue specimen (specimen) ENTIRE LIVER / Unknown 01/25/2025 3:42 PM CDT 01/26/2025 6:44 AM CDT Tissue specimen (specimen) ENTIRE LIVER / Unknown 01/25/2025 4:26 PM CDT 01/26/2025 6:44 AM CDT Tissue specimen (specimen) ENTIRE LIVER / Unknown 01/25/2025 4:26 PM CDT 01/26/2025 6:44 AM CDT Haley Gipson MD PATHOLOGY/CYTOLOGY ORD ERABLES Final Result [facility]# [id number] [address] [place] [address] * ME ANES INSERT CATH, ART, PERCUT, SHORTTERM (01/25/2025 1:57 PM CDT) Narrative Melonie Yanes AA-C - 01/25/2025 1:57 PM CDT Melonie Yanes AA-C 01/25/2025 2:34 PM Arterial Line Insertion Patient location during procedure: OR Staffing Performed: WEED CONTROL INSPECTOR/CAA Authorized by: Los Jay MD Performed by: Los Jay MD time out called Patient was prepped and draped in usual sterile fashion Indications: multiple ABGs and hemodynamic monitoring Hand hygiene performed prior to procedure Sterile Barriers: gloves, mask and cap Preparation: skin prepped with ChloraPrep Skin prep agent dried: skin prep agent completely dried prior to procedure Patient position: flat Location: left radial David's test performed David's test indicative of satisfactory collateral circulation Catheter type: radial kit Catheter size: 20 G [place] Identification: palpation technique Number of attempts: 1 Successful placement: yes Assessment: blood return through port Procedure uneventful Post-procedure: dressing applied and line secured Los Jay MD PROCEDURE/MINOR SURGICAL ORDERAB LES Edited Result - Final * ME ANES VNPNXR 3 YEARS/> PHYS/QHP SKILL, PERIPHERAL IV ADULT (01/25/2025 1:56 PM CDT) Narrative Los Jay MD - 01/25/2025 1:56 PM CDT Los Jay MD 01/25/2025 1:57 PM Peripheral Line Insertion Date/Time: 01/25/2025 1:56 PM Patient location during procedure: OR Staffing Performed: Anesthesiologist (/DO) Authorized by: Los Jay MD Performed by: Los Jay MD Preparation: Skin prepped with 2% chlorhexidine Location: right AC Ultrasound guided: yes Catheter size: 16 gauge Number of attempts: 1 Successful placement: yes Assessment: effective initial placement and positive blood return Procedure uneventful Los Jay MD PROCEDURE/MINOR SURGICAL ORDERAB LES Final Result * ME ANES VNPNXR 3 YEARS/> PHYS/QHP SKILL, PERIPHERAL IV ADULT (01/25/2025 1:56 PM CDT) Los Grimm MD - 01/25/2025 1:56 PM CDT Los Jay MD 01/25/2025 1:56 PM Peripheral Line Insertion Date/Time: 01/25/2025 1:56 PM Patient location during procedure: OR Staffing Performed: Anesthesiologist (/DO) Authorized by: Los Jay MD Performed by: Los Jay MD Preparation: Skin prepped with 2% chlorhexidine Location: right hand Catheter size: 18 gauge Number of attempts: 1 Successful placement: yes Assessment: effective initial placement and positive blood return Procedure uneventful us Los Jay MD PROCEDURE/MINOR SURGICAL ORDERAB LES Final Result * ME ANES INSERT ENDOTRACHEAL AIRWAY (01/25/2025 1:30 PM CDT) Los Grimm MD - 01/25/2025 1:30 PM CDT Los Jay MD 01/25/2025 1:56 PM Airway Date/Time: 01/25/2025 1:30 PM Location: OR Plan: elective intubation Patient Identity Confirmed by: Verbally with patient and armband Airway: not difficult Staffing Performed: WEED CONTROL INSPECTOR/CAA Authorized by: Los Jay MD Performed by: Los Jay MD Indications and Patient Condition: Indications for Airway Management: Anesthesia and airway protection Sedation Level: general anesthesia Preoxygenated: yes Patient Position: Sniffing Mask Difficulty Assessment: 2 - vent by mask + OA or adjuvant +/- NMBA Plan to extubate at end of case: Yes Final Airway Details: Final Airway Type: Endotracheal airway ETT Cuffed: Yes Technique Used for Successful ETT Placement: Direct laryngoscopy Devices/Methods Used in Placement: Anterior pressure/BURP and intubating stylet Blade Type: curved blade Blade Size: 2 Insertion Site: Oral ETT Size (mm): 6.0 Measured from: Teeth ETT to Teeth (cm): 21 Tube secured with: Tape Placement Verified by: auscultation, end tidal CO2 and chest rise Cormack-Lehane Classification: Grade I - full view of glottis Number of Attempts at Approach: 1 Additional Procedure Information: atraumatic and dentition unchanged Los Jay MD PROCEDURE/MINOR SURGICAL ORDERAB LES Final Result * VERIFICATION BLOOD GROUP (01/25/2025 11:45 AM CDT) ABO GROUP O 01/25/2025 12:43 PM CDT [facility] RH (D) TYPE Positive 01/25/2025 12:43 PM CDT [facility] Blood Venipuncture / Unknown 01/25/2025 11:45 AM CDT 01/25/2025 11:50 AM CDT Jayna Khanna MD BLOOD BANK ORDERABLES Final Result [facility] CLIA# [id number] [facility] [place] [address] * EKG 12-LEAD (01/09/2025 3:22 PM CDT) 01/09/2025 3:22 PM CDT Narrative INTERFACE SYSTEM - 01/09/2025 6:26 [place] [address] Test Date: 2025-01-09 Pat Name: PRINCESS DAY Department: [facility] Room: Gender: Female Size Changer: Danyelle : 1940 Requested By: HALEY MCNEIL Order Number: [id number] Isaac MD: Sd Long Measurements Intervals [place] Rate: 72 P: 55 ME: 158 QRS: -34 QRSD: 155 T: 66 QT: 435 QTc: 478 Interpretive Statements SINUS RHYTHM LEFT AXIS DEVIATION LEFT BUNDLE BRANCH BLOCK Electronically Signed On 01-09-2025 18:26:51 CDT by Sd Long Procedure Note Sd Long MD - 01/09/2025 [place] [address] Test Date: 2025-01-09 Pat Name: PRINCESS DAY Department: 100 Room: Gender: Female Size Changer: Dnayelle : 1940 Requested By: HALEY DAVIS Order Number: [id number] Reading MD: Sd Long Measurements Intervals [place] Rate: 72 P: 55 ME: 158 QRS: -34 QRSD: 155 T: 66 QT: 435 QTc: 478 Interpretive Statements SINUS RHYTHM LEFT AXIS DEVIATION LEFT BUNDLE BRANCH BLOCK Electronically Signed On 01-09-2025 18:26:51 CDT by Sd Long Haley Gipson MD ECG ORDERABLES Final Result INTERFACE SYSTEM Refer to clinic/hospital department * TYPE AND SCREEN (01/09/2025 3:17 PM CDT) Pathologist [facility] ABO GROUP O 01/09/2025 8:28 PM CDT [facility] RH (D) TYPE Positive 01/09/2025 8:28 PM CDT [facility] ANTIBODY SCREEN Negative 01/09/2025 8:28 PM CDT [facility] Blood Venipuncture / Unknown 01/09/2025 3:17 PM CDT 01/09/2025 4:35 PM CDT Haley Gipson MD BLOOD BANK ORDERABLES Edited Result - Final [facility] CLIA# [id number] [address] [place] [address] * CANCER ANTIGEN 19-9 (01/01/2025 9:25 AM CDT) CA 19-9 6 <34 U/mL [facility] Comment: This test was performed using the Siemens chemiluminescent method. Values obtained from different assay methods cannot be used interchangeably. CA 19-9 levels, regardless of value, should not be interpreted as absolute evidence of the presence or absence of disease. Test Performed at: [facility] [address] [place] [address] Ruddy Elmore MD Blood 01/01/2025 9:25 AM CDT 01/01/2025 10:02 AM CDT Haley Gipson MD CHEMISTRY ORDERABLES F inal Result Performing Organization Address [facility] de Phone Number [facility] [phone] [facility] [address] [place] [address] [place] [address] * CEA (01/01/2025 9:25 AM CDT) [facility] Signature CEA <2.0 See Note: ng/mL [facility] Comment: Reference Range: Non-Smoker: <2.5 Smoker: <5.0 This test was performed using the Siemens chemiluminescent method. Values obtained from different assay methods cannot be used interchangeably. CEA levels, regardless of value, should not be interpreted as absolute evidence of the presence or absence of disease. Test Performed at: [employer] [facility] [employer] [facility] [address] Ruddy Elmore MD Blood 01/01/2025 9:25 AM CDT 01/01/2025 10:02 AM CDT Haley Gipson MD CHEMISTRY ORDERABLES F inal Result Performing Organization Address [facility] Co de Phone Number [facility] [phone] [facility] [address] [place] [address] * MRI ABDOMEN W WO CONTRAST (12/29/2024 3:02 PM CDT) Anatomical Region Laterality Modality Abdomen Magnetic Resonan ce 12/29/2024 3:02 PM CDT Impressions 12/29/2024 3:10 PM CDT IMPRESSION: 1. Multiple (at least 8) bilobar hepatic lesions measuring up to 2.4 cm in hepatic segment 8, consistent with patient's biopsy-proven hepatic metastatic disease (neuroendocrine tumor). DICTATION LOCATION: Location Dong Jacobs Narrative 12/29/2024 3:10 PM CDT EXAMINATION: Abdominal MRI without and with contrast HISTORY: Neuroendocrine tumor TECHNIQUE: Multiplanar, multisequence images were obtained through the abdomen before and after the uneventful administration of intravenous gadolinium contrast (13 mL ProHance) according to routine protocol. COMPARISON: PET DOTATATE exam performed 12/28/2024 FINDINGS: Liver: Parenchyma: No evidence of hepatic steatosis. No evidence of cirrhosis. Focal lesions: Multiple (at least eight) T2 intermediate, arterial hyperenhancing, diffusion restricting lesions are noted throughout the liver (series 1001, image 35, 40, 48, 53, 56, and 62) with the largest measuring 2.4 x 2.2 cm in hepatic segment 8 (series 1001, image 40). Vasculature: The hepatic veins are normal. The portal veins are normal. Biliary tree: No significant intrahepatic or extrahepatic biliary ductal dilatation is identified. Gallbladder: Gallbladder fundal adenomyomatosis is noted. The gallbladder is otherwise normal in appearance. Spleen: Normal in size without focal lesion. Pancreas: Normal in appearance without focal lesion. No pancreatic ductal dilatation is identified. Adrenal glands: Normal in appearance without focal lesion. Kidneys: Normal in appearance without focal lesion. No hydronephrosis. Additional findings: The visible lung bases are clear. No suspicious intraosseous lesions are identified. No abdominal lymphadenopathy or ascites. Procedure Note Param Galeana MD - 12/29/2024 EXAMINATION: Abdominal MRI without and with contrast HISTORY: Neuroendocrine tumor TECHNIQUE: Multiplanar, multisequence images were obtained through the abdomen before and after the uneventful administration of intravenous gadolinium contrast (13 mL ProHance) according to routine protocol. COMPARISON: PET DOTATATE exam performed 12/28/2024 FINDINGS: Liver: Parenchyma: No evidence of hepatic steatosis. No evidence of cirrhosis. Focal lesions: Multiple (at least eight) T2 intermediate, arterial hyperenhancing, diffusion restricting lesions are noted throughout the liver (series 1001, image 35, 40, 48, 53, 56, and 62) with the largest measuring 2.4 x 2.2 cm in hepatic segment 8 (series 1001, image 40). Vasculature: The hepatic veins are normal. The portal veins are normal. Biliary tree: No significant intrahepatic or extrahepatic biliary ductal dilatation is identified. Gallbladder: Gallbladder fundal adenomyomatosis is noted. The gallbladder is otherwise normal in appearance. Spleen: Normal in size without focal lesion. Pancreas: Normal in appearance without focal lesion. No pancreatic ductal dilatation is identified. Adrenal glands: Normal in appearance without focal lesion. Kidneys: Normal in appearance without focal lesion. No hydronephrosis. Additional findings: The visible lung bases are clear. No suspicious intraosseous lesions are identified. No abdominal lymphadenopathy or ascites. IMPRESSION: 1. Multiple (at least 8) bilobar hepatic lesions measuring up to 2.4 cm in hepatic segment 8, consistent with patient's biopsy-proven hepatic metastatic disease (neuroendocrine tumor). DICTATION LOCATION: [address] Haley Gipson MD MR ORDERABLES Final Result * CT CHEST ABDOMEN PELVIS W CONT (12/29/2024 2:24 PM CDT) Anatomical Region Laterality Modality Chest Computed Tomogra phy 12/29/2024 2:10 PM CDT Impressions 12/30/2024 9:42 AM CDT IMPRESSION: Mediastinal adenopathy as described above. COMPUTED TOMOGRAPHY EXAMINATION OF THE ABDOMEN AND PELVIS WITH INTRAVENOUS CONTRAST ADMINISTRATION DATE: 12/29/2024 2:24 PM HISTORY: 84-year-old female presenting with neuroendocrine tumor for follow-up evaluation. . COMPARISON: PET/CT from December 28, 2024 TECHNIQUE: Following intravenous contrast administration, enhanced axial images of the abdomen and pelvis were obtained. FINDINGS: When compared to the recent PET/CT, hepatic lesions are identified, however they are better visualized on the PET/CT. A right hepatic lesion measuring approximately 2 cm is the best visualized lesion on today's exam. The kidneys demonstrate symmetric uptake and concentration of contrast. The adrenal glands, and pancreas appear normal. The gallbladder appears unremarkable. A small bowel lesion on the PET/CT including the region of involvement more defined on the PET/CT than on this examination. No free intraperitoneal air or fluid are present. The bladder is distended with urine. IMPRESSION: Intrahepatic metastatic disease as described above. Please read the report above for the findings of the chest CT. DICTATION LOCATION: Location 4 The examination was performed with the adjustment of mA according to the patient size and/or the use of Iterative Reconstruction Technique. Narrative 12/30/2024 9:42 AM CDT COMPUTED TOMOGRAPHY EXAMINATION OF THE CHEST WITH INTRAVENOUS CONTRAST DATE: 12/29/2024 2:24 PM HISTORY: 84-year-old female presenting with neuroendocrine tumor for follow-up evaluation. . COMPARISON: PET/CT from December 28, 2024 TECHNIQUE Axial images of the chest were obtained following intravenous contrast administration. IOPAMIDOL 61 % INTRAVENOUS SOLUTION (MULTI-DOSE BULK PACK) Given:80 mL FINDINGS: The lung rodriguez are clear. Mediastinal lymph nodes are present the largest measuring approximately 13 mm. No concerning axillary adenopathy is appreciated. No pneumothorax or pleural effusions are present. The mediastinal vascular structures enhance appropriately. Coronary artery calcifications are absent. Procedure Note Chris Browning MD - 12/30/2024 COMPUTED TOMOGRAPHY EXAMINATION OF THE CHEST WITH INTRAVENOUS CONTRAST DATE: 12/29/2024 2:24 PM HISTORY: 84-year-old female presenting with neuroendocrine tumor for follow-up evaluation. . COMPARISON: PET/CT from December 28, 2024 TECHNIQUE Axial images of the chest were obtained following intravenous contrast administration. IOPAMIDOL 61 % INTRAVENOUS SOLUTION (MULTI-DOSE BULK PACK) Given:80 mL FINDINGS: The lung rodriguez are clear. Mediastinal lymph nodes are present the largest measuring approximately 13 mm. No concerning axillary adenopathy is appreciated. No pneumothorax or pleural effusions are present. The mediastinal vascular structures enhance appropriately. Coronary artery calcifications are absent. IMPRESSION: Mediastinal adenopathy as described above. COMPUTED TOMOGRAPHY EXAMINATION OF THE ABDOMEN AND PELVIS WITH INTRAVENOUS CONTRAST ADMINISTRATION DATE: 12/29/2024 2:24 PM HISTORY: 84-year-old female presenting with neuroendocrine tumor for follow-up evaluation. . COMPARISON: PET/CT from December 28, 2024 TECHNIQUE: Following intravenous contrast administration, enhanced axial images of the abdomen and pelvis were obtained. FINDINGS: When compared to the recent PET/CT, hepatic lesions are identified, however they are better visualized on the PET/CT. A right hepatic lesion measuring approximately 2 cm is the best visualized lesion on today's exam. The kidneys demonstrate symmetric uptake and concentration of contrast. The adrenal glands, and pancreas appear normal. The gallbladder appears unremarkable. A small bowel lesion on the PET/CT including the region of involvement more defined on the PET/CT than on this examination. No free intraperitoneal air or fluid are present. The bladder is distended with urine. IMPRESSION: Intrahepatic metastatic disease as described above. Please read the report above for the findings of the chest CT. DICTATION LOCATION: Location 4 The examination was performed with the adjustment of mA according to the patient size and/or the use of Iterative Reconstruction Technique. Haley Gipson MD CT ORDERABLES Final Result * (ABNORMAL) POC CREATININE (12/29/2024 2:06 PM CDT) CREATININE POC 1.10(H) 0.50 - 1.00 mg/dL 12/29/2024 2:06 PM CDT [facility] Comment:The GFR result is no t clinically significant on patients <18 or >70 years of age. GFR POC 50 mL/min/1.7 3 sq meter 12/29/2024 2:06 PM CDT [facility] Comment:eGFR calculated with 2020 CKD-EPI equation. Vegetarian diet, extremely high or low muscle mass, and may affect results. Cystatin C with Glomerular Filtration Rate is a suitable alternative for these patients. 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 Evaluate lymph node metastasis adjacent to the primary malignancy that appears to be within the distal jejunum. Dictated by Dr. Rocco Boyer MD DICTATION LOCATION: Location 4 Narrative 12/28/2024 4:17 PM CDT PET/CT NEUROENDOCRINE TUMOR IMAGING WITH HARDWARE FUSION Initial treatment strategy DATE: 12/28/2024 3:46 PM PRIOR EXAM: No relevant imaging. HISTORY: Metastatic neuroendocrine carcinoma diagnosed from liver biopsy. PROCEDURE: Radiopharmaceutical: Gallium-68 Dotatate Injected activity: 5.3 mCi Injection site: Right antecubital vein Uptake time: [address] scan type: Skull base through mid thigh. CT technique: Noncontrast CT for attenuation correction and anatomic localization. Axial, sagittal, coronal and MIP images reviewed. Maximal SUVs have units of MBq/mL. Scan quality: Satisfactory. FINDINGS: Significant PET/CT findings: 2.7 cm malignancy involving small bowel opacification. 29.3. Adjacent central mesenteric 8 mm lymph node has an SUV of 10.3. Multiple hepatic metastases throughout the right lobe of the liver with dominant metastasis in hepatic segment 8 measuring 2.5 cm with an SUV of 23.6. Other smaller metastatic lesions are seen in hepatic segments 5 and 6. No metastatic pulmonary nodules. No adenopathy above the diaphragm. Incidental PET/CT findings: Expected patterns of PET activity within the pituitary gland, salivary glands, thyroid, liver, spleen and excreted within the urinary tract. The breasts are normal. Lung rodriguez are mildly underexpanded. Small calcified pulmonary nodule within the superior segment of the right upper lobe. The spleen, pancreas, adrenal glands and kidneys are normal extensive calcification of the infrarenal aorta and common iliac arteries. Hysterectomy. No PET avid skeletal sites of metastatic disease. Procedure Note Rocco Boyer MD - 12/28/2024 PET/CT NEUROENDOCRINE TUMOR IMAGING WITH HARDWARE FUSION Initial treatment strategy DATE: 12/28/2024 3:46 PM PRIOR EXAM: No relevant imaging. HISTORY: Metastatic neuroendocrine carcinoma diagnosed from liver biopsy. PROCEDURE: Radiopharmaceutical: Gallium-68 Dotatate Injected activity: 5.3 mCi Injection site: Right antecubital vein Uptake time: [address] scan type: Skull base through mid thigh. CT technique: Noncontrast CT for attenuation correction and anatomic localization. Axial, sagittal, coronal and MIP images reviewed. Maximal SUVs have units of MBq/mL. Scan quality: Satisfactory. FINDINGS: Significant PET/CT findings: 2.7 cm malignancy involving small bowel opacification. 29.3. Adjacent central mesenteric 8 mm lymph node has an SUV of 10.3. Multiple hepatic metastases throughout the right lobe of the liver with dominant metastasis in hepatic segment 8 measuring 2.5 cm with an SUV of 23.6. Other smaller metastatic lesions are seen in hepatic segments 5 and 6. No metastatic pulmonary nodules. No adenopathy above the diaphragm. Incidental PET/CT findings: Expected patterns of PET activity within the pituitary gland, salivary glands, thyroid, liver, spleen and excreted within the urinary tract. The breasts are normal. Lung rodriguez are mildly underexpanded. Small calcified pulmonary nodule within the superior segment of the right upper lobe. The spleen, pancreas, adrenal glands and kidneys are normal extensive calcification of the infrarenal aorta and common iliac arteries. Hysterectomy. No PET avid skeletal sites of metastatic disease. 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 Evaluate lymph node metastasis adjacent to the primary malignancy that appears to be within the distal jejunum. Dictated by Dr. Rocco Boyer MD DICTATION LOCATION: Location 4 Ran Mcmillan MD PE ORDERABLES Final Result * SEROTONIN LEVEL (12/19/2024 11:55 AM CDT) Blood Ran Mcmillan MD CHEMISTRY ORDERABLES Final Resu lt from Last 3 Months Insurance [facility] Advance Directives For more information, please contact: [phone] * Full Code (Latest Code Status on File) Date Activated Date Inactivated Comments 01/25/2025 9:16 PM 01/29/2025 4:35 PM * Full Code Date Activated Date Inactivated Comments 01/25/2025 10:47 AM 01/25/2025 9:16 PM
--- OUTSIDE RECORDS SUMMARY | 2025-02-28 10:08 | XMS_ITS ---
Author Organization [facility]anny Thacker Address [address] [place] [address] Care Team Providers Care Supervisor Ship Maintenance Services Name Role Phone Unavailable Primary Care Provider Unavailabl e Active Problems Problem Noted Date Diagnosed Date HTN (hypertension), benign 01/25/2025 Hyperlipidemia 01/25/2025 Heart disease 01/25/2025 Hypothyroidism 01/25/2025 CHF (congestive heart failure) 01/25/2025 GERD (gastroesophageal reflux disease) Malignant neoplasm of right female breast 2024 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 er 12/31/2024 Current Treatment and Therapy Plans No current plan information found. Past Treatment and Therapy Plans No past plan information found. Lifetime Dose Tracking * Chemical Lifetime Dose Automatic Entry Manual Entr y Effective Dose 23.85 mSv 23.85 mSv 0 mSv Total DLP 1,122.8 DLP 1,122.8 DLP 0 DLP CTDIvol Max 14.56 mGy 14.56 mGy 0 mGy
--- OUTSIDE RECORDS SUMMARY | 2025-02-28 10:08 | XMS_ITS | Encounter Summary ---
Author Organization Address [address] [place] [address] Care Team Providers Care Commercial Loan Processor Name Role Phone Unavailable Primary Care Provider Unavailabl e Encounter Details Date Type Department Care Team (Late st Contact Info) Description 02/27/2025 External Device Data [facility] ABSTRACTION Provider, Abstract NO ADDRESS ON FILE Social History Tobacco Use Types Packs/Day Years [...] Description 03/08/2025 9:45 AM CDT Office Visit [facility] Oncology and Hematology - [place] [address] [place] [phone] Ran Mcmillan MD [address] [phone] documented as of this encounter Visit Diagnoses Not on filedocumented in this encounter
--- OUTSIDE RECORDS SUMMARY | 2025-02-28 10:08 | XMS_ITS | Encounter Summary ---
Author Organization [facility] Address [address] [place] [address] Care Team Providers Care Advice Nurse Name Role Phone Unavailable Primary Care Provider [...] Description 03/08/2025 9:45 AM CDT Office Visit [facility] Oncology and Hematology - [place] [address] [place] [phone] Ran Mcmillan MD [address] [phone] documented as of this encounter Visit Diagnoses Not on filedocumented in this encounter
--- OUTSIDE RECORDS SUMMARY | 2025-02-28 10:08 | XMS_ITS | Referral Summary ---
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
--- OUTSIDE RECORDS SUMMARY | 2025-02-28 10:08 | XMS_ITS | Clinical Summary ---
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 3 Active dicyclomine (BENTYL) 20 [...] 01/05/2011 Surgical History Surgery Date Site/Laterality Comments [facility] APPENDECTOMY Appendectomy - (Added by TW Conv) [facility] EXC CYST/ABERRANT BREAST TISSUE OPEN 1/> LESION Breast Surgery Lumpectomy - (Added by TW Conv) [facility] TOTAL ABDOMINAL HYSTERECT W/WO RMVL TUBE OVARY [...] on file 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
[2025-02-28 10:23] LABS: Basophils Absolute Auto 0.1 K/mm3 (0.0-0.1); Basophils Percent Auto 1.1 % (0.2-1.2); Eosinophils Absolute Auto 0.5 K/mm3 (0-0.3); Eosinophils Percent Auto 6.2 % (0-4.4); Hematocrit 39.5 % (37.0-47.0); Hemoglobin 12.2 g/dL (12.0-15.0); Immature Granulocyte Absolute 0.05 K/mm3 (0.00-0.031); Immature Granulocyte Percent A 0.6 % (0-0.5); Lymphocytes Absolute Auto 1.38 K/mm3 (0.9-3.2); Lymphocytes Percent Auto 16.2 % (18.3-44.2); Mean Corpuscular HGB Conc 30.9 g/dl (32-36); Mean Corpuscular Hemoglobin 27.7 pg (26-34); Mean Corpuscular Volume 89.6 fl (80-100); Mean Platelet Volume 10.2 fl (7.4-10.4); Monocytes Absolute Auto 0.6 K/mm3 (0.1-0.6); Monocytes Percent Auto 6.9 % (2.6-8.5); Neutrophils Absolute Auto 5.9 K/mm3 (1.3-6.7); Platelet Count Result 346 k/mm3 (150-375); Red Blood Count 4.41 M/mm3 (4.2-5.4); Red Cell Distribution Width 13.5 % (11.5-14.5); White Blood Count 8.5 K/mm3 (4.5-10.0)
[2025-02-28 10:59] LABS: Alanine Aminotransferase 29 U/L (6-35); Albumin Level 4.2 g/dL (3.5-5.1); Alkaline Phosphatase 161 U/L (38-126); Anion Gap 13 mmol/L (4-12); Aspartate Amino Transferase 50 U/L (14-36); Bilirubin,Total 0.5 mg/dL (0.2-1.3); Blood Urea Nitrogen 19 mg/dL (7-17); Calcium 9.5 mg/dL (8.4-10.2); Carbon Dioxide 25 mmol/L (22-30); Chloride 102 mmol/L (98-107); Estimated Glomerular Filt Rate 45; Glucose 188 mg/dL (65-110); Sodium 140 mmol/L (137-145)
[2025-03-05 15:44] LABS: Serotonin 688 ng/mL (56-244)
== END 2025-02-28 10:01 | disposition home or self-care (01) ==
LOC: ANHLAB 10:02
PROVIDERS: PCP Nurse Practitioner; Visit Provider Internal Medicine Hematology & Oncology
DX: D3A.8 Other benign neuroendocrine tumors (principal)
CPT/HCPCS: 36415; 80053; 84260; 85025; 86316